=== PATIENT | male | born 1970 | race Caucasian/White ===

== ENCOUNTER 2017-10-26 14:00 | Inpatient (IN) | payer OTHER ==
[2017-10-26] MEDS ORDERED: DEXTROSE 5% IN WATER 100 ML with AMIODARONE 150 MG IV ONE (14:06)
--- NOTE | 2017-10-26 14:11 | ED ---
Chest Pain HPI - General Stated Complaint: seizures Time Seen by Provider: 10/26/17 14:06 - History of Present Illness Initial Comments: Patient presented with dizziness and weakness. According to EMS, he will has evidence of ST elevation on prehospital EKG. Also according to EMS, the patient had 3 episodes of syncope with shaking prior to arrival. Patient complains of nausea and vomiting. He complains of generalized weakness. He has tightness in the thorax. He denies any belly pain. He does feel lightheaded. He has no focal weakness. He has no neck pain. He denies injuries. He has no pain or swelling in the arms or legs. He was given aspirin by EMS just prior to arrival. - Related Data Allergies Allergy/AdvReac Type Severity Reaction Status Date / Time No Known Allergies Allergy Verified 10/26/17 14:10 Review of Systems ROS Statement: Those systems with pertinent positive or pertinent negative responses have been documented in the HPI. ROS Other: All systems not noted in ROS Statement are negative. EKG Findings - EKG Comments: EKG Findings:: Twelve-lead EKG shows ventricular rate 123 bpm, normal KS interval and Zane, axis, there is ST elevation in leads V2, V3, V4 with reciprocal changes. This is interpreted by me as acute ST elevation myocardial infarction. General Exam General appearance: alert, in no apparent distress Head exam: Present: atraumatic, normocephalic, normal inspection Eye exam: Present: normal appearance, PERRL, EOMI. Absent: scleral icterus, conjunctival injection, periorbital swelling ENT exam: Present: normal exam, mucous membranes moist Neck exam: Present: normal inspection. Absent: tenderness, meningismus, lymphadenopathy Respiratory exam: Present: normal lung sounds bilaterally. Absent: respiratory distress, wheezes, rales, rhonchi, stridor Cardiovascular Exam: Present: regular rate, normal rhythm, normal heart sounds. Absent: systolic murmur, diastolic murmur, rubs, gallop, clicks GI/Abdominal exam: Present: soft, normal bowel sounds. Absent: distended, tenderness, guarding, rebound, rigid Extremities exam: Present: normal inspection, full ROM, normal capillary refill. Absent: tenderness, pedal edema, joint swelling, calf tenderness Back exam: Present: normal inspection Neurological exam: Present: alert, oriented X3, CN II-XII intact Psychiatric exam: Present: normal affect, normal mood Skin exam: Present: warm, dry, intact, normal color. Absent: rash Chest Pain MDM - Core Measures AMI Core Measures Followed: Yes - MDM Patient presents with chest tightness, nausea and vomiting, twelve-lead EKG shows STEMI. I did consult cardiology. Patient went into V. tach, therefore I gave him 150 mg IV amiodarone, and started him on an amiodarone drip. Will be admitted directly to the cardiac catheterization lab. Disposition Clinical Impression: STEMI (ST elevation myocardial infarction) Disposition: ADMITTED IP TO THIS HOSP Condition: Serious Is patient prescribed a controlled substance at d/c from ED?: No Referrals: Cynthia Mauricio MD [Primary Care Provider] - 1-2 days
[2017-10-26] MEDS ORDERED: SODIUM CHLORIDE 0.9% 1,000 ML IV ONE (14:12)
[2017-10-26] MEDS ORDERED: MORPHINE SULFATE 4 MG/0.8 ML SYRINGE (INJ) IV PRN (14:14)
[2017-10-26] MEDS ORDERED: ONDANSETRON 4 MG/2 ML VIAL IVP PRN (14:14)
[2017-10-26] MEDS ORDERED: NALOXONE 0.4 MG/ML 1 ML VIAL IV PRN (14:14)
[2017-10-26] MEDS ORDERED: traMADol 50 MG TAB PO PRN (14:14)
[2017-10-26] MEDS ORDERED: AMIODARONE 450 MG in DEXTROSE 5% IN WATER 250 ML IV ONE ×6 (14:15→14:20)
[2017-10-26] MEDS ORDERED: AMIODARONE 450 MG in DEXTROSE 5% IN WATER 250 ML IV SCH ×4 (14:15→22:00)
--- NOTE | 2017-10-26 14:20 | XR ---
EXAMINATION TYPE: XR chest 1V portable DATE OF EXAM: 10/26/2017 COMPARISON: 07/27/2011 HISTORY: Chest pain TECHNIQUE: Single frontal view of the chest is obtained. FINDINGS: There is no focal air space opacity, pleural effusion, or pneumothorax seen. The cardiac silhouette size is within normal limits. The osseous structures are intact. Arthropathy of the shou lders. No overt failure. IMPRESSION: No acute process.
[2017-10-26] MEDS ORDERED: fentaNYL (PF) 50 MCG/ML 2 ML AMP ONE (14:23)
[2017-10-26] MEDS ORDERED: LIDOCAINE 2% INJ 20 MG/ML (20 ML MDV) ONE (14:23)
[2017-10-26] MEDS ORDERED: MIDAZOLAM 2 MG/2 ML VIAL ONE (14:28)
[2017-10-26] MEDS ORDERED: MIDAZOLAM 2 MG/2 ML VIAL IVP ONE (14:29)
[2017-10-26] MEDS ORDERED: BIVALIRUDIN BOLUS 250 MG/50 ML IV ONE (14:29)
[2017-10-26] MEDS ORDERED: LIDOCAINE 2% SYG (PF) 100 MG/5 ML IV ONE (14:30)
[2017-10-26] MEDS ORDERED: LIDOCAINE 2% SYG (PF) 100 MG/5 ML ONE (14:30)
[2017-10-26] MEDS ORDERED: BIVALIRUDIN 250 MG in SODIUM CHLORIDE 0.9% 50 ML IV ONE (14:30)
[2017-10-26] MEDS ORDERED: TICAGRELOR 90 MG TAB PO ONE (14:30)
[2017-10-26] MEDS ORDERED: TICAGRELOR 90 MG TAB ONE (14:30)
[2017-10-26] MEDS ORDERED: DEXTROSE 5% IN WATER 50 ML BAG ONE (14:30)
[2017-10-26] MEDS ORDERED: AMIODARONE 50 MG/ML 3 ML VIAL IV ONE (14:30)
[2017-10-26] MEDS ORDERED: fentaNYL (PF) 50 MCG/ML 2 ML AMP IVP ONE (14:30)
[2017-10-26] MEDS ORDERED: NITROGLYCERIN 1000MCG/10ML SYRINGE INTRACORON ONE (14:35)
[2017-10-26 14:37] LABS: Anisocytosis Slight; Basophils % (A) 0 %; Eosinophils % (A) 0 %; HCT 23.9 % (39.0-53.0); Hypochromasia Marked; Lymphocytes # (A) 1.1 k/uL (1.0-4.8); Lymphocytes % (A) 7 %; MCH 18.7 pg (25.0-35.0); MCHC 26.9 g/dL (31.0-37.0); MCV 69.4 fL (80.0-100.0); Mean Platelet Volume 6.3; Microcytosis Marked; Monocytes # (A) 0.4 k/uL (0-1.0); Monocytes % (A) 3 %; Neutrophils # (A) 14.4 k/uL (1.3-7.7); Neutrophils % (A) 89 %; Poikilocytosis Moderate; RBC 3.44 m/uL (4.30-5.90); WBC 16.1 k/uL (3.8-10.6)
[2017-10-26 14:40] LABS: ALT 39 U/L (21-72); AST 27 U/L (17-59); Albumin 3.2 g/dL (3.5-5.0); Alkaline Phosphatase 95 U/L (38-126); Anion Gap 14 mmol/L; Blood Urea Nitrogen 26 mg/dL (9-20); Calcium 8.6 mg/dL (8.4-10.2); Carbon Dioxide 21 mmol/L (22-30); Chloride 102 mmol/L (98-107); Glucose 192 mg/dL (74-99); HGB 6.4 gm/dL (13.0-17.5); Lipase 127 U/L (23-300); Magnesium 2.3 mg/dL (1.6-2.3); Potassium 4.4 mmol/L (3.5-5.1); Sodium 137 mmol/L (137-145); Total Bilirubin 0.2 mg/dL (0.2-1.3); Total Protein 5.8 g/dL (6.3-8.2)
[2017-10-26 14:41] LABS: Platelet Count 833 k/uL (150-450)
[2017-10-26 14:47] LABS: Partial Thromboplastin Time 21.1 sec (22.0-30.0); Prothrombin Time 9.7 sec (9.0-12.0)
[2017-10-26] MEDS ORDERED: METOPROLOL TARTRATE 5 MG/5 ML VIAL IVP ONE ×2 (14:47→14:48)
--- NOTE | 2017-10-26 14:47 | CONS ---
CONSULTATION Mr. Velazquez is 47-year-old male with history of smoking, history of inflammatory bowel disease on prednisone who presented with symptoms of dizziness going on for the last few days, but in the EMS, he had runs of VT with loss of consciousness and seizure in the emergency room. He was having episode of nonsustained VT. On the EKG, there was ST elevation anteriorly with right bundle branch block of unknown duration. Patient denies any symptoms of chest pain. He has dyspnea on exertion, peripheral edema according to him for the last week. He denies any prior cardiac history. He denies any knowledge of obstructive coronary artery disease or congestive heart failure. MEDICATION: At home include the prednisone. REVIEW OF SYSTEMS: RESPIRATORY SYSTEM. He has dyspnea on exertion. No recent wheezing. GI SYSTEM: He has her inflammatory bowel disease. No recent GI bleeding. SYSTEM: No dysuria or hematuria. NERVOUS SYSTEM: No stroke or seizure. PHYSICAL EXAMINATION: He is a 47-year-old male, moderately unstable. Blood pressure 100/70 with a heart rate in the 110's. HEAD: Normocephalic. EYES: Sclerae nonicteric. NECK: No bruit. LUNGS: Show decreased air exchange bilaterally. HEART: Regular rate and rhythm. Tachycardic, S1, S2. Unable to appreciate any gallop. ABDOMEN: Soft, nontender. Positive bowel sounds, no organomegaly. EXTREMITIES: +2 edema bilaterally. EKG reveals sinus mechanism, rate of 122 with right bundle branch block and history of elevation anteriorly of unknown duration. IMPRESSION: 1. Acute myocardial infarction. 2. Right bundle branch block of unknown duration. 3. Recurrent episode of ventricular tachycardia. 4. History of inflammatory bowel disease. RECOMMENDATION: I have recommended to proceed with emergent cardiac catheterization to assess the status and guide his treatment. The rationale behind the procedure as well as the risks and complications were discussed with the patient, who is in full understanding and agreement. Patient will receive IV lidocaine and he will be started on IV amiodarone. The prognosis is guarded. Thank you for this consult. Will follow with you. ZAID / ELZBIETA: [id number] /
[2017-10-26] MEDS ORDERED: IOPAMIDOL-370 125ML BTL INJ ONE (14:50)
[2017-10-26] MEDS ORDERED: IOPAMIDOL-370 100ML BTL INJ ONE (14:50)
[2017-10-26] MEDS ORDERED: MAG HYDROX/AL HYDROX/SIMETH 30 ML CUP PO PRN (15:04)
[2017-10-26] MEDS ORDERED: ATROPINE SULFATE 0.1 MG/ML 10ML SYRINGE IV PRN (15:04)
[2017-10-26] MEDS ORDERED: ZOLPIDEM 5 MG TAB PO PRN (15:04)
[2017-10-26] MEDS ORDERED: RX INFO: IV CONTRAST WAS GIVEN 1 EACH MISC MISCELLANE PRN (15:04)
[2017-10-26] MEDS ORDERED: NITROGLYCERIN SL TABS 0.4 MG TAB SUBLINGUAL PRN (15:04)
[2017-10-26 15:11] LABS: Creatine Kinase MB 3.7 ng/mL (0.0-2.4); Troponin I 0.611 ng/mL (0.000-0.034)
[2017-10-26] MEDS ORDERED: SODIUM CHLORIDE 0.9% 1,000 ML IV SCH (15:15)
[2017-10-26] MEDS ORDERED: HYDROCORTISONE SUCCINATE 100 MG/2 ML VIAL IV STA (15:24)
--- NOTE | 2017-10-26 15:44 | P.CNPUL ---
History of Present Illness Consult date: 10/26/17 Requesting physician: Margarita Wild Reason for consult: other (Acute ST elevation myocardial infarction, admitted to the ICU) Chief complaint: Seizures History of present illness: This is a 47-year-old white male with history of inflammatory bowel disease, follows normally with Dr. White. Patient was brought in with mostly symptoms of dizziness, for the last few days. But in EMS, the patient had apparently runs of ventricular tachycardia with intermittent loss of consciousness, and seizure-like activity. Patient apparently had nonsustained ventricular tachycardia, and upon arrival he was noted to have ST elevation anteriorly with right bundle branch block pattern. Patient had dyspnea on exertion profound peripheral edema, but no chest pain. And no documented cardiac history. Patient underwent straight to the cardiac catheterization lab, and he underwent stenting of a tight lesion of the LAD. According to EMS, patient had at least 3 episodes of syncope with shaking prior to arrival to the ER. He was complaining of generalized weakness, and some tightness in the chest. Aspirin was given by EMS prior to arrival to the ER. During the cardiac catheterization , the CBC report came back showing a hemoglobin of 6.4. With low indices, low MCV, and low MCH, consistent with chronic iron deficiency anemia and his platelets were noted to be quite high at [id number]. Troponin was noted to be elevated at 0.611 BNP level of 2700. Chest x-ray showed no evidence of acute process. I was notified about this patient by Dr. Wild shortly after he was done with a cardiac catheterization, and I evaluated the patient in the extended stay unit, awaiting a bed in the intensive care unit. After evaluating the patient, I recommended O2 at 3 L nasal cannula, his saturations were marginal in the low 90s, I also recommended a unit of packed RBCs and considering the patient is on a high-dose of prednisone for a long time, I recommended one dose of hydrocortisone 100 mg IV push until we have more information about his prednisone dosing by gastroenterology. Apparently the patient has history of colitis, and has been on prednisone for quite some time. During my evaluation, patient was sedated, however he was arousable, followed all simple instructions, but overall a bit drowsy. Review of Systems Could not obtain an adequate review of system, patient is drowsy, in no distress , apparently was given sedation earlier during the cardiac catheterization. ROS unobtainable: due to mental status Past Medical History Past Medical History: Asthma Additional Past Medical History / Comment(s): IBS History of Any Multi-Drug Resistant Organisms: None Reported Past Surgical History: No Surgical Hx Reported Past Psychological History: No Psychological Hx Reported Smoking Status: Never smoker Past Alcohol Use History: None Reported Past Drug Use History: None Reported Medications and Allergies Allergies Allergy/AdvReac Type Severity Reaction Status Date / Time No Known Allergies Allergy Verified 10/26/17 14:10 Physical Exam Vitals: Vital Signs Temp Pulse Resp BP Pulse Ox 10/26/17 14:10 112 H 20 117/78 97 10/26/17 14:03 97.4 F L 120 H 20 161/90 Intake and Output 10/26/17 10/26/17 10/26/17 06:59 14:59 22:59 Intake Total 319 Balance 319 Intake: IV 319 Other: Weight 65.771 kg General appearance: Pale looking 47-year-old in no distress, sleepy but arousable. Head exam: Atraumatic, normocephalic. Eye exam: Pale conjunctivae, PERRLA, EOMI, anicteric. ENT exam: Dry mucous membranes, throat is clear. Neck exam: Supple, no neck masses, no thyromegaly, no stridor. Respiratory exam: Diminished breath sounds at the bases, symmetrical expansion, no crackles, no rhonchi no wheezes. Cardiovascular Exam: Distant S1 and S2, no S3 gallop, no murmur. GI/Abdominal exam: Flat, soft, nontender, no megaly, no rebound, no guarding, positive bowel sounds. Extremities exam: No clubbing, 2+ bipedal edema, no cyanosis.n Neurological exam: Sleepy, however arousable, but tends to sleep easily, follows simple instructions, no gross focal neurologic deficit. Psychiatric exam: Blunted affect, cannot assess mental status examination fully because of sedation. Skin exam: Present: warm, dry, intact, normal color. Absent: rash Results - Laboratory Findings CBC and BMP: 10/26/17 14:05 10/26/17 14:05 PT/INR, D-dimer PT 9.7 sec (9.0-12.0) 10/26/17 14:05 INR 1.0 (<1.2) 10/26/17 14:05 Abnormal lab findings: Abnormal Labs 10/26/17 10/26/17 10/26/17 14:05 14:05 14:05 WBC 16.1 H RBC 3.44 L Hgb 6.4 L* Hct 23.9 L MCV 69.4 L MCH 18.7 L MCHC 26.9 L RDW 17.0 H Plt Count 833 H* Neutrophils # 14.4 H APTT Carbon Dioxide 21 L BUN 26 H Glucose 192 H Total Creatine Kinase 41 L CK-MB (CK-2) 3.7 H* Troponin I 0.611 H* Total Protein 5.8 L Albumin 3.2 L 10/26/17 14:05 WBC RBC Hgb Hct MCV MCH MCHC RDW Plt Count Neutrophils # APTT 21.1 L Carbon Dioxide BUN Glucose Total Creatine Kinase CK-MB (CK-2) Troponin I Total Protein Albumin - Diagnostic Findings Chest x-ray: image reviewed (No evidence of acute process on the chest x-ray noted.) Assessment and Plan Assessment: Impression: [address] elevation myocardial infarction 2 status post stenting of LAD lesion 3 recurrent ventricular tachycardia most likely secondary to acute ST elevation myocardial infarction 4 right bundle branch block pattern noted on EKG duration is unclear. Unknown. 5 severe iron deficiency anemia, most likely secondary to inflammatory bowel disease, patient will be given a unit of packed RBCs and will recommend GI evaluation. Considering the patient is chronically on prednisone, will recommend one dose of hydrocortisone 100 mg IV push, and will decide on that dosing in the next 12 hours after discussing the situation with gastroenterology staff. 6 history of inflammatory bowel disease, not clear whether the patient had Crohn 's disease or ulcerative colitis. Patient will be seen by gastroenterology on consultation. Recommendation: Admit to ICU, start patient on hydrocortisone, give 1 unit of packed RBCs, GI consultation, close monitoring, and will follow. Time with Patient: Greater than 30
[2017-10-26 18:42] LABS: Glucose,Whole Blood 139 mg/dL (75-99)
[2017-10-26 18:55] VITALS: BMI 22.1
[2017-10-26] MEDS: FUROSEMIDE 20 MG TAB PO SCH (19:06)
--- NOTE | 2017-10-26 19:51 | PTCA ---
PERCUTANEOUSTRANS CORORONARY ANGIOGRAPHY Mr. Velazquez is 47-year-old male who presented with recurrent ventricular tachycardia, had the right bundle branch block and ST elevation anteriorly. Underwent cardiac catheterization, was found to have critical stenosis involving the mid LAD. In view of that, recommendation was made regarding angioplasty and stenting. The procedures, risks and complications were discussed with the patient who is in full understanding and agreement. DESCRIPTION OF THE PROCEDURE: Using the 6-Senegalese FR4 guiding catheter and after cannulating the left main, a 0.014 advanced medium weight J-wire was advanced across the lesion and positioned distally. Then a 2.5 x 12 mm Trek balloon was advanced. One inflation at 8 atmospheres was done. Following that, the balloon was removed and a 3.0 x 28 mm Xience Alpine stent was deployed. It was dilated at 16 atmospheres. Following that, the balloon was removed and 3.25 x 12 mm NC Trek balloon was advanced and one inflation mid segment at 14 atmospheres was done. Following that, the balloon, and the guiding wire were withdrawn back in the guiding catheter. Images were obtained and repeated. Those images revealed stable successful stenting. At that point, images of the right coronary artery and left ventriculogram was performed. Following that, catheter and sheaths were removed. Hemostasis was obtained with deployment of an Angio-Seal. There was no immediate complication. Patient is returned to his room in stable condition. Of note, he received Angiomax per protocol as well as oral loading dose of Brilinta. During the procedure, his lab data came back with a hemoglobin of 6.4. RESULT: Successful stenting of the mid LAD with reduction in stenosis from 90% to 0%. RECOMMENDATION: Patient will be continued on aspirin, Brilinta, beta blockers and statin. The importance of dual antiplatelet treatment were discussed with the patient. His anemia will be further evaluated and we will obtain consultation from Dr. Blanco who has seen him in the past. Duration of procedure: 31 minutes. MMODL / IJN: [id number] /
--- NOTE | 2017-10-26 20:00 | CC ---
CARDIAC CATHETERIZATION REPORT Mr. Velazquez is 47-year-old male with no prior documented history of coronary artery disease. For the last week or so, according to him, he has been having progressive symptoms of dizziness. En route to the hospital with EMS, he had runs of ventricular tachycardia and syncopal episode with seizure in the emergency room. He was in and out of ventricular tachycardia with a sinus mechanism, right bundle branch block and ST elevation anteriorly. In view of that, recommendation made regarding cardiac catheterization. The procedure, risks, benefits and complication were discussed with the patient, who is in full understanding and agreement. 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 Using Xylocaine anesthesia and Seldinger technique, a 6-Venezuelan sheath was introduced in the right femoral artery. Selective right and left angiography performed using 6-Venezuelan FL4 guiding catheter and a 6-Venezuelan right Antwan catheter. After performing angioplasty and stenting of the left and descending artery, imaging of the right coronary was performed. Following that, a 6-Venezuelan tight pigtail catheter was used in the left ventricle and a 30-degree RAMIREZ view of the left ventricle was obtained. Following that, catheter and sheath were removed. Hemostasis was obtained with deployment of an Angio-Seal. There was no immediate complication. Patient was returned to his room in stable condition. FINDINGS: Left main: This is a large-sized vessel, bifurcating into left circumflex, left anterior descending artery, left main coronary artery. It is without any significant obstructive disease. Left anterior descending artery: This vessel is large proximally, at the takeoff of the first diagonal branch has a 90%-95% stenosis. Beyond that, there is slower flow into the distal vessel. Left circumflex: This is a nondominant vessel, large in caliber, giving rise to a large obtuse marginal branch. The left circumflex as well as its branches have no evidence of obstructive coronary disease. Right coronary artery: This is a large dominant vessel, bifurcating into PDA and posterolateral segment branches. The right PDA reaches toward the inferior apical wall, has no evidence of high-grade stenosis. There is a septal inside sales engineer toward the LAD territory. Left ventriculogram: Left ventriculogram is performed in 30-degree RAMIREZ view and revealed anterior apical hypokinesis and ejection fraction 35%-40%. HEMODYNAMICS: There was no gradient across aortic valve. The left ventricular end-diastolic pressure was 26-30 mmHg. CONCLUSION: 1. Critical stenosis involving the mid left anterior descending. 2. Moderately to severely impaired left ventricular systolic function. RECOMMENDATION: In view of finding anatomy, I have recommended proceeding with angioplasty and stenting. The procedure, risks, benefits and complication were discussed with the patient, who is in full understanding and agreement. MMSETH / ARAN: [id number] /
[2017-10-26] MEDS ORDERED: METOPROLOL TARTRATE 25 MG TAB PO SCH (21:00)
[2017-10-26] MEDS: FAMOTIDINE 20 MG TAB PO SCH (21:36)
[2017-10-26] MEDS: TICAGRELOR 90 MG TAB PO SCH (21:37)
[2017-10-26] MEDS: ATORVASTATIN 80 MG TAB PO SCH (21:37)
--- NOTE | 2017-10-26 22:51 | HP ---
HISTORY AND PHYSICAL DATE OF SERVICE: 10/26/2017 CHIEF COMPLAINT: Seizures. HISTORY OF PRESENT ILLNESS: This 47-year-old gentleman with a past medical history of multiple medical problems, including asthma and inflammatory bowel disease, being followed by Dr. Mauricio and Dr. Blanco in the outpatient setting, was found to have seizures at home. EMS found the patient in recurrent ventricular tachycardia with right bundle branch block and ST- elevation anteriorly. The patient also had episodes of syncope and the patient was admitted to ICU directly. The patient had critical stenosis of the mid LAD and the patient underwent successful stenting of the LAD with reduction in stenosis from 90% to 0% by Cardiology. The patient is being closely monitored. Of note, patient's hemoglobin was 6; exact etiology unknown at this time. Patient is being closely monitored in the ICU. There is no history of any fever, rigor or chills. No history of headache, loss of consciousness, seizures. PAST MEDICAL HISTORY: 1. History of asthma. 2. Irritable bowel syndrome. HOME MEDICATIONS: 1. Prednisone 10 mg daily. 2. Multivitamins 1 p.o. daily. ALLERGIES: NONE. FAMILY HISTORY: None per patient. SOCIAL HISTORY: No history of smoking. No history of alcohol intake. REVIEW OF SYSTEMS: ENT: No diminished hearing. No diminished vision. CARDIOVASCULAR SYSTEM: As mentioned earlier. RESPIRATORY SYSTEM: As mentioned earlier. GI: As mentioned earlier. : No dysuria or retention. NERVOUS SYSTEM: As mentioned earlier. ALLERGY/IMMUNOLOGY: No asthma, hayfever. MUSCULOSKELETAL: As mentioned earlier. HEMATOLOGY/ONCOLOGY: No history of anemia. ENDOCRINE: As mentioned earlier. CONSTITUTIONAL: As mentioned earlier. DERMATOLOGY: Negative. RHEUMATOLOGY: Negative. PSYCHIATRY: As mentioned earlier. PHYSICAL EXAMINATION: Patient alert and oriented x3. Pulse is 83, blood pressure 116/77, respiration 20, temperature 97.9, pulse ox 99% on room air. HEENT: Conjunctivae normal. Oral mucosa moist. NECK: No jugular venous distention. No carotid bruit. No lymph node enlargement. CARDIOVASCULAR SYSTEM: S1, S2 muffled. RESPIRATORY SYSTEM: Breath sounds diminished at the bases. No rhonchi. No crackles. ABDOMEN: Soft, nontender. No mass palpable. LEGS: No edema. No swelling. NERVOUS SYSTEM: Higher functions as mentioned earlier. Moves all 4 limbs. No focal motor or sensory deficit. LYMPHATICS: No lymph node palpable in neck, axillae or groin. SKIN: No ulcer, rash, bleeding. LABS: WBC 16.1, hemoglobin 6.4. Troponins noted. ASSESSMENT: 1. Recurrent ventricular tachycardia. 2. Acute dcu-LV-opbadnl-elevation myocardial infarction, status post cardiac catheterization and stenting of left anterior descending coronary artery. 3. Anemia, microcytic, possibly chronic gastrointestinal blood loss and blood-loss anemia, possibly secondary to inflammatory bowel disease. 4. History of inflammatory bowel disease. 5. History of asthma. 6. Increased creatine kinase. RECOMMENDATIONS AND DISCUSSION: In this 47-year-old gentleman who presented with multiple complex medical issues, we will monitor the patient closely, continue the current medications, continue with symptomatic treatment. Otherwise at this time I recommend continuing with the antiplatelet agents, beta blockers as well as monitoring hemoglobin closely. One unit transfusion has been given. Gastroenterology has been consulted. Repeat labs will be ordered. The patient also received a dose of steroids because of concern about long- term steroid and adrenal suppression also. Overall prognosis guarded. Will consult Dr. Thorpe for ICU evaluation and further recommendations to follow. A copy of this dictation is being forwarded to Dr. Mauricio, who is the primary physician. MMODL / IJN: [id number] /
[2017-10-26 23:58] LABS: Anisocytosis Slight; Basophils % (A) 0 %; Eosinophils % (A) 0 %; HCT 23.4 % (39.0-53.0); Hypochromasia Marked; Lymphocytes # (A) 1.2 k/uL (1.0-4.8); Lymphocytes % (A) 8 %; MCHC 27.7 g/dL (31.0-37.0); MCV 72.2 fL (80.0-100.0); Mean Platelet Volume 5.9; Microcytosis Marked; Monocytes # (A) 0.7 k/uL (0-1.0); Monocytes % (A) 5 %; Neutrophils % (A) 86 %; Platelet Count 576 k/uL (150-450); Poikilocytosis Marked; RBC 3.23 m/uL (4.30-5.90); RDW 18.7 % (11.5-15.5); WBC 15.1 k/uL (3.8-10.6)
[2017-10-27 00:12] LABS: HGB 6.5 gm/dL (13.0-17.5)
[2017-10-27 03:53] LABS: Amphetamine Screen,Urine Detected (NotDetected); Barbiturate Screen,Urine Not Detected (NotDetected); Benzodiazepines Screen,Urine Not Detected (NotDetected); Cocaine Screen,Urine Not Detected (NotDetected); Methadone Screen, Urine Not Detected (NotDetected); Opiate Screen,Urine Detected (NotDetected); Oxycodone Screen, Urine Not Detected (NotDetected); Phencyclidine Screen,Urine Not Detected (NotDetected); Tricyclic Antidepressant,Urine Not Detected (NotDetected); Urn Cannabinoid Scrn Not Detected (NotDetected)
[2017-10-27 04:00] LABS: Anisocytosis Slight; Basophils % (A) 0 %; Eosinophils % (A) 0 %; HCT 24.4 % (39.0-53.0); Hypochromasia Marked; Lymphocytes % (A) 11 %; MCH 20.4 pg (25.0-35.0); MCHC 27.8 g/dL (31.0-37.0); MCV 73.4 fL (80.0-100.0); Mean Platelet Volume 6.2; Microcytosis Moderate; Monocytes # (A) 0.9 k/uL (0-1.0); Monocytes % (A) 5 %; Neutrophils % (A) 83 %; Platelet Count 627 k/uL (150-450); Poikilocytosis Marked; RBC 3.33 m/uL (4.30-5.90); RDW 18.6 % (11.5-15.5); WBC 18.1 k/uL (3.8-10.6)
[2017-10-27 04:02] LABS: HGB 6.8 gm/dL (13.0-17.5)
[2017-10-27 04:13] LABS: Anion Gap 10 mmol/L; Blood Urea Nitrogen 23 mg/dL (9-20); Calcium 8.4 mg/dL (8.4-10.2); Carbon Dioxide 21 mmol/L (22-30); Chloride 105 mmol/L (98-107); Cholesterol 137 mg/dL (<200); Glucose 108 mg/dL (74-99); HDL Cholesterol 62 mg/dL (40-60); LDL Cholesterol,Calculated 41 mg/dL (0-99); Magnesium 2.2 mg/dL (1.6-2.3); Phosphorus 4.5 mg/dL (2.5-4.5); Potassium 4.2 mmol/L (3.5-5.1); Sodium 136 mmol/L (137-145); Triglycerides 169 mg/dL (<150)
--- NOTE | 2017-10-27 07:32 | XR ---
EXAMINATION TYPE: XR chest 1V portable DATE OF EXAM: 10/27/2017 COMPARISON: 10/26/2017 HISTORY: Chest pain TECHNIQUE: Single frontal view of the chest is obtained. FINDINGS: There is no focal air space opacity, pleural effusion, or pneumothorax seen. The cardiac silhouette size is within normal limits. The osseous structures are intact. There is moderate gleno humeral arthropathy bilaterally and mild acromioclavicular arthropathy. IMPRESSION: No acute cardiopulmonary process, unchanged from the prior.
--- NOTE | 2017-10-27 08:03 | PN ---
PROGRESS NOTE Mr. Velazquez is a 47-year-old male who presented with recurrent episode of ventricular tachycardia. He has underwent a cardiac catheterization and was found to have a critical stenosis in the mid LAD and underwent stenting of that vessel. He is doing well this morning. His breathing has been stable. He denies any dizziness or palpitation. He has no further arrhythmia. He continues to be on aspirin twice a day, amiodarone IV, Lipitor 80 mg daily, Lasix 20 mg twice a day, lisinopril 2.5 mg daily, and metoprolol tartrate 25 mg twice a day, spironolactone 25 mg daily and Brilinta 90 mg twice a day. PHYSICAL EXAMINATION: Blood pressure 126/80 with a heart rate in the 80s. LUNGS: Clear. Heart regular rate and rhythm S1, S2. No S3. No rub. ABDOMEN: Soft, nontender. Extremities +1 to 2 edema. Right groin hematoma. LAB DATA: Lab data revealed a hemoglobin of 6.8. Patient was transfused another unit after. He has had white blood cell of 18.1. BUN and creatinine 23 and 0.8. Troponin 0.541 and 0.708. Cholesterol 137, LDL of 41. IMPRESSION: 1. Status post recurrent ventricular tachycardia. 2. Status post stenting of the LAD with minimal troponin elevation. 3. Ischemic cardiomyopathy of unknown duration. 4. Severe anemia with prior history of colitis. 5. History of tobacco abuse. RECOMMENDATION: I will switch him to oral amiodarone. We will await the input of Dr. Blanco regarding his anemia. We will increase his level activity in the dose of his beta vannessa. The etiology of his arrhythmia is unclear to me at this time. Patient does not appear to have significant myocardial infarction, but it could be related to acute ischemia or a prior scar. We will review the results for echo and depending on his progress, further recommendations will be made. MMODL / IJN: [id number] /
[2017-10-27] MEDS: METOPROLOL TARTRATE 50 MG TAB PO SCH ×2 (09:20→22:37)
[2017-10-27] MEDS: AMIODARONE 200 MG TAB PO SCH ×2 (09:20→22:37)
[2017-10-27] MEDS: ASPIRIN 81 MG PO SCH (09:22)
[2017-10-27] MEDS: FUROSEMIDE 20 MG TAB PO SCH ×2 (09:23→15:49)
[2017-10-27] MEDS: FAMOTIDINE 20 MG TAB PO SCH ×2 (09:23→22:38)
[2017-10-27] MEDS: LISINOPRIL 2.5 MG TAB PO SCH (09:23)
[2017-10-27] MEDS: SPIRONOLACTONE 25 MG TAB PO SCH (09:23)
[2017-10-27] MEDS: TICAGRELOR 90 MG TAB PO SCH ×2 (09:23→22:38)
[2017-10-27 10:07] LABS: Anisocytosis Moderate; Basophils % (A) 0 %; Eosinophils % (A) 0 %; HGB 8.1 gm/dL (13.0-17.5); Hypochromasia Marked; Lymphocytes # (A) 1.8 k/uL (1.0-4.8); Lymphocytes % (A) 7 %; MCH 21.1 pg (25.0-35.0); MCHC 28.8 g/dL (31.0-37.0); MCV 73.3 fL (80.0-100.0); Microcytosis Marked; Monocytes # (A) 1.1 k/uL (0-1.0); Monocytes % (A) 5 %; Neutrophils # (A) 21.1 k/uL (1.3-7.7); Neutrophils % (A) 87 %; Platelet Count 601 k/uL (150-450); Poikilocytosis Marked; RBC 3.82 m/uL (4.30-5.90); RDW 20.1 % (11.5-15.5); WBC 24.3 k/uL (3.8-10.6)
[2017-10-27] MEDS: predniSONE 10 MG TAB PO SCH (10:32)
[2017-10-27] MEDS: FERROUS SULFATE 325 MG TAB PO SCH (10:33)
--- NOTE | 2017-10-27 10:34 | ECHOF ---
Referral Reason:mi MEASUREMENTS -------- HEIGHT: 182.9 cm WEIGHT: 69.9 kg BP: 121/79 RVIDd: 3.4 cm (< 3.3) IVSd: 0.9 cm (0.6 - 1.1) LVIDd: 4.2 cm (3.9 - 5.3) LVPWd: 1.0 cm (0.6 - 1.1) IVSs: 1.2 cm LVIDs: 3.5 cm LVPWs: 1.1 cm Ao Diam: 3.4 cm (2.0 - 3.7) AV Cusp: 2.3 cm (1.5 - 2.6) LA Diam: 2.7 cm (2.7 - 3.8) MV EXCURSION: 26.030 mm (> 18.000) MV EF SLOPE: 373 mm/s (70 - 150) EPSS: 0.5 cm MV E Arvind: 0.94 m/s MV DecT: 155 ms MV A Arvind: 0.72 m/s MV E/A Ratio: 1.31 RAP: 5.00 mmHg RVSP: 9.06 mmHg FINDINGS -------- Sinus rhythm. This was a technically difficult study with suboptimal views. The left ventricular size is normal. Left ventricular wall thickness is normal. Overall left vent ricular systolic function is severely impaired with, an EF between 25 - 30 %. Basal anterior LV wal l motion is hypokinetic. Basal inferoseptal LV wall motion is hypokinetic. Basal anteroseptal L V wall motion is hypokinetic. Mid anterior LV wall motion is hypokinetic. Mid inferoseptal LV w all motion is hypokinetic. Mid anteroseptal LV wall motion is hypokinetic. Apical anterior LV w all motion is hypokinetic. Apical lateral LV wall motion is hypokinetic. Apical inferior LV wal l motion is hypokinetic. Apical septum LV wall motion is hypokinetic. Septal Hypokinesis The right ventricle is mildly enlarged. The left atrium is normal in size. The right atrium is normal in size. Lumason used The aortic valve is trileaflet, and appears structurally normal. No aortic stenosis or regurgitation. The mitral valve leaflets are mildly thickened. There is trace mitral regurgitation. Trace tricuspid regurgitation present. The right ventricular systolic pressure, as measured by Dopp ler, is 9.06mmHg. Pulmonic valve appears structurally normal. The aortic root size is normal. Normal inferior vena cava with normal inspiratory collapse consistent with estimated right atrial pre ssure of 5 mmHg. The pericardium is normal. CONCLUSIONS -------- 1. Sinus rhythm. 2. This was a technically difficult study with suboptimal views. 3. The left ventricular size is normal. 4. Left ventricular wall thickness is normal. 5. Overall left ventricular systolic function is severely impaired with, an EF between 25 - 30 %. 6. Basal anterior LV wall motion is hypokinetic. 7. Basal inferoseptal LV wall motion is hypokinetic. 8. Basal anteroseptal LV wall motion is hypokinetic. 9. Mid anterior LV wall motion is hypokinetic. 10. Mid inferoseptal LV wall motion is hypokinetic. 11. Mid anteroseptal LV wall motion is hypokinetic. 12. Apical anterior LV wall motion is hypokinetic. 13. Apical lateral LV wall motion is hypokinetic. 14. Apical inferior LV wall motion is hypokinetic. 15. Apical septum LV wall motion is hypokinetic. 16. Septal Hypokinesis 17. The right ventricle is mildly enlarged. 18. The left atrium is normal in size. 19. The right atrium is normal in size. 20. Lumason used 21. The aortic valve is trileaflet, and appears structurally normal. No aortic stenosis or regurgitat ion. 22. The mitral valve leaflets are mildly thickened. 23. There is trace mitral regurgitation. 24. Trace tricuspid regurgitation present. 25. The right ventricular systolic pressure, as measured by Doppler, is 9.06mmHg. 26. Pulmonic valve appears structurally normal. 27. The aortic root size is normal. 28. Normal inferior vena cava with normal inspiratory collapse consistent with estimated right atrial pressure of 5 mmHg. 29. The pericardium is normal. MELLOWING MACHINE OPERATOR: Maris Andujar RDCS
--- NOTE | 2017-10-27 10:58 | P.PN ---
Subjective Progress Note Date: 10/27/17 Principal diagnosis: Acute ST elevation myocardial infarction This is a 47-year-old white male with history of inflammatory bowel disease, follows normally with Dr. White. Patient was brought in with mostly symptoms of dizziness, for the last few days. But in EMS, the patient had apparently runs of ventricular tachycardia with intermittent loss of consciousness, and seizure-like activity. Patient apparently had nonsustained ventricular tachycardia, and upon arrival he was noted to have ST elevation anteriorly with right bundle branch block pattern. Patient had dyspnea on exertion profound peripheral edema, but no chest pain. And no documented cardiac history. Patient underwent straight to the cardiac catheterization lab, and he underwent stenting of a tight lesion of the LAD. According to EMS, patient had at least 3 episodes of syncope with shaking prior to arrival to the ER. He was complaining of generalized weakness, and some tightness in the chest. Aspirin was given by EMS prior to arrival to the ER. During the cardiac catheterization , the CBC report came back showing a hemoglobin of 6.4. With low indices, low MCV, and low MCH, consistent with chronic iron deficiency anemia and his platelets were noted to be quite high at 422400. Troponin was noted to be elevated at 0.611 BNP level of 2700. Chest x-ray showed no evidence of acute process. I was notified about this patient by Dr. Wild shortly after he was done with a cardiac catheterization, and I evaluated the patient in the extended stay unit, awaiting a bed in the intensive care unit. After evaluating the patient, I recommended O2 at 3 L nasal cannula, his saturations were marginal in the low 90s, I also recommended a unit of packed RBCs and considering the patient is on a high-dose of prednisone for a long time, I recommended one dose of hydrocortisone 100 mg IV push until we have more information about his prednisone dosing by gastroenterology. Apparently the patient has history of colitis, and has been on prednisone for quite some time. During my evaluation, patient was sedated, however he was arousable, followed all simple instructions, but overall a bit drowsy. Patient was reevaluated today on 10/27/2017, remains in the ICU, hemodynamically stable, in no form of respiratory distress, relatively asymptomatic. Patient did receive 2 units of packed RBCs so far for low hemoglobin below 7, and his hemoglobin this morning is pending. Patient denies any symptoms to suggest active bleeding, but he is known to have history of inflammatory bowel disease, and he was seen by gastroenterology, placed back on his usual dose of prednisone. Patient is also on Pepcid. WBC count today is 24.3 hemoglobin is 8.1 after 2 units of packed RBCs his platelets are 601, and his basic metabolic profile is normal, renal profile is normal. Troponin is 0.708. Chest x-ray this morning showed no evidence of acute cardiopulmonary process. Objective - Vital Signs Vital signs: Vital Signs Temp 97.8 F 10/27/17 08:00 Pulse 75 10/27/17 10:00 Resp 20 10/27/17 10:00 BP 124/79 10/27/17 10:00 Pulse Ox 98 10/27/17 10:00 Intake & Output 10/26/17 10/27/17 10/27/17 18:59 06:59 18:59 Intake Total 394 1875.3 630.1 Output Total 1100 400 Balance 394 775.3 230.1 Weight 70 kg 70.2 kg 70.2 kg Intake: IV 394 1120.3 130.1 Amiodarone 450 mg In 150.3 50.1 Dextrose 5% in Water 250 ml @ 1 MG/MIN 34.53 mls/ hr IV [id number] ONE Rx#: [id number] PRBC 310 Sodium Chloride 0.9% 1, 75 660 80 000 ml @ 75 mls/hr IV . [id number] [facility] Rx#:[id number] Intake, IV Titration 75 Amount Sodium Chloride 0.9% 1, 75 000 ml @ 75 mls/hr IV . [id number] [facility] Rx#:[id number] Oral 60 500 Blood Product 0 620 Rc As-1 Unit 310 [id number] Rc As-1 Unit 0 310 [id number] Output: Urine 1100 400 Other: Voiding Method Urinal Urinal # Voids 0 # Bowel Movements 1 1 - Exam General appearance: 47-year-old in no distress, sleepy but arousable. Head exam: Atraumatic, normocephalic. Eye exam: Pale conjunctivae, PERRLA, EOMI, anicteric. ENT exam: Moist mucous membranes, throat is clear. Neck exam: Supple, no neck masses, no thyromegaly, no stridor. Respiratory exam: Diminished breath sounds at the bases, symmetrical expansion, no crackles, no rhonchi no wheezes. Cardiovascular Exam: Distant S1 and S2, no S3 gallop, no murmur. GI/Abdominal exam: Flat, soft, nontender, no megaly, no rebound, no guarding, positive bowel sounds. Extremities exam: No clubbing, 2+ bipedal edema, no cyanosis.n Neurological exam: , alert oriented 3, no gross focal neurologic deficit Psychiatric exam: Blunted affect, normal mood, normal mental status examination. Skin exam: No rashes, no erythema noted. - Labs CBC & Chem 7: 10/27/17 09:43 10/27/17 03:49 Labs: Abnormal Lab Results - Last 24 Hours (Table) 10/26/17 10/26/17 10/26/17 Range/Units 14:05 14:05 14:05 WBC 16.1 H (3.8-10.6) k/uL RBC 3.44 L (4.30-5.90) m/uL Hgb 6.4 L* (13.0-17.5) gm/dL Hct 23.9 L (39.0-53.0) % MCV 69.4 L (80.0-100.0) fL MCH 18.7 L (25.0-35.0) pg MCHC 26.9 L (31.0-37.0) g/dL RDW 17.0 H (11.5-15.5) % Plt Count 833 H* (150-450) k/uL Neutrophils # 14.4 H (1.3-7.7) k/uL Monocytes # (0-1.0) k/uL APTT (22.0-30.0) sec Sodium (137-145) mmol/L Carbon Dioxide 21 L (22-30) mmol/L BUN 26 H (9-20) mg/dL Glucose 192 H (74-99) mg/dL POC Glucose (mg/dL) (75-99) mg/dL Total Creatine Kinase 41 L (55-170) U/L CK-MB (CK-2) 3.7 H* (0.0-2.4) ng/mL Troponin I 0.611 H* (0.000-0.034) ng/mL Total Protein 5.8 L (6.3-8.2) g/dL Albumin 3.2 L (3.5-5.0) g/dL Triglycerides (<150) mg/dL HDL Cholesterol (40-60) mg/dL Urine Opiates Screen (NotDetected) Ur Amphetamines Screen (NotDetected) U Methamphetamines Scrn (NotDetected) Crossmatch 10/26/17 10/26/17 10/26/17 Range/Units 14:05 14:43 18:40 WBC (3.8-10.6) k/uL RBC (4.30-5.90) m/uL Hgb (13.0-17.5) gm/dL Hct (39.0-53.0) % MCV (80.0-100.0) fL MCH (25.0-35.0) pg MCHC (31.0-37.0) g/dL RDW (11.5-15.5) % Plt Count (150-450) k/uL Neutrophils # (1.3-7.7) k/uL Monocytes # (0-1.0) k/uL APTT 21.1 L (22.0-30.0) sec Sodium (137-145) mmol/L Carbon Dioxide (22-30) mmol/L BUN (9-20) mg/dL Glucose (74-99) mg/dL POC Glucose (mg/dL) 139 H (75-99) mg/dL Total Creatine Kinase (55-170) U/L CK-MB (CK-2) (0.0-2.4) ng/mL Troponin I (0.000-0.034) ng/mL Total Protein (6.3-8.2) g/dL Albumin (3.5-5.0) g/dL Triglycerides (<150) mg/dL HDL Cholesterol (40-60) mg/dL Urine Opiates Screen (NotDetected) Ur Amphetamines Screen (NotDetected) U Methamphetamines Scrn (NotDetected) Crossmatch See Detail 10/26/17 10/26/17 10/27/17 Range/Units 20:30 23:48 03:20 WBC 15.1 H (3.8-10.6) k/uL RBC 3.23 L (4.30-5.90) m/uL Hgb 6.5 L* (13.0-17.5) gm/dL Hct 23.4 L (39.0-53.0) % MCV 72.2 L (80.0-100.0) fL MCH 20.0 L (25.0-35.0) pg MCHC 27.7 L (31.0-37.0) g/dL RDW 18.7 H (11.5-15.5) % Plt Count 576 H (150-450) k/uL Neutrophils # 13.0 H (1.3-7.7) k/uL Monocytes # (0-1.0) k/uL APTT (22.0-30.0) sec Sodium (137-145) mmol/L Carbon Dioxide (22-30) mmol/L BUN (9-20) mg/dL Glucose (74-99) mg/dL POC Glucose (mg/dL) (75-99) mg/dL Total Creatine Kinase (55-170) U/L CK-MB (CK-2) (0.0-2.4) ng/mL Troponin I 0.541 H* (0.000-0.034) ng/mL Total Protein (6.3-8.2) g/dL Albumin (3.5-5.0) g/dL Triglycerides (<150) mg/dL HDL Cholesterol (40-60) mg/dL Urine Opiates Screen Detected H (NotDetected) Ur Amphetamines Screen Detected H (NotDetected) U Methamphetamines Scrn Detected H (NotDetected) Crossmatch 10/27/17 10/27/17 10/27/17 Range/Units 03:49 03:49 03:49 WBC 18.1 H (3.8-10.6) k/uL RBC 3.33 L (4.30-5.90) m/uL Hgb 6.8 L* (13.0-17.5) gm/dL Hct 24.4 L (39.0-53.0) % MCV 73.4 L (80.0-100.0) fL MCH 20.4 L (25.0-35.0) pg MCHC 27.8 L (31.0-37.0) g/dL RDW 18.6 H (11.5-15.5) % Plt Count 627 H (150-450) k/uL Neutrophils # 15.0 H (1.3-7.7) k/uL Monocytes # (0-1.0) k/uL APTT (22.0-30.0) sec Sodium 136 L (137-145) mmol/L Carbon Dioxide 21 L (22-30) mmol/L BUN 23 H (9-20) mg/dL Glucose 108 H (74-99) mg/dL POC Glucose (mg/dL) (75-99) mg/dL Total Creatine Kinase (55-170) U/L CK-MB (CK-2) (0.0-2.4) ng/mL Troponin I 0.708 H* (0.000-0.034) ng/mL Total Protein (6.3-8.2) g/dL Albumin (3.5-5.0) g/dL Triglycerides 169 H (<150) mg/dL HDL Cholesterol 62 H (40-60) mg/dL Urine Opiates Screen (NotDetected) Ur Amphetamines Screen (NotDetected) U Methamphetamines Scrn (NotDetected) Crossmatch 10/27/17 Range/Units 09:43 WBC 24.3 H (3.8-10.6) k/uL RBC 3.82 L (4.30-5.90) m/uL Hgb 8.1 L (13.0-17.5) gm/dL Hct 28.0 L (39.0-53.0) % MCV 73.3 L (80.0-100.0) fL MCH 21.1 L (25.0-35.0) pg MCHC 28.8 L (31.0-37.0) g/dL RDW 20.1 H (11.5-15.5) % Plt Count 601 H (150-450) k/uL Neutrophils # 21.1 H (1.3-7.7) k/uL Monocytes # 1.1 H (0-1.0) k/uL APTT (22.0-30.0) sec Sodium (137-145) mmol/L Carbon Dioxide (22-30) mmol/L BUN (9-20) mg/dL Glucose (74-99) mg/dL POC Glucose (mg/dL) (75-99) mg/dL Total Creatine Kinase (55-170) U/L CK-MB (CK-2) (0.0-2.4) ng/mL Troponin I (0.000-0.034) ng/mL Total Protein (6.3-8.2) g/dL Albumin (3.5-5.0) g/dL Triglycerides (<150) mg/dL HDL Cholesterol (40-60) mg/dL Urine Opiates Screen (NotDetected) Ur Amphetamines Screen (NotDetected) U Methamphetamines Scrn (NotDetected) Crossmatch Assessment and Plan Assessment: Impression: [address] elevation myocardial infarction 2 status post stenting of LAD lesion, postoperative day #1 3 recurrent ventricular tachycardia most likely secondary to acute ST elevation myocardial infarction 4 right bundle branch block pattern noted on EKG duration is unclear. Unknown. 5 severe iron deficiency anemia, most likely secondary to inflammatory bowel disease, patient received a total of 2 units of packed RBCs since admission. Seen by gastroenterology, recommended placing him back on prednisone, may start the patient on IV iron supplement. 6 history of inflammatory bowel disease, not clear whether the patient had Crohn 's disease or ulcerative colitis. Back on small dose of prednisone, and on Pepcid. Recommendation: Continue present supportive care measures, consider transferring the patient out of the ICU to a monitor bed on selective if cleared by cardiology. We'll continue to follow. Time with Patient: Less than 30
--- NOTE | 2017-10-27 11:39 | P.CONS ---
History of Present Illness - Reason for Consult Consult date: 10/27/17 Ulcerative colitis Requesting physician: Margarita Wild - History of Present Illness 47-year-old male patient of Dr. Blanco recently diagnosed with proctosigmoid ulcerative colitis, iron deficiency anemia July 2017 biopsy proven colonoscopy at [facility]. Patient has had a few hospitalizations last 2-4 months secondary to rectal bleeding exacerbation of ulcerative colitis. He has been on oral prednisone for a few weeks no other maintenance medications; dosing was down to 10 mg daily prior to admission. Patient was admitted with dizziness arrhythmia elevated troponin EKG changes consistent with acute ST elevated AK. Status post heart catheterization yesterday with successful stenting of the mid LAD. Patient has been experiencing intermittent rectal bleeding in the outpatient setting before admission. Last bloody bowel movement 1 few day prior to admission. Hemoglobin on admission 6.5. MCV 72. Platelet 576. White count 15.1. INR 1.0. BUN 26. Creatinine 0.8. Stool occult blood positive. He received 2 units of blood current hemoglobin 8.1. Presently patient denies abdominal pain. He had a bowel movement this morning that he describes yellow in color. Afebrile. Tolerating healthy heart diet. Review of Systems Constitutional: Denies fever, chills, sweats, weight gain, or loss. HEENT: Negative for migraines, blurred vision or loss, earaches, drainage, tinnitus, oral mucosal lesions, dysphagia, or odynophagia. Cardiac: See HPI. Respiratory: Negative for shortness of breath, hemoptysis, cough, or sputum production. Gastrointestinal: See HPI for pertinent findings. Genitourinary: Negative for hematuria, urgency, frequency, polyuria, dysuria, or penile discharge. Musculoskeletal: Negative for muscle aches, swelling, arthritis, and arthralgias. Neurologic: Negative for stroke or TIA. Endocrine: Negative for thyroid problems. Skin: Negative for rash or itching. Psychiatric: Negative history for depression and anxiety Past Medical History Past Medical History: Asthma Additional Past Medical History / Comment(s): IBS History of Any Multi-Drug Resistant Organisms: None Reported Past Surgical History: No Surgical Hx Reported Past Psychological History: No Psychological Hx Reported Smoking Status: Never smoker Past Alcohol Use History: None Reported Past Drug Use History: None Reported Medications and Allergies Home Medications Medication Instructions Recorded Confirmed Type Multivitamins, Thera [Multivitamin 1 tab PO DAILY 10/26/17 10/26/17 History (formulary)] predniSONE 10 mg PO DAILY 10/26/17 10/26/17 History Allergies Allergy/AdvReac Type Severity Reaction Status Date / Time No Known Allergies Allergy Verified 10/26/17 18:40 Physical Exam Vitals: Vital Signs Temp Pulse Pulse Resp BP BP Pulse Ox 10/27/17 11:10 18 10/27/17 11:00 66 18 113/82 99 10/27/17 10:00 75 20 124/79 98 10/27/17 09:00 95 23 123/85 98 10/27/17 08:00 97.8 F 82 20 144/92 99 10/27/17 07:00 85 20 126/89 96 10/27/17 06:40 98.0 F 60 20 126/89 100 10/27/17 06:00 71 21 122/85 100 10/27/17 05:23 97.9 F 87 20 122/86 99 10/27/17 05:00 88 25 H 116/80 100 10/27/17 04:53 97.9 F 62 22 119/81 98 10/27/17 04:43 98.0 F 60 20 116/80 99 10/27/17 04:00 98.0 F 66 24 123/78 99 10/27/17 03:00 78 24 126/87 99 10/27/17 02:00 75 18 120/86 98 10/27/17 01:00 79 15 116/75 98 10/27/17 00:00 97.6 F 67 24 115/82 99 10/26/17 23:00 72 20 122/84 99 10/26/17 22:30 74 24 122/84 98 10/26/17 22:00 73 23 119/82 100 10/26/17 21:30 77 22 119/82 100 10/26/17 21:00 97.9 F 83 20 116/77 99 10/26/17 20:30 81 18 125/81 97 10/26/17 20:00 87 20 112/83 98 10/26/17 19:30 83 20 105/74 98 10/26/17 19:00 97.7 F 75 113/81 96 10/26/17 18:56 80 10/26/17 18:50 80 105/71 97 04/25/18 18:40 84 105/71 99 04/25/18 18:30 88 105/71 99 10/26/17 18:27 88 10/26/17 18:19 98.0 F 81 18 115/76 97 10/26/17 17:49 98.2 F 79 18 113/77 98 10/26/17 17:39 98.1 F 80 18 107/67 99 10/26/17 17:30 74 18 107/69 99 10/26/17 16:33 79 20 105/69 98 10/26/17 16:10 78 20 103/71 98 10/26/17 15:55 81 20 107/67 98 10/26/17 15:40 82 20 104/67 98 10/26/17 15:25 86 20 101/69 97 10/26/17 15:10 97.6 F 90 20 98/64 93 L 10/26/17 14:26 97.7 F 80 16 105/71 97 10/26/17 14:10 112 H 20 117/78 97 10/26/17 14:03 97.4 F L 120 H 20 161/90 Intake and Output 10/26/17 10/27/17 10/27/17 22:59 06:59 14:59 Intake Total 761.7 1188.6 650.1 Output Total 1100 400 Balance 761.7 88.6 250.1 Intake: IV 316.7 878.6 150.1 Amiodarone 450 mg In 16.7 133.6 50.1 Dextrose 5% in Water 250 ml @ 1 MG/MIN 34.53 mls/ hr IV .Q7H31M ONE Rx#: [id number] PRBC 310 Sodium Chloride 0.9% 1, 300 435 100 000 ml @ 75 mls/hr IV . [id number] [facility] Rx#:[id number] Intake, IV Titration 75 Amount Sodium Chloride 0.9% 1, 75 000 ml @ 75 mls/hr IV . [id number] [facility] Rx#:[id number] Oral 60 500 Blood Product 310 310 Rc As-1 Unit 310 [id number] Rc As-1 Unit 310 [id number] Output: Urine 1100 400 Other: Voiding Method Urinal Urinal # Voids 0 # Bowel Movements 1 1 Weight 70.2 kg 70.2 kg General appearance: The patient is alert, oriented, in no acute distress. HET: Head is normocephalic and atraumatic. Pupils are equal and reactive. Oropharynx is clear without lesions. Neck: Supple without lymphadenopathy. Trachea midline. Heart: S1 S2. Regular rate and rhythm. Lungs: No crackles or wheezes are heard. Abdomen: Soft, nontender, nondistended with bowel sounds. No peritoneal signs. No palpable organomegaly or masses. Extremities: Normal skin color and turgor. No cyanosis, rash, ulceration, clubbing, or edema. Radial and pedal pulses are 2/4 bilaterally. Neurological: No focal deficits. Strength and sensation are grossly intact. Results CBC & Chem 7: 10/27/17 09:43 10/27/17 03:49 Labs: Abnormal Lab Results - Last 24 Hours (Table) 10/26/17 10/26/17 10/26/17 Range/Units 14:05 14:05 14:05 WBC 16.1 H (3.8-10.6) k/uL RBC 3.44 L (4.30-5.90) m/uL Hgb 6.4 L* (13.0-17.5) gm/dL Hct 23.9 L (39.0-53.0) % MCV 69.4 L (80.0-100.0) fL MCH 18.7 L (25.0-35.0) pg MCHC 26.9 L (31.0-37.0) g/dL RDW 17.0 H (11.5-15.5) % Plt Count 833 H* (150-450) k/uL Neutrophils # 14.4 H (1.3-7.7) k/uL Monocytes # (0-1.0) k/uL APTT (22.0-30.0) sec Sodium (137-145) mmol/L Carbon Dioxide 21 L (22-30) mmol/L BUN 26 H (9-20) mg/dL Glucose 192 H (74-99) mg/dL POC Glucose (mg/dL) (75-99) mg/dL Total Creatine Kinase 41 L (55-170) U/L CK-MB (CK-2) 3.7 H* (0.0-2.4) ng/mL Troponin I 0.611 H* (0.000-0.034) ng/mL Total Protein 5.8 L (6.3-8.2) g/dL Albumin 3.2 L (3.5-5.0) g/dL Triglycerides (<150) mg/dL HDL Cholesterol (40-60) mg/dL Urine Opiates Screen (NotDetected) Ur Amphetamines Screen (NotDetected) U Methamphetamines Scrn (NotDetected) Crossmatch 10/26/17 10/26/17 10/26/17 Range/Units 14:05 14:43 18:40 WBC (3.8-10.6) k/uL RBC (4.30-5.90) m/uL Hgb (13.0-17.5) gm/dL Hct (39.0-53.0) % MCV (80.0-100.0) fL MCH (25.0-35.0) pg MCHC (31.0-37.0) g/dL RDW (11.5-15.5) % Plt Count (150-450) k/uL Neutrophils # (1.3-7.7) k/uL Monocytes # (0-1.0) k/uL APTT 21.1 L (22.0-30.0) sec Sodium (137-145) mmol/L Carbon Dioxide (22-30) mmol/L BUN (9-20) mg/dL Glucose (74-99) mg/dL POC Glucose (mg/dL) 139 H (75-99) mg/dL Total Creatine Kinase (55-170) U/L CK-MB (CK-2) (0.0-2.4) ng/mL Troponin I (0.000-0.034) ng/mL Total Protein (6.3-8.2) g/dL Albumin (3.5-5.0) g/dL Triglycerides (<150) mg/dL HDL Cholesterol (40-60) mg/dL Urine Opiates Screen (NotDetected) Ur Amphetamines Screen (NotDetected) U Methamphetamines Scrn (NotDetected) Crossmatch See Detail 10/26/17 10/26/17 10/27/17 Range/Units 20:30 23:48 03:20 WBC 15.1 H (3.8-10.6) k/uL RBC 3.23 L (4.30-5.90) m/uL Hgb 6.5 L* (13.0-17.5) gm/dL Hct 23.4 L (39.0-53.0) % MCV 72.2 L (80.0-100.0) fL MCH 20.0 L (25.0-35.0) pg MCHC 27.7 L (31.0-37.0) g/dL RDW 18.7 H (11.5-15.5) % Plt Count 576 H (150-450) k/uL Neutrophils # 13.0 H (1.3-7.7) k/uL Monocytes # (0-1.0) k/uL APTT (22.0-30.0) sec Sodium (137-145) mmol/L Carbon Dioxide (22-30) mmol/L BUN (9-20) mg/dL Glucose (74-99) mg/dL POC Glucose (mg/dL) (75-99) mg/dL Total Creatine Kinase (55-170) U/L CK-MB (CK-2) (0.0-2.4) ng/mL Troponin I 0.541 H* (0.000-0.034) ng/mL Total Protein (6.3-8.2) g/dL Albumin (3.5-5.0) g/dL Triglycerides (<150) mg/dL HDL Cholesterol (40-60) mg/dL Urine Opiates Screen Detected H (NotDetected) Ur Amphetamines Screen Detected H (NotDetected) U Methamphetamines Scrn Detected H (NotDetected) Crossmatch 10/27/17 10/27/17 10/27/17 Range/Units 03:49 03:49 03:49 WBC 18.1 H (3.8-10.6) k/uL RBC 3.33 L (4.30-5.90) m/uL Hgb 6.8 L* (13.0-17.5) gm/dL Hct 24.4 L (39.0-53.0) % MCV 73.4 L (80.0-100.0) fL MCH 20.4 L (25.0-35.0) pg MCHC 27.8 L (31.0-37.0) g/dL RDW 18.6 H (11.5-15.5) % Plt Count 627 H (150-450) k/uL Neutrophils # 15.0 H (1.3-7.7) k/uL Monocytes # (0-1.0) k/uL APTT (22.0-30.0) sec Sodium 136 L (137-145) mmol/L Carbon Dioxide 21 L (22-30) mmol/L BUN 23 H (9-20) mg/dL Glucose 108 H (74-99) mg/dL POC Glucose (mg/dL) (75-99) mg/dL Total Creatine Kinase (55-170) U/L CK-MB (CK-2) (0.0-2.4) ng/mL Troponin I 0.708 H* (0.000-0.034) ng/mL Total Protein (6.3-8.2) g/dL Albumin (3.5-5.0) g/dL Triglycerides 169 H (<150) mg/dL HDL Cholesterol 62 H (40-60) mg/dL Urine Opiates Screen (NotDetected) Ur Amphetamines Screen (NotDetected) U Methamphetamines Scrn (NotDetected) Crossmatch 10/27/17 Range/Units 09:43 WBC 24.3 H (3.8-10.6) k/uL RBC 3.82 L (4.30-5.90) m/uL Hgb 8.1 L (13.0-17.5) gm/dL Hct 28.0 L (39.0-53.0) % MCV 73.3 L (80.0-100.0) fL MCH 21.1 L (25.0-35.0) pg MCHC 28.8 L (31.0-37.0) g/dL RDW 20.1 H (11.5-15.5) % Plt Count 601 H (150-450) k/uL Neutrophils # 21.1 H (1.3-7.7) k/uL Monocytes # 1.1 H (0-1.0) k/uL APTT (22.0-30.0) sec Sodium (137-145) mmol/L Carbon Dioxide (22-30) mmol/L BUN (9-20) mg/dL Glucose (74-99) mg/dL POC Glucose (mg/dL) (75-99) mg/dL Total Creatine Kinase (55-170) U/L CK-MB (CK-2) (0.0-2.4) ng/mL Troponin I (0.000-0.034) ng/mL Total Protein (6.3-8.2) g/dL Albumin (3.5-5.0) g/dL Triglycerides (<150) mg/dL HDL Cholesterol (40-60) mg/dL Urine Opiates Screen (NotDetected) Ur Amphetamines Screen (NotDetected) U Methamphetamines Scrn (NotDetected) Crossmatch Assessment and Plan (1) Ulcerative colitis Narrative/Plan: Exacerbation of suspected proctosigmoid ulcerative colitis status post colonoscopy July 2017 Current Visit: Yes Status: Acute Code(s): K51.90 - ULCERATIVE COLITIS, UNSPECIFIED, WITHOUT COMPLICATIONS SNOMED Code(s): 78109308 (2) Acute blood loss anemia Current Visit: Yes Status: Acute Code(s): D62 - ACUTE POSTHEMORRHAGIC ANEMIA SNOMED Code(s): 322108058 (3) Iron deficiency anemia Current Visit: Yes Status: Acute Code(s): D50.9 - IRON DEFICIENCY ANEMIA, UNSPECIFIED SNOMED Code(s): 59914695 (4) STEMI (ST elevation myocardial infarction) Narrative/Plan: Status post heart catheterization stent LAD Current Visit: Yes Status: Acute Code(s): I21.3 - ST ELEVATION (STEMI) MYOCARDIAL INFARCTION OF [facility] SITE SNOMED Code(s): 316958563 Plan: 1. Prednisone 30 mg daily with 5 mg weekly taper. Balsalazide 750 mg 3 tablets twice daily. 2. Agree with cardiac medications for treatment of acute AK accordingly presently patient is passing nonbloody bowel movements hemoglobin has improved with transfusion. 3. Cardiac diet. 4. GI prophylaxis. 5. Ferrous sulfate 325 mg daily. 6. Stool softeners as needed id oral iron constipates. Avoid constipation. 7. Will follow closely with you. Thank you for this kind referral and the opportunity to participate in the care of your patient. This consultation was discussed with Dr. Sorto. The impression and plan of care have been directed as dictated.
[2017-10-27] MEDS: IPRATROPIUM-ALBUTEROL 3 ML NEB INHALATION PRN (11:53)
--- NOTE | 2017-10-27 16:22 | PN ---
PROGRESS NOTE DATE OF SERVICE: 10/27/2017. This 47-year-old gentleman who was admitted with recurrent ventricular tachycardia, also had acute non ST elevation myocardial infarction. Patient had cardiac cath and stenting of the LAD. Patient also has severe anemia possibly secondary to acute on chronic gastrointestinal bleed. The patient being closely monitored. A 2D echo showed ejection fraction about 25-30% indicating cardiomyopathy. PAST MEDICAL HISTORY: Reviewed. REVIEW OF SYSTEMS: Cardiovascular System: As mentioned earlier. Respiratory: As mentioned earlier. GI: No nausea or vomiting. : As mentioned earlier. Central nervous system: No numbness or weakness. CURRENT MEDICATIONS ARE: Reviewed and include: 1. Maalox 30 mL q.4h p.r.n. 2. DuoNeb q.i.d. and p.r.n. 3. Cordarone 200 mg p.o. b.i.d. 4. Aspirin 81 mg p.o. daily. 5. Lipitor 80 mg q.h.s. 6. Atropine p.r.n. 7. Pepcid 20 mg b.i.d. 8. Iron sulfate 320 mg daily. 9. Lasix 20 mg b.i.d. 10.Zestril 2.5 mg daily. 11.Lopressor 50 mg p.o. b.i.d. 12.Narcan p.r.n. 13.Zofran. 14.Prednisone. 15.Aldactone. 16.Brilinta. 17.Ultram. 18.Ambien. PHYSICAL EXAM: Patient is alert, oriented x3. Pulse is 63, blood pressure 106/74, respiration 14, temperature normal, pulse ox 98% on room air. HEENT: Conjunctivae normal. Oral mucosa moist. Neck is no jugular venous distention. No lymph node enlargement. Cardiovascular S1, S2 muffled. Respirations: Breath sounds diminished in the bases. A few scattered rhonchi. No crackles. ABDOMEN: Soft, nontender. No mass palpable. Legs no edema. No swelling. NERVOUS SYSTEM: Higher functions as mentioned earlier, moves all 4 limbs, no focal deficits. Lymphatics: No lymph nodes palpable in the neck, axillae or groin. Skin no ulcer, rash or bleeding. LAB STUDIES: WBC 24.3, hemoglobin is 8.1. Troponin 0.078. Drug screen positive for amphetamines. ASSESSMENT: 1. Acute non ST-segment elevation myocardial infarction status post cardiac catheterization and stenting of the LAD. 2. Recurrent ventricular tachycardia. 3. Cardiomyopathy possibly ischemic, ejection fraction 25-30%. 4. Anemia, microcytic possibly acute on chronic gastrointestinal blood loss, possibly chronic blood-loss anemia with blood loss anemia secondary to inflammatory bowel disease. 5. History of inflammatory bowel disease. 6. History of asthma. 7. Increased creatine kinase. RECOMMENDATIONS AND DISCUSSION: Recommend to continue current medications, management and symptomatic treatment. Follow closely with cardiology and Gastroenterology. Hemoglobin is rather stable. 2D echo noted. Gastroenterology as recommended. We will also follow with intensive care. The gastroenterology has recommended steroids and taper and continue the cardiac medications. The prognosis guarded because of multiple complex medical issues. Further recommendations to follow. High WBC could be due to steroids. continue to monitor. Further recommendations to follow. ANTWONL / ARAN: [id number] / ALINA
[2017-10-27] MEDS: ATORVASTATIN 80 MG TAB PO SCH (22:37)
[2017-10-27] MEDS: BALSALAZIDE DISODIUM 750 MG CAPSULE PO SCH (22:37)
[2017-10-28 05:01] LABS: Anisocytosis Slight; Basophils # (A) 0.1 k/uL (0-0.2); Basophils % (A) 0 %; Eosinophils # (A) 0.1 k/uL (0-0.7); Eosinophils % (A) 0 %; HCT 33.5 % (39.0-53.0); Hypochromasia Marked; Lymphocytes # (A) 2.1 k/uL (1.0-4.8); Lymphocytes % (A) 11 %; MCH 22.3 pg (25.0-35.0); MCHC 29.8 g/dL (31.0-37.0); MCV 74.7 fL (80.0-100.0); Mean Platelet Volume 6.1; Microcytosis Moderate; Monocytes # (A) 0.8 k/uL (0-1.0); Monocytes % (A) 4 %; Neutrophils # (A) 15.2 k/uL (1.3-7.7); Neutrophils % (A) 82 %; Platelet Count 703 k/uL (150-450); Poikilocytosis Marked; RBC 4.48 m/uL (4.30-5.90); RDW 19.9 % (11.5-15.5); WBC 18.5 k/uL (3.8-10.6)
[2017-10-28 05:12] LABS: Anion Gap 10 mmol/L; Blood Urea Nitrogen 21 mg/dL (9-20); Calcium 8.7 mg/dL (8.4-10.2); Carbon Dioxide 23 mmol/L (22-30); Chloride 103 mmol/L (98-107); Glucose 89 mg/dL (74-99); Magnesium 2.2 mg/dL (1.6-2.3); Phosphorus 3.9 mg/dL (2.5-4.5); Potassium 4.4 mmol/L (3.5-5.1); Sodium 136 mmol/L (137-145)
[2017-10-28] MEDS: IPRATROPIUM-ALBUTEROL 3 ML NEB INHALATION PRN ×4 (08:19→19:48)
--- NOTE | 2017-10-28 09:01 | CDI ---
Last Revision, June 2017 Documentation Clarification Form Date: 10/28/2017 8:56:00 AM From: Michelle NixonMADELEINE, CCDS Admit Date: 10/26/2017 2:14:00 PM Patient Name: Manjeet Velazquez Visit Number: [id number] Discharge Date: ATTENTION: The Clinical Documentation Specialists (CDI) and [facility] Coding Staff appreciate your assistance in clarifying documentation. Please respond to the clarification below the line at the bottom and electronically sign. The CDI & [facility] Coding staff will review the response and follow-up if needed. Please note: Queries are made part of the Legal Health Record. If you have any questions, please contact the author of this message via ITS. Dr. Rancho Beatty: There is conflicting documentation in the record: Per the ED note, the Pulmonary Consult and the Gastrointestinal Consult, the patient is diagnosed with a STEMI. Per the Cardiology consult: there was ST elevation anteriorly with RBBB of unknown duration. Diagnosis: Acute myocardial infarction. Per your H/P & progress notes, the patient is diagnosed with an Acute Non-STEMI. Patient history/risk factors: Asthma, Inflammatory bowel disease (per GI: Ulcerative Colitis, proctosigmoid with frequent rectal bleeding). Clinical Indicators: Presented with seizures at home with syncope, found to be in V Tach. Lab findings: WBC 16.1, Hgb 6.4, Pl Ct 833^^, Gluc 192^, CKMB 3.7^^, Trop 0.611^^, 0.541^^, 0.708^^. Positive stool occult blood. EKG: R 123 Sinus tachycardia, Inc RBBB, Poss right ventricular hypertrophy, anterior infarct, possibly acute: Acute [place]/STEMI, abnormal. Treatment: To label remover for C w/successful stenting of the mid LAD. IV Amiodarone, IV Ms, IV Atropine, Nitro sl, Admit to ICU. Consults: Cardiology, Pulmonary/Critical Care, GI In your professional opinion, can you please clarify? Non - STEMI STEMI Other, please specify Unable to determine Please continue to document in your progress notes and discharge summary in order to capture severity of illness and risk of mortality. Include clinical findings that support your diagnosis. possible STEMI_ MTDD
--- NOTE | 2017-10-28 09:52 | P.PN ---
Subjective Progress Note Date: 10/28/17 Principal diagnosis: Acute [place] ulcerative colitis Feels well. No bleeding. Denies abdominal pain. Hemoglobin 10. Objective - Vital Signs Vital signs: Vital Signs Temp 97.5 F L 10/28/17 00:00 Pulse 69 10/28/17 08:30 Resp 24 10/28/17 07:00 BP 133/82 10/28/17 07:00 Pulse Ox 94 L 10/28/17 07:00 Intake & Output 10/27/17 10/28/17 10/28/17 18:59 06:59 18:59 Intake Total 790.1 480 Output Total 1300 1650 Balance -509.9 -1170 Weight 70.2 kg 63.6 kg Intake: IV 290.1 180 Amiodarone 450 mg In 50.1 Dextrose 5% in Water 250 ml @ 1 MG/MIN 34.53 mls/ hr IV .Q7H31M ONE Rx#: [id number] Sodium Chloride 0.9% 1, 240 180 000 ml @ 75 mls/hr IV . [id number] [facility] Rx#:[id number] Oral 500 300 Output: Urine 1300 1650 Other: Voiding Method Urinal Urinal # Voids 1 0 # Bowel Movements 1 1 - Exam General appearance: The patient is alert, oriented, in no acute distress. HET: Head is normocephalic and atraumatic. Pupils are equal and reactive. Oropharynx is clear without lesions. Neck: Supple without lymphadenopathy. Trachea midline. Heart: S1 S2. Regular rate and rhythm. Lungs: No crackles or wheezes are heard. Abdomen: Soft, nontender, nondistended with bowel sounds. No peritoneal signs. No palpable organomegaly or masses. Extremities: Normal skin color and turgor. No cyanosis, rash, ulceration, clubbing, or edema. Radial and pedal pulses are 2/4 bilaterally. Neurological: No focal deficits. Strength and sensation are grossly intact. - Labs CBC & Chem 7: 10/28/17 04:49 10/28/17 04:49 Labs: Abnormal Lab Results - Last 24 Hours (Table) 10/27/17 10/28/17 10/28/17 Range/Units 09:43 04:49 04:49 WBC 24.3 H 18.5 H (3.8-10.6) k/uL RBC 3.82 L (4.30-5.90) m/uL Hgb 8.1 L 10.0 L D (13.0-17.5) gm/dL Hct 28.0 L 33.5 L (39.0-53.0) % MCV 73.3 L 74.7 L (80.0-100.0) fL MCH 21.1 L 22.3 L (25.0-35.0) pg MCHC 28.8 L 29.8 L (31.0-37.0) g/dL RDW 20.1 H 19.9 H (11.5-15.5) % Plt Count 601 H 703 H (150-450) k/uL Neutrophils # 21.1 H 15.2 H (1.3-7.7) k/uL Monocytes # 1.1 H (0-1.0) k/uL Sodium 136 L (137-145) mmol/L BUN 21 H (9-20) mg/dL Troponin I (0.000-0.034) ng/mL 10/28/17 Range/Units 04:49 WBC (3.8-10.6) k/uL RBC (4.30-5.90) m/uL Hgb (13.0-17.5) gm/dL Hct (39.0-53.0) % MCV (80.0-100.0) fL MCH (25.0-35.0) pg MCHC (31.0-37.0) g/dL RDW (11.5-15.5) % Plt Count (150-450) k/uL Neutrophils # (1.3-7.7) k/uL Monocytes # (0-1.0) k/uL Sodium (137-145) mmol/L BUN (9-20) mg/dL Troponin I 0.612 H* (0.000-0.034) ng/mL Assessment and Plan (1) Ulcerative colitis Narrative/Plan: Exacerbation of suspected proctosigmoid ulcerative colitis status post colonoscopy July 2017 Current Visit: Yes Status: Acute Code(s): K51.90 - ULCERATIVE COLITIS, UNSPECIFIED, WITHOUT COMPLICATIONS SNOMED Code(s): 30013855 (2) Acute blood loss anemia Current Visit: Yes Status: Acute Code(s): D62 - ACUTE POSTHEMORRHAGIC ANEMIA SNOMED Code(s): 972699883 (3) Iron deficiency anemia Current Visit: Yes Status: Acute Code(s): D50.9 - IRON DEFICIENCY ANEMIA, UNSPECIFIED SNOMED Code(s): 53733944 (4) STEMI (ST elevation myocardial infarction) Narrative/Plan: Status post heart catheterization stent LAD Current Visit: Yes Status: Acute Code(s): I21.3 - ST ELEVATION (STEMI) MYOCARDIAL INFARCTION OF [facility] SITE SNOMED Code(s): 485027542 Plan: 1. Prednisone 30 mg daily with 5 mg weekly taper. Balsalazide 750 mg 3 tablets twice daily. 2. Agree with cardiac medications for treatment of acute [place] accordingly presently patient is passing nonbloody bowel movements hemoglobin has improved with transfusion. 3. Cardiac diet. 4. GI prophylaxis. 5. Ferrous sulfate 325 mg daily. 6. Stool softeners as needed if oral iron constipates. Avoid constipation. 7. Patient has an appointment November [address] Blanco for reevaluation. Assessment and plan a care discussed with Dr. Sorto
--- NOTE | 2017-10-28 10:01 | PN ---
PROGRESS NOTE Mr. Velazquez is a 47-year-old male who presented with recurrent ventricular tachycardia, that symptomatic. He has EKG changes consistent with anterior myocardial infarction, underwent cardiac catheterization, was found to have severe stenosis in the mid LAD, underwent stenting of that vessel. There was evidence of ischemic cardiomyopathy. He had severe anemia on presentation related to colitis and GI bleeding. He is doing well this morning. He is feeling much better. His breathing is stable. He denies any dizziness or palpitation. He denies any nausea. Hemodynamically stable. He had no further episodes of tachycardia. He continues to be on amiodarone 200 mg twice a day, aspirin once a day, Lipitor 80 mg daily, iron once a day, furosemide 20 mg twice a day, lisinopril 2.5 mg once a day, metoprolol tartrate 50 mg daily and Aldactone 25 mg daily. PHYSICAL EXAMINATION: Blood pressure is 133/80 with the heart rate in the 60s. LUNGS: No wheezes. HEART: Regular rate and rhythm. S1, S2. No S3. No rub. ABDOMEN: Soft, nontender. EXTREMITIES: No edema. LAB DATA: Lab data revealed BUN and creatinine of 21 and 0.9, potassium 4.4. His troponin peaked at 0.7. His hemoglobin is up to 10. His EKG revealed evidence of anterior wall myocardial infarction. His echocardiogram revealed severely impaired left ventricular systolic function. IMPRESSION: 1. Acute anterior myocardial infarction, status post stenting of the left anterior descending artery. 2. Severe ischemic cardiomyopathy. 3. Ventricular tachycardia. 4. Severe anemia related to colitis. RECOMMENDATION: From the cardiac standpoint, I will decrease the dose of his Lasix and increase the dose of his lisinopril. He will be transferred to telemetry floor and his activity will be increased. The patient may be a candidate for a LifeVest, but that will be further evaluated. He will be transferred to telemetry floor and depending on his progress, further recommendation will be made. MMODL / IJN: [id number] /
[2017-10-28] MEDS: ASPIRIN 81 MG PO SCH (10:02)
[2017-10-28] MEDS: AMIODARONE 200 MG TAB PO SCH ×2 (10:02→20:22)
[2017-10-28] MEDS: FAMOTIDINE 20 MG TAB PO SCH ×2 (10:03→20:21)
[2017-10-28] MEDS: BALSALAZIDE DISODIUM 750 MG CAPSULE PO SCH ×2 (10:03→20:21)
[2017-10-28] MEDS: predniSONE 10 MG TAB PO SCH (10:04)
[2017-10-28] MEDS: FERROUS SULFATE 325 MG TAB PO SCH (10:04)
[2017-10-28] MEDS: METOPROLOL TARTRATE 50 MG TAB PO SCH ×2 (10:05→20:21)
[2017-10-28] MEDS: TICAGRELOR 90 MG TAB PO SCH ×2 (10:05→20:21)
[2017-10-28] MEDS: SPIRONOLACTONE 25 MG TAB PO SCH (10:05)
[2017-10-28] MEDS ORDERED: MORPHINE ORAL SOLN 10 MG/5 ML CUP PO PRN (11:12)
--- NOTE | 2017-10-28 12:18 | P.PN ---
Subjective Progress Note Date: 10/28/17 Principal diagnosis: Acute ST elevation myocardial infarction This is a 47-year-old white male with history of inflammatory bowel disease, follows normally with Dr. White. Patient was brought in with mostly symptoms of dizziness, for the last few days. But in EMS, the patient had apparently runs of ventricular tachycardia with intermittent loss of consciousness, and seizure-like activity. Patient apparently had nonsustained ventricular tachycardia, and upon arrival he was noted to have ST elevation anteriorly with right bundle branch block pattern. Patient had dyspnea on exertion profound peripheral edema, but no chest pain. And no documented cardiac history. Patient underwent straight to the cardiac catheterization lab, and he underwent stenting of a tight lesion of the LAD. According to EMS, patient had at least 3 episodes of syncope with shaking prior to arrival to the ER. He was complaining of generalized weakness, and some tightness in the chest. Aspirin was given by EMS prior to arrival to the ER. During the cardiac catheterization , the CBC report came back showing a hemoglobin of 6.4. With low indices, low MCV, and low MCH, consistent with chronic iron deficiency anemia and his platelets were noted to be quite high at [id number]. Troponin was noted to be elevated at 0.611 BNP level of 2700. Chest x-ray showed no evidence of acute process. I was notified about this patient by Dr. Wild shortly after he was done with a cardiac catheterization, and I evaluated the patient in the extended stay unit, awaiting a bed in the intensive care unit. After evaluating the patient, I recommended O2 at 3 L nasal cannula, his saturations were marginal in the low 90s, I also recommended a unit of packed RBCs and considering the patient is on a high-dose of prednisone for a long time, I recommended one dose of hydrocortisone 100 mg IV push until we have more information about his prednisone dosing by gastroenterology. Apparently the patient has history of colitis, and has been on prednisone for quite some time. During my evaluation, patient was sedated, however he was arousable, followed all simple instructions, but overall a bit drowsy. Patient was reevaluated today on 10/27/2017, remains in the ICU, hemodynamically stable, in no form of respiratory distress, relatively asymptomatic. Patient did receive 2 units of packed RBCs so far for low hemoglobin below 7, and his hemoglobin this morning is pending. Patient denies any symptoms to suggest active bleeding, but he is known to have history of inflammatory bowel disease, and he was seen by gastroenterology, placed back on his usual dose of prednisone. Patient is also on Pepcid. WBC count today is 24.3 hemoglobin is 8.1 after 2 units of packed RBCs his platelets are 601, and his basic metabolic profile is normal, renal profile is normal. Troponin is 0.708. Chest x-ray this morning showed no evidence of acute cardiopulmonary process. Patient was reevaluated today on 10/28/2017, he is presently a selective overflow , doing well, asymptomatic, no shortness of breath, no chest pain, and no active GI bleeding. Patient received a total of 2 units of packed RBCs, and his hemoglobin at present is 10.0. Basic metabolic profile is normal renal profile is normal troponin is down to 0.612. Looking back at the bases drug screen from admission it was positive for opiates, amphetamines, and medical amphetamines. Objective - Vital Signs Vital signs: Vital Signs Temp 98.2 F 10/28/17 08:00 Pulse 68 10/28/17 12:07 Resp 20 10/28/17 11:45 BP 115/70 10/28/17 11:00 Pulse Ox 96 10/28/17 11:00 Intake & Output 10/27/17 10/28/17 10/28/17 18:59 06:59 18:59 Intake Total 790.1 480 Output Total 1300 1650 Balance -509.9 -1170 Weight 70.2 kg 63.6 kg Intake: IV 290.1 180 Amiodarone 450 mg In 50.1 Dextrose 5% in Water 250 ml @ 1 MG/MIN 34.53 mls/ hr IV .[id number] ONE Rx#: [id number] Sodium Chloride 0.9% 1, 240 180 000 ml @ 75 mls/hr IV . [id number] [facility] Rx#:[id number] Oral 500 300 Output: Urine 1300 1650 Other: Voiding Method Urinal Urinal Toilet Urinal # Voids 1 0 # Bowel Movements 1 1 - Exam General appearance: 47-year-old in no distress, awake and responsive Head exam: Atraumatic, normocephalic. Eye exam: Pale conjunctivae, PERRLA, EOMI, anicteric. ENT exam: Moist mucous membranes, throat is clear. Neck exam: Supple, no neck masses, no thyromegaly, no stridor. Respiratory exam: Clear throughout, no crackles or rhonchi or wheezes. Symmetrical chest expansion. No chest wall tenderness. Cardiovascular Exam: Distant S1 and S2, no S3 gallop, no murmur. GI/Abdominal exam: Flat, soft, nontender, no megaly, no rebound, no guarding, positive bowel sounds. Extremities exam: No clubbing, 2+ bipedal edema, no cyanosis.n Neurological exam: , alert oriented 3, no gross focal neurologic deficit Psychiatric exam: Blunted affect, normal mood, normal mental status examination. Skin exam: No rashes, no erythema noted. - Labs CBC & Chem 7: 10/28/17 04:49 10/28/17 04:49 Labs: Abnormal Lab Results - Last 24 Hours (Table) 10/28/17 10/28/17 10/28/17 Range/Units 04:49 04:49 04:49 WBC 18.5 H (3.8-10.6) k/uL Hgb 10.0 L D (13.0-17.5) gm/dL Hct 33.5 L (39.0-53.0) % MCV 74.7 L (80.0-100.0) fL MCH 22.3 L (25.0-35.0) pg MCHC 29.8 L (31.0-37.0) g/dL RDW 19.9 H (11.5-15.5) % Plt Count 703 H (150-450) k/uL Neutrophils # 15.2 H (1.3-7.7) k/uL Sodium 136 L (137-145) mmol/L BUN 21 H (9-20) mg/dL Troponin I 0.612 H* (0.000-0.034) ng/mL Assessment and Plan Assessment: Impression: [address] elevation myocardial infarction 2 status post stenting of LAD lesion, postoperative day #2 3 recurrent ventricular tachycardia most likely secondary to acute ST elevation myocardial infarction 4 right bundle branch block pattern noted on EKG duration is unclear. 5 severe iron deficiency anemia, most likely secondary to inflammatory bowel disease, patient received a total of 2 units of packed RBCs since admission. Seen by gastroenterology, recommended placing him back on prednisone, patient was started on oral iron 6 history of inflammatory bowel disease, not clear whether the patient had Crohn 's disease or ulcerative colitis. Back on small dose of prednisone, and on Pepcid. Recommendation: Continue present supportive care measures, discharge planning once cleared by cardiology and gastroenterology. Patient is presently a selective overflow Time with Patient: Less than 30
[2017-10-28] MEDS: LISINOPRIL 2.5 MG TAB PO SCH (20:21)
[2017-10-28] MEDS: ATORVASTATIN 80 MG TAB PO SCH (20:22)
--- NOTE | 2017-10-28 20:59 | PN ---
PROGRESS NOTE DATE OF SERVICE: 10/28/2017 This 47-year-old gentleman who was admitted with acute yrt-JZ-akxclqg-elevation myocardial infarction had cardiac catheterization. The patient also possibly had cardiomyopathy. Patient has anemia related to GI issues, including possibly ulcerative colitis also. No chest pain. No palpitations. No fever. On exam, alert and oriented x3. Pulse 78, blood pressure 160/69, respiration 22, temperature 98 degrees, pulse ox 97% on room air. HEENT: Conjunctivae normal. NECK: No jugular venous distention. CARDIOVASCULAR SYSTEM: S1, S2 muffled. RESPIRATORY SYSTEM: Breath sounds diminished at the bases. Scattered rhonchi. No crackles. ABDOMEN: Soft, nontender. LEGS: No edema. No swelling. NERVOUS SYSTEM: Diffusely weak. LABS: WBC 18.5, hemoglobin is 10. Otherwise, troponin 0.612. ASSESSMENT: 1. Acute bmm-QB-vtpvkjs-elevation myocardial infarction, status post cardiac catheterization and stenting of the left anterior descending coronary artery. 2. Recurrent ventricular tachycardia. 3. Cardiomyopathy, possibly ischemic, ejection fraction 25% to 30%. 4. Anemia, microcytic, possibly acute on chronic gastrointestinal blood loss, possibly from inflammatory bowel disease and ulcerative colitis exacerbation. 5. History of inflammatory bowel disease. 6. History of asthma. 7. Increased creatine kinase. RECOMMENDATIONS AND DISCUSSION: I recommend to continue current medication, continue symptomatic treatment, continue with antiplatelet agents. The patient is on p.o. steroids. Continue the rest of the medications. Monitor hemoglobin, which is rather stable at this time. Closely follow with Gastroenterology as well as Cardiology. Possible discharge in 24 to 48 hours after cardiology and gastroenterology clearance. MMODL / IJN: [id number] /
[2017-10-29 05:04] LABS: Anisocytosis Moderate; Basophils % (A) 0 %; Eosinophils # (A) 0.1 k/uL (0-0.7); Eosinophils % (A) 1 %; HCT 32.1 % (39.0-53.0); HGB 9.3 gm/dL (13.0-17.5); Hypochromasia Marked; Lymphocytes # (A) 2.1 k/uL (1.0-4.8); Lymphocytes % (A) 15 %; MCH 21.8 pg (25.0-35.0); MCHC 28.9 g/dL (31.0-37.0); MCV 75.3 fL (80.0-100.0); Mean Platelet Volume 6.2; Microcytosis Moderate; Monocytes # (A) 0.9 k/uL (0-1.0); Monocytes % (A) 6 %; Neutrophils # (A) 10.6 k/uL (1.3-7.7); Neutrophils % (A) 76 %; Platelet Count 658 k/uL (150-450); Poikilocytosis Marked; RBC 4.26 m/uL (4.30-5.90); RDW 20.2 % (11.5-15.5); WBC 14.1 k/uL (3.8-10.6)
[2017-10-29 05:19] LABS: Anion Gap 11 mmol/L; Blood Urea Nitrogen 15 mg/dL (9-20); Calcium 8.4 mg/dL (8.4-10.2); Carbon Dioxide 21 mmol/L (22-30); Chloride 105 mmol/L (98-107); Glucose 94 mg/dL (74-99); Sodium 137 mmol/L (137-145)
[2017-10-29] MEDS: BALSALAZIDE DISODIUM 750 MG CAPSULE PO SCH ×2 (08:17→21:12)
[2017-10-29] MEDS: FERROUS SULFATE 325 MG TAB PO SCH (08:17)
[2017-10-29] MEDS: AMIODARONE 200 MG TAB PO SCH ×2 (08:17→21:13)
[2017-10-29] MEDS: ASPIRIN 81 MG PO SCH (08:17)
[2017-10-29] MEDS: TICAGRELOR 90 MG TAB PO SCH ×2 (08:17→21:12)
[2017-10-29] MEDS: predniSONE 10 MG TAB PO SCH (08:18)
[2017-10-29] MEDS: METOPROLOL TARTRATE 50 MG TAB PO SCH ×2 (08:18→21:12)
[2017-10-29] MEDS: FUROSEMIDE 20 MG TAB PO SCH ×2 (08:18→12:54)
[2017-10-29] MEDS: FAMOTIDINE 20 MG TAB PO SCH ×2 (08:18→21:12)
[2017-10-29] MEDS: SPIRONOLACTONE 25 MG TAB PO SCH (09:59)
[2017-10-29] MEDS: LISINOPRIL 2.5 MG TAB PO SCH ×3 (09:59→21:12)
--- NOTE | 2017-10-29 11:19 | P.PN ---
Subjective Progress Note Date: 10/29/17 Principal diagnosis: ST segment elevation myocardial infarction with recurrent ventricular tachycardia This is a 47-year-old white male with history of inflammatory bowel disease, follows normally with Dr. White. Patient was brought in with mostly symptoms of dizziness, for the last few days. But in EMS, the patient had apparently runs of ventricular tachycardia with intermittent loss of consciousness, and seizure-like activity. Patient apparently had nonsustained ventricular tachycardia, and upon arrival he was noted to have ST elevation anteriorly with right bundle branch block pattern. Patient had dyspnea on exertion profound peripheral edema, but no chest pain. And no documented cardiac history. Patient underwent straight to the cardiac catheterization lab, and he underwent stenting of a tight lesion of the LAD. According to EMS, patient had at least 3 episodes of syncope with shaking prior to arrival to the ER. He was complaining of generalized weakness, and some tightness in the chest. Aspirin was given by EMS prior to arrival to the ER. During the cardiac catheterization , the CBC report came back showing a hemoglobin of 6.4. With low indices, low MCV, and low MCH, consistent with chronic iron deficiency anemia and his platelets were noted to be quite high at [id number]. Troponin was noted to be elevated at 0.611 BNP level of 2700. Chest x-ray showed no evidence of acute process. I was notified about this patient by Dr. Wild shortly after he was done with a cardiac catheterization, and I evaluated the patient in the extended stay unit, awaiting a bed in the intensive care unit. After evaluating the patient, I recommended O2 at 3 L nasal cannula, his saturations were marginal in the low 90s, I also recommended a unit of packed RBCs and considering the patient is on a high-dose of prednisone for a long time, I recommended one dose of hydrocortisone 100 mg IV push until we have more information about his prednisone dosing by gastroenterology. Apparently the patient has history of colitis, and has been on prednisone for quite some time. During my evaluation, patient was sedated, however he was arousable, followed all simple instructions, but overall a bit drowsy. Patient was reevaluated today on 10/27/2017, remains in the ICU, hemodynamically stable, in no form of respiratory distress, relatively asymptomatic. Patient did receive 2 units of packed RBCs so far for low hemoglobin below 7, and his hemoglobin this morning is pending. Patient denies any symptoms to suggest active bleeding, but he is known to have history of inflammatory bowel disease, and he was seen by gastroenterology, placed back on his usual dose of prednisone. Patient is also on Pepcid. WBC count today is 24.3 hemoglobin is 8.1 after 2 units of packed RBCs his platelets are 601, and his basic metabolic profile is normal, renal profile is normal. Troponin is 0.708. Chest x-ray this morning showed no evidence of acute cardiopulmonary process. Patient was reevaluated today on 10/28/2017, he is presently a selective overflow , doing well, asymptomatic, no shortness of breath, no chest pain, and no active GI bleeding. Patient received a total of 2 units of packed RBCs, and his hemoglobin at present is 10.0. Basic metabolic profile is normal renal profile is normal troponin is down to 0.612. Looking back at the bases drug screen from admission it was positive for opiates, amphetamines, and medical amphetamines. The patient was seen again today 10/29/2017 in follow-up as a selective care overflow in the intensive care unit. He is currently sitting up in bed. He is awake and alert in no acute distress. He denies any chest pain, palpitations, lightheadedness or dizziness. No shortness of breath, cough or congestion. He is maintaining good O2 saturations in the 90s on room air. He has been afebrile. Hemodynamically stable. White count 14.1. Hemoglobin 9.3. Platelet count 658,000. Creatinine 0.70. Objective - Vital Signs Vital signs: Vital Signs Temp 98.1 F 10/29/17 08:00 Pulse 66 10/29/17 10:00 Resp 20 10/29/17 10:00 BP 110/68 10/29/17 10:00 Pulse Ox 96 10/29/17 08:00 Intake & Output 10/28/17 10/29/17 10/29/17 18:59 06:59 18:59 Intake Total 880 250 Output Total 400 5 1 Balance -400 875 249 Weight 63.7 kg Intake: Oral 880 250 Output: Urine 400 5 0 Stool 1 Other: Voiding Method Toilet Toilet Toilet Urinal Urinal Urinal # Voids 0 1 # Bowel Movements 1 1 - Exam GENERAL EXAM: Alert, active, comfortable in no apparent distress. HEAD: Normocephalic. EYES: Normal reaction of pupils, equal size. NOSE: Clear with pink turbinates. THROAT: No erythema or exudates. NECK: No masses, no JVD. CHEST: No chest wall deformity. LUNGS: Equal air entry with no crackles, wheeze, rhonchi or dullness. CVS: S1 and S2 normal with an audible murmur, regular rhythm. ABDOMEN: No hepatosplenomegaly, normal bowel sounds, no guarding or rigidity. SPINE: No scoliosis or deformity SKIN: No rashes CENTRAL NERVOUS SYSTEM: No focal deficits, tone is normal in all 4 extremities. EXTREMITIES: There is no peripheral edema. No clubbing, no cyanosis. Peripheral pulses are intact. - Labs CBC & Chem 7: 10/29/17 04:48 10/29/17 04:48 Labs: Abnormal Lab Results - Last 24 Hours (Table) 10/29/17 10/29/17 Range/Units 04:48 04:48 WBC 14.1 H (3.8-10.6) k/uL RBC 4.26 L (4.30-5.90) m/uL Hgb 9.3 L (13.0-17.5) gm/dL Hct 32.1 L (39.0-53.0) % MCV 75.3 L (80.0-100.0) fL MCH 21.8 L (25.0-35.0) pg MCHC 28.9 L (31.0-37.0) g/dL RDW 20.2 H (11.5-15.5) % Plt Count 658 H (150-450) k/uL Neutrophils # 10.6 H (1.3-7.7) k/uL Carbon Dioxide 21 L (22-30) mmol/L Assessment and Plan Assessment: Impression: [address] elevation myocardial infarction with severe impaired left ventricular systolic function with estimated ejection fraction 25-30%. 2 status post stenting of LAD lesion, postoperative day #3 3 recurrent ventricular tachycardia most likely secondary to acute ST elevation myocardial infarction 4 right bundle branch block pattern noted on EKG duration is unclear. 5 severe iron deficiency anemia, most likely secondary to inflammatory bowel disease, patient received a total of 2 units of packed RBCs since admission. Seen by gastroenterology, recommended placing him back on prednisone, patient was started on oral iron 6 history of inflammatory bowel disease, not clear whether the patient had Crohn 's disease or ulcerative colitis. Back on small dose of prednisone, and on Pepcid. Recommendation: The patient was seen and evaluated by Dr. Mac. He remains stable from the pulmonary and critical care standpoint. Cardiology is on the case. LifeVest may be recommended. GI services on the case regarding the anemia secondary to inflammatory bowel disease. We will continue to follow make further recommendations based on his clinical status. I, the cosigning physician, performed a history & physical examination of the patient. Lungs sounds are clear. Maintaining good O2 saturations in the 90s on room air. I discussed the assessment and plan of care with my nurse practitioner, Margi Jo. I attest to the above note as dictated by her.
--- NOTE | 2017-10-29 12:27 | P.PN ---
Subjective Patient was admitted secondary to ST elevation microinfarction with acute systolic dysfunction ejection fraction of 25-30% patient will need LifeVest. Patient is otherwise clinically doing well without any symptoms today. Constitutional: Denied any fatigue denied any fever. Cardio vascular: denied any chest pain, palpitations Gastrointestinal denied any nausea vomiting Pulmonary: Denied any shortness of breath cough Neurologic denied any new focal deficits Objective - Vital Signs Vital signs: Vital Signs Temp 97.6 F 10/29/17 12:00 Pulse 58 L 10/29/17 12:00 Resp 20 10/29/17 12:00 BP 115/73 10/29/17 12:00 Pulse Ox 95 10/29/17 12:00 Intake & Output 10/28/17 10/29/17 10/29/17 18:59 06:59 18:59 Intake Total 880 500 Output Total 400 5 1 Balance -400 875 499 Weight 63.7 kg Intake: Oral 880 500 Output: Urine 400 5 0 Stool 1 Other: Voiding Method Toilet Toilet Toilet Urinal Urinal Urinal # Voids 0 1 # Bowel Movements 1 1 - Exam PHYSICAL EXAMINATION: GENERAL: The patient is alert and oriented x3, not in any acute distress. Well developed, well nourished. HEENT: Pupils are round and equally reacting to light. EOMI. No scleral icterus. No conjunctival pallor. Normocephalic, atraumatic. No pharyngeal erythema. No thyromegaly. CARDIOVASCULAR: S1 and S2 present. No murmurs, rubs, or gallops. PULMONARY: Chest is clear to auscultation, no wheezing or crackles. ABDOMEN: Soft, nontender, nondistended, normoactive bowel sounds. No palpable organomegaly. MUSCULOSKELETAL: No joint swelling or deformity. EXTREMITIES: No cyanosis, clubbing, or pedal edema. NEUROLOGICAL: Gross neurological examination did not reveal any focal deficits. SKIN: No rashes. - Labs CBC & Chem 7: 10/29/17 04:48 10/29/17 04:48 Labs: Abnormal Lab Results - Last 24 Hours (Table) 10/29/17 10/29/17 Range/Units 04:48 04:48 WBC 14.1 H (3.8-10.6) k/uL RBC 4.26 L (4.30-5.90) m/uL Hgb 9.3 L (13.0-17.5) gm/dL Hct 32.1 L (39.0-53.0) % MCV 75.3 L (80.0-100.0) fL MCH 21.8 L (25.0-35.0) pg MCHC 28.9 L (31.0-37.0) g/dL RDW 20.2 H (11.5-15.5) % Plt Count 658 H (150-450) k/uL Neutrophils # 10.6 H (1.3-7.7) k/uL Carbon Dioxide 21 L (22-30) mmol/L Assessment and Plan Plan: -Acute ST elevation microinfarction: Status post cardiac catheterization and stenting of LAD postoperative day 3. Continue with statins dual antiplatelet therapy and beta vannessa. -Acute systolic dysfunction ejection fraction of 25-30% not in acute exacerbation. -Recurrent ventricular tachycardia secondary to ST elevation microinfarction LAD with a low ejection fraction patient will need a LifeVest -Iron deficiency anemia secondary to inflammatory bowel disease received 2 units of packed red blood transfusion may need iron supplementation at home further workup for iron deficiency anemia -History of inflammatory bowel disease, unsure whether it's Crohn's or ulcerative colitis continue with maintaining dose of prednisone.
--- NOTE | 2017-10-29 20:27 | PN ---
PROGRESS NOTE This patient's medical chart was reviewed. The patient was admitted with a history suggestive for seizures which was probably cardiogenic syncope. The patient underwent stent to the LAD. Patient's EKG suggestive of anterior septal myocardial infarction. However serial EKGs does not show any changes of acute LA and whether this represents an old anterior wall LA with ventricular aneurysm is a possibility. The patient's serial troponins does not show any significant rise and fall to suggest acute myocardial infarction. Patient did undergo stent to the LAD. Clinically he is doing better. He is not having any more runs of ventricular tachycardia on the current medications. Initial strips reviewed and the patient had an episode like ventricular flutter on the initial rhythm strip. The patient's echocardiogram will be repeated on Tuesday to assess the left ventricular systolic function. We will also obtain a consultation with Dr. Craven regarding possible consideration for AICD. ZAID / ELZBIETA: [id number] /
[2017-10-29] MEDS: ATORVASTATIN 80 MG TAB PO SCH (21:13)
[2017-10-30 06:54] LABS: Anisocytosis Moderate; Basophils % (A) 0 %; Eosinophils # (A) 0.2 k/uL (0-0.7); Eosinophils % (A) 1 %; HCT 32.2 % (39.0-53.0); Hypochromasia Marked; Lymphocytes # (A) 2.4 k/uL (1.0-4.8); Lymphocytes % (A) 16 %; MCH 21.4 pg (25.0-35.0); MCHC 27.9 g/dL (31.0-37.0); MCV 76.8 fL (80.0-100.0); Mean Platelet Volume 6.3; Microcytosis Moderate; Monocytes # (A) 0.8 k/uL (0-1.0); Monocytes % (A) 5 %; Neutrophils # (A) 11.7 k/uL (1.3-7.7); Neutrophils % (A) 76 %; Platelet Count 663 k/uL (150-450); Poikilocytosis Marked; RBC 4.19 m/uL (4.30-5.90); RDW 20.8 % (11.5-15.5); WBC 15.4 k/uL (3.8-10.6)
[2017-10-30 07:09] LABS: Anion Gap 11 mmol/L; Blood Urea Nitrogen 17 mg/dL (9-20); Calcium 8.5 mg/dL (8.4-10.2); Carbon Dioxide 23 mmol/L (22-30); Chloride 104 mmol/L (98-107); Glucose 77 mg/dL (74-99); Potassium 4.3 mmol/L (3.5-5.1); Sodium 138 mmol/L (137-145)
[2017-10-30] MEDS: FERROUS SULFATE 325 MG TAB PO SCH (08:24)
[2017-10-30] MEDS: AMIODARONE 200 MG TAB PO SCH ×2 (08:24→20:54)
[2017-10-30] MEDS: FAMOTIDINE 20 MG TAB PO SCH ×2 (08:24→20:54)
[2017-10-30] MEDS: BALSALAZIDE DISODIUM 750 MG CAPSULE PO SCH ×2 (08:24→20:54)
[2017-10-30] MEDS: ASPIRIN 81 MG PO SCH (08:24)
[2017-10-30] MEDS: predniSONE 10 MG TAB PO SCH (08:25)
[2017-10-30] MEDS: LISINOPRIL 2.5 MG TAB PO SCH ×2 (08:25→20:54)
[2017-10-30] MEDS: TICAGRELOR 90 MG TAB PO SCH ×2 (08:25→20:54)
[2017-10-30] MEDS: METOPROLOL TARTRATE 50 MG TAB PO SCH ×2 (08:25→20:54)
[2017-10-30] MEDS: FUROSEMIDE 20 MG TAB PO SCH (08:25)
[2017-10-30] MEDS: SPIRONOLACTONE 25 MG TAB PO SCH (08:25)
--- NOTE | 2017-10-30 15:48 | P.PN ---
Subjective Patient was admitted secondary to ST elevation microinfarction with acute systolic dysfunction ejection fraction of 25-30% patient will need LifeVest. Patient is otherwise clinically doing well without any symptoms today. 10/30/2017 Discussed at length with the patient regarding his clinical condition overall, plan discussed with cardiology plan is to repeat echocardiogram tomorrow to reassess his ejection fraction. Patient may need a LifeVest Constitutional: Denied any fatigue denied any fever. Cardio vascular: denied any chest pain, palpitations Gastrointestinal denied any nausea vomiting Pulmonary: Denied any shortness of breath cough Neurologic denied any new focal deficits Objective - Vital Signs Vital signs: Vital Signs Temp 98.2 F 10/30/17 14:56 Pulse 75 10/30/17 14:56 Resp 18 10/30/17 14:56 BP 105/64 10/30/17 14:56 Pulse Ox 99 10/30/17 14:56 Intake & Output 10/29/17 10/30/17 10/30/17 18:59 06:59 18:59 Intake Total 500 702 Output Total 1 Balance 499 702 Weight 67.7 kg Intake: Oral 500 702 Output: Urine 0 Stool 1 Other: Voiding Method Toilet Toilet Urinal Urinal # Voids 1 0 2 # Bowel Movements 1 1 - Exam PHYSICAL EXAMINATION: GENERAL: The patient is alert and oriented x3, not in any acute distress. Well developed, well nourished. HEENT: Pupils are round and equally reacting to light. EOMI. No scleral icterus. No conjunctival pallor. Normocephalic, atraumatic. No pharyngeal erythema. No thyromegaly. CARDIOVASCULAR: S1 and S2 present. No murmurs, rubs, or gallops. PULMONARY: Chest is clear to auscultation, no wheezing or crackles. ABDOMEN: Soft, nontender, nondistended, normoactive bowel sounds. No palpable organomegaly. MUSCULOSKELETAL: No joint swelling or deformity. EXTREMITIES: No cyanosis, clubbing, or pedal edema. NEUROLOGICAL: Gross neurological examination did not reveal any focal deficits. SKIN: No rashes. - Labs CBC & Chem 7: 10/30/17 05:41 10/30/17 05:41 Labs: Abnormal Lab Results - Last 24 Hours (Table) 10/30/17 Range/Units 05:41 WBC 15.4 H (3.8-10.6) k/uL RBC 4.19 L (4.30-5.90) m/uL Hgb 9.0 L (13.0-17.5) gm/dL Hct 32.2 L (39.0-53.0) % MCV 76.8 L (80.0-100.0) fL MCH 21.4 L (25.0-35.0) pg MCHC 27.9 L (31.0-37.0) g/dL RDW 20.8 H (11.5-15.5) % Plt Count 663 H (150-450) k/uL Neutrophils # 11.7 H (1.3-7.7) k/uL Assessment and Plan Plan: -Acute ST elevation myocardial: Status post cardiac catheterization and stenting of LAD postoperative day 4. Continue with statins dual antiplatelet therapy and beta vannessa. -Acute systolic dysfunction ejection fraction of 25-30% not in acute exacerbation. -Recurrent ventricular tachycardia secondary to ST elevation microinfarction LAD with a low ejection fraction patient will need a LifeVest -Iron deficiency anemia secondary to inflammatory bowel disease received 2 units of packed red blood transfusion may need iron supplementation at home further workup for iron deficiency anemia -History of inflammatory bowel disease, unsure whether it's Crohn's or ulcerative colitis continue with maintaining dose of prednisone.
[2017-10-30] MEDS: ATORVASTATIN 80 MG TAB PO SCH (20:54)
--- NOTE | 2017-10-30 23:49 | PN ---
PROGRESS NOTE This patient was admitted with a history suggestive of seizures. The patient was found to have a recurrent episodes of supraventricular flutter and patient underwent a stent to the LAD. Reviewing the patient's tests it appears that the patient's EKG is suggestive of old anterior septal myocardial infarction with persistent ST-segment elevation and the patient may have ventricular aneurysm. The patient's troponins are not suggestive of acute myocardial infarction. Patient is doing fairly well. His hemoglobin remains am stable. We will repeat echocardiogram tomorrow. The patient's first echocardiogram shows outer anterior septal wall suggestive of myocardial infarction. The consultation is also obtained with Dr. Craven regarding possible AICD placement. The patient's vital signs were stable. The first and second heart sounds are normal. Lungs are clinically clear to auscultation and percussion. Plan to repeat echocardiogram tomorrow. ZAID / ELZBIETA: [id number] /
[2017-10-31 07:21] LABS: Anisocytosis Moderate; Basophils % (A) 0 %; Eosinophils # (A) 0.2 k/uL (0-0.7); Eosinophils % (A) 1 %; HCT 33.9 % (39.0-53.0); HGB 9.4 gm/dL (13.0-17.5); Hypochromasia Marked; Lymphocytes # (A) 2.2 k/uL (1.0-4.8); Lymphocytes % (A) 15 %; MCH 20.7 pg (25.0-35.0); MCHC 27.6 g/dL (31.0-37.0); MCV 75.1 fL (80.0-100.0); Mean Platelet Volume 6.4; Microcytosis Moderate; Monocytes % (A) 7 %; Neutrophils # (A) 11.3 k/uL (1.3-7.7); Neutrophils % (A) 76 %; Platelet Count 690 k/uL (150-450); Poikilocytosis Moderate; RBC 4.51 m/uL (4.30-5.90); RDW 21.5 % (11.5-15.5); WBC 14.9 k/uL (3.8-10.6)
[2017-10-31 07:35] LABS: Anion Gap 9 mmol/L; Blood Urea Nitrogen 16 mg/dL (9-20); Calcium 8.8 mg/dL (8.4-10.2); Carbon Dioxide 26 mmol/L (22-30); Chloride 105 mmol/L (98-107); Glucose 82 mg/dL (74-99); Potassium 4.4 mmol/L (3.5-5.1); Sodium 140 mmol/L (137-145)
[2017-10-31] MEDS: IPRATROPIUM-ALBUTEROL 3 ML NEB INHALATION PRN (07:38)
[2017-10-31] MEDS: FAMOTIDINE 20 MG TAB PO SCH ×2 (09:01→21:22)
[2017-10-31] MEDS: ASPIRIN 81 MG PO SCH (09:02)
[2017-10-31] MEDS: predniSONE 10 MG TAB PO SCH (09:02)
[2017-10-31] MEDS: AMIODARONE 200 MG TAB PO SCH ×2 (09:02→21:22)
[2017-10-31] MEDS: BALSALAZIDE DISODIUM 750 MG CAPSULE PO SCH ×2 (09:02→21:22)
[2017-10-31] MEDS: FERROUS SULFATE 325 MG TAB PO SCH (09:02)
[2017-10-31] MEDS: FUROSEMIDE 20 MG TAB PO SCH (09:02)
[2017-10-31] MEDS: SPIRONOLACTONE 25 MG TAB PO SCH (09:02)
[2017-10-31] MEDS: TICAGRELOR 90 MG TAB PO SCH ×2 (09:02→21:23)
[2017-10-31] MEDS: METOPROLOL TARTRATE 50 MG TAB PO SCH ×2 (09:03→21:22)
[2017-10-31] MEDS: LISINOPRIL 2.5 MG TAB PO SCH ×2 (09:03→23:10)
--- NOTE | 2017-10-31 11:38 | ECHOF ---
Referral Reason:cm MEASUREMENTS -------- HEIGHT: 152.4 cm WEIGHT: 67.6 kg BP: 121/68 FINDINGS -------- Sinus rhythm. Limited Echo: follow up From Echo Done 10.27.17. Overall left ventricular systolic function is moderate-severely impaired with, an EF between 30 - 35 %. Anterseptal Hypokinesis Lateral hypokinesis Septal Hypokinesis Posterior Hypokinesis. Ap ex Hypokinesis. 5.0mg OF Lumason UTLIZED: 2 OR MORE WALL SEGMENTS NOT VISUALIZED. CONCLUSIONS -------- 1. Limited Echo: follow up From Echo Done 10.27.17. 2. Overall left ventricular systolic function is moderate-severely impaired with, an EF between 30 - 35 %. 3. Anterseptal Hypokinesis 4. Lateral hypokinesis 5. Septal Hypokinesis 6. Posterior Hypokinesis. 7. Chappells Hypokinesis. 8. 5.0mg OF Lumason UTLIZED: 2 OR MORE WALL SEGMENTS NOT VISUALIZED. ERP BUSINESS ANALYST: Antonia Donaldson RDCS
--- NOTE | 2017-10-31 15:38 | PN ---
PROGRESS NOTE This patient was admitted with recurrent ventricular tachycardia. The patient's overall picture is suggestive of old anterior wall myocardial infarction and possible ventricular aneurysm. The patient is status post stent to the LAD. Echocardiogram was repeated which again shows severe degree of apical hypokinesia as well as the distal anterior septum is thinned out and akinetic suggestive of prior anterior wall myocardial infarction. The patient will be discharged home on Life Vest and if the elevated systolic dysfunction persists, patient will need AICD. ZAID / ELZBIETA: [id number] /
--- NOTE | 2017-10-31 16:30 | P.DS ---
Providers Date of admission: 10/26/17 14:14 Attending physician: Ranch[place] Beatty Consults: 10/26/17 14:16 Consult Physician Routine Consulting Provider: Margarita Wild Consult Reason/Comments: stemi Do you want consulting provider notified?: Yes 10/26/17 15:04 Consult Physician Routine Consulting Provider: [facility] Consult Reason/Comments: Post Interventional patient Do you want consulting provider notified?: Already Contacted 10/26/17 15:07 Consult Physician Routine Consulting Provider: Nathaniel Blanco Consult Reason/Comments: UC Do you want consulting provider notified?: Yes 10/26/17 23:32 Consult Physician Routine Consulting Provider: Haseeb Thorpe Consult Reason/Comments: icu managment Do you want consulting provider notified?: Yes, Notify in am 10/29/17 14:15 Consult Physician Routine Consulting Provider: Eyad Craven Consult Reason/Comments: Cardiac Arrest; ICD placement? Do you want consulting provider notified?: Yes Primary care physician: Luly Marie Hospital Course: Patient was admitted secondary to ST elevation microinfarction with acute systolic dysfunction ejection fraction of 25-30% patient will need LifeVest. Patient is otherwise clinically doing well without any symptoms today. 10/30/2017 Discussed at length with the patient regarding his clinical condition overall, plan discussed with cardiology plan is to repeat echocardiogram tomorrow to reassess his ejection fraction. Patient may need a LifeVest 10/31/2017 Patient is clinically doing well will be discharged today and after he receives a LifeVest. Patient is presently not in heart failure exacerbation PHYSICAL EXAMINATION: GENERAL: The patient is alert and oriented x3, not in any acute distress. Well developed, well nourished. HEENT: Pupils are round and equally reacting to light. EOMI. No scleral icterus. No conjunctival pallor. Normocephalic, atraumatic. No pharyngeal erythema. No thyromegaly. CARDIOVASCULAR: S1 and S2 present. No murmurs, rubs, or gallops. PULMONARY: Chest is clear to auscultation, no wheezing or crackles. ABDOMEN: Soft, nontender, nondistended, normoactive bowel sounds. No palpable organomegaly. MUSCULOSKELETAL: No joint swelling or deformity. EXTREMITIES: No cyanosis, clubbing, or pedal edema. NEUROLOGICAL: Gross neurological examination did not reveal any focal deficits. SKIN: No rashes. Assessment and Plan Plan: -Acute ST elevation myocardial: Status post cardiac catheterization and stenting of LAD postoperative day 4. Continue with statins dual antiplatelet therapy and beta vannessa. -Acute systolic dysfunction ejection fraction of 25-30% not in acute exacerbation. -Recurrent ventricular tachycardia secondary to ST elevation microinfarction LAD with a low ejection fraction patient will need a LifeVest -Iron deficiency anemia secondary to inflammatory bowel disease received 2 units of packed red blood transfusion may need iron supplementation at home further workup for iron deficiency anemia -History of inflammatory bowel disease, unsure whether it's Crohn's or ulcerative colitis continue with maintaining dose of prednisone. Patient Condition at Discharge: Serious Plan - Discharge Summary Discharge Rx Participant: Yes New Discharge Prescriptions: New predniSONE 10 mg PO DIRECTED #70 tab Amiodarone [Cordarone] 200 mg PO BID #30 tab Aspirin 81 mg PO DAILY #30 chew Atorvastatin [Lipitor] 80 mg PO HS #30 tab Famotidine [Pepcid] 20 mg PO BID #30 tab Ferrous Sulfate [Iron (65 MG Elemental)] 325 mg PO DAILY #30 tab Furosemide [Lasix] 20 mg PO DAILY #30 tab Lisinopril [Zestril] 2.5 mg PO BID #30 tab Metoprolol Tartrate [Lopressor] 50 mg PO BID #30 tab Nitroglycerin Sl Tabs [Nitrostat] 0.4 mg SUBLINGUAL Q5M PRN #30 tab PRN Reason: Chest Pain Spironolactone [Aldactone] 25 mg PO DAILY #30 tab Ticagrelor [Brilinta] 90 mg PO BID #60 tab Mesalamine [Lialda] 2.4 gm PO DAILY #60 tablet. Continue predniSONE 10 mg PO DAILY Multivitamins, Thera [Multivitamin (formulary)] 1 tab PO DAILY Discharge Medication List Multivitamins, Thera [Multivitamin (formulary)] 1 tab PO DAILY 10/26/17 [History ] predniSONE 10 mg PO DAILY 10/26/17 [History] predniSONE 10 mg PO DIRECTED #70 tab 10/28/17 [Rx] Amiodarone [Cordarone] 200 mg PO BID #30 tab 10/31/17 [Rx] Aspirin 81 mg PO DAILY #30 chew 10/31/17 [Rx] Atorvastatin [Lipitor] 80 mg PO HS #30 tab 10/31/17 [Rx] Famotidine [Pepcid] 20 mg PO BID #30 tab 10/31/17 [Rx] Ferrous Sulfate [Iron (65 MG Elemental)] 325 mg PO DAILY #30 tab 10/31/17 [Rx] Furosemide [Lasix] 20 mg PO DAILY #30 tab 10/31/17 [Rx] Lisinopril [Zestril] 2.5 mg PO BID #30 tab 10/31/17 [Rx] Mesalamine [Lialda] 2.4 gm PO DAILY #60 tablet. 10/31/17 [Rx] Metoprolol Tartrate [Lopressor] 50 mg PO BID #30 tab 10/31/17 [Rx] Nitroglycerin Sl Tabs [Nitrostat] 0.4 mg SUBLINGUAL Q5M PRN #30 tab 10/31/17 [Rx ] Spironolactone [Aldactone] 25 mg PO DAILY #30 tab 10/31/17 [Rx] Ticagrelor [Brilinta] 90 mg PO BID #60 tab 10/31/17 [Rx] Follow up Appointment(s)/Referral(s): Nathaniel Blanco MD [STAFF PHYSICIAN] - 11/03/17 3:00 pm () Margarita Wild MD [STAFF PHYSICIAN] - 11/08/17 1:15 pm (Tuesday) Cynthia Mauricio MD [Primary Care Provider] - 11/07/17 1:40 pm (Tuesday) Patient Instructions/Handouts: *Surgery [facility] - After Heart Catheterization - Carpet Installation Specialist Instructions, Heart Catheterization (DC), Wearable Cardioverter Defibrillator (DC) Activity/Diet/Wound Care/Special Instructions: [facility] needs to order Lialda - 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 LifeVest Discharge Disposition: HOME SELF-CARE
[2017-10-31] MEDS: ATORVASTATIN 80 MG TAB PO SCH (21:22)
[2017-10-31 22:46] VITALS: RESP 18
[2017-11-01 06:50] LABS: Anisocytosis Moderate; Basophils % (A) 0 %; Eosinophils # (A) 0.1 k/uL (0-0.7); Eosinophils % (A) 1 %; HCT 35.2 % (39.0-53.0); Hypochromasia Marked; Lymphocytes # (A) 2.2 k/uL (1.0-4.8); Lymphocytes % (A) 16 %; MCH 21.6 pg (25.0-35.0); MCHC 28.3 g/dL (31.0-37.0); MCV 76.2 fL (80.0-100.0); Mean Platelet Volume 6.2; Microcytosis Moderate; Monocytes # (A) 0.9 k/uL (0-1.0); Monocytes % (A) 6 %; Neutrophils # (A) 10.8 k/uL (1.3-7.7); Neutrophils % (A) 75 %; Platelet Count 760 k/uL (150-450); Poikilocytosis Moderate; RBC 4.62 m/uL (4.30-5.90); RDW 20.8 % (11.5-15.5); WBC 14.3 k/uL (3.8-10.6)
[2017-11-01 06:55] LABS: Anion Gap 9 mmol/L; Blood Urea Nitrogen 19 mg/dL (9-20); Calcium 8.8 mg/dL (8.4-10.2); Carbon Dioxide 25 mmol/L (22-30); Chloride 102 mmol/L (98-107); Glucose 94 mg/dL (74-99); Potassium 4.6 mmol/L (3.5-5.1); Sodium 136 mmol/L (137-145)
[2017-11-01] MEDS: BALSALAZIDE DISODIUM 750 MG CAPSULE PO SCH (09:11)
[2017-11-01] MEDS: predniSONE 10 MG TAB PO SCH (09:12)
[2017-11-01] MEDS: TICAGRELOR 90 MG TAB PO SCH (09:13)
[2017-11-01] MEDS: FAMOTIDINE 20 MG TAB PO SCH (09:13)
[2017-11-01] MEDS: FERROUS SULFATE 325 MG TAB PO SCH (09:13)
[2017-11-01] MEDS: ASPIRIN 81 MG PO SCH (09:13)
[2017-11-01] MEDS: AMIODARONE 200 MG TAB PO SCH (09:13)
[2017-11-01] MEDS: FUROSEMIDE 20 MG TAB PO SCH (09:14)
[2017-11-01] MEDS: METOPROLOL TARTRATE 50 MG TAB PO SCH (09:14)
[2017-11-01] MEDS: LISINOPRIL 2.5 MG TAB PO SCH (09:15)
[2017-11-01] MEDS: SPIRONOLACTONE 25 MG TAB PO SCH (09:16)
[2017-11-01 09:30] VITALS: BP 113/71; PULSE 89; TEMP 97.9
--- NOTE | 2017-11-01 12:31 | P.DS ---
Providers Date of admission: 10/26/17 14:14 Attending physician: Rancho Beatty Consults: 10/26/17 14:16 Consult Physician Routine Consulting Provider: Margarita Wild Consult Reason/Comments: stemi Do you want consulting provider notified?: Yes 10/26/17 15:04 Consult Physician Routine Consulting Provider: [facility] Consult Reason/Comments: Post Interventional patient Do you want consulting provider notified?: Already Contacted 10/26/17 23:32 Consult Physician Routine Consulting Provider: Haseeb Thorpe Consult Reason/Comments: icu managment Do you want consulting provider notified?: Yes, Notify in am 10/29/17 14:15 Consult Physician Routine Consulting Provider: Eyad Craven Consult Reason/Comments: Cardiac Arrest; ICD placement? Do you want consulting provider notified?: Yes Primary care physician: Luly Marie [place] [facility] Course: Please refer to my discharge summary from yesterday. Patient did not get his LifeVest yesterday because of which he had up staying in the hospital no significant changes in medications were made today. Patient was seen examined today. For rest of the other details please refer to the discharge summary from yesterday. PHYSICAL EXAMINATION: GENERAL: The patient is alert and oriented x3, not in any acute distress. Well developed, well nourished. HEENT: Pupils are round and equally reacting to light. EOMI. No scleral icterus. No conjunctival pallor. Normocephalic, atraumatic. No pharyngeal erythema. No thyromegaly. CARDIOVASCULAR: S1 and S2 present. No murmurs, rubs, or gallops. PULMONARY: Chest is clear to auscultation, no wheezing or crackles. ABDOMEN: Soft, nontender, nondistended, normoactive bowel sounds. No palpable organomegaly. MUSCULOSKELETAL: No joint swelling or deformity. EXTREMITIES: No cyanosis, clubbing, or pedal edema. NEUROLOGICAL: Gross neurological examination did not reveal any focal deficits. SKIN: No rashes. Patient Condition at Discharge: Stable Plan - Discharge Summary Discharge Rx Participant: Yes New Discharge Prescriptions: New predniSONE 10 mg PO DIRECTED #70 tab Amiodarone [Cordarone] 200 mg PO BID #30 tab Aspirin 81 mg PO DAILY #30 chew Atorvastatin [Lipitor] 80 mg PO HS #30 tab Famotidine [Pepcid] 20 mg PO BID #30 tab Ferrous Sulfate [Iron (65 MG Elemental)] 325 mg PO DAILY #30 tab Furosemide [Lasix] 20 mg PO DAILY #30 tab Lisinopril [Zestril] 2.5 mg PO BID #30 tab Metoprolol Tartrate [Lopressor] 50 mg PO BID #30 tab Nitroglycerin Sl Tabs [Nitrostat] 0.4 mg SUBLINGUAL Q5M PRN #30 tab PRN Reason: Chest Pain Spironolactone [Aldactone] 25 mg PO DAILY #30 tab Ticagrelor [Brilinta] 90 mg PO BID #60 tab Mesalamine [Lialda] 2.4 gm PO DAILY #60 tablet. Continue predniSONE 10 mg PO DAILY Multivitamins, Thera [Multivitamin (formulary)] 1 tab PO DAILY Discharge Medication List Multivitamins, Thera [Multivitamin (formulary)] 1 tab PO DAILY 10/26/17 [History ] predniSONE 10 mg PO DAILY 10/26/17 [History] predniSONE 10 mg PO DIRECTED #70 tab 10/28/17 [Rx] Amiodarone [Cordarone] 200 mg PO BID #30 tab 10/31/17 [Rx] Aspirin 81 mg PO DAILY #30 chew 10/31/17 [Rx] Atorvastatin [Lipitor] 80 mg PO HS #30 tab 10/31/17 [Rx] Famotidine [Pepcid] 20 mg PO BID #30 tab 10/31/17 [Rx] Ferrous Sulfate [Iron (65 MG Elemental)] 325 mg PO DAILY #30 tab 10/31/17 [Rx] Furosemide [Lasix] 20 mg PO DAILY #30 tab 10/31/17 [Rx] Lisinopril [Zestril] 2.5 mg PO BID #30 tab 10/31/17 [Rx] Mesalamine [Lialda] 2.4 gm PO DAILY #60 tablet. 10/31/17 [Rx] Metoprolol Tartrate [Lopressor] 50 mg PO BID #30 tab 10/31/17 [Rx] Nitroglycerin Sl Tabs [Nitrostat] 0.4 mg SUBLINGUAL Q5M PRN #30 tab 10/31/17 [Rx ] Spironolactone [Aldactone] 25 mg PO DAILY #30 tab 10/31/17 [Rx] Ticagrelor [Brilinta] 90 mg PO BID #60 tab 10/31/17 [Rx] Follow up Appointment(s)/Referral(s): Nathaniel Blanco MD [STAFF PHYSICIAN] - 11/03/17 3:00 pm () Margarita Wild MD [STAFF PHYSICIAN] - 11/08/17 1:15 pm (Tuesday) Cynthia Mauricio MD [Primary Care Provider] - 11/07/17 1:40 pm (Tuesday) Patient Instructions/Handouts: *[facility] - After Heart Catheterization - Tie Hacker Instructions, Heart Catheterization (DC), Wearable Cardioverter Defibrillator (DC) Activity/Diet/Wound Care/Special Instructions: [facility] needs to order Lialda - 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 LifeVest Prednisone instructions: 11/03/17 decrease to 25 mg daily. Every 7 days decrease by 5 mg daily until complete; prescription sent electronically. Discharge Disposition: HOME SELF-CARE
--- NOTE | 2017-11-01 16:48 | P.PN ---
Subjective Progress Note Date: 11/01/17 Is a 47-year-old gentleman admitted to the hospital with recurrent ventricular tachycardia. The overall picture is suggestive of old anterior wall myocardial infarction and possible ventricular aneurysm. Patient is status post stenting of the LAD. Echo was repeated which continues to show severe degree of apical hypokinesia as well as distal anterior septum which is thinned and akinetic suggestive of prior anterior wall [place]. Patient did receive his LifeVest today, he will be discharged home to follow-up in the office with Dr. Wild post discharge. Hemodynamically he is stable. Objective - Vital Signs Vital signs: Vital Signs Temp 97.9 F 11/01/17 08:30 Pulse 89 11/01/17 08:30 Resp 18 11/01/17 08:30 BP 113/71 11/01/17 08:30 Pulse Ox 98 11/01/17 08:44 Intake & Output 10/31/17 11/01/17 11/01/17 18:59 06:59 18:59 Intake Total 2039 240 Balance 2039 240 Weight 68.3 kg Intake: Oral 2039 240 Other: Voiding Method Toilet Urinal # Voids 2 0 # Bowel Movements 1 - Exam PHYSICAL EXAMINATION: HEENT: [Head is atraumatic, normocephalic. Pupils equal, round. Neck is supple. There is no elevated jugular venous pressure.] HEART EXAMINATION: [Heart S1, S2 normal. No murmur or gallop heard.] CHEST EXAMINATION:[ Lungs are clear to auscultation and precussion. No chest wall tenderness is noted on palpation or with deep breathing.] ABDOMEN: [ Soft, nontender. Bowel sounds are heard. No organomegaly noted]. EXTREMITIES:[ 2+ peripheral pulses with no evidence of peripheral edema and no calf tenderness noted]. NEUROLOGIC [patient is awake, alert and oriented -3.] . - Labs CBC & Chem 7: 11/01/17 06:05 11/01/17 06:05 Labs: Abnormal Lab Results - Last 24 Hours (Table) 11/01/17 11/01/17 Range/Units 06:05 06:05 WBC 14.3 H (3.8-10.6) k/uL Hgb 10.0 L (13.0-17.5) gm/dL Hct 35.2 L (39.0-53.0) % MCV 76.2 L (80.0-100.0) fL MCH 21.6 L (25.0-35.0) pg MCHC 28.3 L (31.0-37.0) g/dL RDW 20.8 H (11.5-15.5) % Plt Count 760 H (150-450) k/uL Neutrophils # 10.8 H (1.3-7.7) k/uL Sodium 136 L (137-145) mmol/L Assessment and Plan Plan: Assessment and plan #1 acute anterior wall myocardial infarction status post stenting of the LAD #2 severe ischemic cardiomyopathy Plan Patient will be discharged home today with a LifeVest in place, he will follow- up with Dr. Wild in the office post discharge. DNP note has been reviewed, I agree with a documented findings and plan of care. Patient was seen and examined.
== END 2017-11-01 11:59 | disposition home or self-care (01) | DRG 246 ==
LOC: SUPCPDRO 14:00 → EC 14:00 → 6ICU 14:14 → 6SEL 10-29 12:47
PROVIDERS: ADMIT Hospitalist; ATTEND Hospitalist
PROC: B211YZZ Fluoroscopy of Multiple Coronary Arteries using Other Contrast (ICD-10-PCS; 2017-10-26)
PROC: B215YZZ Fluoroscopy of Left Heart using Other Contrast (ICD-10-PCS; 2017-10-26)
PROC: 30233N1 Transfusion of Nonautologous Red Blood Cells into Peripheral Vein, Percutaneous Approach (ICD-10-PCS; 2017-10-26)
PROC: 027034Z Dilation of Coronary Artery, One Artery with Drug-eluting Intraluminal Device, Percutaneous Approach (ICD-10-PCS; principal; 2017-10-26 12:40)
PROC: 4A023N7 Measurement of Cardiac Sampling and Pressure, Left Heart, Percutaneous Approach (ICD-10-PCS; 2017-10-26 12:40)
DX: I21.09 ST elevation (STEMI) myocardial infarction involving other coronary artery of anterior wall (principal); I49.02 Ventricular flutter; R56.9 Unspecified convulsions; D62 Acute posthemorrhagic anemia; K51.911 Ulcerative colitis, unspecified with rectal bleeding; I47.2 Ventricular tachycardia; I25.5 Ischemic cardiomyopathy; I25.10 Atherosclerotic heart disease of native coronary artery without angina pectoris; I25.2 Old myocardial infarction; D50.0 Iron deficiency anemia secondary to blood loss (chronic); I45.10 Unspecified right bundle-branch block; J45.909 Unspecified asthma, uncomplicated; K58.9 Irritable bowel syndrome, unspecified; Z79.52 Long term (current) use of systemic steroids; Z79.899 Other long term (current) drug therapy; Z87.891 Personal history of nicotine dependence
CPT/HCPCS: 71045; 80048; 80053; 80061; 80306; 82272; 82550; 82553; 83690; 83735; 83880; 84100; 84484; 85025; 85610; 85730; 86850; 86900; 86901; 86920; 87324; 93306; 93308; 93458; 94640; 94760

== ENCOUNTER 2019-05-27 12:47 | Emergency (ER) | payer OTHER ==
[2019-05-27 13:03] VITALS: TEMP 98.1
[2019-05-27] MEDS ORDERED: methylPREDNISolone SOD SUCCI 125 MG/2 ML VIAL IV STA (13:27)
[2019-05-27] MEDS ORDERED: IPRATROPIUM-ALBUTEROL 3 ML NEB INHALATION STA (13:27)
--- NOTE | 2019-05-27 13:29 | ED ---
General Adult HPI - General Chief complaint: Shortness of Breath Stated complaint: SOB Time Seen by Provider: 05/27/19 12:59 Source: patient, police, RN notes reviewed Mode of arrival: ambulatory Limitations: no limitations - History of Present Illness Initial comments: Patient is a 48-year-old male presenting to the emergency Department with please officer escort. Patient is complaining of shortness of breath. Patient does have cough and shortness of breath over the past week that has progressed. Patient is only able to walk 4-10 feet before becoming short of breath. Patient does have history of asthma with similar symptoms previously. Patient is coughing yellow sputum. Patient has subjective chills and questionable fever. No leg pain or leg swelling. No chest pain. - Related Data Home Medications Medication Instructions Recorded Confirmed Multivitamins, Thera [Multivitamin 1 tab PO DAILY 10/26/17 10/26/17 (formulary)] predniSONE 10 mg PO DAILY 10/26/17 10/26/17 Previous Rx's Medication Instructions Recorded predniSONE 10 mg PO DIRECTED #70 tab 10/28/17 Amiodarone [Cordarone] 200 mg PO BID #30 tab 10/31/17 Aspirin 81 mg PO DAILY #30 chew 10/31/17 Atorvastatin [Lipitor] 80 mg PO HS #30 tab 10/31/17 Famotidine [Pepcid] 20 mg PO BID #30 tab 10/31/17 Ferrous Sulfate [Iron (65 MG 325 mg PO DAILY #30 tab 10/31/17 Elemental)] Furosemide [Lasix] 20 mg PO DAILY #30 tab 10/31/17 Lisinopril [Zestril] 2.5 mg PO BID #30 tab 10/31/17 Mesalamine [Lialda] 2.4 gm PO DAILY #60 tablet. 10/31/17 Metoprolol Tartrate [Lopressor] 50 mg PO BID #30 tab 10/31/17 Nitroglycerin Sl Tabs [Nitrostat] 0.4 mg SUBLINGUAL Q5M PRN #30 tab 10/31/17 Spironolactone [Aldactone] 25 mg PO DAILY #30 tab 10/31/17 Ticagrelor [Brilinta] 90 mg PO BID #60 tab 10/31/17 Albuterol Inhaler [Ventolin Hfa 2 puff INHALATION Q4HR PRN #1 05/27/19 Inhaler] inhaler Azithromycin [Zithromax Z-pack] 250 mg PO DIRECTED #6 tab 05/27/19 predniSONE 20 mg PO BID #10 tab 05/27/19 Allergies Allergy/AdvReac Type Severity Reaction Status Date / Time No Known Allergies Allergy Verified 10/26/17 18:40 Review of Systems ROS Statement: Those systems with pertinent positive or pertinent negative responses have been documented in the HPI. ROS Other: All systems not noted in ROS Statement are negative. Constitutional: Reports: as per HPI, fever, chills Eyes: Denies: eye pain ENT: Denies: ear pain Respiratory: Reports: as per HPI, cough, dyspnea Cardiovascular: Denies: chest pain Endocrine: Reports: fatigue Gastrointestinal: Denies: abdominal pain Genitourinary: Denies: urgency Musculoskeletal: Denies: back pain Skin: Denies: rash Neurological: Denies: weakness Past Medical History Past Medical History: Asthma, Myocardial Infarction ([place]) Additional Past Medical History / Comment(s): IBS History of Any Multi-Drug Resistant Organisms: None Reported Past Surgical History: Heart Catheterization, Heart Catheterization With Stent Past Psychological History: No Psychological Hx Reported Smoking Status: Current every day smoker Past Alcohol Use History: None Reported Past Drug Use History: None Reported General Exam Limitations: no limitations General appearance: alert, in no apparent distress Head exam: Present: normocephalic Eye exam: Present: normal appearance, PERRL ENT exam: Present: normal oropharynx Neck exam: Present: normal inspection Respiratory exam: Present: wheezes Cardiovascular Exam: Present: regular rate, normal rhythm GI/Abdominal exam: Present: soft. Absent: tenderness Extremities exam: Present: normal inspection. Absent: pedal edema, calf tenderness Neurological exam: Present: alert Psychiatric exam: Present: normal affect, normal mood Skin exam: Present: normal color Course Vital Signs 05/27/19 05/27/19 05/27/19 12:58 13:42 13:53 Temperature 98.1 F Pulse Rate 94 86 87 Respiratory 24 Rate Blood Pressure 140/79 O2 Sat by Pulse 99 Oximetry Medical Decision Making - Medical Decision Making Patient reevaluated and significantly improved. Lungs with good air exchange and minimal wheeze. Patient able to walk to and from the restroom without any difficulty. Patient is comfortable with discharge back to [facility]. Case was also reviewed with Dr. Nerusu was also comfortable with this. Patient updated on results and need for follow-up. Leukocytosis and anemia are both chronic problems. Patient will need repeat labs within the next few days. Officer present states the [facility] is able to do this. - Lab Data Result diagrams: 05/27/19 13:34 05/27/19 13:34 Lab Results 05/27/19 05/27/19 Range/Units 13:34 13:34 WBC 16.0 H (3.8-10.6) k/uL RBC 4.20 L (4.30-5.90) m/uL Hgb 7.1 L (13.0-17.5) gm/dL Hct 26.5 L (39.0-53.0) % MCV 63.1 L (80.0-100.0) fL MCH 16.8 L (25.0-35.0) pg MCHC 26.6 L (31.0-37.0) g/dL RDW 17.7 H (11.5-15.5) % Plt Count 382 (150-450) k/uL Neutrophils % 72 % Lymphocytes % 8 % Monocytes % 6 % Eosinophils % 12 % Basophils % 1 % Neutrophils # 11.5 H (1.3-7.7) k/uL Lymphocytes # 1.3 (1.0-4.8) k/uL Monocytes # 0.9 (0-1.0) k/uL Eosinophils # 1.8 H (0-0.7) k/uL Basophils # 0.1 (0-0.2) k/uL Hypochromasia Marked Anisocytosis Slight Microcytosis Marked Sodium 140 (137-145) mmol/L Potassium 4.7 (3.5-5.1) mmol/L Chloride 105 (98-107) mmol/L Carbon Dioxide 23 (22-30) mmol/L Anion Gap 12 mmol/L BUN 20 (9-20) mg/dL Creatinine 0.95 (0.66-1.25) mg/dL Est GFR (CKD-EPI)AfAm >90 (>60 ml/min/1.73 sqM) Est GFR (CKD-EPI)NonAf >90 (>60 ml/min/1.73 sqM) Glucose 94 (74-99) mg/dL Calcium 9.5 (8.4-10.2) mg/dL Total Bilirubin 0.3 (0.2-1.3) mg/dL AST 22 (17-59) U/L ALT 17 L (21-72) U/L Alkaline Phosphatase 68 (38-126) U/L Total Protein 7.0 (6.3-8.2) g/dL Albumin 3.9 (3.5-5.0) g/dL - Radiology Data Radiology results: image reviewed (Chest x-ray shows some findings consistent with bronchitis or asthma.) Disposition Clinical Impression: Asthmatic bronchitis Disposition: HOME SELF-CARE Condition: Stable Instructions (If sedation given, give patient instructions): Acute Bronchitis ( ED), Asthma (ED) Additional Instructions: Patient will need to have blood levels rechecked in the next few days including white blood cell count and hemoglobin level. Please return to emergency department for fevers, worsening difficulty in breathing, chest pain or leg swe lling, worsening symptoms or any other concerns. Prescriptions: predniSONE 20 mg PO BID #10 tab Albuterol Inhaler [Ventolin Hfa Inhaler] 2 puff INHALATION Q4HR PRN #1 inhaler PRN Reason: Dyspnea Azithromycin [Zithromax Z-pack] 250 mg PO DIRECTED #6 tab Is patient prescribed a controlled substance at d/c from ED?: No Referrals: Cynthai Mauricio MD [Primary Care Provider] - 1-2 days Dianne Sorto MD [STAFF PHYSICIAN] - 1-2 days Time of Disposition: 14:56
[2019-05-27 13:45] LABS: Anisocytosis Slight; Basophils # (A) 0.1 k/uL (0-0.2); Basophils % (A) 1 %; Eosinophils # (A) 1.8 k/uL (0-0.7); Eosinophils % (A) 12 %; HCT 26.5 % (39.0-53.0); HGB 7.1 gm/dL (13.0-17.5); Hypochromasia Marked; Lymphocytes # (A) 1.3 k/uL (1.0-4.8); Lymphocytes % (A) 8 %; MCH 16.8 pg (25.0-35.0); MCHC 26.6 g/dL (31.0-37.0); MCV 63.1 fL (80.0-100.0); Mean Platelet Volume 6.7; Microcytosis Marked; Monocytes # (A) 0.9 k/uL (0-1.0); Monocytes % (A) 6 %; Neutrophils # (A) 11.5 k/uL (1.3-7.7); Neutrophils % (A) 72 %; Platelet Count 382 k/uL (150-450); RDW 17.7 % (11.5-15.5)
[2019-05-27 13:53] LABS: ALT 17 U/L (21-72); AST 22 U/L (17-59); African American GFR (CKD) >90 (>60 ml/min/1.73 sqM); Albumin 3.9 g/dL (3.5-5.0); Alkaline Phosphatase 68 U/L (38-126); Anion Gap 12 mmol/L; Blood Urea Nitrogen 20 mg/dL (9-20); Calcium 9.5 mg/dL (8.4-10.2); Carbon Dioxide 23 mmol/L (22-30); Chloride 105 mmol/L (98-107); Glucose 94 mg/dL (74-99); Non-African American GFR(CKD) >90 (>60 ml/min/1.73 sqM); Potassium 4.7 mmol/L (3.5-5.1); Sodium 140 mmol/L (137-145); Total Bilirubin 0.3 mg/dL (0.2-1.3)
--- NOTE | 2019-05-27 14:13 | XR ---
EXAMINATION TYPE: XR chest 2V DATE OF EXAM: 05/27/2019 COMPARISON: 10/27/2017 HISTORY: 48-year-old male with short of breath, difficulty breathing TECHNIQUE: AP and lateral views FINDINGS: Heart normal size. Aorta and pulmonary vasculature within normal limits. Central peribronchial cuffin g is noted. No consolidation or pleural effusion. IMPRESSION: Central peribronchial cuffing compatible with bronchitis or asthma. No focal infiltrate.
[2019-05-27 14:55] VITALS: BP 138/83; PULSE 90; RESP 19
== END 2019-05-27 15:18 | disposition home or self-care (01) ==
LOC: EC 12:47
DX: J45.909 Unspecified asthma, uncomplicated (principal); D72.829 Elevated white blood cell count, unspecified; D64.9 Anemia, unspecified; I25.2 Old myocardial infarction; F17.200 Nicotine dependence, unspecified, uncomplicated; Z79.52 Long term (current) use of systemic steroids; Z95.5 Presence of coronary angioplasty implant and graft
CPT/HCPCS: 36415; 94640; 80053; 85025; 87040; 71046; 96374; 99285; J2930

== ENCOUNTER 2019-06-11 12:36 | Inpatient (IN) | payer OTHER ==
[2019-06-11] MEDS ORDERED: IPRATROPIUM-ALBUTEROL 3 ML NEB INHALATION STA (13:24)
--- NOTE | 2019-06-11 13:27 | ED ---
General Adult HPI - General Chief complaint: Recheck/Abnormal Lab/Rx Stated complaint: lab/recheck Time Seen by Provider: 06/11/19 13:12 Source: patient, police, RN notes reviewed Mode of arrival: ambulatory Limitations: no limitations - History of Present Illness Initial comments: Patient is a pleasant 48-year-old male presenting to the emergency Department with low hemoglobin. Patient has chronic anemia that he attributes to ulcerative colitis. Patient denies any recent black stools or bleeding. Patient does have some associated dyspnea however states this is from his bronchitis. Patient states his dyspnea is improved from his previous ER visit however still bothersome some. Patient does have occasional nonproductive cough. No fevers. - Related Data Home Medications Medication Instructions Recorded Confirmed Multivitamins, Thera [Multivitamin 1 tab PO DAILY 10/26/17 10/26/17 (formulary)] predniSONE 10 mg PO DAILY 10/26/17 10/26/17 Previous Rx's Medication Instructions Recorded predniSONE 10 mg PO DIRECTED #70 tab 10/28/17 Amiodarone [Cordarone] 200 mg PO BID #30 tab 10/31/17 Aspirin 81 mg PO DAILY #30 chew 10/31/17 Atorvastatin [Lipitor] 80 mg PO HS #30 tab 10/31/17 Famotidine [Pepcid] 20 mg PO BID #30 tab 10/31/17 Ferrous Sulfate [Iron (65 MG 325 mg PO DAILY #30 tab 10/31/17 Elemental)] Furosemide [Lasix] 20 mg PO DAILY #30 tab 10/31/17 Lisinopril [Zestril] 2.5 mg PO BID #30 tab 10/31/17 Mesalamine [Lialda] 2.4 gm PO DAILY #60 tablet. 10/31/17 Metoprolol Tartrate [Lopressor] 50 mg PO BID #30 tab 10/31/17 Nitroglycerin Sl Tabs [Nitrostat] 0.4 mg SUBLINGUAL Q5M PRN #30 tab 10/31/17 Spironolactone [Aldactone] 25 mg PO DAILY #30 tab 10/31/17 Ticagrelor [Brilinta] 90 mg PO BID #60 tab 10/31/17 Albuterol Inhaler [Ventolin Hfa 2 puff INHALATION Q4HR PRN #1 05/27/19 Inhaler] inhaler Azithromycin [Zithromax Z-pack] 250 mg PO DIRECTED #6 tab 05/27/19 predniSONE 20 mg PO BID #10 tab 05/27/19 Allergies Allergy/AdvReac Type Severity Reaction Status Date / Time No Known Allergies Allergy Verified 10/26/17 18:40 Review of Systems ROS Statement: Those systems with pertinent positive or pertinent negative responses have been documented in the HPI. ROS Other: All systems not noted in ROS Statement are negative. Constitutional: Denies: fever Eyes: Denies: eye pain ENT: Denies: ear pain Respiratory: Reports: cough, dyspnea Cardiovascular: Denies: chest pain Endocrine: Reports: fatigue Gastrointestinal: Denies: abdominal pain, melena, hematochezia Genitourinary: Denies: dysuria Musculoskeletal: Denies: back pain Skin: Denies: rash Neurological: Denies: weakness Past Medical History Past Medical History: Asthma, Myocardial Infarction ([place]) Additional Past Medical History / Comment(s): IBS History of Any Multi-Drug Resistant Organisms: None Reported Past Surgical History: Heart Catheterization, Heart Catheterization With Stent Past Psychological History: No Psychological Hx Reported Smoking Status: Current every day smoker Past Alcohol Use History: None Reported Past Drug Use History: None Reported General Exam Limitations: no limitations General appearance: alert, in no apparent distress Head exam: Present: normocephalic Eye exam: Present: normal appearance Neck exam: Present: normal inspection Respiratory exam: Present: wheezes Cardiovascular Exam: Present: regular rate, normal rhythm GI/Abdominal exam: Present: soft. Absent: distended, tenderness, guarding, rebound, rigid Extremities exam: Present: normal inspection Neurological exam: Present: alert Psychiatric exam: Present: normal affect, normal mood Skin exam: Present: normal color Course Vital Signs 06/11/19 06/11/19 06/11/19 12:47 13:52 14:01 Temperature 97.9 F Pulse Rate 77 80 80 Respiratory 19 Rate Blood Pressure 121/51 O2 Sat by Pulse 100 Oximetry Medical Decision Making - Medical Decision Making Patient reevaluated and resting comfortably in bed. Patient and officers are updated on results and plan. Case was discussed in detail with Dr. grace, who will admit covering for Dr. rivero. - Lab Data Result diagrams: 06/11/19 13:10 06/11/19 13:10 Lab Results 06/11/19 06/11/19 06/11/19 Range/Units 13:10 13:10 13:10 WBC 10.9 H (3.8-10.6) k/uL RBC 3.96 L (4.30-5.90) m/uL Hgb 6.8 L* (13.0-17.5) gm/dL Hct 26.1 L (39.0-53.0) % MCV 65.8 L (80.0-100.0) fL MCH 17.2 L (25.0-35.0) pg MCHC 26.1 L (31.0-37.0) g/dL RDW 20.8 H (11.5-15.5) % Plt Count 684 H (150-450) k/uL Neutrophils % 63 % Lymphocytes % 12 % Monocytes % 8 % Eosinophils % 15 % Basophils % 0 % Neutrophils # 6.9 (1.3-7.7) k/uL Lymphocytes # 1.3 (1.0-4.8) k/uL Monocytes # 0.8 (0-1.0) k/uL Eosinophils # 1.6 H (0-0.7) k/uL Basophils # 0.0 (0-0.2) k/uL Hypochromasia Marked Anisocytosis Moderate Microcytosis Marked PT 9.9 (9.0-12.0) sec INR 0.9 (<1.2) APTT 25.0 (22.0-30.0) sec Sodium 138 (137-145) mmol/L Potassium 4.4 (3.5-5.1) mmol/L Chloride 107 (98-107) mmol/L Carbon Dioxide 22 (22-30) mmol/L Anion Gap 9 mmol/L BUN 18 (9-20) mg/dL Creatinine 0.88 (0.66-1.25) mg/dL Est GFR (CKD-EPI)AfAm >90 (>60 ml/min/1.73 sqM) Est GFR (CKD-EPI)NonAf >90 (>60 ml/min/1.73 sqM) Glucose 87 (74-99) mg/dL Calcium 9.0 (8.4-10.2) mg/dL Total Bilirubin 0.6 (0.2-1.3) mg/dL AST 71 H (17-59) U/L ALT 76 H (21-72) U/L Alkaline Phosphatase 260 H (38-126) U/L Total Protein 6.4 (6.3-8.2) g/dL Albumin 3.6 (3.5-5.0) g/dL Stool Occult Blood (Negative) 06/11/19 Range/Units 13:30 WBC (3.8-10.6) k/uL RBC (4.30-5.90) m/uL Hgb (13.0-17.5) gm/dL Hct (39.0-53.0) % MCV (80.0-100.0) fL MCH (25.0-35.0) pg MCHC (31.0-37.0) g/dL RDW (11.5-15.5) % Plt Count (150-450) k/uL Neutrophils % % Lymphocytes % % Monocytes % % Eosinophils % % Basophils % % Neutrophils # (1.3-7.7) k/uL Lymphocytes # (1.0-4.8) k/uL Monocytes # (0-1.0) k/uL Eosinophils # (0-0.7) k/uL Basophils # (0-0.2) k/uL Hypochromasia Anisocytosis Microcytosis PT (9.0-12.0) sec INR (<1.2) APTT (22.0-30.0) sec Sodium (137-145) mmol/L Potassium (3.5-5.1) mmol/L Chloride (98-107) mmol/L Carbon Dioxide (22-30) mmol/L Anion Gap mmol/L BUN (9-20) mg/dL Creatinine (0.66-1.25) mg/dL Est GFR (CKD-EPI)AfAm (>60 ml/min/1.73 sqM) Est GFR (CKD-EPI)NonAf (>60 ml/min/1.73 sqM) Glucose (74-99) mg/dL Calcium (8.4-10.2) mg/dL Total Bilirubin (0.2-1.3) mg/dL AST (17-59) U/L ALT (21-72) U/L Alkaline Phosphatase (38-126) U/L Total Protein (6.3-8.2) g/dL Albumin (3.5-5.0) g/dL Stool Occult Blood Negative (Negative) - Radiology Data Radiology results: image reviewed (Chest x-ray shows no acute process) Critical Care Time Critical Care Time: Yes Total Critical Care Time: 32 Disposition Clinical Impression: Symptomatic anemia, Bronchitis Disposition: ADMITTED IP TO THIS HOSP Is patient prescribed a controlled substance at d/c from ED?: No Referrals: Cynthia Mauricio MD [Primary Care Provider] - 1-2 days Decision Time: 14:37
[2019-06-11] MEDS ORDERED: PANTOPRAZOLE 40 MG/10 ML VIAL IVP STA (13:35)
[2019-06-11 13:37] LABS: ALT 76 U/L (21-72); AST 71 U/L (17-59); African American GFR (CKD) >90 (>60 ml/min/1.73 sqM); Albumin 3.6 g/dL (3.5-5.0); Alkaline Phosphatase 260 U/L (38-126); Anion Gap 9 mmol/L; Blood Urea Nitrogen 18 mg/dL (9-20); Carbon Dioxide 22 mmol/L (22-30); Chloride 107 mmol/L (98-107); Glucose 87 mg/dL (74-99); Non-African American GFR(CKD) >90 (>60 ml/min/1.73 sqM); Potassium 4.4 mmol/L (3.5-5.1); Sodium 138 mmol/L (137-145); Total Bilirubin 0.6 mg/dL (0.2-1.3); Total Protein 6.4 g/dL (6.3-8.2)
[2019-06-11 13:38] LABS: Anisocytosis Moderate; Basophils % (A) 0 %; Eosinophils # (A) 1.6 k/uL (0-0.7); Eosinophils % (A) 15 %; HCT 26.1 % (39.0-53.0); Hypochromasia Marked; Lymphocytes # (A) 1.3 k/uL (1.0-4.8); Lymphocytes % (A) 12 %; MCH 17.2 pg (25.0-35.0); MCHC 26.1 g/dL (31.0-37.0); MCV 65.8 fL (80.0-100.0); Mean Platelet Volume 6.8; Microcytosis Marked; Monocytes # (A) 0.8 k/uL (0-1.0); Monocytes % (A) 8 %; Neutrophils # (A) 6.9 k/uL (1.3-7.7); Neutrophils % (A) 63 %; Platelet Count 684 k/uL (150-450); RBC 3.96 m/uL (4.30-5.90); RDW 20.8 % (11.5-15.5); WBC 10.9 k/uL (3.8-10.6)
--- NOTE | 2019-06-11 13:42 | XR ---
EXAMINATION TYPE: XR chest 2V DATE OF EXAM: 06/11/2019 COMPARISON: 05/27/2019 HISTORY: Dyspnea and low hemoglobin TECHNIQUE: Frontal and lateral views of the chest are obtained. FINDINGS: There is no focal air space opacity, pleural effusion, or pneumothorax seen. Skinfold over lies the left hemithorax. This was seen on the prior of 05/27/2019. The cardiac silhouette size is w ithin normal limits. The osseous structures are intact. IMPRESSION: No acute cardiopulmonary process.
[2019-06-11 13:47] LABS: INR 0.9 (<1.2); Prothrombin Time 9.9 sec (9.0-12.0)
[2019-06-11 14:03] LABS: HGB 6.8 gm/dL (13.0-17.5)
[2019-06-11] MEDS ORDERED: NALOXONE 0.4 MG/ML 1 ML VIAL IV PRN (14:37)
[2019-06-11] MEDS ORDERED: guaiFENesin-DM 100-10MG/5ML 10 ML CUP PO PRN (18:04)
--- NOTE | 2019-06-11 18:06 | P.HPIM ---
History of Present Illness This is a pleasant 48 years old male from long-term with past medical history of coronary artery disease and chronic anemia, asthma, is status post cardiac cath and stent placement, history of chronic systolic heart failure with ejection fraction 25-30% in/2017, history of ulcerative colitis, status post colonoscopy in July 2017. He was sent because of his hemoglobin at 6.4 , with recent history of bronchitis about 2 weeks ago when he presented to ED and treated and discharged right away. his repeat Hb is at 6.8 in the emergency room. On 05/27/2019 his hemoglobin was 7.1, previously on 11/2017 was 10.0, however on 10/2017 it was 6.4-6.8 , at that time he has been evaluated by GI team and found to have Ulcerative colitis where he has loose bowel movements , compared to this time his bowel movements are regular and formed and yellow brown in color with no abd pain or tenderness, no nausea or vomiting pt is complaining from coughing with clear-yellow phlegm, some exertional dyspnea but no chest pain .. he has history of smoking just before he got into long-term about 1-2 months ago. he used to smoke less than 1/2 PPD, no alcohol or illicit drug on admission Vitas looks stable. BMP is all unremarkable, liver enzymes slig htly elevated at 71 and 76. Heme occult blood in stool is negative. cxr: no acute cardiopulmonary process. in ED he was started on bronchodilator and protonix iv Review of Systems CONSTITUTIONAL: No fever, no malaise, no fatigue. HEENT: No recent visual problems or hearing problems. Denied any sore throat. CARDIOVASCULAR: No orthopnea, PND, no palpitations, no syncope. PULMONARY: No shortness of breath, no cough, no hemoptysis. GASTROINTESTINAL: No diarrhea, no nausea, no vomiting, no abdominal pain. Normoactive bowel sounds. NEUROLOGICAL: No headaches, no weakness, no numbness. HEMATOLOGICAL: Denies any bleeding or petechiae. GENITOURINARY: Denies any burning micturition, frequency, or urgency. MUSCULOSKELETAL/RHEUMATOLOGICAL: Denies any joint pain, swelling, or any muscle pain. ENDOCRINE: Denies any polyuria or polydipsia. Past Medical History Past Medical History: Asthma, Myocardial Infarction ([place]) Additional Past Medical History / Comment(s): IBS History of Any Multi-Drug Resistant Organisms: None Reported Past Surgical History: Heart Catheterization, Heart Catheterization With Stent Past Psychological History: No Psychological Hx Reported Smoking Status: Current every day smoker Past Alcohol Use History: None Reported Past Drug Use History: None Reported Medications and Allergies Home Medications Medication Instructions Recorded Confirmed Type Atorvastatin [Lipitor] 80 mg PO HS #30 tab 10/31/17 06/11/19 Rx Ferrous Sulfate [Iron (65 MG 325 mg PO DAILY #30 tab 10/31/17 06/11/19 Rx Elemental)] Albuterol Inhaler [Ventolin Hfa 1 puff INHALATION RT-Q4H 06/11/19 06/11/19 History Inhaler] Albuterol Nebulized [Ventolin 2.5 mg INHALATION RT-Q4H PRN 06/11/19 06/11/19 History Nebulized] Lisinopril [Zestril] 2.5 mg PO DAILY 06/11/19 06/11/19 History Loratadine [Claritin] 10 mg PO DAILY 06/11/19 06/11/19 History Metoprolol Tartrate [Lopressor] 12.5 mg PO DAILY 06/11/19 06/11/19 History Pantoprazole Sodium [Protonix] 40 mg PO DAILY 06/11/19 06/11/19 History Allergies Allergy/AdvReac Type Severity Reaction Status Date / Time No Known Allergies Allergy Verified 06/11/19 15:00 Physical Exam Vitals: Vital Signs Temp Pulse Resp BP Pulse Ox 06/11/19 14:01 80 06/11/19 13:52 80 06/11/19 12:47 97.9 F 77 19 121/51 100 Intake and Output 06/10/19 06/11/19 06/11/19 22:59 06:59 14:59 Other: Weight 82.1 kg GENERAL: The patient is alert and oriented x3, not in any acute distress. Well developed, well nourished. HEENT: Pupils are round and equally reacting to light. EOMI. No scleral icterus. No conjunctival pallor. Normocephalic, atraumatic. No pharyngeal erythema. No thyromegaly. CARDIOVASCULAR: S1 and S2 present. No murmurs, rubs, or gallops. -PULMONARY: Chest is clear to auscultation,b/l exp wheezing ABDOMEN: Soft, nontender, nondistended, normoactive bowel sounds. No palpable organomegaly. MUSCULOSKELETAL: No joint swelling or deformity. EXTREMITIES: No cyanosis, clubbing, or pedal edema. NEUROLOGICAL: Gross neurological examination did not reveal any focal deficits. SKIN: No rashes. No petechiae Results CBC & Chem 7: 06/11/19 13:10 06/11/19 13:10 Labs: Abnormal Lab Results - Last 24 Hours (Table) 06/11/19 06/11/19 Range/Units 13:10 13:10 WBC 10.9 H (3.8-10.6) k/uL RBC 3.96 L (4.30-5.90) m/uL Hgb 6.8 L* (13.0-17.5) gm/dL Hct 26.1 L (39.0-53.0) % MCV 65.8 L (80.0-100.0) fL MCH 17.2 L (25.0-35.0) pg MCHC 26.1 L (31.0-37.0) g/dL RDW 20.8 H (11.5-15.5) % Plt Count 684 H (150-450) k/uL Eosinophils # 1.6 H (0-0.7) k/uL AST 71 H (17-59) U/L ALT 76 H (21-72) U/L Alkaline Phosphatase 260 H (38-126) U/L Assessment and Plan Assessment: Severe anemia, rule out GI bleed acute COPD Exacerbation History of ulcerative colitis History of STEMI,: Coronary artery disease, status post cardiac cath and stent placement Chronic systolic congestive heart failure with ejection fraction 25-30% History of asthma, not in acute exacerbation Plan: This is a pleasant 48 years old male who presents from long-term for severe anemia. Patient is content 1 units of blood transfusion per ED team, we'll do anemia workup. We'll ask for GI evaluation. Continue with PPI. start steroid and c/w bronchodilatore . Labs and medication were reviewed.. Continue same treatment. Continue with symptomatic treatment. Resume home medication. Monitor lytes and vitals. DVT and GI prophylaxis. Further recommendations of the clinical course of the patient DVT prophylaxis: No heparin a few SEVERE anemia GI Prophylaxis: Protonix Prognosis is guarded
[2019-06-11 18:55] LABS: % Iron Saturation 24.45 (15.00-50.00)
[2019-06-11 19:10] LABS: Ferritin 4.9 ng/mL (22.0-322.0); Folate, Serum 20.2 ng/mL
[2019-06-11] MEDS: methylPREDNISolone SOD SUCCI 40 MG/ML 1 ML VIAL IV SCH (19:39)
[2019-06-11] MEDS: ATORVASTATIN 80 MG TAB PO SCH (19:39)
[2019-06-11] MEDS: ALBUTEROL NEBULIZED 2.5 MG/3 ML INHALATION PRN (19:48)
[2019-06-12] MEDS: ALBUTEROL NEBULIZED 2.5 MG/3 ML INHALATION PRN ×5 (00:45→16:02)
[2019-06-12] MEDS: methylPREDNISolone SOD SUCCI 40 MG/ML 1 ML VIAL IV SCH ×2 (05:38→17:42)
[2019-06-12] MEDS: METOPROLOL TARTRATE 12.5 MG TAB PO SCH (06:51)
[2019-06-12] MEDS: PANTOPRAZOLE 40 MG/10 ML VIAL IV SCH (06:52)
[2019-06-12] MEDS: FERROUS SULFATE 325 MG TAB PO SCH (06:52)
[2019-06-12] MEDS: LISINOPRIL 2.5 MG TAB PO SCH (06:52)
[2019-06-12 09:36] LABS: ALT 72 U/L (21-72); AST 61 U/L (17-59); African American GFR (CKD) >90 (>60 ml/min/1.73 sqM); Albumin 3.7 g/dL (3.5-5.0); Alkaline Phosphatase 246 U/L (38-126); Anion Gap 12 mmol/L; Blood Urea Nitrogen 15 mg/dL (9-20); Calcium 9.3 mg/dL (8.4-10.2); Carbon Dioxide 21 mmol/L (22-30); Chloride 105 mmol/L (98-107); Glucose 192 mg/dL (74-99); Non-African American GFR(CKD) >90 (>60 ml/min/1.73 sqM); Potassium 4.4 mmol/L (3.5-5.1); Sodium 138 mmol/L (137-145); Total Bilirubin 0.7 mg/dL (0.2-1.3); Total Protein 6.7 g/dL (6.3-8.2)
[2019-06-12 09:51] LABS: Anisocytosis Moderate; Basophils % (A) 0 %; Eosinophils % (A) 0 %; HCT 30.2 % (39.0-53.0); HGB 8.1 gm/dL (13.0-17.5); Hypochromasia Marked; Lymphocytes # (A) 0.3 k/uL (1.0-4.8); Lymphocytes % (A) 5 %; MCH 18.6 pg (25.0-35.0); MCHC 26.9 g/dL (31.0-37.0); MCV 68.9 fL (80.0-100.0); Mean Platelet Volume 7.1; Microcytosis Marked; Monocytes # (A) 0.1 k/uL (0-1.0); Monocytes % (A) 1 %; Neutrophils # (A) 5.9 k/uL (1.3-7.7); Neutrophils % (A) 93 %; Platelet Count 674 k/uL (150-450); Poikilocytosis Slight; RBC 4.38 m/uL (4.30-5.90); RDW 21.3 % (11.5-15.5); WBC 6.4 k/uL (3.8-10.6)
--- NOTE | 2019-06-12 11:42 | P.PN ---
Subjective This is a pleasant 48 years old male from shelter with past medical history of coronary artery disease and chronic anemia, asthma, is status post cardiac cath and stent placement, history of chronic systolic heart failure with ejection fraction 25-30% in, history of ulcerative colitis, status post colonoscopy in July 2017. He was sent because of his hemoglobin at 6.4 , with recent history of bronchitis about 2 weeks ago when he presented to ED and treated and discharged right away. his repeat Hb is at 6.8 in the emergency room. On 05/27/2019 his hemoglobin was 7.1, previously on 11/2017 was 10.0, however on 10/2017 it was 6.4-6.8 , at that time he has been evaluated by GI team and found to have Ulcerative colitis where he has loose bowel movements , compared to this time his bowel movements are regular and formed and yellow brown in color with no abd pain or tenderness, no nausea or vomiting pt is complaining from coughing with clear-yellow phlegm, some exertional dyspnea but no chest pain .. he has history of smoking just before he got into shelter about 1-2 months ago. he used to smoke less than 1/2 PPD, no alcohol or illicit drug on admission Vitas looks stable. BMP is all unremarkable, liver enzymes slightly elevated at 71 and 76. Heme occult blood in stool is negative. cxr: no acute cardiopulmonary process. in ED he was started on bronchodilator and protonix iv 06/12/2019 Patient feels better with no new symptoms. Vitas looks stable. 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 Review of systems CONSTITUTIONAL: No fever, no malaise, no fatigue. HEENT: No recent visual problems or hearing problems. Denied any sore throat. CARDIOVASCULAR: No orthopnea, PND, no palpitations, no syncope. PULMONARY: No shortness of breath, no cough, no hemoptysis. GASTROINTESTINAL: No diarrhea, no nausea, no vomiting, no abdominal pain. Normoactive bowel sounds. NEUROLOGICAL: No headaches, no weakness, no numbness. HEMATOLOGICAL: Denies any bleeding or petechiae. GENITOURINARY: Denies any burning micturition, frequency, or urgency. MUSCULOSKELETAL/RHEUMATOLOGICAL: Denies any joint pain, swelling, or any muscle pain. ENDOCRINE: Denies any polyuria or polydipsia. Active Medications Generic Name Dose Route Start Last Admin Trade Name Freq PRN Reason Stop Dose Admin Albuterol Sulfate 2.5 mg 06/11/19 17:59 06/12/19 11:36 Ventolin Nebulized INHALATION 2.5 mg RT-Q4H PRN Administration Shortness Of Breath Atorvastatin Calcium 80 mg 06/11/19 21:00 06/11/19 19:39 Lipitor PO 80 mg HS JENNIFER Administration Ferrous Sulfate 325 mg 06/12/19 09:00 06/12/19 06:52 Feosol PO 325 mg DAILY JENNIFER Administration Guaifenesin/Dextromethorphan 10 ml 06/11/19 18:04 Robitussin Dm PO Q8H PRN Cough Lisinopril 2.5 mg 06/12/19 09:00 06/12/19 06:52 Zestril PO 2.5 mg DAILY JENNIFER Administration Methylprednisolone Sodium Succinate 40 mg 06/11/19 18:15 06/12/19 05:38 Solu-Medrol IV 40 mg Q12HR@0600,1800 JENNIFER Administration Metoprolol Tartrate 12.5 mg 06/12/19 09:00 06/12/19 06:51 Lopressor PO 12.5 mg DAILY JENNIFER Administration Naloxone HCl 0.2 mg 06/11/19 14:37 Narcan IV Q2M PRN Opioid Reversal Pantoprazole Sodium 40 mg 06/12/19 09:00 06/12/19 06:52 Protonix IV 40 mg DAILY JENNIFER Administration Objective - Vital Signs Vital signs: Vital Signs Temp 98.9 F 06/12/19 04:50 Pulse 84 06/12/19 07:56 Resp 20 06/12/19 04:50 BP 132/62 06/12/19 04:50 Pulse Ox 92 L 06/12/19 04:50 Intake & Output 06/11/19 06/12/19 06/12/19 18:59 06:59 18:59 Intake Total 0 610 Balance 0 610 Weight 82.1 kg 82.1 kg Intake: Oral 300 Blood Product 0 310 Rc As-1 Unit 0 310 [id number] Other: # Voids 1 1 - Exam GENERAL: The patient is alert and oriented x3, not in any acute distress. Well developed, well nourished. HEENT: Pupils are round and equally reacting to light. EOMI. No scleral icterus. No conjunctival pallor. Normocephalic, atraumatic. No pharyngeal erythema. No thyromegaly. CARDIOVASCULAR: S1 and S2 present. No murmurs, rubs, or gallops. PULMONARY: Chest is clear to auscultation, no wheezing or crackles. ABDOMEN: Soft, nontender, nondistended, normoactive bowel sounds. No palpable organomegaly. MUSCULOSKELETAL: No joint swelling or deformity. EXTREMITIES: No cyanosis, clubbing, or pedal edema. NEUROLOGICAL: Gross neurological examination did not reveal any focal deficits. SKIN: No rashes. no petechiae. - Labs CBC & Chem 7: 06/12/19 08:43 06/12/19 08:43 Labs: Abnormal Lab Results - Last 24 Hours (Table) 06/11/19 06/11/19 06/11/19 Range/Units 13:10 13:10 13:10 WBC 10.9 H (3.8-10.6) k/uL RBC 3.96 L (4.30-5.90) m/uL Hgb 6.8 L* (13.0-17.5) gm/dL Hct 26.1 L (39.0-53.0) % MCV 65.8 L (80.0-100.0) fL MCH 17.2 L (25.0-35.0) pg MCHC 26.1 L (31.0-37.0) g/dL RDW 20.8 H (11.5-15.5) % Plt Count 684 H (150-450) k/uL Lymphocytes # (1.0-4.8) k/uL Eosinophils # 1.6 H (0-0.7) k/uL Carbon Dioxide (22-30) mmol/L Glucose (74-99) mg/dL Ferritin 4.9 L (22.0-322.0) ng/mL AST 71 H (17-59) U/L ALT 76 H (21-72) U/L Alkaline Phosphatase 260 H (38-126) U/L Crossmatch 06/11/19 06/12/19 06/12/19 Range/Units 14:43 08:43 08:43 WBC (3.8-10.6) k/uL RBC (4.30-5.90) m/uL Hgb 8.1 L (13.0-17.5) gm/dL Hct 30.2 L (39.0-53.0) % MCV 68.9 L (80.0-100.0) fL MCH 18.6 L (25.0-35.0) pg MCHC 26.9 L (31.0-37.0) g/dL RDW 21.3 H (11.5-15.5) % Plt Count 674 H (150-450) k/uL Lymphocytes # 0.3 L (1.0-4.8) k/uL Eosinophils # (0-0.7) k/uL Carbon Dioxide 21 L (22-30) mmol/L Glucose 192 H (74-99) mg/dL Ferritin (22.0-322.0) ng/mL AST 61 H (17-59) U/L ALT (21-72) U/L Alkaline Phosphatase 246 H (38-126) U/L Crossmatch See Detail Assessment and Plan Assessment: Severe anemia, rule out GI bleed acute COPD Exacerbation History of ulcerative colitis History of STEMI,: Coronary artery disease, status post cardiac cath and stent placement Chronic systolic congestive heart failure with ejection fraction 25-30% History of asthma, not in acute exacerbation Plan: This is a pleasant 48 years old male who presents from shelter for severe anemia. Continue with PPI. Follow-up hematology and GI recommendation. Continue with steroids and tomorrow can be switched to oral prednisone . c/w bronchodilatore . Labs and medication were reviewed.. Continue same treatment. Continue with symptomatic treatment. Resume home medication. Monitor lytes and vitals. DVT and GI prophylaxis. Further recommendations of the clinical course of the patient DVT prophylaxis: No heparin a few SEVERE anemia GI Prophylaxis: Protonix Prognosis is guarded
--- NOTE | 2019-06-12 18:40 | P.CONS ---
History of Present Illness - Reason for Consult Consult date: 06/12/19 anemia Requesting physician: Louie E Sheet - Chief Complaint symptomatic anemia - History of Present Illness Mr. Velazquez is a very pleasant man who we have been asked to see re: microcytic hypochromic anemia with significantly low ferritin. He required transfusion on admit for Hgb 6.8, this medical records shows pt anemic since 2018. He denies any visible blood, unusual colored stool, he is on treatment for colitis, he has a daily,soft BM, no abd pain, he thinks his diet is adequate. Review of Systems 14 point ROS is negative except as stated in HPI Past Medical History Past Medical History: Asthma, Myocardial Infarction ([place]) Additional Past Medical History / Comment(s): IBS Last Myocardial Infarction Date:: october 2016 History of Any Multi-Drug Resistant Organisms: None Reported Past Surgical History: Heart Catheterization, Heart Catheterization With Stent Date of Last Stent Placement:: October 2016 Past Psychological History: No Psychological Hx Reported Smoking Status: Former smoker Past Alcohol Use History: None Reported Past Drug Use History: None Reported Medications and Allergies Home Medications Medication Instructions Recorded Confirmed Type Atorvastatin [Lipitor] 80 mg PO HS #30 tab 10/31/17 06/11/19 Rx Ferrous Sulfate [Iron (65 MG 325 mg PO DAILY #30 tab 10/31/17 06/11/19 Rx Elemental)] Albuterol Inhaler [Ventolin Hfa 1 puff INHALATION RT-Q4H 06/11/19 06/11/19 History Inhaler] Albuterol Nebulized [Ventolin 2.5 mg INHALATION RT-Q4H PRN 06/11/19 06/11/19 History Nebulized] Lisinopril [Zestril] 2.5 mg PO DAILY 06/11/19 06/11/19 History Loratadine [Claritin] 10 mg PO DAILY 06/11/19 06/11/19 History Metoprolol Tartrate [Lopressor] 12.5 mg PO DAILY 06/11/19 06/11/19 History Pantoprazole Sodium [Protonix] 40 mg PO DAILY 06/11/19 06/11/19 History Allergies Allergy/AdvReac Type Severity Reaction Status Date / Time No Known Allergies Allergy Verified 06/11/19 15:00 Physical Exam Vitals: Vital Signs Temp Pulse Pulse Resp BP BP Pulse Ox 06/12/19 16:12 84 06/12/19 16:02 80 06/12/19 13:28 98.6 F 99 16 106/64 99 06/12/19 11:47 80 06/12/19 11:39 80 06/12/19 07:56 84 06/12/19 07:45 84 06/12/19 04:50 98.9 F 92 20 132/62 92 L 06/12/19 04:01 88 06/12/19 03:51 88 06/12/19 00:55 87 06/12/19 00:45 87 06/11/19 22:00 98 F 87 20 134/68 98 06/11/19 19:56 88 06/11/19 19:50 88 06/11/19 19:31 97.9 F 84 18 145/69 06/11/19 19:30 97.9 F 84 18 145/69 97 06/11/19 19:00 97.9 F 97 18 145/69 97 Intake and Output 06/12/19 06/12/19 06/12/19 06:59 14:59 22:59 Intake Total 100 540 Balance 100 540 Intake: Oral 100 540 Other: Voiding Method Toilet # Voids 1 2 3 - Constitutional General appearance: average body habitus, cooperative, no acute distress - EENT Eyes: anicteric sclerae, EOMI ENT: hearing grossly normal, normal oropharynx - Neck Neck: no lymphadenopathy - Respiratory Respiratory: bilateral: CTA - Cardiovascular Rhythm: regular Heart sounds: normal: S1, S2 Abnormal Heart Sounds: no systolic murmur, no diastolic murmur, no rub, no S3 Gallop, no S4 Gallop, no click, no other leg Peripheral Edema: bilateral: None - Gastrointestinal General gastrointestinal: no absent bowel sounds, no decreased bowel sounds, no distended, no hepatomegaly, no hyperactive bowel sounds, normal bowel sounds, no organomegaly, no rigid, no scaphoid, soft, no splenomegaly, no tenderness, no umbilical hernia, no ventral hernia - Integumentary Integumentary: normal turgor, pale - Neurologic Neurologic: CNII-XII intact - Musculoskeletal Musculoskeletal: strength equal bilaterally - Psychiatric Psychiatric: A&O x's 3, appropriate affect, intact judgment & insight Results CBC & Chem 7: 06/12/19 08:43 06/12/19 08:43 Labs: Abnormal Lab Results - Last 24 Hours (Table) 06/11/19 06/11/19 06/12/19 Range/Units 13:10 14:43 08:43 Hgb 8.1 L (13.0-17.5) gm/dL Hct 30.2 L (39.0-53.0) % MCV 68.9 L (80.0-100.0) fL MCH 18.6 L (25.0-35.0) pg MCHC 26.9 L (31.0-37.0) g/dL RDW 21.3 H (11.5-15.5) % Plt Count 674 H (150-450) k/uL Lymphocytes # 0.3 L (1.0-4.8) k/uL ESR (0-15) mm/hr Carbon Dioxide (22-30) mmol/L Glucose (74-99) mg/dL Ferritin 4.9 L (22.0-322.0) ng/mL AST (17-59) U/L Alkaline Phosphatase (38-126) U/L Crossmatch See Detail 06/12/19 06/12/19 Range/Units 08:43 08:43 Hgb (13.0-17.5) gm/dL Hct (39.0-53.0) % MCV (80.0-100.0) fL MCH (25.0-35.0) pg MCHC (31.0-37.0) g/dL RDW (11.5-15.5) % Plt Count (150-450) k/uL Lymphocytes # (1.0-4.8) k/uL ESR 24 H (0-15) mm/hr Carbon Dioxide 21 L (22-30) mmol/L Glucose 192 H (74-99) mg/dL Ferritin (22.0-322.0) ng/mL AST 61 H (17-59) U/L Alkaline Phosphatase 246 H (38-126) U/L Crossmatch Chest x-ray: report reviewed Assessment and Plan (1) Microcytic hypochromic anemia Current Visit: Yes Status: Acute Priority: High Code(s): D50.9 - IRON DEFICIENCY ANEMIA, UNSPECIFIED SNOMED Code(s): 48296617 (2) Symptomatic anemia Current Visit: Yes Status: Acute Priority: High Code(s): D64.9 - ANEMIA, UNSPECIFIED SNOMED Code(s): 477597066 Plan: Pt has history of anemia. He has been on oral iron, though not consistently, for over a year. He also has a history of colitis. Possible that he has some degree of occult blood loss when disease is flared. GI consulted. Parenteral iron ordered. PRBCs for Hgb<7 Attests: I have performed H&P and developed impression and plan of care of patient, discussed with dictator. I agree with dictated note, documented as a scribe.
[2019-06-12] MEDS: ATORVASTATIN 80 MG TAB PO SCH (19:23)
[2019-06-12] MEDS: SODIUM FERRIC GLUCONAT-SUCROSE 125 MG in SODIUM CHLORIDE 0.9% 100 ML IVPB SCH (19:23)
[2019-06-13] MEDS: methylPREDNISolone SOD SUCCI 40 MG/ML 1 ML VIAL IV SCH (05:36)
[2019-06-13] MEDS: ALBUTEROL NEBULIZED 2.5 MG/3 ML INHALATION PRN ×4 (07:36→20:08)
--- NOTE | 2019-06-13 08:31 | P.CONS ---
History of Present Illness - Reason for Consult Consult date: 06/12/19 Ulcerative colitis Requesting physician: Louie E Sheet - Chief Complaint Anemia - History of Present Illness 48-year-old male presenting from shelter with a past medical history significant for coronary artery disease and chronic anemia as well as asthma, prior cardiac stent placement, chronic systolic heart failure and ulcerative colitis diagnosed on colonoscopy in 07/2017 who presented for evaluation of anemia. Patient was found to have a hemoglobin of 6.4 and was sent for evaluation where his hemoglobin was found to be 6.8 in the emergency department. The patient denies any signs or symptoms of GI bleeding reporting that at baseline he has approximately 3 nonbloody bowel movements daily. He did have stool testing which was negative for occult blood. He has been told he was anemic in the past and has been on iron therapy intermittently. He denies any abdominal pain. 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 He denies any nausea, vomiting or hematemesis. Review of Systems REVIEW OF SYSTEMS: CONSTITUTIONAL: Denies any fevers, chills, weight change or fatigue. CARDIOVASCULAR: Denies any chest pain, palpitations high or low blood pressures RESPIRATORY: Denies any shortness of breath, hemoptysis or cough. GENITOURINARY: No dysuria or hematuria. MUSCULOSKELETAL: No weakness reported. SKIN: Denies any new rashes or lesions, jaundice or pallor. PSYCHIATRIC: Denies any depression or anxiety. NEUROLOGY: Denies headache, denies any new focal deficits. EARS/NOSE/THROAT: No recent hearing change, congestion, nasal discharge or sore throat. EYES: No pain in eyes, discharge or change in vision. GASTROINTESTINAL: As per HPI. Past Medical History Past Medical History: Asthma, Myocardial Infarction ([place]) Additional Past Medical History / Comment(s): IBS Last Myocardial Infarction Date:: october 2016 History of Any Multi-Drug Resistant Organisms: None Reported Past Surgical History: Heart Catheterization, Heart Catheterization With Stent Date of Last Stent Placement:: October 2016 Past Psychological History: No Psychological Hx Reported Smoking Status: Former smoker Past Alcohol Use History: None Reported Past Drug Use History: None Reported Additional History: Family History: Reviewed and non contributory to medical presentation. Medications and Allergies Home Medications Medication Instructions Recorded Confirmed Type Atorvastatin [Lipitor] 80 mg PO HS #30 tab 10/31/17 06/11/19 Rx Ferrous Sulfate [Iron (65 MG 325 mg PO DAILY #30 tab 10/31/17 06/11/19 Rx Elemental)] Albuterol Inhaler [Ventolin Hfa 1 puff INHALATION RT-Q4H 06/11/19 06/11/19 History Inhaler] Albuterol Nebulized [Ventolin 2.5 mg INHALATION RT-Q4H PRN 06/11/19 06/11/19 History Nebulized] Lisinopril [Zestril] 2.5 mg PO DAILY 06/11/19 06/11/19 History Loratadine [Claritin] 10 mg PO DAILY 06/11/19 06/11/19 History Metoprolol Tartrate [Lopressor] 12.5 mg PO DAILY 06/11/19 06/11/19 History Pantoprazole Sodium [Protonix] 40 mg PO DAILY 06/11/19 06/11/19 History Allergies Allergy/AdvReac Type Severity Reaction Status Date / Time No Known Allergies Allergy Verified 06/11/19 15:00 Physical Exam Vitals: Vital Signs Temp Pulse Pulse Resp BP BP Pulse Ox 06/12/19 11:47 80 06/12/19 11:39 80 06/12/19 07:56 84 06/12/19 07:45 84 06/12/19 04:50 98.9 F 92 20 132/62 92 L 06/12/19 04:01 88 06/12/19 03:51 88 06/12/19 00:55 87 06/12/19 00:45 87 06/11/19 22:00 98 F 87 20 134/68 98 06/11/19 19:56 88 06/11/19 19:50 88 06/11/19 19:31 97.9 F 84 18 145/69 06/11/19 19:30 97.9 F 84 18 145/69 97 06/11/19 19:00 97.9 F 97 18 145/69 97 06/11/19 18:30 98.6 F 88 16 131/77 97 06/11/19 18:20 98.6 F 76 16 108/66 97 06/11/19 17:46 97.4 F L 76 18 108/66 97 06/11/19 17:45 97.4 F L 76 18 108/66 97 06/11/19 17:05 97.8 F 76 18 123/66 97 06/11/19 16:35 97.4 F L 95 18 127/72 95 06/11/19 16:25 98.0 F 84 18 124/71 97 06/11/19 14:46 89 18 108/68 96 06/11/19 14:01 80 06/11/19 13:52 80 Intake and Output 06/11/19 06/12/19 06/12/19 22:59 06:59 14:59 Intake Total 510 100 Balance 510 100 Intake: Oral 200 100 Blood Product 310 Rc As-1 Unit 310 [id number] Other: # Voids 1 1 1 Weight 82.1 kg On physical examination, patient appears comfortable in no apparent distress. HEAD: Normocephalic, atraumatic. EYES: No scleral icterus. No conjunctival injection. MOUTH: No lesions, tongue midline. NECK: Trachea midline, no gross abnormalities. CHEST: Clear to auscultation with no wheezing or rhonchi appreciated. HEART: S1-S2 appreciated. ABDOMEN: Soft, non tender to palpation. Bowel sounds are positive. No organomegaly. No guarding or rigidity. EXTREMITIES: No pedal edema. SKIN: No rashes, no jaundice. NEUROLOGIC: Alert and oriented x3. No focal deficits. Results CBC & Chem 7: 06/12/19 08:43 06/12/19 08:43 Labs: Abnormal Lab Results - Last 24 Hours (Table) 06/11/19 06/11/19 06/11/19 Range/Units 13:10 13:10 14:43 WBC 10.9 H (3.8-10.6) k/uL RBC 3.96 L (4.30-5.90) m/uL Hgb 6.8 L* (13.0-17.5) gm/dL Hct 26.1 L (39.0-53.0) % MCV 65.8 L (80.0-100.0) fL MCH 17.2 L (25.0-35.0) pg MCHC 26.1 L (31.0-37.0) g/dL RDW 20.8 H (11.5-15.5) % Plt Count 684 H (150-450) k/uL Lymphocytes # (1.0-4.8) k/uL Eosinophils # 1.6 H (0-0.7) k/uL Carbon Dioxide (22-30) mmol/L Glucose (74-99) mg/dL Ferritin 4.9 L (22.0-322.0) ng/mL AST (17-59) U/L Alkaline Phosphatase (38-126) U/L Crossmatch See Detail 06/12/19 06/12/19 Range/Units 08:43 08:43 WBC (3.8-10.6) k/uL RBC (4.30-5.90) m/uL Hgb 8.1 L (13.0-17.5) gm/dL Hct 30.2 L (39.0-53.0) % MCV 68.9 L (80.0-100.0) fL MCH 18.6 L (25.0-35.0) pg MCHC 26.9 L (31.0-37.0) g/dL RDW 21.3 H (11.5-15.5) % Plt Count 674 H (150-450) k/uL Lymphocytes # 0.3 L (1.0-4.8) k/uL Eosinophils # (0-0.7) k/uL Carbon Dioxide 21 L (22-30) mmol/L Glucose 192 H (74-99) mg/dL Ferritin (22.0-322.0) ng/mL AST 61 H (17-59) U/L Alkaline Phosphatase 246 H (38-126) U/L Crossmatch Chest x-ray: report reviewed (No acute cardiopulmonary process on XR) Assessment and Plan (1) Microcytic hypochromic anemia Narrative/Plan: 48-year-old male with multiple medical comorbidities including ulcerative colitis who presented to the hospital due to findings of anemia. Hemoglobin on presentation was 6.8 and currently 8.1 status post transfusion. He denies any signs or symptoms of GI bleeding and had negative stool testing for occult blood. He has been intermittently on iron therapy in the past for anemia. Iron studies not consistent with iron deficiency anemia. Vitamin B12 and folate normal. Unclear etiology with the patient denying any signs or symptoms of GI bleeding, currently being evaluated by the hematology department as his stool testing was negative for blood. Current Visit: Yes Status: Acute Priority: High Code(s): D50.9 - IRON DEFICIENCY ANEMIA, UNSPECIFIED SNOMED Code(s): 17012477 (2) Ulcerative colitis Current Visit: No Status: Acute Code(s): K51.90 - ULCERATIVE COLITIS, UNSPECIFIED, WITHOUT COMPLICATIONS SNOMED Code(s): 29500615 Plan: Supportive care Okay to advance diet Stool testing performed and negative for blood Continue iron supplementation per hematology Await further evaluation by the hematology department No plan for endoscopies at this time Follow-up with gastroenterology after discharge for continued management of ulcerative colitis Okay for discharge from gastroenterology when otherwise stable Thank you for allowing us to participate in the care of the patient
[2019-06-13] MEDS: SODIUM FERRIC GLUCONAT-SUCROSE 125 MG in SODIUM CHLORIDE 0.9% 100 ML IVPB SCH (08:34)
[2019-06-13] MEDS: PANTOPRAZOLE 40 MG/10 ML VIAL IV SCH (08:35)
[2019-06-13] MEDS: FERROUS SULFATE 325 MG TAB PO SCH (08:35)
[2019-06-13] MEDS: METOPROLOL TARTRATE 12.5 MG TAB PO SCH (08:35)
[2019-06-13] MEDS: LISINOPRIL 2.5 MG TAB PO SCH (08:35)
[2019-06-13 08:40] LABS: Anisocytosis Moderate; Basophils % (A) 0 %; Eosinophils % (A) 0 %; HCT 31.7 % (39.0-53.0); HGB 8.3 gm/dL (13.0-17.5); Hypochromasia Marked; Lymphocytes # (A) 0.6 k/uL (1.0-4.8); Lymphocytes % (A) 5 %; MCH 18.4 pg (25.0-35.0); MCHC 26.3 g/dL (31.0-37.0); MCV 69.8 fL (80.0-100.0); Mean Platelet Volume 7.6; Microcytosis Marked; Monocytes # (A) 0.2 k/uL (0-1.0); Monocytes % (A) 2 %; Neutrophils % (A) 93 %; Platelet Count 738 k/uL (150-450); Poikilocytosis Slight; RBC 4.54 m/uL (4.30-5.90); RDW 22.3 % (11.5-15.5); WBC 11.9 k/uL (3.8-10.6)
[2019-06-13 08:56] LABS: Albumin 3.8 g/dL (3.5-5.0); Bilirubin, Delta 0.2 mg/dL (0.0-0.2); Bilirubin,Unconjugated 0.3 mg/dL (0.0-1.1); Total Bilirubin 0.5 mg/dL (0.2-1.3); Total Protein 6.7 g/dL (6.3-8.2)
--- NOTE | 2019-06-13 11:23 | P.PN ---
Subjective This is a pleasant 48 years old male from [facility] with past medical history of coronary artery disease and chronic anemia, asthma, is status post cardiac cath and stent placement, history of chronic systolic heart failure with ejection fraction 25-30% in, history of ulcerative colitis, status post colonoscopy in July 2017. He was sent because of his hemoglobin at 6.4 , with recent history of bronchitis about 2 weeks ago when he presented to ED and treated and discharged right away. his repeat Hb is at 6.8 in the emergency room. On 05/27/2019 his hemoglobin was 7.1, previously on 11/2017 was 10.0, however on 10/2017 it was 6.4-6.8 , at that time he has been evaluated by GI team and found to have Ulcerative colitis where he has loose bowel movements , compared to this time his bowel movements are regular and formed and yellow brown in color with no abd pain or tenderness, no nausea or vomiting pt is complaining from coughing with clear-yellow phlegm, some exertional dyspnea but no chest pain .. he has history of smoking just before he got into [facility] about 1-2 months ago. he used to smoke less than 1/2 PPD, no alcohol or illicit drug on admission Vitas looks stable. BMP is all unremarkable, liver enzymes slightly elevated at 71 and 76. Heme occult blood in stool is negative. cxr: no acute cardiopulmonary process. in ED he was started on bronchodilator and protonix iv 06/12/2019 Patient feels better with no new symptoms. Vitas looks stable. Labs showed improved hemoglobin up to 8.1, iron study is not suspicious for iron deficiency anemia, liver enzymes slightly trending down, Patient remains on clear diet pending GI evaluation.Also financial sales assistant team were consulted and in view of his abnormal hemoglobin. 06/13/2019 Patient today feels better, his dyspnea significantly improved as well as cough. He denies pain anywhere, no chest pain or abdominal pain. GI team evaluated the patient and they recommended follow-up as an outpatient as there is no need for any intervention.however patient breathing is also significantly improved, vital signs stable.labs showing mild leukocytosis of 11.9 K, patient is on steroids.BMP is within normal limits. liver enzymes back to normal level. hematology follow-up is pending. Objective - Vital Signs Vital signs: Vital Signs Temp 97.7 F 06/13/19 05:57 Pulse 75 06/13/19 08:00 Resp 18 06/13/19 08:00 BP 119/55 06/13/19 05:57 Pulse Ox 95 06/13/19 05:57 Intake & Output 06/12/19 06/13/19 06/13/19 18:59 06:59 18:59 Intake Total 540 Balance 540 Intake: Oral 540 Other: Voiding Method Toilet Toilet Toilet # Voids 3 1 - Exam GENERAL: The patient is alert and oriented x3, not in any acute distress. Well developed, well nourished. HEENT: Pupils are round and equally reacting to light. EOMI. No scleral icterus. No conjunctival pallor. Normocephalic, atraumatic. No pharyngeal erythema. No thyromegaly. CARDIOVASCULAR: S1 and S2 present. No murmurs, rubs, or gallops. PULMONARY: Chest is clear to auscultation, no wheezing or crackles. ABDOMEN: Soft, nontender, nondistended, normoactive bowel sounds. No palpable organomegaly. MUSCULOSKELETAL: No joint swelling or deformity. EXTREMITIES: No cyanosis, clubbing, or pedal edema. NEUROLOGICAL: Gross neurological examination did not reveal any focal deficits. SKIN: No rashes. no petechiae. - Labs CBC & Chem 7: 06/13/19 08:20 06/12/19 08:43 Labs: Abnormal Lab Results - Last 24 Hours (Table) 06/12/19 06/13/19 06/13/19 Range/Units 08:43 08:20 08:20 WBC 11.9 H (3.8-10.6) k/uL Hgb 8.3 L (13.0-17.5) gm/dL Hct 31.7 L (39.0-53.0) % MCV 69.8 L (80.0-100.0) fL MCH 18.4 L (25.0-35.0) pg MCHC 26.3 L (31.0-37.0) g/dL RDW 22.3 H (11.5-15.5) % Plt Count 738 H (150-450) k/uL Neutrophils # 11.0 H (1.3-7.7) k/uL Lymphocytes # 0.6 L (1.0-4.8) k/uL ESR 24 H (0-15) mm/hr Alkaline Phosphatase 238 H (38-126) U/L Assessment and Plan Assessment: Severe anemia, acute COPD Exacerbation, improved History of ulcerative colitis History of STEMI,: Coronary artery disease, status post cardiac cath and stent placement Chronic systolic congestive heart failure with ejection fraction 25-30% History of asthma, not in acute exacerbation Plan: This is a pleasant 48 years old male who presents from [facility] for severe anemia. Continue with PPI. Follow-up hematology and GI recommendation. church supervisor recommended no intervention and follow-up as an outpatient which patient agrees. Patient states that he was sitting change for 1-2 months and then will be released he is intended to follow-up with GI service. Continue with steroids and tomorrow can be switched to oral prednisone . c/w bronchodilatore . Labs and medication were reviewed.. Continue same treatment. Continue with symptomatic treatment. Resume home medication. Monitor lytes and vitals. DVT and GI prophylaxis. Further recommendations of the clinical course of the patient DVT prophylaxis: No heparin a view of SEVERE anemia GI Prophylaxis: Protonix Prognosis is guarded
[2019-06-13 20:09] LABS: Hepatitis A Antibody IgM Non-Reactive (Non-Reactive); Hepatitis B Core IgM Non-Reactive (Non-Reactive); Hepatitis B Surface Antigen Non-Reactive (Non-Reactive); Hepatitis C IgG Antibody Non-Reactive (Non-Reactive)
--- NOTE | 2019-06-13 21:28 | P.PN ---
Subjective Progress Note Date: 06/13/19 Principal diagnosis: Ulcerative colitis, anemia Patient seen lying in bed denying any abdominal pain. No signs or symptoms of GI bleeding. Has tolerated advancement in his diet. Objective - Vital Signs Vital signs: Vital Signs Temp 97.7 F 06/13/19 05:57 Pulse 75 06/13/19 08:00 Resp 18 06/13/19 08:00 BP 119/55 06/13/19 05:57 Pulse Ox 95 06/13/19 05:57 Intake & Output 06/12/19 06/13/19 06/13/19 18:59 06:59 18:59 Intake Total 540 Balance 540 Intake: Oral 540 Other: Voiding Method Toilet Toilet Toilet # Voids 3 1 - Exam On physical examination, patient appears comfortable in no apparent distress. HEAD: Normocephalic, atraumatic. EYES: No scleral icterus. No conjunctival injection. MOUTH: No lesions, tongue midline. NECK: Trachea midline, no gross abnormalities. ABDOMEN: Soft, nontender to palpation. Bowel sounds are positive. No organomegaly. No guarding or rigidity. EXTREMITIES: No pedal edema. SKIN: No rashes, no jaundice. NEUROLOGIC: Alert and oriented x3. No focal deficits. - Labs CBC & Chem 7: 06/13/19 08:20 06/12/19 08:43 Labs: Abnormal Lab Results - Last 24 Hours (Table) 06/12/19 06/13/19 06/13/19 Range/Units 08:43 08:20 08:20 WBC 11.9 H (3.8-10.6) k/uL Hgb 8.3 L (13.0-17.5) gm/dL Hct 31.7 L (39.0-53.0) % MCV 69.8 L (80.0-100.0) fL MCH 18.4 L (25.0-35.0) pg MCHC 26.3 L (31.0-37.0) g/dL RDW 22.3 H (11.5-15.5) % Plt Count 738 H (150-450) k/uL Neutrophils # 11.0 H (1.3-7.7) k/uL Lymphocytes # 0.6 L (1.0-4.8) k/uL ESR 24 H (0-15) mm/hr Alkaline Phosphatase 238 H (38-126) U/L Assessment and Plan (1) Microcytic hypochromic anemia Narrative/Plan: 48-year-old male with multiple medical comorbidities including ulcerative colitis who presented to the hospital due to findings of anemia. Hemoglobin on presentation was 6.8 and currently 8.1 status post transfusion. He denies any signs or symptoms of GI bleeding and had negative stool testing for occult blood. He has been intermittently on iron therapy in the past for anemia. Iron studies not consistent with iron deficiency anemia. Vitamin B12 and folate normal. Unclear etiology with the patient denying any signs or symptoms of GI bleeding, currently being evaluated by the hematology department as his stool testing was negative for blood. Current Visit: Yes Status: Acute Priority: High Code(s): D50.9 - IRON DEFICIENCY ANEMIA, UNSPECIFIED SNOMED Code(s): 12020015 (2) Ulcerative colitis Current Visit: No Status: Acute Code(s): K51.90 - ULCERATIVE COLITIS, UNSPECIFIED, WITHOUT COMPLICATIONS SNOMED Code(s): 37432601 (3) Elevated liver enzymes Narrative/Plan: Improved, with negative viral hepatitis testing. Current Visit: Yes Status: Acute Code(s): R74.8 - ABNORMAL LEVELS OF OTHER SERUM ENZYMES SNOMED Code(s): 364293138 Plan: Supportive care Heart healthy diet Stool testing performed and negative for blood Continue iron supplementation per hematology Viral hepatitis panel testing No plan for endoscopies at this time Follow-up with gastroenterology after discharge for continued management of ulcerative colitis Okay for discharge from gastroenterology when otherwise stable with steroid taper (40 mg prednisone for 5 days, then 30 mg for 5 days, then 20 mg for 5 days, then decrease by 5 mg every 5 days until complete) Thank you for allowing us to participate in the care of the patient, the GI service will stand by
[2019-06-13] MEDS: ATORVASTATIN 80 MG TAB PO SCH (21:44)
[2019-06-14 05:50] VITALS: BP 120/74; PULSE 80; RESP 16; TEMP 98.2
[2019-06-14] MEDS: METOPROLOL TARTRATE 12.5 MG TAB PO SCH (06:56)
[2019-06-14] MEDS: FERROUS SULFATE 325 MG TAB PO SCH (06:56)
[2019-06-14] MEDS: LISINOPRIL 2.5 MG TAB PO SCH (06:56)
[2019-06-14] MEDS ORDERED: PANTOPRAZOLE 40 MG TABLET PO SCH ×2 (07:30)
[2019-06-14] MEDS ORDERED: predniSONE 20 MG TAB PO SCH (09:00)
[2019-06-14] MEDS: SODIUM FERRIC GLUCONAT-SUCROSE 125 MG in SODIUM CHLORIDE 0.9% 100 ML IVPB SCH (09:02)
--- NOTE | 2019-06-14 11:00 | P.DS ---
Providers Date of admission: 06/11/19 14:39 Attending physician: Louie Herrmann MD Consults: 06/12/19 00:53 Consult Physician Routine Consulting Provider: Mart Hansen Consult Reason/Comments: severe anemia Do you want consulting provider notified?: Yes Primary care physician: Luly Marie [facility] Hospital Course: Diagnoses: Severe acute on chronic microcytic hypochromic anemia acute asthma/COPD Exacerbation, improved Mildly elevated liver enzymes, negative hepatitis panel. AST and ALT back to normal upon discharge Mild leukocytosis, secondary to steroid effect. History of ulcerative colitis History of STEMI,: Coronary artery disease, status post cardiac cath and stent placement Chronic systolic congestive heart failure with ejection fraction 25-30% Hospital course: This is a pleasant 48 years old male from custodial with past medical history of coronary artery disease and chronic anemia, asthma, is status post cardiac cath and stent placement, history of chronic systolic heart failure with ejection fraction 25-30% in/2017, history of ulcerative colitis, status post colonoscopy in July 2017. He was sent from custodial because of his hemoglobin at 6.4 , with recent history of bronchitis about 2 weeks ago when he presented to ED and treated and discharged right away. his repeat Hb is at 6.8 in the emergency room. On 05/27/2019 his hemoglobin was 7.1, previously on 11/2017 was 10.0, however on 10/2017 it was 6.4-6.8 , at that time he has been evaluated by GI team and found to have Ulcerative colitis where he has loose bowel movements , compared to this time his bowel movements are regular and formed and yellow brown in color with no abd pain or tenderness, no nausea or vomiting. FOBT is negative . Patient received an internal blood transfusion and his hemoglobin improved to 8.3. Hemoglobin remained stable. No signs of bleeding.GI team evaluated the patient and they recommended follow-up as an outpatient as there is no need for any intervention or endoscopy. Echocardiographer evaluated the patient and they think it's iron deficiency anemia . 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 However patient will need follow-up as an outpatient. Patient agrees with the appointment on 08/01/19. 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 he has history of smoking just before he got into custodial about 1-2 months ago. he used to smoke less than 1/2 PPD, no alcohol or illicit drug. Patient has been treated with steroids and bronchodilators and patient showed interval improvement. Patient will be discharged on tapering dose of steroids and albuterol inhaler Patient was cleared for discharge by GI and hematology team's Problems and management plan were discussed with the patient and he verbalized understanding and acceptance Patient was found stable and can be discharged home however he needs follow-up as an outpatient. Patient was instructed to follow up with PCP within one week and patient agrees. Patient states that he'll stay in custodial for 1-2 months and then he will be back to the community, patient was instructed to follow up with gastroenterology and hematology services in 1-2 months and to call and make appointments and he agrees Gen: patient is a AAOx3, no distress CVS: S1-S2, RRR, no murmur Lungs: B/L CTA, no wheezing Abdomen: soft, no distention, no tenderness, positive bowel sounds Extremity: no leg edema or induration Time spent more than 35 minutes Plan - Discharge Summary New Discharge Prescriptions: New Ferrous Sulfate [Iron (65 MG Elemental)] 325 mg PO BID #60 tab predniSONE 0 mg PO DIRECTED #15 tab guaiFENesin-DM 100-10MG/5ML [Robitussin DM] 10 ml PO Q8H PRN cup PRN Reason: Cough Continue Atorvastatin [Lipitor] 80 mg PO HS #30 tab Albuterol Nebulized [Ventolin Nebulized] 2.5 mg INHALATION RT-Q4H PRN PRN Reason: Shortness Of Breath Loratadine [Claritin] 10 mg PO DAILY Metoprolol Tartrate [Lopressor] 12.5 mg PO DAILY Lisinopril [Zestril] 2.5 mg PO DAILY Pantoprazole Sodium [Protonix] 40 mg PO DAILY #30 tab Changed Albuterol Inhaler [Ventolin Hfa Inhaler] 1 puff INHALATION RT-Q4H PRN #1 inh PRN Reason: Shortness Of Breath Or Wheezing Discharge Medication List Atorvastatin [Lipitor] 80 mg PO HS #30 tab 10/31/17 [Rx] Albuterol Nebulized [Ventolin Nebulized] 2.5 mg INHALATION RT-Q4H PRN 06/11/19 [History] Lisinopril [Zestril] 2.5 mg PO DAILY 06/11/19 [History] Loratadine [Claritin] 10 mg PO DAILY 06/11/19 [History] Metoprolol Tartrate [Lopressor] 12.5 mg PO DAILY 06/11/19 [History] Ferrous Sulfate [Iron (65 MG Elemental)] 325 mg PO BID #60 tab 06/13/19 [Rx] Albuterol Inhaler [Ventolin Hfa Inhaler] 1 puff INHALATION RT-Q4H PRN #1 inh 06/14/19 [Rx] Pantoprazole Sodium [Protonix] 40 mg PO DAILY #30 tab 06/14/19 [Rx] guaiFENesin-DM 100-10MG/5ML [Robitussin DM] 10 ml PO Q8H PRN cup 06/14/19 [Rx] predniSONE 0 mg PO DIRECTED #15 tab 06/14/19 [Rx] Follow up Appointment(s)/Referral(s): Mart Hansen MD [STAFF PHYSICIAN] - 08/01/19 2:00 pm () Cynthia Mauricio MD [Primary Care Provider] - 6 Weeks Dianne Sorto MD [STAFF PHYSICIAN] - 6 Weeks (gastro-enterologist, please call and make appointment in 1-2 months, please call to make appointment)
== END 2019-06-14 11:33 | DRG 812 ==
LOC: EC 12:36 → 4MS4W 14:39
PROVIDERS: ADMIT Internal Medicine; ATTEND Internal Medicine
PROC: 30233N1 Transfusion of Nonautologous Red Blood Cells into Peripheral Vein, Percutaneous Approach (ICD-10-PCS; principal; 2019-06-11)
DX: D50.9 Iron deficiency anemia, unspecified (principal); I50.22 Chronic systolic (congestive) heart failure; J44.1 Chronic obstructive pulmonary disease with (acute) exacerbation; K51.90 Ulcerative colitis, unspecified, without complications; D72.829 Elevated white blood cell count, unspecified; I25.10 Atherosclerotic heart disease of native coronary artery without angina pectoris; I25.2 Old myocardial infarction; T38.0X5A Adverse effect of glucocorticoids and synthetic analogues, initial encounter; R74.8 Abnormal levels of other serum enzymes; Z79.02 Long term (current) use of antithrombotics/antiplatelets; Z79.82 Long term (current) use of aspirin; Z79.899 Other long term (current) drug therapy; Z79.52 Long term (current) use of systemic steroids; Z95.5 Presence of coronary angioplasty implant and graft
CPT/HCPCS: 36415; 36430; 71046; 80053; 80074; 80076; 82272; 82607; 82728; 82746; 83540; 83550; 85025; 85610; 85652; 85730; 86140; 86850; 86900; 86901; 86920; 94640; 96374; 99285

== ENCOUNTER 2020-04-23 16:08 | Emergency (ER) | payer BC, OTHER ==
[2020-04-23] MEDS ORDERED: LORazepam 2 MG/ML INJ IV STA ×2 (16:15→16:41)
[2020-04-23 16:31] LABS: Glucose,Whole Blood 138 mg/dL (75-99)
[2020-04-23] MEDS ORDERED: SODIUM CHLORIDE 0.9% 1,000 ML IV STA (16:41)
[2020-04-23 16:59] LABS: Basophils # (A) 0.2 k/uL (0-0.2); Basophils % (A) 1 %; Eosinophils # (A) 1.4 k/uL (0-0.7); Eosinophils % (A) 6 %; HCT 48.7 % (39.0-53.0); HGB 14.8 gm/dL (13.0-17.5); Hypochromasia Marked; Lymphocytes # (A) 4.9 k/uL (1.0-4.8); Lymphocytes % (A) 22 %; MCH 26.7 pg (25.0-35.0); MCHC 30.3 g/dL (31.0-37.0); Mean Platelet Volume 7.4; Monocytes # (A) 1.7 k/uL (0-1.0); Monocytes % (A) 8 %; Neutrophils % (A) 59 %; Platelet Count 545 k/uL (150-450); RBC 5.53 m/uL (4.30-5.90); RDW 15.7 % (11.5-15.5); WBC 21.8 k/uL (3.8-10.6)
[2020-04-23 17:07] LABS: ALT 20 U/L (4-49); AST 29 U/L (17-59); Acetaminophen <10.0 ug/mL; African American GFR (CKD) >90 (>60 ml/min/1.73 sqM); Albumin 5.1 g/dL (3.5-5.0); Alcohol <10 mg/dL; Alkaline Phosphatase 86 U/L (38-126); Anion Gap 28 mmol/L; Blood Urea Nitrogen 20 mg/dL (9-20); Calcium 10.4 mg/dL (8.4-10.2); Chloride 109 mmol/L (98-107); Creatine Kinase 159 U/L (55-170); Glucose 147 mg/dL (74-99); Non-African American GFR(CKD) 79 (>60 ml/min/1.73 sqM); Potassium 4.2 mmol/L (3.5-5.1); Salicylate <1.0 mg/dL; Sodium 144 mmol/L (137-145); Total Bilirubin 0.3 mg/dL (0.2-1.3); Total Protein 8.5 g/dL (6.3-8.2)
[2020-04-23 17:11] LABS: Carbon Dioxide 7 mmol/L (22-30)
[2020-04-23 17:17] LABS: INR 0.9 (<1.2); Partial Thromboplastin Time 22.8 sec (22.0-30.0); Prothrombin Time 9.5 sec (9.0-12.0)
[2020-04-23] MEDS ORDERED: MIDAZOLAM 1 MG/ML 5 ML VIAL IV STA (17:19)
[2020-04-23 17:20] LABS: Appearance,Urine Cloudy (Clear); Bacteria,Urine Few /hpf; Bilirubin,Urine Negative (Negative); Blood,Urine Moderate (Negative); Color,Urine Light Yellow; Glucose,Urine (UA) Negative (Negative); Hyaline Casts,Urine 21 /lpf (0-2); Ketones,Urine Trace (Negative); Leukocyte Esterase,Urine Negative (Negative); Mucus,Urine Rare /hpf; Nitrite,Urine Negative (Negative); Protein,Urine 1+ (Negative); RBC,Urine <1 /hpf (0-5); Specific Gravity,Urine 1.017 (1.001-1.035); Urobilinogen,Urine <2.0 mg/dL (<2.0); WBC,Urine 1 /hpf (0-5)
[2020-04-23 17:27] LABS: Amphetamine Screen,Urine Not Detected (NotDetected); Barbiturate Screen,Urine Not Detected (NotDetected); Benzodiazepines Screen,Urine Not Detected (NotDetected); Cocaine Screen,Urine Not Detected (NotDetected); Methadone Screen, Urine Not Detected (NotDetected); Opiate Screen,Urine Not Detected (NotDetected); Oxycodone Screen, Urine Not Detected (NotDetected); Phencyclidine Screen,Urine Not Detected (NotDetected); Tricyclic Antidepressant,Urine Not Detected (NotDetected); Urn Cannabinoid Scrn Not Detected (NotDetected)
[2020-04-23] MEDS ORDERED: LACTULOSE 20 GM/30 ML CUP PO ONE (17:30)
[2020-04-23 18:21] LABS: Lactic Acid, Venous 3.8 mmol/L (0.7-2.0)
[2020-04-23 18:22] LABS: ABG HCO3 23 mmol/L (21-25); ABG Oxygen Saturation 95.7 % (94-97); ABG PCO2 36 mmHg (35-45); ABG PH 7.41 (7.35-7.45); ABG PO2 90 mmHg (83-108); ABG TCO2 24 mmol/L (19-24); Allen Test Performed? Yes
[2020-04-23] MEDS ORDERED: SODIUM BICARB 8.4% 50 ML SYR (1 MEQ/ML) IV STA (18:43)
--- NOTE | 2020-04-23 18:44 | ED ---
Seizure HPI - General Chief Complaint: Seizure Stated Complaint: Possible Seizure Time Seen by Provider: 04/23/20 16:24 Source: EMS Mode of arrival: EMS - History of Present Illness Initial Comments: Patient is a 49-year-old male with past mental history of GI bleed, coronary art liliya disease, asthma who presents to the emergency department with new onset seizure-like activity. His sister at bedside provides the history. States the patient is homeless however is currently living with his brother. She was spending time with the patient today when he was complaining of flashes of light to his vision. He seemed out of it and therefore she was attempting to put him into her vehicle to drive him to the hospital. The front seat the patient ended up having a tonic-clonic seizure that lasted approximately 2 minutes. She called EMS and upon their arrival the patient was post ictal and combative. Upon arrival to our facility he was placed into exam room 18. He does have a second seizure which lasted approximately 2 minutes. He was given 2 mg of Ativan. Patient sister denies that he has a seizure history. Reports that he does have a history of drug use and most recently has been using methamphetamines. She denies alcohol abuse. The patient was normal earlier t his morning. Denies any recent illnesses. No fevers or chills. No recent blunt head trauma. The remainder of the HPI is limited because of patient's current state - Related Data Home Medications Medication Instructions Recorded Confirmed Unable To Assess [Unable to Assess] 04/23/20 04/23/20 Allergies Allergy/AdvReac Type Severity Reaction Status Date / Time No Known Allergies Allergy Verified 06/11/19 15:00 Review of Systems ROS Statement: Those systems with pertinent positive or pertinent negative responses have been documented in the HPI. ROS Other: All systems not noted in ROS Statement are negative. Past Medical History Past Medical History: Asthma, Myocardial Infarction ([place]) Additional Past Medical History / Comment(s): IBS Last Myocardial Infarction Date:: october 2016 History of Any Multi-Drug Resistant Organisms: None Reported Past Surgical History: Heart Catheterization, Heart Catheterization With Stent Date of Last Stent Placement:: October 2016 Past Psychological History: No Psychological Hx Reported Smoking Status: Current every day smoker, Unknown if ever smoked Past Alcohol Use History: None Reported Past Drug Use History: Methamphetamine General Exam Limitations: altered mental status General appearance: obtunded Head exam: Present: atraumatic, normocephalic, normal inspection Eye exam: Present: normal appearance, PERRL, EOMI. Absent: scleral icterus, conjunctival injection, periorbital swelling ENT exam: Present: mucous membranes moist, other (bleeding from tongue bite) Neck exam: Present: normal inspection. Absent: tenderness, meningismus, lymphadenopathy Respiratory exam: Present: normal lung sounds bilaterally. Absent: respiratory distress, wheezes, rales, rhonchi, stridor Cardiovascular Exam: Present: regular rate, normal rhythm, normal heart sounds. Absent: systolic murmur, diastolic murmur, rubs, gallop, clicks GI/Abdominal exam: Present: soft, normal bowel sounds. Absent: distended, tenderness, guarding, rebound, rigid Extremities exam: Present: normal inspection, full ROM, normal capillary refill. Absent: tenderness, pedal edema, joint swelling, calf tenderness Back exam: Present: normal inspection Neurological exam: Present: altered, CN II-XII intact Psychiatric exam: Present: normal affect, normal mood Skin exam: Present: warm, dry, intact, normal color. Absent: rash Course Vital Signs 04/23/20 04/23/20 04/23/20 16:20 16:35 16:57 Temperature 98.3 F Pulse Rate 108 H 128 H 135 H Respiratory 20 22 24 Rate Blood Pressure 179/95 179/85 166/86 O2 Sat by Pulse 98 100 98 Oximetry 04/23/20 04/23/20 18:32 20:41 Temperature Pulse Rate 118 H 102 H Respiratory 18 20 Rate Blood Pressure 139/86 146/109 O2 Sat by Pulse 99 100 Oximetry - Reevaluation(s) Reevaluation #1: ABG results are reviewed and are normal 04/23/20 18:45 Procedures - [place] Protocol (Time Out) Nurse: Jennifer Garcia Medical Decision Making - Medical Decision Making Upon arrival the patient is placed into room 18. He does sees promptly upon arrival. He was given 2 mg of Ativan. Laboratory studies were conducted. The patient does become more arousable however is combative. Because of this the patient was given 4 mg of Versed in order to have his CT performed. Laboratory studies were remarkable for white count 21.8. CO2 was 7. Lactic acid 3.8. Ammonia originally measured at 251. UDS, acetaminophen and alcohol are all negative. Because of elevated ammonia I did repeat this level and repeat level was 29. Valproic acid level was also ordered which is undetected. The patient does become arousable. He is able to answer questions. States that he does not abuse any drugs. Denies seizure history. Patient does go over for a CT of his brain which demonstrates bandlike hypoattenuation/cough-like defect in the right parietal lobe that appears to communicate with the lateral ventricle digestive of closed lip schizencephaly. Results are discussed with the patient and his sister. Did recommend transfer to [facility] where there is the availability of continuous EEG, neurosurgery and neuro evaluation. Patient does agree to this. I discussed the case with Dr. Garber who agreed to transfer of the patient. Patient remained in stable condition awaiting transfer - Lab Data Result diagrams: 04/23/20 16:46 04/23/20 16:54 Lab Results 04/23/20 04/23/20 04/23/20 Range/Units 16:30 16:46 16:46 WBC 21.8 H (3.8-10.6) k/uL RBC 5.53 (4.30-5.90) m/uL Hgb 14.8 (13.0-17.5) gm/dL Hct 48.7 (39.0-53.0) % MCV 88.0 (80.0-100.0) fL MCH 26.7 (25.0-35.0) pg MCHC 30.3 L (31.0-37.0) g/dL RDW 15.7 H (11.5-15.5) % Plt Count 545 H (150-450) k/uL Neutrophils % 59 % Lymphocytes % 22 % Monocytes % 8 % Eosinophils % 6 % Basophils % 1 % Neutrophils # 13.0 H (1.3-7.7) k/uL Lymphocytes # 4.9 H (1.0-4.8) k/uL Monocytes # 1.7 H (0-1.0) k/uL Eosinophils # 1.4 H (0-0.7) k/uL Basophils # 0.2 (0-0.2) k/uL Hypochromasia Marked PT 9.5 (9.0-12.0) sec INR 0.9 (<1.2) APTT 22.8 (22.0-30.0) sec Sample Site ABG pH (7.35-7.45) ABG pCO2 (35-45) mmHg ABG pO2 (83-108) mmHg ABG HCO3 (21-25) mmol/L ABG Total CO2 (19-24) mmol/L ABG O2 Saturation (94-97) % ABG Base Excess mmol/L Maari Test FiO2 % Sodium (137-145) mmol/L Potassium (3.5-5.1) mmol/L Chloride (98-107) mmol/L Carbon Dioxide (22-30) mmol/L Anion Gap mmol/L BUN (9-20) mg/dL Creatinine (0.66-1.25) mg/dL Est GFR (CKD-EPI)AfAm (>60 ml/min/1.73 sqM) Est GFR (CKD-EPI)NonAf (>60 ml/min/1.73 sqM) Glucose (74-99) mg/dL POC Glucose (mg/dL) 138 H (75-99) mg/dL POC Glu Graphic Design Professor ID Tal Blake Lactic Ac Sepsis Rflx Plasma Lactic Acid Ronnell (0.7-2.0) mmol/L Calcium (8.4-10.2) mg/dL Total Bilirubin (0.2-1.3) mg/dL AST (17-59) U/L ALT (4-49) U/L Alkaline Phosphatase (38-126) U/L Ammonia (<30) umol/L Creatine Kinase (55-170) U/L Troponin I (0.000-0.034) ng/mL Total Protein (6.3-8.2) g/dL Albumin (3.5-5.0) g/dL Urine Color Urine Appearance (Clear) Urine pH (5.0-8.0) Ur Specific Bostic (1.001-1.035) Urine Protein (Negative) Urine Glucose (UA) (Negative) Urine Ketones (Negative) Urine Blood (Negative) Urine Nitrite (Negative) Urine Bilirubin (Negative) Urine Urobilinogen (<2.0) mg/dL Ur Leukocyte Esterase (Negative) Urine RBC (0-5) /hpf Urine WBC (0-5) /hpf Urine Bacteria (None) /hpf Hyaline Casts (0-2) /lpf Urine Mucus (None) /hpf Salicylates mg/dL Urine Opiates Screen (NotDetected) Ur Oxycodone Screen (NotDetected) Urine Methadone Screen (NotDetected) Ur Propoxyphene Screen (NotDetected) Acetaminophen ug/mL Ur Barbiturates Screen (NotDetected) Valproic Acid ug/mL U Tricyclic Antidepress (NotDetected) Ur Phencyclidine Scrn (NotDetected) Ur Amphetamines Screen (NotDetected) U Methamphetamines Scrn (NotDetected) U Benzodiazepines Scrn (NotDetected) Urine Cocaine Screen (NotDetected) U Marijuana (THC) Screen (NotDetected) Serum Alcohol mg/dL 04/23/20 04/23/20 04/23/20 Range/Units 16:46 16:46 16:46 WBC (3.8-10.6) k/uL RBC (4.30-5.90) m/uL Hgb (13.0-17.5) gm/dL Hct (39.0-53.0) % MCV (80.0-100.0) fL MCH (25.0-35.0) pg MCHC (31.0-37.0) g/dL RDW (11.5-15.5) % Plt Count (150-450) k/uL Neutrophils % % Lymphocytes % % Monocytes % % Eosinophils % % Basophils % % Neutrophils # (1.3-7.7) k/uL Lymphocytes # (1.0-4.8) k/uL Monocytes # (0-1.0) k/uL Eosinophils # (0-0.7) k/uL Basophils # (0-0.2) k/uL Hypochromasia PT (9.0-12.0) sec INR (<1.2) APTT (22.0-30.0) sec Sample Site ABG pH (7.35-7.45) ABG pCO2 (35-45) mmHg ABG pO2 (83-108) mmHg ABG HCO3 (21-25) mmol/L ABG Total CO2 (19-24) mmol/L ABG O2 Saturation (94-97) % ABG Base Excess mmol/L Amari Test FiO2 % Sodium (137-145) mmol/L Potassium (3.5-5.1) mmol/L Chloride (98-107) mmol/L Carbon Dioxide (22-30) mmol/L Anion Gap mmol/L BUN (9-20) mg/dL Creatinine (0.66-1.25) mg/dL Est GFR (CKD-EPI)AfAm (>60 ml/min/1.73 sqM) Est GFR (CKD-EPI)NonAf (>60 ml/min/1.73 sqM) Glucose (74-99) mg/dL POC Glucose (mg/dL) (75-99) mg/dL POC Glu Graphic Design Professor ID Lactic Ac Sepsis Rflx Plasma Lactic Acid Ronnell (0.7-2.0) mmol/L Calcium (8.4-10.2) mg/dL Total Bilirubin (0.2-1.3) mg/dL AST (17-59) U/L ALT (4-49) U/L Alkaline Phosphatase (38-126) U/L Ammonia 251 H (<30) umol/L Creatine Kinase (55-170) U/L Troponin I <0.012 (0.000-0.034) ng/mL Total Protein (6.3-8.2) g/dL Albumin (3.5-5.0) g/dL Urine Color Light Yellow Urine Appearance Cloudy (Clear) Urine pH 5.0 (5.0-8.0) Ur Specific Bostic 1.017 (1.001-1.035) Urine Protein 1+ H (Negative) Urine Glucose (UA) Negative (Negative) Urine Ketones Trace H (Negative) Urine Blood Moderate H (Negative) Urine Nitrite Negative (Negative) Urine Bilirubin Negative (Negative) Urine Urobilinogen <2.0 (<2.0) mg/dL Ur Leukocyte Esterase Negative (Negative) Urine RBC <1 (0-5) /hpf Urine WBC 1 (0-5) /hpf Urine Bacteria Few H (None) /hpf Hyaline Casts 21 H (0-2) /lpf Urine Mucus Rare H (None) /hpf Salicylates mg/dL Urine Opiates Screen Not Detected (NotDetected) Ur Oxycodone Screen Not Detected (NotDetected) Urine Methadone Screen Not Detected (NotDetected) Ur Propoxyphene Screen Not Detected (NotDetected) Acetaminophen ug/mL Ur Barbiturates Screen Not Detected (NotDetected) Valproic Acid ug/mL U Tricyclic Antidepress Not Detected (NotDetected) Ur Phencyclidine Scrn Not Detected (NotDetected) Ur Amphetamines Screen Not Detected (NotDetected) U Methamphetamines Scrn Not Detected (NotDetected) U Benzodiazepines Scrn Not Detected (NotDetected) Urine Cocaine Screen Not Detected (NotDetected) U Marijuana (THC) Screen Not Detected (NotDetected) Serum Alcohol mg/dL 04/23/20 04/23/20 04/23/20 Range/Units 16:54 17:54 17:54 WBC (3.8-10.6) k/uL RBC (4.30-5.90) m/uL Hgb (13.0-17.5) gm/dL Hct (39.0-53.0) % MCV (80.0-100.0) fL MCH (25.0-35.0) pg MCHC (31.0-37.0) g/dL RDW (11.5-15.5) % Plt Count (150-450) k/uL Neutrophils % % Lymphocytes % % Monocytes % % Eosinophils % % Basophils % % Neutrophils # (1.3-7.7) k/uL Lymphocytes # (1.0-4.8) k/uL Monocytes # (0-1.0) k/uL Eosinophils # (0-0.7) k/uL Basophils # (0-0.2) k/uL Hypochromasia PT (9.0-12.0) sec INR (<1.2) APTT (22.0-30.0) sec Sample Site ABG pH (7.35-7.45) ABG pCO2 (35-45) mmHg ABG pO2 (83-108) mmHg ABG HCO3 (21-25) mmol/L ABG Total CO2 (19-24) mmol/L ABG O2 Saturation (94-97) % ABG Base Excess mmol/L Amari Test FiO2 % Sodium 144 (137-145) mmol/L Potassium 4.2 (3.5-5.1) mmol/L Chloride 109 H (98-107) mmol/L Carbon Dioxide 7 L* (22-30) mmol/L Anion Gap 28 mmol/L BUN 20 (9-20) mg/dL Creatinine 1.10 (0.66-1.25) mg/dL Est GFR (CKD-EPI)AfAm >90 (>60 ml/min/1.73 sqM) Est GFR (CKD-EPI)NonAf 79 (>60 ml/min/1.73 sqM) Glucose 147 H (74-99) mg/dL POC Glucose (mg/dL) (75-99) mg/dL POC Glu Graphic Design Professor ID Lactic Ac Sepsis Rflx Plasma Lactic Acid Ronnell 3.8 H* (0.7-2.0) mmol/L Calcium 10.4 H (8.4-10.2) mg/dL Total Bilirubin 0.3 (0.2-1.3) mg/dL AST 29 (17-59) U/L ALT 20 (4-49) U/L Alkaline Phosphatase 86 (38-126) U/L Ammonia 29 (<30) umol/L Creatine Kinase 159 (55-170) U/L Troponin I (0.000-0.034) ng/mL Total Protein 8.5 H (6.3-8.2) g/dL Albumin 5.1 H (3.5-5.0) g/dL Urine Color Urine Appearance (Clear) Urine pH (5.0-8.0) Ur Specific Bostic (1.001-1.035) Urine Protein (Negative) Urine Glucose (UA) (Negative) Urine Ketones (Negative) Urine Blood (Negative) Urine Nitrite (Negative) Urine Bilirubin (Negative) Urine Urobilinogen (<2.0) mg/dL Ur Leukocyte Esterase (Negative) Urine RBC (0-5) /hpf Urine WBC (0-5) /hpf Urine Bacteria (None) /hpf Hyaline Casts (0-2) /lpf Urine Mucus (None) /hpf Salicylates <1.0 mg/dL Urine Opiates Screen (NotDetected) Ur Oxycodone Screen (NotDetected) Urine Methadone Screen (NotDetected) Ur Propoxyphene Screen (NotDetected) Acetaminophen <10.0 ug/mL Ur Barbiturates Screen (NotDetected) Valproic Acid <10.0 ug/mL U Tricyclic Antidepress (NotDetected) Ur Phencyclidine Scrn (NotDetected) Ur Amphetamines Screen (NotDetected) U Methamphetamines Scrn (NotDetected) U Benzodiazepines Scrn (NotDetected) Urine Cocaine Screen (NotDetected) U Marijuana (THC) Screen (NotDetected) Serum Alcohol <10 mg/dL 04/23/20 04/23/20 Range/Units 18:10 18:21 WBC (3.8-10.6) k/uL RBC (4.30-5.90) m/uL Hgb (13.0-17.5) gm/dL Hct (39.0-53.0) % MCV (80.0-100.0) fL MCH (25.0-35.0) pg MCHC (31.0-37.0) g/dL RDW (11.5-15.5) % Plt Count (150-450) k/uL Neutrophils % % Lymphocytes % % Monocytes % % Eosinophils % % Basophils % % Neutrophils # (1.3-7.7) k/uL Lymphocytes # (1.0-4.8) k/uL Monocytes # (0-1.0) k/uL Eosinophils # (0-0.7) k/uL Basophils # (0-0.2) k/uL Hypochromasia PT (9.0-12.0) sec INR (<1.2) APTT (22.0-30.0) sec Sample Site right radial ABG pH 7.41 (7.35-7.45) ABG pCO2 36 (35-45) mmHg ABG pO2 90 (83-108) mmHg ABG HCO3 23 (21-25) mmol/L ABG Total CO2 24 (19-24) mmol/L ABG O2 Saturation 95.7 (94-97) % ABG Base Excess -2.0 mmol/L Amari Test Yes FiO2 21 % Sodium (137-145) mmol/L Potassium (3.5-5.1) mmol/L Chloride (98-107) mmol/L Carbon Dioxide (22-30) mmol/L Anion Gap mmol/L BUN (9-20) mg/dL Creatinine (0.66-1.25) mg/dL Est GFR (CKD-EPI)AfAm (>60 ml/min/1.73 sqM) Est GFR (CKD-EPI)NonAf (>60 ml/min/1.73 sqM) Glucose (74-99) mg/dL POC Glucose (mg/dL) (75-99) mg/dL POC Glu Graphic Design Professor ID Lactic Ac Sepsis Rflx Y Plasma Lactic Acid Ronnell (0.7-2.0) mmol/L Calcium (8.4-10.2) mg/dL Total Bilirubin (0.2-1.3) mg/dL AST (17-59) U/L ALT (4-49) U/L Alkaline Phosphatase (38-126) U/L Ammonia (<30) umol/L Creatine Kinase (55-170) U/L Troponin I (0.000-0.034) ng/mL Total Protein (6.3-8.2) g/dL Albumin (3.5-5.0) g/dL Urine Color Urine Appearance (Clear) Urine pH (5.0-8.0) Ur Specific Bostic (1.001-1.035) Urine Protein (Negative) Urine Glucose (UA) (Negative) Urine Ketones (Negative) Urine Blood (Negative) Urine Nitrite (Negative) Urine Bilirubin (Negative) Urine Urobilinogen (<2.0) mg/dL Ur Leukocyte Esterase (Negative) Urine RBC (0-5) /hpf Urine WBC (0-5) /hpf Urine Bacteria (None) /hpf Hyaline Casts (0-2) /lpf Urine Mucus (None) /hpf Salicylates mg/dL Urine Opiates Screen (NotDetected) Ur Oxycodone Screen (NotDetected) Urine Methadone Screen (NotDetected) Ur Propoxyphene Screen (NotDetected) Acetaminophen ug/mL Ur Barbiturates Screen (NotDetected) Valproic Acid ug/mL U Tricyclic Antidepress (NotDetected) Ur Phencyclidine Scrn (NotDetected) Ur Amphetamines Screen (NotDetected) U Methamphetamines Scrn (NotDetected) U Benzodiazepines Scrn (NotDetected) Urine Cocaine Screen (NotDetected) U Marijuana (THC) Screen (NotDetected) Serum Alcohol mg/dL - EKG Data EKG Comments: EKG demonstrates a sinus tachycardia with a ventricular rate of 108. TX interval 152. QRS 154. QTC of 506. Right bundle branch block present Disposition Clinical Impression: New onset seizure Disposition: OTHER INSTITUTION NOT DEFINED Condition: Serious Is patient prescribed a controlled substance at d/c from ED?: No Referrals: Cynthia Mauricio MD [Primary Care Provider] - 1-2 days - Out of Hospital Transfer - Req. Specs Out of Hospital Transfer - Requested Specifics: Other Emergency Center ([facility])
[2020-04-23 19:21] VITALS: TEMP 98.3
--- NOTE | 2020-04-23 19:44 | CT ---
EXAMINATION TYPE: CT brain wo con DATE OF EXAM: 04/23/2020 COMPARISON: None available. HISTORY: Seizure CT DLP: 1158 mGycm. Automated Exposure Control for Dose Reduction was Utilized. TECHNIQUE: CT scan of the head is performed without contrast. FINDINGS: There is a bandlike hypoattenuation/cleft-like defect in the right parietal lobe that kelly ears to communicate with the lateral ventricle. No acute intracranial hemorrhage, mass effect, or mid line shift identified. The ventricles and sulci are within normal limits in size. The globes are in tact and the visualized sinuses are clear. IMPRESSION: Bandlike hypoattenuation/cleft-like defect in the right parietal lobe that appears to communicate wit h the lateral ventricle, suggestive of closed lip schizencephaly. Otherwise no acute intracranial abnormality.
--- NOTE | 2020-04-23 20:05 | XR ---
EXAMINATION TYPE: XR chest 2V DATE OF EXAM: 04/23/2020 COMPARISON: Prior chest x-ray 06/11/2019 HISTORY: Altered mental status TECHNIQUE: Frontal and lateral views of the chest are obtained. FINDINGS: There is no focal air space opacity, pleural effusion, or pneumothorax seen. The cardiac silhouette size is within normal limits. The osseous structures are intact. IMPRESSION: No acute cardiopulmonary process.
[2020-04-23 20:44] VITALS: BP 146/109; PULSE 102; RESP 20
[2020-04-23] MEDS ORDERED: cefTRIAXone IN SWFI 1,000 MG/10 ML SYRINGE IVP STA (20:56)
== END 2020-04-23 21:22 | disposition other institution (70) ==
LOC: EC 16:08
DX: R56.9 Unspecified convulsions (principal); I25.2 Old myocardial infarction; Z59.0 Homelessness
CPT/HCPCS: 99285; 96374; 96375 ×2; 96361; 36415; 36600; 93005; 80164; 80053; 82140; 82550; 82805; 83605; 84484; 85025; 85610; 85730; 81001; 80306; 83520; 71046; 70450; G0480 ×2; J2060; J2250; 80320; 80329

== ENCOUNTER 2023-07-04 19:22 | Inpatient (IN) | payer OTHER ==
[2023-07-04] MEDS ORDERED: SODIUM CHLORIDE 0.9% 1,000 ML IV STA ×3 (19:44→21:59)
[2023-07-04 20:18] LABS: Basophils # (A) 0.1 k/uL (0-0.2); Basophils % (A) 0 %; Eosinophils # (A) 0.7 k/uL (0-0.7); Eosinophils % (A) 5 %; HGB 8.8 gm/dL (13.0-17.5); Hypochromasia Marked; Lymphocytes # (A) 1.7 k/uL (1.0-4.8); Lymphocytes % (A) 12 %; MCH 22.9 pg (25.0-35.0); MCHC 30.4 g/dL (31.0-37.0); MCV 75.2 fL (80.0-100.0); Mean Platelet Volume 6.8; Microcytosis Slight; Monocytes # (A) 0.6 k/uL (0-1.0); Monocytes % (A) 4 %; Neutrophils # (A) 11.3 k/uL (1.3-7.7); Neutrophils % (A) 78 %; Platelet Count 733 k/uL (150-450); Poikilocytosis Slight; RBC 3.85 m/uL (4.30-5.90); RDW 15.9 % (11.5-15.5); WBC 14.6 k/uL (3.8-10.6)
[2023-07-04 20:33] LABS: ALT 34 U/L (4-49); AST 40 U/L (17-59); African American GFR (CKD) >90 (>60 ml/min/1.73 sqM); Alcohol <10 mg/dL; Alkaline Phosphatase 92 U/L (38-126); Anion Gap 10 mmol/L; Blood Urea Nitrogen 15 mg/dL (9-20); Calcium 8.5 mg/dL (8.4-10.2); Carbon Dioxide 23 mmol/L (22-30); Chloride 102 mmol/L (98-107); Glucose 173 mg/dL (74-99); Magnesium 1.9 mg/dL (1.6-2.3); Non-African American GFR(CKD) >90 (>60 ml/min/1.73 sqM); Potassium 4.2 mmol/L (3.5-5.1); Sodium 135 mmol/L (137-145); Total Bilirubin 0.3 mg/dL (0.2-1.3); Total Protein 6.1 g/dL (6.3-8.2)
[2023-07-04 20:36] LABS: INR 0.9 (<1.2); Prothrombin Time 10.1 sec (10.0-12.5)
[2023-07-04 20:43] LABS: Partial Thromboplastin Time 19.9 sec (22.0-30.0)
--- NOTE | 2023-07-04 20:50 | XR ---
EXAMINATION TYPE: XR chest 2V DATE OF EXAM: 07/04/2023 8:34 PM CLINICAL INDICATION:Male, 52 years old with history of Weakness; COMPARISON: Chest radiographs from 04/23/2020 TECHNIQUE: XR chest 2V Frontal and lateral views of the chest. FINDINGS: Lungs/Pleura: There is no evidence of pleural effusion, focal consolidation, or pneumothorax. Pulmonary vascularity: Unremarkable. Heart/mediastinum: Cardiomediastinal silhouette is unremarkable. Musculoskeletal: No acute osseous pathology. IMPRESSION: No acute cardiopulmonary disease/process.
--- NOTE | 2023-07-04 21:37 | CT ---
EXAMINATION TYPE: CT brain wo con CT DLP: 1157.4 mGycm, Automated exposure control for dose reduction was used. DATE OF EXAM: 07/04/2023 8:56 PM COMPARISON: 04/23/2020. CLINICAL INDICATION:Male, 52 years old with history of weakness, weakness TECHNIQUE: Brain: Axial CT images of the brain were obtained with coronal and sagittal reformats created and rev iewed. Contrast used: None. Oral contrast used: None. FINDINGS: Brain: Extra-axial spaces: No abnormal extra-axial fluid collections. Ventricular system: Dilatation in proportion to cerebral atrophy. Cerebral parenchyma: Bilateral parietal lobe encephalomalacia from prior injuries. Cerebral atrophy. No acute intraparenchymal hemorrhage or mass effect. The sanchze-white junction is well differentiated. Cerebellum: Unremarkable. Mass effect: No evidence of midline shift. Intracranial vasculature: unremarkable Soft tissues: Normal. Calvarium/osseous structures: No depressed skull fracture. Paranasal sinuses and mastoid air cells: Mild scattered paranasal sinus disease. Visualized orbits: Orbital contents are intact. IMPRESSION: 1. No acute intracranial process. 2. Chronic right parietal lobe injury and new from 2019 left parietal lobe injury which also appears chronic.
--- NOTE | 2023-07-04 21:56 | CT ---
EXAMINATION TYPE: CT angio abdomen pelvis CT DLP: 2010.9 mGycm, Automated exposure control for dose reduction was used. DATE OF EXAM: 07/04/2023 8:59 PM COMPARISON: None CLINICAL INDICATION:Male, 52 years old with history of gi bleed protocol; TECHNIQUE: Multiple thin slice sub-millimeter images were obtained after administration of contrast. 3-D reconstructed images and maximum intensity projection images were obtained. CT angio abdomen pel vis CT Contrast: Contrast used:100 cc mL of Isovue 300 without and with IV Contrast, Oral contrast used: without Oral Contrast None FINDINGS: CTA Abdomen and pelvis: The abdominal aorta does not demonstrate aneurysmal dilatation. Atherosclero tic plaquing is identified within the abdominal aorta. The origins of the superior mesenteric artery , renal arteries, inferior mesenteric artery, and celiac axis are patent. The iliac vessels are norm al in morphology LOWER CHEST: No evidence of focal consolidation, pneumothorax or pleural effusion. LIVER: Unremarkable GALLBLADDER AND BILE DUCTS: Unremarkable. PANCREAS: Unremarkable. SPLEEN: Unremarkable. ADRENAL GLANDS: Unremarkable. KIDNEYS AND URETERS: No evidence of hydronephrosis or renal calculus. The ureters are unremarkable. PELVIS BLADDER: Unremarkable REPRODUCTIVE: Coarse calcifications of the prostate gland are identified. ABDOMEN & PELVIS STOMACH AND BOWEL: Appendix is normal. There is circumferential wall thickening of the rectum measuri ng up to 9 mm in thickness. Wall thickening which is less severe extends to the sigmoid colon and rick cending colon. This is nondistended bowel however. Sigmoid flexure nondistended bowel with some wall thickening suggested. Evaluation of the gastrointestinal tract demonstrates no evidence of high densi ty hemorrhage arterial phase or pooling of blood on delayed phases. No evidence of bowel obstruction. PERITONEUM: No evidence of pneumoperitoneum or free fluid. VASCULATURE: Mild atherosclerotic calcifications are present throughout the abdominal aorta and its b ranches. MUSCULOSKELETAL: Mild disc degeneration changes are present throughout the thoracolumbar spine. LYMPH NODES: No gross evidence for lymphadenopathy. SOFT TISSUE/ABDOMINAL WALL: Fat-containing right inguinal hernia. IMPRESSION No evidence for gastrointestinal hemorrhage. There is evidence of colitis/proctitis involving the rec shital and to lesser extent the sigmoid colon and splenic flexure. No additional acute abdominal process visualized.
[2023-07-04] MEDS ORDERED: ASPIRIN 81 MG PO STA (22:03)
[2023-07-04 22:22] LABS: Appearance,Urine Clear (Clear); Bilirubin,Urine Negative (Negative); Blood,Urine Negative (Negative); Color,Urine Colorless; Glucose,Urine (UA) Negative (Negative); Ketones,Urine Negative (Negative); Leukocyte Esterase,Urine Negative (Negative); Nitrite,Urine Negative (Negative); PH, Urine 6.5 (5.0-8.0); Protein,Urine Negative (Negative); Urobilinogen,Urine <2.0 mg/dL (<2.0)
[2023-07-04 22:23] LABS: Specific Gravity,Urine >1.050 (1.001-1.035)
[2023-07-04 22:24] LABS: Amphetamine Screen,Urine Detected (NotDetected); Barbiturate Screen,Urine Not Detected (NotDetected); Benzodiazepines Screen,Urine Not Detected (NotDetected); Cocaine Screen,Urine Not Detected (NotDetected); Methadone Screen, Urine Not Detected (NotDetected); Opiate Screen,Urine Not Detected (NotDetected); Oxycodone Screen, Urine Not Detected (NotDetected); Phencyclidine Screen,Urine Not Detected (NotDetected); Tricyclic Antidepressant,Urine Not Detected (NotDetected); Urn Cannabinoid Scrn Not Detected (NotDetected)
[2023-07-04] MEDS ORDERED: NALOXONE 0.4 MG/ML 1 ML VIAL IV PRN (22:26)
--- NOTE | 2023-07-04 22:30 | ED ---
General Adult HPI - General Chief complaint: Weakness Stated complaint: Right side numbness Time Seen by Provider: 07/04/23 19:34 Source: patient, RN notes reviewed, old records reviewed Mode of arrival: wheelchair Limitations: no limitations - History of Present Illness Initial comments: Patient is a 52-year-old male who recently was released from long term who presents to the emergency department with complaints of 7 days of diarrhea with blood in stool. Has a history of polysubstance abuse. Currently is any weakness, right arm paresthesias, fatigue. No other complaints at this time. Denies any recent drug use. Does have a history of anemia and states this has happened previously. Is not on blood thinners. Denies any nausea or vomiting. Denies any abdominal pain. Denies any chest pain or shortness of breath. No other acute complaints. States he is supposed to take medications but is unknown to him which ones they are. - Related Data Home Medications Medication Instructions Recorded Confirmed Unable To Assess [Unable to Assess] 04/23/20 04/23/20 Allergies Allergy/AdvReac Type Severity Reaction Status Date / Time No Known Allergies Allergy Verified 07/04/23 19:26 Review of Systems ROS Statement: Those systems with pertinent positive or pertinent negative responses have been documented in the HPI. Review of Systems: CONST: Denies fever EYES: Denies blurry vision ENT: Denies nasal congestion C/V: Denies Chest pain RESP: Denies shortness of breath GI: Denies abdominal pain : Denies dysuria SKIN: Denies rash. MSK: Denies joint pain. NEURO: Endorses weakness ROS Other: All systems not noted in ROS Statement are negative. Past Medical History Past Medical History: Asthma, Myocardial Infarction (CT) Additional Past Medical History / Comment(s): IBS Last Myocardial Infarction Date:: october 2016 History of Any Multi-Drug Resistant Organisms: None Reported Past Surgical History: Heart Catheterization, Heart Catheterization With Stent Date of Last Stent Placement:: October 2016 Past Psychological History: No Psychological Hx Reported Smoking Status: Current every day smoker, Unknown if ever smoked Past Alcohol Use History: None Reported Past Drug Use History: Methamphetamine General Exam - General Exam Comments Initial Comments: General: Appears in no acute distress. HEAD: Normal with no signs of head trauma. EYES: PERRLA, EOMI, conjunctiva normal, no discharge. Pupils are 3 mm and equal bilaterally. ENT: Hearing grossly intact, normal oropharynx. Dry mucous membranes. RESPIRATORY: Clear breath sounds bilaterally. No wheezes, rales, or rhonchi. C/V: Tachycardic with regular rhythm. S1 and S2 auscultated, peripheral pulses 2+ and intact throughout ABD: Abd is soft, nontender, nondistended EXT: Normal range of motion, no obvious deformity SKIN: No rashes or lesions observed on exposed skin. NEURO: Alert and oriented 4. NIH technically one is he states he is having some decreased sensation of the right upper extremity only. Last known well was multiple days ago. Symptoms onset for multiple days. No other focal deficits. Limitations: no limitations Course Vital Signs 07/04/23 07/04/23 07/04/23 19:23 19:44 21:30 Temperature 97.5 F L Pulse Rate 127 H 114 H Respiratory 16 20 Rate Blood Pressure 128/88 130/87 135/84 O2 Sat by Pulse 100 100 Oximetry Medical Decision Making - Medical Decision Making Was pt. sent in by a medical professional or institution (, PA, [employer], urgent care, hospital, or fdc...) When possible be specific @ -No Did you speak to anyone other than the patient for history (EMS, parent, family, police, friend...)? What history was obtained from this source @ -No Did you review nursing and triage notes (agree or disagree)? Why? @ -I reviewed and agree with nursing and triage notes Were old charts reviewed (outside hosp., previous admission, EMS record, old EKG, old radiological studies, urgent care reports/EKG's, fdc records)? Report findings @ -Old charts reviewed Differential Diagnosis (chest pain, altered mental status, abdominal pain women, abdominal pain men, vaginal bleeding, weakness, fever, dyspnea, syncope, headache, dizziness, GI bleed, back pain, seizure, CVA, palpatations, mental health, musculoskeletal)? @ -Differential Weakness: Hypoglycemia, shock, sepsis, hyponatremia, anemia, infection, CT, ETOH, adverse medicine reaction, overdose, stroke, this is not meant to be an all-inclusive list. EKG interpreted by me (3pts min.). @ -As above X-rays interpreted by me (1pt min.). @ -Chest x-ray reveals no obvious acute cardiopulmonary process. CT interpreted by me (1pt min.). @ -CT brain reveals chronic changes with no obvious acute intracranial process. CT abdomen and pelvis GI bleed protocol reveals no obvious GI bleeding. Does reveal proctitis as well as colitis of the distal colon. U/S interpreted by me (1pt. min.). @ -None done What testing was considered but not performed or refused? (CT, X-rays, U/S, labs)? Why? @ -None What meds were considered but not given or refused? Why? @ -None Did you discuss the management of the patient with other professionals (professionals i.e. , PA, [employer], lab, RT, psych nurse, manager social media, military lawyer, teacher, court registry officer, medical case manager)? Give summary @ -No Was smoking cessation discussed for >3mins.? @ -No Was critical care preformed (if so, how long)? @ -No Were there social determinants of health that impacted care today? How? (Homelessness, low income, unemployed, alcoholism, drug addiction, transportation, low edu. Level, literacy, decrease access to med. care, [facility], rehab)? @ -No Was there de-escalation of care discussed even if they declined (Discuss DNR or withdrawal of care, Hospice)? DNR status @ -No What co-morbidities impacted this encounter? (DM, HTN, Smoking, COPD, CAD, Cancer, CVA, ARF, Chemo, Hep., AIDS, mental health diagnosis, sleep apnea, morbid obesity)? @ -None Was patient admitted / discharged? Hospital course, mention meds given and route, prescriptions, significant lab abnormalities, going to OR and other pertinent info. @ -Based on patient's presentation and physical exam, primary complaint is weakness but is also having numerous other complaints including paresthesias the right upper extremity, rectal bleeding which is somewhat chronic for the patient as well as diarrhea. He is tachycardic. He appears dehydrated. We will administer IV fluids, maintain broad workup. He was in agreement this plan. Vital signs other than tachycardia within acceptable limits. Patient's isolated right upper extremity paresthesia technically makes his NIH is 1 last known well was multiple days ago. Does not meet stroke activation criteria. We will obtain his CT brain screening for this. EKG shows right bundle-branch with no obvious acute ischemic process. Imaging remarkable for proctitis and distal colitis. Remainder the imaging unremarkable. Laboratory studies are remarkable for chronic anemia with a hemoglobin of 8.8. On previous visits over the last multiple years he tends to always be between 8 and 10 for his hemoglobin. He is within this range. Patient also has a leukocytosis of 14.6, an elevated troponin which is likely reactive at 0.478. Positive occult blood on stool that we sent. Remainder the labs unremarkable other than positive for amphetamines and methamphetamine. On reevaluation, patient is feeling improved. Vital signs are improved. I discussed results with him. Remains hemodynamically stable. We will admit the patient for treatment of the troponin which is likely secondary to his dehydration and tachycardia. We'll continue with IV fluid hydration. Patient be started on Protonix. He is given an aspirin. Remains having no chest pain. We will hold heparin at this time as he is having some GI bleeding. Remainder of labs unremarkable. We will place the patient on Zosyn for the proctitis and consult surgery in addition to cardiology. Patient agreement with this plan. I spoke with the admitting team, KENNY Davenport who accepted the admission. She was in agreement this plan. Undiagnosed new problem with uncertain prognosis? @ -No Drug Therapy requiring intensive monitoring for toxicity (Heparin, Nitro, Insulin, Cardizem)? @ -No Were any procedures done? @ -No Diagnosis/symptom? @ -Proctitis, right upper extremity paresthesia, elevated troponin, dehydration, history of polysubstance abuse, rectal bleeding Acute, or Chronic, or Acute on Chronic? @ -Acute Uncomplicated (without systemic symptoms) or Complicated (systemic symptoms)? @ -Complicated Side effects of treatment? @ -No Exacerbation, Progression, or Severe Exacerbation? @ -No Poses a threat to life or bodily function? How? (Chest pain, USA, CT, pneumonia, PE, COPD, DKA, ARF, appy, cholecystitis, CVA, Diverticulitis, Homicidal, Suicida l, threat to staff... and all critical care pts) @ -Yes Diagnosis/symptom? @ -Chronic anemia Acute, or Chronic, or Acute on Chronic? @ -Acute Uncomplicated (without systemic symptoms) or Complicated (systemic symptoms)? @ -uncomplicated Side effects of treatment? @ -none Exacerbation, Progression, or Severe Exacerbation] @ -no Poses a threat to life or bodily function? @ -no - Lab Data Result diagrams: 07/04/23 19:49 07/04/23 19:49 Lab Results 07/04/23 07/04/23 07/04/23 Range/Units 19:49 19:49 19:49 WBC 14.6 H (3.8-10.6) k/uL RBC 3.85 L (4.30-5.90) m/uL Hgb 8.8 L (13.0-17.5) gm/dL Hct 29.0 L (39.0-53.0) % MCV 75.2 L (80.0-100.0) fL MCH 22.9 L (25.0-35.0) pg MCHC 30.4 L (31.0-37.0) g/dL RDW 15.9 H (11.5-15.5) % Plt Count 733 H (150-450) k/uL MPV 6.8 Neutrophils % 78 % Lymphocytes % 12 % Monocytes % 4 % Eosinophils % 5 % Basophils % 0 % Neutrophils # 11.3 H (1.3-7.7) k/uL Lymphocytes # 1.7 (1.0-4.8) k/uL Monocytes # 0.6 (0-1.0) k/uL Eosinophils # 0.7 (0-0.7) k/uL Basophils # 0.1 (0-0.2) k/uL Hypochromasia Marked Poikilocytosis Slight Microcytosis Slight PT 10.1 (10.0-12.5) sec INR 0.9 (<1.2) APTT 19.9 L (22.0-30.0) sec Sodium (137-145) mmol/L Potassium (3.5-5.1) mmol/L Chloride (98-107) mmol/L Carbon Dioxide (22-30) mmol/L Anion Gap mmol/L BUN (9-20) mg/dL Creatinine (0.66-1.25) mg/dL Est GFR (CKD-EPI)AfAm (>60 ml/min/1.73 sqM) Est GFR (CKD-EPI)NonAf (>60 ml/min/1.73 sqM) Glucose (74-99) mg/dL Plasma Lactic Acid Ronnell (0.7-2.0) mmol/L Calcium (8.4-10.2) mg/dL Magnesium (1.6-2.3) mg/dL Total Bilirubin (0.2-1.3) mg/dL AST (17-59) U/L ALT (4-49) U/L Alkaline Phosphatase (38-126) U/L Troponin I (0.000-0.034) ng/mL Total Protein (6.3-8.2) g/dL Albumin (3.5-5.0) g/dL Urine Color Urine Appearance (Clear) Urine pH (5.0-8.0) Ur Specific [place] (1.001-1.035) Urine Protein (Negative) Urine Glucose (UA) (Negative) Urine Ketones (Negative) Urine Blood (Negative) Urine Nitrite (Negative) Urine Bilirubin (Negative) Urine Urobilinogen (<2.0) mg/dL Ur Leukocyte Esterase (Negative) Stool Occult Blood Positive (Negative) Urine Opiates Screen (NotDetected) Ur Oxycodone Screen (NotDetected) Urine Methadone Screen (NotDetected) Ur Barbiturates Screen (NotDetected) U Tricyclic Antidepress (NotDetected) Ur Phencyclidine Scrn (NotDetected) Ur Amphetamines Screen (NotDetected) U Methamphetamines Scrn (NotDetected) U Benzodiazepines Scrn (NotDetected) Urine Cocaine Screen (NotDetected) U Marijuana (THC) Screen (NotDetected) Serum Alcohol mg/dL Influenza Type A (PCR) (Not Detectd) Influenza Type B (PCR) (Not Detectd) RSV (PCR) (Not Detectd) SARS-CoV-2 (PCR) (Not Detectd) 07/04/23 07/04/23 07/04/23 Range/Units 19:49 19:49 19:49 WBC (3.8-10.6) k/uL RBC (4.30-5.90) m/uL Hgb (13.0-17.5) gm/dL Hct (39.0-53.0) % MCV (80.0-100.0) fL MCH (25.0-35.0) pg MCHC (31.0-37.0) g/dL RDW (11.5-15.5) % Plt Count (150-450) k/uL MPV Neutrophils % % Lymphocytes % % Monocytes % % Eosinophils % % Basophils % % Neutrophils # (1.3-7.7) k/uL Lymphocytes # (1.0-4.8) k/uL Monocytes # (0-1.0) k/uL Eosinophils # (0-0.7) k/uL Basophils # (0-0.2) k/uL Hypochromasia Poikilocytosis Microcytosis PT (10.0-12.5) sec INR (<1.2) APTT (22.0-30.0) sec Sodium 135 L (137-145) mmol/L Potassium 4.2 (3.5-5.1) mmol/L Chloride 102 (98-107) mmol/L Carbon Dioxide 23 (22-30) mmol/L Anion Gap 10 mmol/L BUN 15 (9-20) mg/dL Creatinine 0.68 (0.66-1.25) mg/dL Est GFR (CKD-EPI)AfAm >90 (>60 ml/min/1.73 sqM) Est GFR (CKD-EPI)NonAf >90 (>60 ml/min/1.73 sqM) Glucose 173 H (74-99) mg/dL Plasma Lactic Acid Ronnell 1.6 (0.7-2.0) mmol/L Calcium 8.5 (8.4-10.2) mg/dL Magnesium 1.9 (1.6-2.3) mg/dL Total Bilirubin 0.3 (0.2-1.3) mg/dL AST 40 (17-59) U/L ALT 34 (4-49) U/L Alkaline Phosphatase 92 (38-126) U/L Troponin I (0.000-0.034) ng/mL Total Protein 6.1 L (6.3-8.2) g/dL Albumin 3.0 L (3.5-5.0) g/dL Urine Color Colorless Urine Appearance Clear (Clear) Urine pH 6.5 (5.0-8.0) Ur Specific [place] >1.050 H (1.001-1.035) Urine Protein Negative (Negative) Urine Glucose (UA) Negative (Negative) Urine Ketones Negative (Negative) Urine Blood Negative (Negative) Urine Nitrite Negative (Negative) Urine Bilirubin Negative (Negative) Urine Urobilinogen <2.0 (<2.0) mg/dL Ur Leukocyte Esterase Negative (Negative) Stool Occult Blood (Negative) Urine Opiates Screen (NotDetected) Ur Oxycodone Screen (NotDetected) Urine Methadone Screen (NotDetected) Ur Barbiturates Screen (NotDetected) U Tricyclic Antidepress (NotDetected) Ur Phencyclidine Scrn (NotDetected) Ur Amphetamines Screen (NotDetected) U Methamphetamines Scrn (NotDetected) U Benzodiazepines Scrn (NotDetected) Urine Cocaine Screen (NotDetected) U Marijuana (THC) Screen (NotDetected) Serum Alcohol <10 mg/dL Influenza Type A (PCR) (Not Detectd) Influenza Type B (PCR) (Not Detectd) RSV (PCR) (Not Detectd) SARS-CoV-2 (PCR) (Not Detectd) 07/04/23 07/04/23 07/04/23 Range/Units 19:49 19:49 19:49 WBC (3.8-10.6) k/uL RBC (4.30-5.90) m/uL Hgb (13.0-17.5) gm/dL Hct (39.0-53.0) % MCV (80.0-100.0) fL MCH (25.0-35.0) pg MCHC (31.0-37.0) g/dL RDW (11.5-15.5) % Plt Count (150-450) k/uL MPV Neutrophils % % Lymphocytes % % Monocytes % % Eosinophils % % Basophils % % Neutrophils # (1.3-7.7) k/uL Lymphocytes # (1.0-4.8) k/uL Monocytes # (0-1.0) k/uL Eosinophils # (0-0.7) k/uL Basophils # (0-0.2) k/uL Hypochromasia Poikilocytosis Microcytosis PT (10.0-12.5) sec INR (<1.2) APTT (22.0-30.0) sec Sodium (137-145) mmol/L Potassium (3.5-5.1) mmol/L Chloride (98-107) mmol/L Carbon Dioxide (22-30) mmol/L Anion Gap mmol/L BUN (9-20) mg/dL Creatinine (0.66-1.25) mg/dL Est GFR (CKD-EPI)AfAm (>60 ml/min/1.73 sqM) Est GFR (CKD-EPI)NonAf (>60 ml/min/1.73 sqM) Glucose (74-99) mg/dL Plasma Lactic Acid [place] (0.7-2.0) mmol/L Calcium (8.4-10.2) mg/dL Magnesium (1.6-2.3) mg/dL Total Bilirubin (0.2-1.3) mg/dL AST (17-59) U/L ALT (4-49) U/L Alkaline Phosphatase (38-126) U/L Troponin I 0.478 H* (0.000-0.034) ng/mL Total Protein (6.3-8.2) g/dL Albumin (3.5-5.0) g/dL Urine Color Urine Appearance (Clear) Urine pH (5.0-8.0) Ur Specific [place] (1.001-1.035) Urine Protein (Negative) Urine Glucose (UA) (Negative) Urine Ketones (Negative) Urine Blood (Negative) Urine Nitrite (Negative) Urine Bilirubin (Negative) Urine Urobilinogen (<2.0) mg/dL Ur Leukocyte Esterase (Negative) Stool Occult Blood (Negative) Urine Opiates Screen Not Detected (NotDetected) Ur Oxycodone Screen Not Detected (NotDetected) Urine Methadone Screen Not Detected (NotDetected) Ur Barbiturates Screen Not Detected (NotDetected) U Tricyclic Antidepress Not Detected (NotDetected) Ur Phencyclidine Scrn Not Detected (NotDetected) Ur Amphetamines Screen Detected H (NotDetected) U Methamphetamines Scrn Detected H (NotDetected) U Benzodiazepines Scrn Not Detected (NotDetected) Urine Cocaine Screen Not Detected (NotDetected) U Marijuana (THC) Screen Not Detected (NotDetected) Serum Alcohol mg/dL Influenza Type A (PCR) Not Detected (Not Detectd) Influenza Type B (PCR) Not Detected (Not Detectd) RSV (PCR) Not Detected (Not Detectd) SARS-CoV-2 (PCR) Not Detected (Not Detectd) - EKG Data -: EKG Interpreted by Me EKG Comments: 12-lead Electrocardiogram Interpretation Note EKG was reviewed and interpreted by myself. 12-lead ECG performed at 1937 is interpreted by me as revealing sinus tachycardia at a rate of 111 beats per minute. Indeterminate axis. Patient has a right bundle branch block. DE interval is 132 ms, QRS durations 138 milliseconds, QTc is 410 ms.. There were no ST or T wave abnormalities to suggest myocardial ischemia or injury. R wave progression across the precordium was delayed. By my interpretation this EKG is non-diagnostic for acute ischemia. Disposition Clinical Impression: Proctitis, Arm paresthesia, right, Elevated troponin, Rectal bleeding, Dehydrat ion Disposition: ADMITTED IP TO THIS HOSP Condition: Stable Time of Disposition: 22:15
[2023-07-05] MEDS: PIPERACILLIN-TAZOBACTAM 3.375 GM in SODIUM CHLORIDE 0.9% 100 ML IVPB SCH ×4 (00:13→23:49)
[2023-07-05 03:52] LABS: Basophils % (A) 0 %; Eosinophils # (A) 0.8 k/uL (0-0.7); Eosinophils % (A) 6 %; HCT 24.6 % (39.0-53.0); HGB 7.4 gm/dL (13.0-17.5); Hypochromasia Marked; Lymphocytes # (A) 1.8 k/uL (1.0-4.8); Lymphocytes % (A) 13 %; MCH 22.7 pg (25.0-35.0); MCHC 30.2 g/dL (31.0-37.0); Mean Platelet Volume 7.3; Microcytosis Slight; Monocytes # (A) 0.7 k/uL (0-1.0); Monocytes % (A) 5 %; Neutrophils # (A) 10.3 k/uL (1.3-7.7); Neutrophils % (A) 75 %; Platelet Count 590 k/uL (150-450); Poikilocytosis Slight; RBC 3.28 m/uL (4.30-5.90); RDW 15.9 % (11.5-15.5); WBC 13.8 k/uL (3.8-10.6)
[2023-07-05 04:08] LABS: African American GFR (CKD) >90 (>60 ml/min/1.73 sqM); Anion Gap 8 mmol/L; Blood Urea Nitrogen 12 mg/dL (9-20); Calcium 7.7 mg/dL (8.4-10.2); Carbon Dioxide 20 mmol/L (22-30); Chloride 109 mmol/L (98-107); Glucose 93 mg/dL (74-99); Non-African American GFR(CKD) >90 (>60 ml/min/1.73 sqM); Sodium 137 mmol/L (137-145)
--- NOTE | 2023-07-05 07:46 | P.HPIM ---
History of Present Illness this is a pleasant 52 yo male with past medical history coronary artery disease status post stent, asthma, chronic anemia, chronic systolic heart failure with ejection fraction 25-70% 2018, history of ulcerative colitis. Previous history of incarceration. Which might contributing to his noncompliance with treatment. Patient says that his PCP is Dr. Mg but he hasn't seen a doctor in several years. He says he came to the hospital mainly because of 2 problems. The main one he thought he had a stroke because of numbness in his left upper extremity. However he declines weakness on either side, no blurred vision or slurred speech. No headache or dizziness. Patient does not take aspirin or blood thinner at home. Patient looks mildly lethargic and confused, he knew since in the hospital and placed but he could not tell the date or the name of the president correctly, patient looks indifferent Valvular problem is that he is having blood in his stool several bowel movement about 10 times yesterday although he doesn't describe it as diarrhea. Also he denies any abdominal pain or tenderness, no vomiting. He denies chest pain or dyspnea or coughing. He smokes about 1 pack per day and he was counseled to quit but he does not want to quit and he does not want nicotine patch, he denies alcohol or illicit drugs. Also noted urinary complaints. He said he had colonoscopy about 2 years ago but he doesn't know the results. Patient denies depression or suicidal ideation. Patient was counseled against leaving AMA extensively and he agrees to stay for now, given his history of noncompliance. Alcohol level is less than 10, Influenza A and type B, RSV, SARS (coronavirus) are and detected EKG shows sinus tachycardia 111 with right bundle branch block and fascicular block CTA of the abdomen and pelvis showing no aneurysm but there is circumferential wall thickening of the rectum until less extent the sigmoid and descending colon with no evidence of bowel obstruction. CT of the brain is negative for acute process but shown chronic right parietal lobe lesion also has another lesion in the left parietal lobe injury which is new compared to 2020, Chest x-rays negative for acute process Patient on admission was tachycardic with heart rate 114-104, blood pressure 118/76, afebrile, Labs showed leukocytosis 14 and 13,000, hemoglobin 8.8 down to 7.4, platelet count 590. BMP and liver enzymes were unremarkable Troponin 2 are elevated at 0.4 and 0.37. Occult blood in the stool is positive Urine drug screen is positive for amphetamine and methamphetamine. Review of Systems Review of systems CONSTITUTIONAL: No fever, no malaise, no fatigue. HEENT: No recent visual problems or hearing problems. Denied any sore throat. CARDIOVASCULAR: No orthopnea, PND, no palpitations, no syncope. PULMONARY: No shortness of breath, no cough, no hemoptysis. GASTROINTESTINAL: no nausea, no vomiting, no abdominal pain. Normoactive bowel sounds. NEUROLOGICAL: No headaches, no weakness, HEMATOLOGICAL: Denies any bleeding or petechiae. GENITOURINARY: Denies any burning micturition, frequency, or urgency. MUSCULOSKELETAL/RHEUMATOLOGICAL: Denies any joint pain, swelling, or any muscle pain. ENDOCRINE: Denies any polyuria or polydipsia. Past Medical History Past Medical History: Asthma, Myocardial Infarction ([place]) Additional Past Medical History / Comment(s): IBS Last Myocardial Infarction Date:: october 2016 History of Any Multi-Drug Resistant Organisms: None Reported Past Surgical History: Heart Catheterization, Heart Catheterization With Stent Date of Last Stent Placement:: October 2016 Past Psychological History: No Psychological Hx Reported Smoking Status: Current every day smoker, Unknown if ever smoked Past Alcohol Use History: None Reported Past Drug Use History: Methamphetamine Medications and Allergies Home Medications Medication Instructions Recorded Confirmed Type No Known Home Medications 07/05/23 07/05/23 History Allergies Allergy/AdvReac Type Severity Reaction Status Date / Time No Known Allergies Allergy Verified 07/05/23 07:37 Physical Exam Vitals: Vital Signs Temp Pulse Resp BP Pulse Ox 07/05/23 05:49 97.9 F 104 H 16 118/76 99 07/05/23 01:39 98.1 F 89 16 116/74 98 07/04/23 21:30 135/84 07/04/23 19:44 114 H 20 130/87 100 07/04/23 19:23 97.5 F L 127 H 16 128/88 100 Intake and Output 07/04/23 07/04/23 07/05/23 14:59 22:59 06:59 Other: Weight 77.111 kg -GENERAL: The patient is alert and oriented x1-2, moderately lethargic, not in any acute distress. Well developed, well nourished. HEENT: Pupils are round and equally reacting to light. EOMI. No scleral icterus. No conjunctival pallor. Normocephalic, atraumatic. No pharyngeal erythema. No thyromegaly. CARDIOVASCULAR: S1 and S2 present. No murmurs, rubs, or gallops. PULMONARY: Chest is clear to auscultation, no wheezing , no crackles. ABDOMEN: Soft, nontender, nondistended, normoactive bowel sounds. No palpable organomegaly. MUSCULOSKELETAL: No joint swelling or deformity. EXTREMITIES: No cyanosis, clubbing, or pedal edema. NEUROLOGICAL: Gross neurological examination did not reveal any focal deficits. SKIN: No rashes. no petechiae. Results CBC & Chem 7: 07/05/23 03:42 07/05/23 03:42 Labs: Abnormal Lab Results - Last 24 Hours (Table) 07/04/23 07/04/23 07/04/23 Range/Units 19:49 19:49 19:49 WBC 14.6 H (3.8-10.6) k/uL RBC 3.85 L (4.30-5.90) m/uL Hgb 8.8 L (13.0-17.5) gm/dL Hct 29.0 L (39.0-53.0) % MCV 75.2 L (80.0-100.0) fL MCH 22.9 L (25.0-35.0) pg MCHC 30.4 L (31.0-37.0) g/dL RDW 15.9 H (11.5-15.5) % Plt Count 733 H (150-450) k/uL Neutrophils # 11.3 H (1.3-7.7) k/uL Eosinophils # (0-0.7) k/uL APTT 19.9 L (22.0-30.0) sec Sodium (137-145) mmol/L Chloride (98-107) mmol/L Carbon Dioxide (22-30) mmol/L Creatinine (0.66-1.25) mg/dL Glucose (74-99) mg/dL Calcium (8.4-10.2) mg/dL Troponin I (0.000-0.034) ng/mL Total Protein (6.3-8.2) g/dL Albumin (3.5-5.0) g/dL Ur Specific [place] >1.050 H (1.001-1.035) Ur Amphetamines Screen (NotDetected) U Methamphetamines Scrn (NotDetected) 07/04/23 07/04/23 07/04/23 Range/Units 19:49 19:49 19:49 WBC (3.8-10.6) k/uL RBC (4.30-5.90) m/uL Hgb (13.0-17.5) gm/dL Hct (39.0-53.0) % MCV (80.0-100.0) fL MCH (25.0-35.0) pg MCHC (31.0-37.0) g/dL RDW (11.5-15.5) % Plt Count (150-450) k/uL Neutrophils # (1.3-7.7) k/uL Eosinophils # (0-0.7) k/uL APTT (22.0-30.0) sec Sodium 135 L (137-145) mmol/L Chloride (98-107) mmol/L Carbon Dioxide (22-30) mmol/L Creatinine (0.66-1.25) mg/dL Glucose 173 H (74-99) mg/dL Calcium (8.4-10.2) mg/dL Troponin I 0.478 H* (0.000-0.034) ng/mL Total Protein 6.1 L (6.3-8.2) g/dL Albumin 3.0 L (3.5-5.0) g/dL Ur Specific [place] (1.001-1.035) Ur Amphetamines Screen Detected H (NotDetected) U Methamphetamines Scrn Detected H (NotDetected) 07/05/23 07/05/23 07/05/23 Range/Units 00:01 03:42 03:42 WBC 13.8 H (3.8-10.6) k/uL RBC 3.28 L (4.30-5.90) m/uL Hgb 7.4 L (13.0-17.5) gm/dL Hct 24.6 L (39.0-53.0) % MCV 75.0 L (80.0-100.0) fL MCH 22.7 L (25.0-35.0) pg MCHC 30.2 L (31.0-37.0) g/dL RDW 15.9 H (11.5-15.5) % Plt Count 590 H (150-450) k/uL Neutrophils # 10.3 H (1.3-7.7) k/uL Eosinophils # 0.8 H (0-0.7) k/uL APTT (22.0-30.0) sec Sodium (137-145) mmol/L Chloride (98-107) mmol/L Carbon Dioxide (22-30) mmol/L Creatinine (0.66-1.25) mg/dL Glucose (74-99) mg/dL Calcium (8.4-10.2) mg/dL Troponin I 0.452 H* 0.379 H* (0.000-0.034) ng/mL Total Protein (6.3-8.2) g/dL Albumin (3.5-5.0) g/dL Ur Specific [place] (1.001-1.035) Ur Amphetamines Screen (NotDetected) U Methamphetamines Scrn (NotDetected) 07/05/23 Range/Units 03:42 WBC (3.8-10.6) k/uL RBC (4.30-5.90) m/uL Hgb (13.0-17.5) gm/dL Hct (39.0-53.0) % MCV (80.0-100.0) fL MCH (25.0-35.0) pg MCHC (31.0-37.0) g/dL RDW (11.5-15.5) % Plt Count (150-450) k/uL Neutrophils # (1.3-7.7) k/uL Eosinophils # (0-0.7) k/uL APTT (22.0-30.0) sec Sodium (137-145) mmol/L Chloride 109 H (98-107) mmol/L Carbon Dioxide 20 L (22-30) mmol/L Creatinine 0.62 L (0.66-1.25) mg/dL Glucose (74-99) mg/dL Calcium 7.7 L (8.4-10.2) mg/dL Troponin I (0.000-0.034) ng/mL Total Protein (6.3-8.2) g/dL Albumin (3.5-5.0) g/dL Ur Specific [place] (1.001-1.035) Ur Amphetamines Screen (NotDetected) U Methamphetamines Scrn (NotDetected) Assessment and Plan Assessment: Acute proctocolitis with blood stool. Given his history of ulcerative colitis we'll order a ESR and C-reactive protein Left side numbness, rule out stroke. She developed brain showing BILATERAL parietal lesions. Elevated troponin with history of coronary artery disease and stent Noncompliance Acute on chronic anemia, possible blood loss anemia Metabolic/toxic encephalopathy Substance abuse with amphetamine/methamphetamine Nicotine dependence Chronic systolic congestive heart failure with ejection fraction 25-30% Chronic bilateral parietal lesions History of ulcerative colitis Plan: Monitor hemoglobin Protonix Continue with IV fluids Continue with Zosyn Check for C. diff and stool studies Surgery team consult Check echocardiogram Check carotid duplex Neurology consult Telemetry monitoring Continue Lipitor Cardiology consult Check TSH and hemoglobin A1c Labs and medication were reviewed.. Continue same treatment. Continue with symptomatic treatment. Resume home medication. Monitor labs and vitals. DVT and GI prophylaxis. Further recommendations as per clinical course of the patient DVT prophylaxis: SCD GI Prophylaxis: Ppi PT/OT: Pending Prognosis is guarded
[2023-07-05 08:39] LABS: C Reactive Protein 3.2 mg/dL (<1.0)
[2023-07-05] MEDS ORDERED: PANTOPRAZOLE 40 MG/10 ML VIAL IV SCH (09:00)
[2023-07-05 09:29] LABS: Glucose,Whole Blood 137 mg/dL (70-110)
[2023-07-05] MEDS: PANTOPRAZOLE 40 MG/10 ML VIAL IV SCH ×2 (10:12→20:26)
[2023-07-05] MEDS: DEXTROSE 5%-0.9% NACL 1,000 ML IV SCH ×2 (10:12→17:18)
--- NOTE | 2023-07-05 11:44 | CA ---
Transthoracic Echo Report Name: Manjeet Velazquez Age: 52 Gender: M : 1970 Exam Date: 07/05/2023 11:04 Exam Location: [facility] Ht (in): 71 Wt (lb): 170 Ordering Physician: Louie Herrmann MD Attending/Referring Phys: [id number], Alize Supervisor Dials Jeanette Augustine, WENDY Procedure CPT: Indications: Rule out heart disease Cardiac Hx: Technical Quality: Good Contrast 1: Total Dose (mL): Contrast 2: Total Dose (mL): MEASUREMENTS (Male / Female) Normal Values 2D ECHO LV Diastolic Diameter PLAX 4.8 cm 4.2 - 5.9 / 3.9 - 5.3 cm LV Systolic Diameter PLAX 3.5 cm IVS Diastolic Thickness 1.1 cm 0.6 - 1.0 / 0.6 - 0.9 cm LVPW Diastolic Thickness 1.1 cm 0.6 - 1.0 / 0.6 - 0.9 cm LV Relative Wall Thickness 0.5 RV Internal Dim ED PLAX 3.3 cm LA Systolic Diameter LX 3.5 cm 3.0 - 4.0 / 2.7 - 3.8 cm LV Diastolic Volume MOD 4C 150.3 cm??? LV Systolic Volume MOD 4C 89.1 cm??? LV Ejection Fraction MOD 4C 40.7 % LV Cardiac Index MOD 4C 2642.9 cm???/min???m??? LV Diastolic Length 4C 9.0 cm LV Systolic Length 4C 8.4 cm LV Diastolic Volume MOD 2C 92.1 cm??? LV Systolic Volume MOD 2C 47.6 cm??? LV Ejection Fraction MOD 2C 48.3 % LV Cardiac Index MOD 2C 1919.0 cm???/min???m??? LV Diastolic Length 2C 9.5 cm LV Systolic Length 2C 8.5 cm LA Volume 67.2 cm??? 18 - 58 / 22 - 52 cm??? LA Volume Index 34.1 cm???/m??? 16 - 28 cm???/m??? M-MODE Aortic Root Diameter MM 3.4 cm MV E Point Septal Separation 1.3 cm AV Cusp Separation MM 2.3 cm DOPPLER AV Peak Velocity 152.0 cm/s AV Peak Gradient 9.2 mmHg MV Area PHT 2.4 cm??? Mitral E Point Velocity 89.3 cm/s Mitral A Point Velocity 75.5 cm/s Mitral E to A Ratio 1.2 MV Deceleration Time 321.5 ms MV E' Velocity 8.0 cm/s Mitral E to MV E' Ratio 11.1 FINDINGS Left Ventricle Left ventricular ejection fraction is estimated at 45-50 %. Left ventricular cavity size normal. Mildly increased septal wall thickness. Apicl septum hupokinesis, apical anterior hypokinesis. Right Ventricle Mild right ventricular dilatation. Unable to estimate the right ventricular systolic pressure. Right Atrium Normal right atrial size. Left Atrium Mildly increased left atrial volume. Mitral Valve Structurally normal mitral valve. No mitral stenosis, regurgitation or prolapse. Aortic Valve Trileaflet aortic valve. No aortic stenosis. Tricuspid Valve Structurally normal tricuspid valve. No tricuspid regurgitation. Pulmonic Valve Structurally normal pulmonic valve. No pulmonic regurgitation. Pericardium No pericardial effusion. Aorta Normal size aortic root and proximal ascending aorta. CONCLUSIONS LV size is normal. There is hypokinesia of the apical septum and adjoining anteroapical wall. Mild mitral and tricuspid regurgitation no pericardial effusion Previewed by: Dr. Erika Jackson MD (Electronically Signed) Final Date: 05 July 2023 11:43
--- NOTE | 2023-07-05 14:31 | P.GSCN ---
History of Present Illness Consult date: 07/05/23 History of present illness: CHIEF COMPLAINT: diarrhea HISTORY OF PRESENT ILLNESS: This is a 52-year-old male who presented to the hospital with complaints of multiple episodes of diarrhea with blood in his stools 1 month. Patient recently released from custodial. He denies any abdominal pain. He is a poor historian. Per patient's chart he has a history of ulcerative colitis. Patient denies any abdominal pain. He denies any nausea vomiting. He reports his last colonoscopy was about a year ago with unremarkable findings. Patient has history of meth abuse. Computed tomography scan abdomen and pelvis showed no evidence of gastrointestinal hemorrhage. There is evidence of colitis/proctitis involving the rectum and to lesser extent the sigmoid colon and splenic flexure. Patient also being followed by neurology to rule out stroke and being evaluated by cardiology regarding elevated troponins. Patient denies being on any blood thinners. Patient has been mildly tachycardic. PAST MEDICAL HISTORY: Asthma, myocardial infarction,, coronary artery disease IBS PAST SURGICAL HISTORY: Heart catheterization stent placement MEDICATIONS: See below ALLERGIES: See below SOCIAL HISTORY: No illicit drug use. REVIEW OF SYSTEMS: CONSTITUTIONAL: Denies fever or chills. HEENT: Denies blurred vision, vision changes, or eye pain. Denies hemoptysis CARDIOVASCULAR: Denies chest pain or pressure. RESPIRATORY: No shortness of breath. GASTROINTESTINAL: See HPI for pertinent findings HEMATOLOGIC: Denies bleeding disorders. GENITOURINARY: Denies any blood in urine or increased urinary frequency. SKIN: Denies pruitis. Denies rash. PHYSICAL EXAM: VITAL SIGNS: Reviewed GENERAL: Well-developed in no acute distress. ABDOMEN: Soft. Obese. Nondistended. nontender NEUROLOGIC: Alert and oriented. Cranial nerves II through XII grossly intact. LABORATORY DATA: WBC 14.6 down to 13.8 Hgb 8.8 down to 7.4 platelets 590 sodium is 137 potassium 4.0 creatinine 0.62 Hemoglobin A1c 6.1 Troponins elevated CRP 3.2 sed rate 65 IMAGING: computed tomography scan findings as stated above Computed tomography scan brain no acute intracranial process. Chronic right parietal lobe injury and new from 2020 left parietal lobe. Which also appears chronic Echo EF of 45-50%. ASSESSMENT: 1. Bloody diarrhea with history of ulcerative colitis 2. Colitis/proctitis involving the rectum and to lesser extent the sigmoid colon and and splenic flexure PLAN: -Plan for colonoscopy on with Dr. kelly -Start GoLYTELY bowel prep and clear liquid diet tomorrow -Continue antibiotics -Continue IV fluids -Downgrade diet to full liquids for today -Continue monitoring hemoglobin -Continue monitoring for any signs or symptoms of bleeding Physician Mate First note has been reviewed by physician. Signing provider agrees with the documented findings, assessment, and plan of care. Past Medical History Past Medical History: Asthma, Myocardial Infarction ([place]) Additional Past Medical History / Comment(s): IBS Last Myocardial Infarction Date:: october 2016 History of Any Multi-Drug Resistant Organisms: None Reported Past Surgical History: Heart Catheterization, Heart Catheterization With Stent Date of Last Stent Placement:: October 2016 Past Psychological History: No Psychological Hx Reported Smoking Status: Current every day smoker, Unknown if ever smoked Past Alcohol Use History: None Reported Past Drug Use History: Methamphetamine Medications and Allergies Home Medications Medication Instructions Recorded Confirmed Type No Known Home Medications 07/05/23 07/05/23 History Allergies Allergy/AdvReac Type Severity Reaction Status Date / Time No Known Allergies Allergy Verified 07/05/23 07:37 Surgical - Exam Vital Signs Temp Pulse Resp BP Pulse Ox 97.5 F L 127 H 16 128/88 100 07/04/23 19:23 07/04/23 19:23 07/04/23 19:23 07/04/23 19:23 07/04/23 19:23 Results - Labs 07/05/23 03:42 07/05/23 03:42 Abnormal Lab Results - Last 24 Hours (Table) 07/04/23 07/04/23 07/04/23 Range/Units 19:49 19:49 19:49 WBC 14.6 H (3.8-10.6) k/uL RBC 3.85 L (4.30-5.90) m/uL Hgb 8.8 L (13.0-17.5) gm/dL Hct 29.0 L (39.0-53.0) % MCV 75.2 L (80.0-100.0) fL MCH 22.9 L (25.0-35.0) pg MCHC 30.4 L (31.0-37.0) g/dL RDW 15.9 H (11.5-15.5) % Plt Count 733 H (150-450) k/uL Neutrophils # 11.3 H (1.3-7.7) k/uL Eosinophils # (0-0.7) k/uL ESR (0-20) mm/Hr APTT 19.9 L (22.0-30.0) sec Sodium (137-145) mmol/L Chloride (98-107) mmol/L Carbon Dioxide (22-30) mmol/L Creatinine (0.66-1.25) mg/dL Glucose (74-99) mg/dL POC Glucose (mg/dL) (70-110) mg/dL Hemoglobin A1c (<=6.0) % Calcium (8.4-10.2) mg/dL Troponin I (0.000-0.034) ng/mL C-Reactive Protein (<1.0) mg/dL Total Protein (6.3-8.2) g/dL Albumin (3.5-5.0) g/dL TSH (0.465-4.680) mIU/L Ur Specific [place] >1.050 H (1.001-1.035) Ur Amphetamines Screen (NotDetected) U Methamphetamines Scrn (NotDetected) 07/04/23 07/04/23 07/04/23 Range/Units 19:49 19:49 19:49 WBC (3.8-10.6) k/uL RBC (4.30-5.90) m/uL Hgb (13.0-17.5) gm/dL Hct (39.0-53.0) % MCV (80.0-100.0) fL MCH (25.0-35.0) pg MCHC (31.0-37.0) g/dL RDW (11.5-15.5) % Plt Count (150-450) k/uL Neutrophils # (1.3-7.7) k/uL Eosinophils # (0-0.7) k/uL ESR (0-20) mm/Hr APTT (22.0-30.0) sec Sodium 135 L (137-145) mmol/L Chloride (98-107) mmol/L Carbon Dioxide (22-30) mmol/L Creatinine (0.66-1.25) mg/dL Glucose 173 H (74-99) mg/dL POC Glucose (mg/dL) (70-110) mg/dL Hemoglobin A1c (<=6.0) % Calcium (8.4-10.2) mg/dL Troponin I 0.478 H* (0.000-0.034) ng/mL C-Reactive Protein (<1.0) mg/dL Total Protein 6.1 L (6.3-8.2) g/dL Albumin 3.0 L (3.5-5.0) g/dL TSH (0.465-4.680) mIU/L Ur Specific [place] (1.001-1.035) Ur Amphetamines Screen Detected H (NotDetected) U Methamphetamines Scrn Detected H (NotDetected) 07/05/23 07/05/23 07/05/23 Range/Units 00:01 03:42 03:42 WBC 13.8 H (3.8-10.6) k/uL RBC 3.28 L (4.30-5.90) m/uL Hgb 7.4 L (13.0-17.5) gm/dL Hct 24.6 L (39.0-53.0) % MCV 75.0 L (80.0-100.0) fL MCH 22.7 L (25.0-35.0) pg MCHC 30.2 L (31.0-37.0) g/dL RDW 15.9 H (11.5-15.5) % Plt Count 590 H (150-450) k/uL Neutrophils # 10.3 H (1.3-7.7) k/uL Eosinophils # 0.8 H (0-0.7) k/uL ESR (0-20) mm/Hr APTT (22.0-30.0) sec Sodium (137-145) mmol/L Chloride (98-107) mmol/L Carbon Dioxide (22-30) mmol/L Creatinine (0.66-1.25) mg/dL Glucose (74-99) mg/dL POC Glucose (mg/dL) (70-110) mg/dL Hemoglobin A1c (<=6.0) % Calcium (8.4-10.2) mg/dL Troponin I 0.452 H* 0.379 H* (0.000-0.034) ng/mL C-Reactive Protein (<1.0) mg/dL Total Protein (6.3-8.2) g/dL Albumin (3.5-5.0) g/dL TSH (0.465-4.680) mIU/L Ur Specific [place] (1.001-1.035) Ur Amphetamines Screen (NotDetected) U Methamphetamines Scrn (NotDetected) 07/05/23 07/05/23 07/05/23 Range/Units 03:42 07:53 07:53 WBC (3.8-10.6) k/uL RBC (4.30-5.90) m/uL Hgb (13.0-17.5) gm/dL Hct (39.0-53.0) % MCV (80.0-100.0) fL MCH (25.0-35.0) pg MCHC (31.0-37.0) g/dL RDW (11.5-15.5) % Plt Count (150-450) k/uL Neutrophils # (1.3-7.7) k/uL Eosinophils # (0-0.7) k/uL ESR (0-20) mm/Hr APTT (22.0-30.0) sec Sodium (137-145) mmol/L Chloride 109 H (98-107) mmol/L Carbon Dioxide 20 L (22-30) mmol/L Creatinine 0.62 L (0.66-1.25) mg/dL Glucose (74-99) mg/dL POC Glucose (mg/dL) (70-110) mg/dL Hemoglobin A1c (<=6.0) % Calcium 7.7 L (8.4-10.2) mg/dL Troponin I (0.000-0.034) ng/mL C-Reactive Protein 3.2 H (<1.0) mg/dL Total Protein (6.3-8.2) g/dL Albumin (3.5-5.0) g/dL TSH <0.015 L (0.465-4.680) mIU/L Ur Specific [place] (1.001-1.035) Ur Amphetamines Screen (NotDetected) U Methamphetamines Scrn (NotDetected) 07/05/23 07/05/23 07/05/23 Range/Units 07:54 07:54 09:27 WBC (3.8-10.6) k/uL RBC (4.30-5.90) m/uL Hgb (13.0-17.5) gm/dL Hct (39.0-53.0) % MCV (80.0-100.0) fL MCH (25.0-35.0) pg MCHC (31.0-37.0) g/dL RDW (11.5-15.5) % Plt Count (150-450) k/uL Neutrophils # (1.3-7.7) k/uL Eosinophils # (0-0.7) k/uL ESR 65 H (0-20) mm/Hr APTT (22.0-30.0) sec Sodium (137-145) mmol/L Chloride (98-107) mmol/L Carbon Dioxide (22-30) mmol/L Creatinine (0.66-1.25) mg/dL Glucose (74-99) mg/dL POC Glucose (mg/dL) 137 H (70-110) mg/dL Hemoglobin A1c 6.1 H (<=6.0) % Calcium (8.4-10.2) mg/dL Troponin I (0.000-0.034) ng/mL C-Reactive Protein (<1.0) mg/dL Total Protein (6.3-8.2) g/dL Albumin (3.5-5.0) g/dL TSH (0.465-4.680) mIU/L Ur Specific [place] (1.001-1.035) Ur Amphetamines Screen (NotDetected) U Methamphetamines Scrn (NotDetected) Diabetes panel 07/04/23 07/05/23 07/05/23 Range/Units 19:49 03:42 07:54 Sodium 135 L 137 (137-145) mmol/L Potassium 4.2 4.0 (3.5-5.1) mmol/L Chloride 102 109 H (98-107) mmol/L Carbon Dioxide 23 20 L (22-30) mmol/L BUN 15 12 (9-20) mg/dL Creatinine 0.68 0.62 L (0.66-1.25) mg/dL Glucose 173 H 93 (74-99) mg/dL Hemoglobin A1c 6.1 H (<=6.0) % Calcium 8.5 7.7 L (8.4-10.2) mg/dL AST 40 (17-59) U/L ALT 34 (4-49) U/L Alkaline Phosphatase 92 (38-126) U/L Total Protein 6.1 L (6.3-8.2) g/dL Albumin 3.0 L (3.5-5.0) g/dL Thyroid panel 07/05/23 Range/Units 07:53 TSH <0.015 L (0.465-4.680) mIU/L Calcium panel 07/04/23 07/05/23 Range/Units 19:49 03:42 Calcium 8.5 7.7 L (8.4-10.2) mg/dL Albumin 3.0 L (3.5-5.0) g/dL Pituitary panel 07/04/23 07/05/23 07/05/23 Range/Units 19:49 03:42 07:53 Sodium 135 L 137 (137-145) mmol/L Potassium 4.2 4.0 (3.5-5.1) mmol/L Chloride 102 109 H (98-107) mmol/L Carbon Dioxide 23 20 L (22-30) mmol/L BUN 15 12 (9-20) mg/dL Creatinine 0.68 0.62 L (0.66-1.25) mg/dL Glucose 173 H 93 (74-99) mg/dL Calcium 8.5 7.7 L (8.4-10.2) mg/dL TSH <0.015 L (0.465-4.680) mIU/L Adrenal panel 07/04/23 07/05/23 Range/Units 19:49 03:42 Sodium 135 L 137 (137-145) mmol/L Potassium 4.2 4.0 (3.5-5.1) mmol/L Chloride 102 109 H (98-107) mmol/L Carbon Dioxide 23 20 L (22-30) mmol/L BUN 15 12 (9-20) mg/dL Creatinine 0.68 0.62 L (0.66-1.25) mg/dL Glucose 173 H 93 (74-99) mg/dL Calcium 8.5 7.7 L (8.4-10.2) mg/dL Total Bilirubin 0.3 (0.2-1.3) mg/dL AST 40 (17-59) U/L ALT 34 (4-49) U/L Alkaline Phosphatase 92 (38-126) U/L Total Protein 6.1 L (6.3-8.2) g/dL Albumin 3.0 L (3.5-5.0) g/dL
--- NOTE | 2023-07-05 14:51 | P.CRDCN ---
History of Present Illness Consult date: 07/05/23 History of present illness: History of present illness: This is a 52-year-old male previously seen in the office by Dr. Wild in 2018 with past medical history of anterior ST elevated OR in 2018 status post stent of the mid LAD, right bundle branch block, ventricular tachycardia in the setting of OR. We have been asked to evaluate the patient for elevated troponins. Patient states he presented to the hospital because of feeling very ill with bloody stools. He denies having any chest pain. No lightheadedness or dizziness. No palpitations. Patient has had diarrhea for the past 7 days with blood. Patient was recently released from [facility] living. Patient is seen today in the emergency center waiting for a bed on the cardiac stepdown unit. EKG sinus tachycardia at 111 bpm, right bundle branch block Chest x-ray: No acute process CAT scan angiogram of the abdomen and pelvis revealed no GI hemorrhage. Evidence of colitis/proctitis involving the rectum and to a lesser degree the sigmoid colon and splenic flexure. Echocardiogram reveals LV size normal. EF 45-50%. Hypokinesia of the apical septum and adjoining anterior apical wall. Mild mitral and tricuspid regurgitation. No pericardial effusion. WBC 13.8, hemoglobin 7.4, platelet count 590. Sed rate 65. INR 0.9. Sodium 137, potassium 4.0, CO2 20, BUN 12 and creatinine 0.62. Troponin 0.478, 0.452, 0.379. TSH less than 0.015 with free T4 of 1. ProBNP 650. C-reactive protein 3.2. Urine drug screen positive for amphetamines and methamphetamines. Influenza A, influenza B, RSV, Covid 19 not detected. Home cardiac medications: None Cardiac catheterization 10/2017 status post stent of the mid LAD Echocardiogram 10/2017 revealed EF of 30%. Review Of Systems: At the time of my exam: CONSTITUTIONAL: Denies fever or chills. CARDIOVASCULAR: Denies chest pain, Denies shortness of breath, no orthopnea, PND or palpitations. RESPIRATORY: Denies cough. GASTROINTESTINAL: Denies abdominal pain, diarrhea, constipation, nausea or vomiting. MUSCULOSKELETAL: Denies myalgias. NEUROLOGIC: Denies numbness, tingling or weakness. ENDOCRINE: Denies fatigue, weight change, polydipsia or polyurina. GENITOURINARY: Denies burning, hematuria or urgency with micturation. HEMATOLOGIC: Denies history of anemia or bleeding. Physical examination: Gen: This is a 52-year-old male resting on the ER stretcher and appears to be comfortable and in no acute distress. VS: reviewed HEENT: Head is atraumatic, normocephalic. Pupils equal, round. Sclerae is anicteric. NECK: Supple. No JVD. LUNGS: Clear to auscultation. No wheezes or rhonchi. No intercostal retractions. HEART: Regular rate and rhythm. No murmur. ABDOMEN: Soft No tenderness. EXTREMITIES: No pedal edema. No calf tenderness. NEUROLOGICAL: Patient is awake, alert and oriented x3. Assessment: Bloody diarrhea Elevated troponins of unclear etiology, acute coronary syndrome ruled out History of coronary artery disease with previous stenting of the mid LAD Right bundle branch block History of nonsustained ventricular tachycardia Plan: Continue workup for GI bleed Cardiology will sign off this case and follow on an as-needed basis. Please reconsult for any new concerns. Patient may follow-up in the office in one to 2 weeks. Thank you kindly for this consultation. Nurse practitioner note has been reviewed, I agree with documented findings and plan of care. Patient was seen and examined. Past Medical History Past Medical History: Asthma, Myocardial Infarction ([place]) Additional Past Medical History / Comment(s): IBS Last Myocardial Infarction Date:: october 2016 History of Any Multi-Drug Resistant Organisms: None Reported Past Surgical History: Heart Catheterization, Heart Catheterization With Stent Date of Last Stent Placement:: October 2016 Past Psychological History: No Psychological Hx Reported Smoking Status: Current every day smoker, Unknown if ever smoked Past Alcohol Use History: None Reported Past Drug Use History: Methamphetamine Medications and Allergies Home Medications Medication Instructions Recorded Confirmed Type No Known Home Medications 07/05/23 07/05/23 History Allergies Allergy/AdvReac Type Severity Reaction Status Date / Time No Known Allergies Allergy Verified 07/05/23 07:37 Physical Exam Vitals: Vital Signs Temp Pulse Resp BP Pulse Ox 07/05/23 10:08 115 H 18 134/76 99 07/05/23 09:00 97 18 97 07/05/23 07:20 97.3 F L 106 H 16 115/76 99 07/05/23 06:57 83 16 07/05/23 05:49 97.9 F 104 H 16 118/76 99 07/05/23 01:39 98.1 F 89 16 116/74 98 07/04/23 21:30 135/84 07/04/23 19:44 114 H 20 130/87 100 07/04/23 19:23 97.5 F L 127 H 16 128/88 100 Intake and Output 07/04/23 07/05/23 07/05/23 22:59 06:59 14:59 Other: Weight 77.111 kg Results 07/05/23 03:42 07/05/23 03:42 Cardiac Enzymes 07/04/23 07/04/23 07/05/23 Range/Units 19:49 19:49 00:01 AST 40 (17-59) U/L Troponin I 0.478 H* 0.452 H* (0.000-0.034) ng/mL 07/05/23 Range/Units 03:42 AST (17-59) U/L Troponin I 0.379 H* (0.000-0.034) ng/mL Coagulation 07/04/23 Range/Units 19:49 PT 10.1 (10.0-12.5) sec APTT 19.9 L (22.0-30.0) sec CBC 07/04/23 07/05/23 Range/Units 19:49 03:42 WBC 14.6 H 13.8 H (3.8-10.6) k/uL RBC 3.85 L 3.28 L (4.30-5.90) m/uL Hgb 8.8 L 7.4 L (13.0-17.5) gm/dL Hct 29.0 L 24.6 L (39.0-53.0) % Plt Count 733 H 590 H (150-450) k/uL Comprehensive Metabolic Panel 07/04/23 07/05/23 Range/Units 19:49 03:42 Sodium 135 L 137 (137-145) mmol/L Potassium 4.2 4.0 (3.5-5.1) mmol/L Chloride 102 109 H (98-107) mmol/L Carbon Dioxide 23 20 L (22-30) mmol/L BUN 15 12 (9-20) mg/dL Creatinine 0.68 0.62 L (0.66-1.25) mg/dL Glucose 173 H 93 (74-99) mg/dL Calcium 8.5 7.7 L (8.4-10.2) mg/dL AST 40 (17-59) U/L ALT 34 (4-49) U/L Alkaline Phosphatase 92 (38-126) U/L Total Protein 6.1 L (6.3-8.2) g/dL Albumin 3.0 L (3.5-5.0) g/dL Current Medications Generic Name Dose Route Start Last Admin Trade Name Freq PRN Reason Stop Dose Admin Sodium Chloride 1,000 mls @ 75 mls/hr 07/04/23 21:59 07/04/23 22:12 Saline 0.9% IV 07/05/23 11:18 75 mls/hr .[id number] STA Administration Piperacillin Sod/Tazobactam 100 mls @ 25 mls/hr 07/05/23 00:00 07/05/23 10:16 Sod 3.375 gm/ Sodium Chloride IVPB 25 mls/hr Q8HR JENNIFER Administration Protocol Dextrose/Sodium Chloride 1,000 mls @ 100 mls/hr 07/05/23 07:45 07/05/23 10:12 Dextrose 5%-Ns Iv Soln IV 100 mls/hr .Q10H JENNIFER Administration Naloxone HCl 0.2 mg 07/04/23 22:26 Naloxone 0.4 Mg/Ml 1 Ml Vial IV Q2M PRN Opioid Reversal Pantoprazole Sodium 40 mg 07/05/23 09:00 07/05/23 10:12 Pantoprazole 40 Mg/10 Ml Vial IV 40 mg BID JENNIFER Administration Intake and Output 07/04/23 07/05/23 07/05/23 22:59 06:59 14:59 Other: Weight 77.111 kg 07/05/23 03:42 07/05/23 03:42
--- NOTE | 2023-07-05 15:36 | P.CNNES ---
History of Present Illness Consult date: 07/05/23 Requesting physician: Louie Herrmann Reason for Consult: r/o stroke History of Present Illness: This is a 52-year-old gentleman who presents in the department because of a bleeding the stool for 1 month. Upon seeing the patient he denies off any numbness, focal weakness, slurring the speech, visual disturbance. He denies any history of stroke or TIAs in the past. He denies being on any antiplatelets or anticoagulation. Primary team notified me that the patient's is a having numbness that he he notify the primary team that upon notifying the patient he stated that I forgot but I do have numbness in the right hand and having difficulty extending the fingers. He denies of leaning on his all forearm or arm or any trauma. He did not seem like a great historian. He denies of any alcohol use or any illicit drug use. Some of the workup during his hospital visit consisted of: Recent hemoglobin is 7.4 and hematocrit is 24.6 which is trending down the compared to yesterday. ESR 65. Hemoglobin A1c is 6.19. TSH is less than 0.015 3 T4 is 1.0 Sodium, glucose around within normal limits Calcium 7.7, magnesium is 1.9 Occult blood was positive Reduction is positive for amphetamine and methamphetamine. Serum alcohol was less than 10. CT of the head is reported as no acute intracranial processes. Chronic right parietal lobe injury and new from 2019 left parietal lobe injury which appears chronic. Personally reviewed the CT and I agree the patient has encephalomalacia right more than left left parietal. On the left is seems left parietal frontal but mostly parietal. No acute subacute ischemia. EKG is reported as sinus tachycardia. Possible left atrial enlargement. Right bundle branch block. Left anterior fascicular block. Possible inferior myocardial infarction. Review of Systems The positive and negative as per HPI. Past Medical History Past Medical History: Asthma, Myocardial Infarction ([place]) Additional Past Medical History / Comment(s): IBS Last Myocardial Infarction Date:: october 2016 History of Any Multi-Drug Resistant Organisms: None Reported Past Surgical History: Heart Catheterization, Heart Catheterization With Stent Date of Last Stent Placement:: October 2016 Past Psychological History: No Psychological Hx Reported Smoking Status: Current every day smoker, Unknown if ever smoked Past Alcohol Use History: None Reported Past Drug Use History: Methamphetamine Medications and Allergies Home Medications Medication Instructions Recorded Confirmed Type No Known Home Medications 07/05/23 07/05/23 History Allergies Allergy/AdvReac Type Severity Reaction Status Date / Time No Known Allergies Allergy Verified 07/05/23 07:37 Physical Examination - Vital Signs Vital Signs: Vital Signs Temp Pulse Resp BP Pulse Ox 07/05/23 13:04 97 18 99 07/05/23 12:00 97.5 F L 94 18 123/73 99 07/05/23 10:08 115 H 18 134/76 99 07/05/23 09:00 97 18 97 07/05/23 07:20 97.3 F L 106 H 16 115/76 99 07/05/23 06:57 83 16 07/05/23 05:49 97.9 F 104 H 16 118/76 99 07/05/23 01:39 98.1 F 89 16 116/74 98 07/04/23 21:30 135/84 07/04/23 19:44 114 H 20 130/87 100 07/04/23 19:23 97.5 F L 127 H 16 128/88 100 General: Lying in bed and is not in acute distress. Neuro: Limited because of his cooperation. Patient is oriented to self place and time. He is following few simple commands but wants to be left alone so he can go back to sleep. No aphasia from limited examination. No neglect. Pupils are round equal and reactive to light. Pupils are round and 3 mm b ilaterally. Visual castaneda are full to confrontation. No facial weakness. No dysarthria. Motor: Limited because of cooperation but had left hand finger extension is 4+. Otherwise lifting all extremities above gravity. Sensation: Normal to touch. Reflexes: 2+ throughout. Plantars: Mute bilaterally. Results - Laboratory Findings CBC and BMP: 07/05/23 03:42 07/05/23 03:42 Abnormal Lab Findings: Abnormal Labs 07/04/23 07/04/23 07/04/23 19:49 19:49 19:49 WBC 14.6 H RBC 3.85 L Hgb 8.8 L Hct 29.0 L MCV 75.2 L MCH 22.9 L MCHC 30.4 L RDW 15.9 H Plt Count 733 H Neutrophils # 11.3 H Eosinophils # ESR APTT 19.9 L Sodium Chloride Carbon Dioxide Creatinine Glucose POC Glucose (mg/dL) Hemoglobin A1c Calcium Troponin I C-Reactive Protein Total Protein Albumin TSH Ur Specific Mccloud >1.050 H Ur Amphetamines Screen U Methamphetamines Scrn 07/04/23 07/04/23 07/04/23 19:49 19:49 19:49 WBC RBC Hgb Hct MCV MCH MCHC RDW Plt Count Neutrophils # Eosinophils # ESR APTT Sodium 135 L Chloride Carbon Dioxide Creatinine Glucose 173 H POC Glucose (mg/dL) Hemoglobin A1c Calcium Troponin I 0.478 H* C-Reactive Protein Total Protein 6.1 L Albumin 3.0 L TSH Ur Specific Mccloud Ur Amphetamines Screen Detected H U Methamphetamines Scrn Detected H 07/05/23 07/05/23 07/05/23 00:01 03:42 03:42 WBC 13.8 H RBC 3.28 L Hgb 7.4 L Hct 24.6 L MCV 75.0 L MCH 22.7 L MCHC 30.2 L RDW 15.9 H Plt Count 590 H Neutrophils # 10.3 H Eosinophils # 0.8 H ESR APTT Sodium Chloride Carbon Dioxide Creatinine Glucose POC Glucose (mg/dL) Hemoglobin A1c Calcium Troponin I 0.452 H* 0.379 H* C-Reactive Protein Total Protein Albumin TSH Ur Specific Mccloud Ur Amphetamines Screen U Methamphetamines Scrn 07/05/23 07/05/23 07/05/23 03:42 07:53 07:53 WBC RBC Hgb Hct MCV MCH MCHC RDW Plt Count Neutrophils # Eosinophils # ESR APTT Sodium Chloride 109 H Carbon Dioxide 20 L Creatinine 0.62 L Glucose POC Glucose (mg/dL) Hemoglobin A1c Calcium 7.7 L Troponin I C-Reactive Protein 3.2 H Total Protein Albumin TSH <0.015 L Ur Specific Mccloud Ur Amphetamines Screen U Methamphetamines Scrn 07/05/23 07/05/23 07/05/23 07:54 07:54 09:27 WBC RBC Hgb Hct MCV MCH MCHC RDW Plt Count Neutrophils # Eosinophils # ESR 65 H APTT Sodium Chloride Carbon Dioxide Creatinine Glucose POC Glucose (mg/dL) 137 H Hemoglobin A1c 6.1 H Calcium Troponin I C-Reactive Protein Total Protein Albumin TSH Ur Specific Mccloud Ur Amphetamines Screen U Methamphetamines Scrn Assessment and Plan Assessment: This is a 52-year-old gentleman who presents to the emergency department because of the lower GI bleed for the last 1 month that he notified me. He notified primary team that he has numbness in the right hand and when I asked the patient if he has any numbness or weakness E denies any denies any history of stroke. Upon notifying him that the the primary team notified about his complained that he stated yes she has numbness and difficulty extending his and fingers for last 1-2 days. He denies any history of stroke or TIA. 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 Recommend aspirin 325mg daily and Lipitor 40 mg daily for secondary stroke prophylaxis once the bleeding is controlled and it cleared by primary and the surgery team. Every 4 hours neuro checks Cardiac monitoring Consulted PT OT Cardiology is consulted for elevated troponin We'll defer the rest of the medical measure the primary team and other specia lists General surgery team is consulted for the GI bleed For DVT prophylaxis recommend subcu heparin or Lovenox once cleared especially with acute GI bleed. The meantime use SCDs Thank you consultation Time with Patient: Greater than 30
[2023-07-05 15:39] LABS: Glucose,Whole Blood 181 mg/dL (70-110)
[2023-07-05 15:55] LABS: % Iron Saturation 3.17 (15.00-50.00); Ferritin 6.6 ng/mL (22.0-322.0)
--- NOTE | 2023-07-05 20:13 | US ---
EXAMINATION TYPE: US carotid duplex BILAT DATE OF EXAM: 07/05/2023 COMPARISON: NONE CLINICAL INDICATION: Male, 52 years old with history of stroke; stroke TECHNIQUE: Carotid duplex ultrasound examination. Indirect Doppler criteria was utilized. FINDINGS: EXAM MEASUREMENTS: RIGHT: Peak Systolic Velocity (PSV) cm/sec ----- Right CCA: 131.8 ----- Right ICA: 184.9 ----- Right ECA: 154.9 ICA/CCA ratio: 1.4 RIGHT: End Diastole cm/sec ----- Right CCA: 31.7 ----- Right ICA: 66.4 ----- Right ECA: 22.9 LEFT: Peak Systolic Velocity (PSV) cm/sec ----- Left CCA: 94.0 ----- Left ICA: 544.8 ----- Left ECA: 203.2 ICA/CCA ratio: 5.8 LEFT: End Diastole cm/sec ----- Left CCA: 28.0 ----- Left ICA: 275.6 ----- Left ECA: 30.4 VERTEBRALS (direction of flow): Right Vertebral: Antegrade Left Vertebral: Antegrade Rhythm: Normal CLINICAL PROJECT MANAGER NOTES: Plaque seen in bilateral bulbs. Plaque seen in bilateral prox ICA's with more on l eft side. Significantly elevated velocities seen in the left prox ICA IMPRESSION: 1. Significant stenosis within the left internal carotid artery with marked elevated velocity and r atio. Narrowing well greater than 70% present. 2. Stenosis of the right internal carotid artery with elevated velocity placing the stenosis between 50 and 69%. Criteria for Assigning % of Stenosis / Diameter reduction (Estimation based on the indirect measurements of the internal carotid artery velocities (ICA PSV). 1. Normal (no stenosis)=ICA PSV < 125 cm/s: ratio < 2.0: ICA EDV<40 cm/s. 2. Less than 50% stenosis=ICA PSV < 125 cm/s: ratio < 2.0: ICA EDV<40 cm/s. 3. 50 to 69% stenosis=ICA PSV of 125 to 230 cm/s: ration 2.0 ? 4.0: ICA EDV 40-100 cm/s. 4. Greater than 70% stenosis to near occlusion= ICA PSV > 230 cm/s: ratio > 4.0: ICA EDV > 100 cm/s. 5. Near occlusion= ICA PSV velocities may be low or undetectable: variable ratio and ICA EDV. 6. Total occlusion=unable to detect flow.
[2023-07-05] MEDS: methylPREDNISolone SOD SUCCI 40 MG/ML 1 ML VIAL IV SCH ×2 (20:29→23:42)
[2023-07-06 07:44] LABS: Basophils % (A) 0 %; Eosinophils % (A) 0 %; HGB 7.4 gm/dL (13.0-17.5); Hypochromasia Marked; Lymphocytes # (A) 0.8 k/uL (1.0-4.8); Lymphocytes % (A) 8 %; MCHC 29.5 g/dL (31.0-37.0); MCV 77.8 fL (80.0-100.0); Mean Platelet Volume 7.4; Microcytosis Slight; Monocytes # (A) 0.5 k/uL (0-1.0); Monocytes % (A) 4 %; Neutrophils # (A) 9.3 k/uL (1.3-7.7); Neutrophils % (A) 86 %; Platelet Count 595 k/uL (150-450); Poikilocytosis Slight; RBC 3.21 m/uL (4.30-5.90); RDW 15.6 % (11.5-15.5); WBC 10.9 k/uL (3.8-10.6)
[2023-07-06 08:16] LABS: ALT 25 U/L (4-49); AST 22 U/L (17-59); African American GFR (CKD) >90 (>60 ml/min/1.73 sqM); Albumin 2.5 g/dL (3.5-5.0); Alkaline Phosphatase 76 U/L (38-126); Anion Gap 6 mmol/L; Bilirubin, Delta 0.2 mg/dL (0.0-0.2); Bilirubin,Unconjugated 0.1 mg/dL (0.0-1.1); Blood Urea Nitrogen 9 mg/dL (9-20); Calcium 8.3 mg/dL (8.4-10.2); Carbon Dioxide 22 mmol/L (22-30); Chloride 108 mmol/L (98-107); Glucose 125 mg/dL (74-99); Non-African American GFR(CKD) >90 (>60 ml/min/1.73 sqM); Potassium 4.7 mmol/L (3.5-5.1); Sodium 136 mmol/L (137-145); Total Bilirubin 0.3 mg/dL (0.2-1.3); Total Protein 5.4 g/dL (6.3-8.2)
[2023-07-06] MEDS: PIPERACILLIN-TAZOBACTAM 3.375 GM in SODIUM CHLORIDE 0.9% 100 ML IVPB SCH ×3 (08:52→23:17)
[2023-07-06] MEDS: PANTOPRAZOLE 40 MG/10 ML VIAL IV SCH ×2 (08:52→20:09)
[2023-07-06] MEDS: methylPREDNISolone SOD SUCCI 40 MG/ML 1 ML VIAL IV SCH ×3 (08:52→23:17)
[2023-07-06] MEDS ORDERED: PEG 3350 (236 GM/BTL) + LYTES 4,000 ML BOTTLE PO ONE (09:00)
[2023-07-06] MEDS: DEXTROSE 5%-0.9% NACL 1,000 ML IV SCH ×2 (09:54)
[2023-07-06] MEDS: METOPROLOL SUCCINATE (ER) 50 MG TAB.ER.24H PO SCH (09:58)
--- NOTE | 2023-07-06 14:24 | P.PN ---
Subjective Progress Note Date: 07/06/23 History of present illness: This is a 52-year-old male previously seen in the office by Dr. Wild in 2018 with past medical history of anterior ST elevated MS in 2018 status post stent of the mid LAD, right bundle branch block, ventricular tachycardia in the setting of [place]. We have been asked to evaluate the patient for elevated troponins. Patient states he presented to the hospital because of feeling very ill with bloody stools. He denies having any chest pain. No lightheadedness or dizziness. No palpitations. Patient has had diarrhea for the past 7 days with blood. Patient was recently released from intermediate. Patient is seen today in the emergency center waiting for a bed on the cardiac stepdown unit. EKG sinus tachycardia at 111 bpm, right bundle branch block Chest x-ray: No acute process CAT scan angiogram of the abdomen and pelvis revealed no GI hemorrhage. Evidence of colitis/proctitis involving the rectum and to a lesser degree the sigmoid colon and splenic flexure. Echocardiogram reveals LV size normal. EF 45-50%. Hypokinesia of the apical septum and adjoining anterior apical wall. Mild mitral and tricuspid regurgitation. No pericardial effusion. WBC 13.8, hemoglobin 7.4, platelet count 590. Sed rate 65. INR 0.9. Sodium 137, potassium 4.0, CO2 20, BUN 12 and creatinine 0.62. Troponin 0.478, 0.452, 0.379. TSH less than 0.015 with free T4 of 1. ProBNP 650. C-reactive protein 3.2. Urine drug screen positive for amphetamines and methamphetamines. Influenza A, influenza B, RSV, Covid 19 not detected. Home cardiac medications: None Cardiac catheterization 10/2017 status post stent of the mid LAD Echocardiogram 10/2017 revealed EF of 30%. 07/06 Patient is seen today on the cardiac step down unit. He has been seen by general surgery with plan for colonoscopy on . Patient also seen by neurology for numbness in the hand. Echocardiogram reveals EF of 45-50%. Mild mitral and tricuspid regurgitation. Results reviewed with the patient and encouraged patient to take medications as directed and follow-up in the office. Physical examination: Gen: This is a 52-year-old male resting in bed and appears to be comfortable and in no acute distress. VS: reviewed HEENT: Head is atraumatic, normocephalic. Pupils equal, round. Sclerae is anicteric. NECK: Supple. No JVD. LUNGS: Clear to auscultation. No wheezes or rhonchi. No intercostal retraction s. HEART: Regular rate and rhythm. No murmur. ABDOMEN: Soft No tenderness. EXTREMITIES: No pedal edema. No calf tenderness. NEUROLOGICAL: Patient is awake, alert and oriented x3. Assessment: Bloody diarrhea Elevated troponins of unclear etiology, acute coronary syndrome ruled out History of coronary artery disease with previous stenting of the mid LAD Right bundle branch block History of nonsustained ventricular tachycardia Plan: Continue workup for GI bleed At time of discharge, if okay with general surgery, start patient on Plavix 75 mg daily due to underlying coronary artery disease with previous stenting. Cardiology will sign off this case and follow on an as-needed basis. Please reconsult for any new concerns. Patient may follow-up in the office in one to 2 weeks. Thank you kindly for this consultation. Nurse practitioner note has been reviewed, I agree with documented findings and plan of care. Patient was seen and examined. Objective - Vital Signs Vital signs: Vital Signs Temp 98.1 F 07/06/23 04:00 Pulse 90 07/06/23 04:00 Resp 18 07/06/23 04:00 BP 134/77 07/06/23 04:00 Pulse Ox 98 07/06/23 04:00 FiO2 Intake & Output 07/05/23 07/06/23 07/06/23 18:59 06:59 18:59 Intake Total 360 240 Balance 360 240 Weight 77.111 kg Intake: Oral 360 240 Other: Voiding Method Urinal # Voids 2 - Labs CBC & Chem 7: 07/06/23 06:30 07/06/23 06:30 Labs: Abnormal Lab Results - Last 24 Hours (Table) 07/05/23 07/05/23 07/05/23 Range/Units 07:53 07:54 07:54 WBC (3.8-10.6) k/uL RBC (4.30-5.90) m/uL Hgb (13.0-17.5) gm/dL Hct (39.0-53.0) % MCV (80.0-100.0) fL MCH (25.0-35.0) pg MCHC (31.0-37.0) g/dL RDW (11.5-15.5) % Plt Count (150-450) k/uL Neutrophils # (1.3-7.7) k/uL Lymphocytes # (1.0-4.8) k/uL ESR 65 H (0-20) mm/Hr Sodium (137-145) mmol/L Chloride (98-107) mmol/L Creatinine (0.66-1.25) mg/dL Glucose (74-99) mg/dL POC Glucose (mg/dL) (70-110) mg/dL Hemoglobin A1c (<=6.0) % Calcium (8.4-10.2) mg/dL Iron 9 L (65-175) UG/DL % Saturation 3.17 L (15.00-50.00) Transferrin 203.0 L (204.0-354.0) mg/dL Ferritin 6.6 L (22.0-322.0) ng/mL Total Protein (6.3-8.2) g/dL Albumin (3.5-5.0) g/dL Procalcitonin 0.11 H (0.02-0.09) ng/mL 07/05/23 07/05/23 07/06/23 Range/Units 07:54 15:38 06:30 WBC (3.8-10.6) k/uL RBC (4.30-5.90) m/uL Hgb (13.0-17.5) gm/dL Hct (39.0-53.0) % MCV (80.0-100.0) fL MCH (25.0-35.0) pg MCHC (31.0-37.0) g/dL RDW (11.5-15.5) % Plt Count (150-450) k/uL Neutrophils # (1.3-7.7) k/uL Lymphocytes # (1.0-4.8) k/uL ESR (0-20) mm/Hr Sodium 136 L (137-145) mmol/L Chloride 108 H (98-107) mmol/L Creatinine 0.63 L (0.66-1.25) mg/dL Glucose 125 H (74-99) mg/dL POC Glucose (mg/dL) 181 H (70-110) mg/dL Hemoglobin A1c 6.1 H (<=6.0) % Calcium 8.3 L (8.4-10.2) mg/dL Iron (65-175) UG/DL % Saturation (15.00-50.00) Transferrin (204.0-354.0) mg/dL Ferritin (22.0-322.0) ng/mL Total Protein 5.4 L (6.3-8.2) g/dL Albumin 2.5 L (3.5-5.0) g/dL Procalcitonin (0.02-0.09) ng/mL 07/06/23 Range/Units 06:30 WBC 10.9 H (3.8-10.6) k/uL RBC 3.21 L (4.30-5.90) m/uL Hgb 7.4 L (13.0-17.5) gm/dL Hct 25.0 L (39.0-53.0) % MCV 77.8 L (80.0-100.0) fL MCH 23.0 L (25.0-35.0) pg MCHC 29.5 L (31.0-37.0) g/dL RDW 15.6 H (11.5-15.5) % Plt Count 595 H (150-450) k/uL Neutrophils # 9.3 H (1.3-7.7) k/uL Lymphocytes # 0.8 L (1.0-4.8) k/uL ESR (0-20) mm/Hr Sodium (137-145) mmol/L Chloride (98-107) mmol/L Creatinine (0.66-1.25) mg/dL Glucose (74-99) mg/dL POC Glucose (mg/dL) (70-110) mg/dL Hemoglobin A1c (<=6.0) % Calcium (8.4-10.2) mg/dL Iron (65-175) UG/DL % Saturation (15.00-50.00) Transferrin (204.0-354.0) mg/dL Ferritin (22.0-322.0) ng/mL Total Protein (6.3-8.2) g/dL Albumin (3.5-5.0) g/dL Procalcitonin (0.02-0.09) ng/mL
--- NOTE | 2023-07-06 14:54 | P.PN ---
Subjective Progress Note Date: 07/06/23 CHIEF COMPLAINT: Bloody diarrhea HISTORY OF PRESENT ILLNESS: Patient reports that he continues to have bloody diarrhea. He denies any abdominal pain. Hemoglobin remains the same at 7.4. Patient cleared to proceed with GI workup by cardiology service. Acute coronary syndrome was ruled out. PHYSICAL EXAM: VITAL SIGNS: Reviewed. GENERAL: Well-developed in no acute distress. ABDOMEN: Soft. Nondistended. Nontender. NEUROLOGIC: Alert and oriented. Cranial nerves II through XII grossly intact. ASSESSMENT: 1. Bloody diarrhea 2. Colitis/proctitis involving the rectum and to lesser extent the sigmoid colon and and splenic flexure noted on computed tomography scan PLAN: -Patient scheduled for colonoscopy tomorrow with Dr. leticia Patrick bowel prep today -Nothing by mouth after midnight -Continue antibiotics -Continue monitor hemoglobin and monitoring for any signs or symptoms of ble magdaleneg Physician [employer] Letter Paster note has been reviewed by physician. Signing provider agrees with the documented findings, assessment, and plan of care. Objective - Vital Signs Vital signs: Vital Signs Temp 97.3 F L 07/06/23 12:00 Pulse 100 07/06/23 12:00 Resp 18 07/06/23 12:00 BP 142/77 07/06/23 12:00 Pulse Ox 100 07/06/23 12:00 FiO2 Intake & Output 07/05/23 07/06/23 07/06/23 18:59 06:59 18:59 Intake Total 360 240 360 Balance 360 240 360 Weight 77.111 kg Intake: Oral 360 240 360 Other: Voiding Method Urinal Urinal # Voids 2 - Labs CBC & Chem 7: 07/06/23 06:30 07/06/23 06:30 Labs: Abnormal Lab Results - Last 24 Hours (Table) 07/05/23 07/05/23 07/05/23 Range/Units 07:53 07:54 15:38 WBC (3.8-10.6) k/uL RBC (4.30-5.90) m/uL Hgb (13.0-17.5) gm/dL Hct (39.0-53.0) % MCV (80.0-100.0) fL MCH (25.0-35.0) pg MCHC (31.0-37.0) g/dL RDW (11.5-15.5) % Plt Count (150-450) k/uL Neutrophils # (1.3-7.7) k/uL Lymphocytes # (1.0-4.8) k/uL Sodium (137-145) mmol/L Chloride (98-107) mmol/L Creatinine (0.66-1.25) mg/dL Glucose (74-99) mg/dL POC Glucose (mg/dL) 181 H (70-110) mg/dL Calcium (8.4-10.2) mg/dL Iron 9 L (65-175) UG/DL % Saturation 3.17 L (15.00-50.00) Transferrin 203.0 L (204.0-354.0) mg/dL Ferritin 6.6 L (22.0-322.0) ng/mL Total Protein (6.3-8.2) g/dL Albumin (3.5-5.0) g/dL Procalcitonin 0.11 H (0.02-0.09) ng/mL 07/06/23 07/06/23 Range/Units 06:30 06:30 WBC 10.9 H (3.8-10.6) k/uL RBC 3.21 L (4.30-5.90) m/uL Hgb 7.4 L (13.0-17.5) gm/dL Hct 25.0 L (39.0-53.0) % MCV 77.8 L (80.0-100.0) fL MCH 23.0 L (25.0-35.0) pg MCHC 29.5 L (31.0-37.0) g/dL RDW 15.6 H (11.5-15.5) % Plt Count 595 H (150-450) k/uL Neutrophils # 9.3 H (1.3-7.7) k/uL Lymphocytes # 0.8 L (1.0-4.8) k/uL Sodium 136 L (137-145) mmol/L Chloride 108 H (98-107) mmol/L Creatinine 0.63 L (0.66-1.25) mg/dL Glucose 125 H (74-99) mg/dL POC Glucose (mg/dL) (70-110) mg/dL Calcium 8.3 L (8.4-10.2) mg/dL Iron (65-175) UG/DL % Saturation (15.00-50.00) Transferrin (204.0-354.0) mg/dL Ferritin (22.0-322.0) ng/mL Total Protein 5.4 L (6.3-8.2) g/dL Albumin 2.5 L (3.5-5.0) g/dL Procalcitonin (0.02-0.09) ng/mL
--- NOTE | 2023-07-06 16:06 | P.PN ---
Subjective Progress Note Date: 07/06/23 I am following-up with patient and he is going for colonscopy tomorrow per nurse. No new neurological issues. Objective - Vital Signs Vital signs: Vital Signs Temp 97.3 F L 07/06/23 12:00 Pulse 100 07/06/23 14:00 Resp 18 07/06/23 14:00 BP 142/77 07/06/23 12:00 Pulse Ox 100 07/06/23 12:00 FiO2 Intake & Output 07/05/23 07/06/23 07/06/23 18:59 06:59 18:59 Intake Total 360 240 840 Balance 360 240 840 Weight 77.111 kg Intake: Oral 360 240 840 Other: Voiding Method Urinal Urinal # Voids 2 6 # Bowel Movements 8 - Exam General: Lying in bed and is not in acute distress. Neuro: Limited because of his cooperation. Patient is oriented to self place and time. He is following few simple commands but wants to be left alone so he can go back to sleep. No aphasia from limited examination. No neglect. Pupils are round equal and reactive to light. Pupils are round and 3 mm bilaterally. Visual castaneda are full to confrontation. No facial weakness. No dysarthria. Motor: Limited because of cooperation but had left hand finger extension is 4+. Otherwise lifting all extremities above gravity. Sensation: Normal to touch. Reflexes: 2+ throughout. Plantars: Mute bilaterally. Some of the workup during his hospital visit consisted of: Recent hemoglobin is 7.4 and hematocrit is 24.6 which is trending down the compared to yesterday. ESR 65. Hemoglobin A1c is 6.1. TSH is less than 0.015 3 T4 is 1.0 Calcium 8.3, magnesium is 1.9 Vitamin B12 is 818. Serum Folate is 15 Occult blood was positive Reduction is positive for amphetamine and methamphetamine. Serum alcohol was less than 10. CT of the head is reported as no acute intracranial processes. Chronic right parietal lobe injury and new from 2020 left parietal lobe injury which appears chronic. Personally reviewed the CT and I agree the patient has encephalomalacia right more than left left parietal. On the left is seems left parietal frontal but mostly parietal. No acute subacute ischemia. EKG is reported as sinus tachycardia. Possible left atrial enlargement. Right bundle branch block. Left anterior fascicular block. Possible inferior myocardial infarction. Carotid duplex: Significant stenosis within the left internal carotid artery with marked elevated velocity and ratio. Narrowing while a greater than 70% present. Stenosis of the right internal carotid artery with elevated velocity placing stenosis between 50-69 percent. 2-D echo was reported as left ventricle size is normal. There is hypokinesis of the apical septum and adjoining the anteroapical wall. Mild mitral and tricuspid regurgitation no pericardial effusion. - Labs CBC & Chem 7: 07/06/23 06:30 07/06/23 06:30 Labs: Abnormal Lab Results - Last 24 Hours (Table) 07/06/23 07/06/23 Range/Units 06:30 06:30 WBC 10.9 H (3.8-10.6) k/uL RBC 3.21 L (4.30-5.90) m/uL Hgb 7.4 L (13.0-17.5) gm/dL Hct 25.0 L (39.0-53.0) % MCV 77.8 L (80.0-100.0) fL MCH 23.0 L (25.0-35.0) pg MCHC 29.5 L (31.0-37.0) g/dL RDW 15.6 H (11.5-15.5) % Plt Count 595 H (150-450) k/uL Neutrophils # 9.3 H (1.3-7.7) k/uL Lymphocytes # 0.8 L (1.0-4.8) k/uL Sodium 136 L (137-145) mmol/L Chloride 108 H (98-107) mmol/L Creatinine 0.63 L (0.66-1.25) mg/dL Glucose 125 H (74-99) mg/dL Calcium 8.3 L (8.4-10.2) mg/dL Total Protein 5.4 L (6.3-8.2) g/dL Albumin 2.5 L (3.5-5.0) g/dL Microbiology - Last 24 Hours (Table) 07/05/23 00:11 Blood Culture - Preliminary Blood 07/05/23 00:01 Blood Culture - Preliminary Blood Assessment and Plan Assessment: This is a 52-year-old gentleman who presents to the emergency department because of the lower GI bleed for the last 1 month that he notified me. He notified primary team that he has numbness in the right hand and when I asked the patient if he has any numbness or weakness E denies any denies any history of stroke. Upon notifying him that the the primary team notified about his complained that he stated yes she has numbness and difficulty extending his and fingers for last 1-2 days. He denies any history of stroke or TIA. Cesilia the CT of the head shows encephalomalacia over the bilateral parietal region Acute to subacute right hand numbness with weakness predominantly in the extension of the hands: Rule out acute to subacute stroke Significant left ICA stenosis and on carotid duplex >70%. This appears symptomatic. Right ICA stenosis of 50-69% stenosis on carotid duplex. Lower GI bleed with history of ulcerative colitis History of encephalomalacia over bilateral parotid her right more than left teams due to his old strokes Positive amphetamine and methamphetamine use Prediabetic Plan: I ordered MRI of the brain Pending Lipid panel Was given aspirin 324mg mg once in the ED. Recommend aspirin 325mg daily for secondary stroke prophylaxis once the bleeding is controlled and it cleared by primary and the surgery team. He was started on Lipitor 40 mg qhs by cardiology team. Every 4 hours neuro checks Cardiac monitoring Consulted PT OT I consulted vascular surgery team for carotid stenosis. Cardiology is consulted for elevated troponin We'll defer the rest of the medical measure the primary team and other specialists General surgery team is consulted for the GI bleed. He is scheduled for colonoscopy tomorrow. For DVT prophylaxis recommend subcu heparin or Lovenox once cleared especially with acute GI bleed. In the meantime use SCDs The plan is discussed with his nurse. Time with Patient: Less than 30
[2023-07-06] MEDS: ATORVASTATIN 40 MG TAB PO SCH (20:08)
[2023-07-07 00:14] LABS: Chol/HDL Ratio 3.49 Ratio; LDL Cholesterol,Calculated 82.3 mg/dL (0.0-131.0)
--- NOTE | 2023-07-07 00:42 | P.PN ---
Subjective this is a pleasant 52 yo male with past medical history coronary artery disease status post stent, asthma, chronic anemia, chronic systolic heart failure with ejection fraction 25-70% 2018, history of ulcerative colitis. Previous history of incarceration. Which might contributing to his noncompliance with treatment. Patient says that his PCP is Dr. Mg but he hasn't seen a doctor in several years. He says he came to the hospital mainly because of 2 problems. The main one he thought he had a stroke because of numbness in his left upper extremity. However he declines weakness on either side, no blurred vision or slurred speech. No headache or dizziness. Patient does not take aspirin or blood thinner at home. Patient looks mildly lethargic and confused, he knew since in the hospital and placed but he could not tell the date or the name of the president correctly, patient looks indifferent Valvular problem is that he is having blood in his stool several bowel movement about 10 times yesterday although he doesn't describe it as diarrhea. Also he denies any abdominal pain or tenderness, no vomiting. He denies chest pain or dyspnea or coughing. He smokes about 1 pack per day and he was counseled to quit but he does not want to quit and he does not want nicotine patch, he denies alcohol or illicit drugs. Also noted urinary complaints. He said he had colonoscopy about 2 years ago but he doesn't know the results. Patient denies depression or suicidal ideation. Patient was counseled against leaving AMA extensively and he agrees to stay for now, given his history of noncompliance. Alcohol level is less than 10, Influenza A and type B, RSV, SARS (coronavirus) are and detected EKG shows sinus tachycardia 111 with right bundle branch block and fascicular block CTA of the abdomen and pelvis showing no aneurysm but there is circumferential wall thickening of the rectum until less extent the sigmoid and descending colon with no evidence of bowel obstruction. CT of the brain is negative for acute process but shown chronic right parietal lobe lesion also has another lesion in the left parietal lobe injury which is new compared to 2020, Chest x-rays negative for acute process Patient on admission was tachycardic with heart rate 114-104, blood pressure 118/76, afebrile, Labs showed leukocytosis 14 and 13,000, hemoglobin 8.8 down to 7.4, platelet count 590. BMP and liver enzymes were unremarkable Troponin 2 are elevated at 0.4 and 0.37. Occult blood in the stool is positive Urine drug screen is positive for amphetamine and methamphetamine. 07/06/2023 Patient awake alert, looks relaxed in bed but he is also withdrawn. Patient presents with multiple medical problems including numbness in his right hand. Patient today told me he still complains from right ankle numbness. Also patient has abnormal CAT scan showing bilateral parietal lesions but old versus chronic , and. neurologist has been notified with these findings. Input is appreciated. MRI of the brain is ordered. This was documented Also by emergency room staff, as per Dr. Kim patient has " right arm paresthesias" Patient also reports ongoing blood per rectum and diarrhea but no abdominal pain or vomiting. Surgery team For colonoscopy. Patient hemoglobin 7.4, WBC 10.9. Patient is on Zosyn normal saline after Protonix. Currently not on subcutaneous heparin or aspirin because of his ongoing GI bleed ESR is elevated suspicious for exacerbation of ulcerative colitis. Therefore patient was started on IV solu Medrol 20 mg 5 days and then can be reassessed C. diff is negative. Procalcitoni is only 0.11. Folate is 15. B12 is 818. TSH less than 0.015 but free T4 is normal at 1.0. ProBNP 605. C-Reactive protein elevated 3.2 ESR is significantly elevated more than 30 at 65. No GI coverage in this facility. Iron studies showing anemia of chronic disease. Ferrous sulfate will be added. Stool studies were ordered including stool culture and WBC Patient also denies depression suicidal ideation, homicidal ideation or hallucinations, delusions. Review of systems CONSTITUTIONAL: No fever, no malaise, no fatigue. HEENT: No recent visual problems or hearing problems. Denied any sore throat. CARDIOVASCULAR: No orthopnea, PND, no palpitations, no syncope. PULMONARY: No shortness of breath, no cough, no hemoptysis. NEUROLOGICAL: No headaches, no weakness, HEMATOLOGICAL: Denies any bleeding or petechiae. Active Medications Generic Name Dose Route Start Last Admin Trade Name Freq PRN Reason Stop Dose Admin Atorvastatin Calcium 40 mg 07/06/23 21:00 07/06/23 20:08 Atorvastatin 40 Mg Tab PO 40 mg HS JENNIFER Administration Piperacillin Sod/Tazobactam 100 mls @ 25 mls/hr 07/05/23 00:00 07/06/23 23:17 Sod 3.375 gm/ Sodium Chloride IVPB 25 mls/hr Q8HR JENNIFER Administration Protocol Dextrose/Sodium Chloride 1,000 mls @ 100 mls/hr 07/05/23 07:45 07/06/23 09:54 Dextrose 5%-Ns Iv Soln IV 100 mls/hr .Q10H JENNIFER Administration Methylprednisolone Sodium Succinate 20 mg 07/05/23 18:45 07/06/23 23:17 Methylprednisolone Sod Succi 40 Mg/Ml 1 Ml Vial IV 07/10/23 18:46 20 mg Q8HR JENNIFER Administration Metoprolol Succinate 50 mg 07/06/23 09:45 07/06/23 09:58 Metoprolol Succinate (Er) 50 Mg Tab.Er.24h PO 50 mg DAILY JENNIFER Administration Naloxone HCl 0.2 mg 07/04/23 22:26 Naloxone 0.4 Mg/Ml 1 Ml Vial IV Q2M PRN Opioid Reversal Pantoprazole Sodium 40 mg 07/05/23 09:00 07/06/23 20:09 Pantoprazole 40 Mg/10 Ml Vial IV 40 mg BID JENNIFER Administration Objective - Vital Signs Vital signs: Vital Signs Temp 97.3 F L 07/06/23 12:00 Pulse 100 07/06/23 14:00 Resp 18 07/06/23 14:00 BP 142/77 07/06/23 12:00 Pulse Ox 98 07/06/23 16:01 FiO2 Intake & Output 07/05/23 07/06/23 07/06/23 18:59 06:59 18:59 Intake Total 360 240 840 Balance 360 240 840 Weight 77.111 kg Intake: Oral 360 240 840 Other: Voiding Method Urinal Urinal # Voids 2 6 # Bowel Movements 8 - Exam GENERAL: The patient is alert and oriented x3, not in any acute distress. Well developed, well nourished. HEENT: Pupils are round and equally reacting to light. EOMI. No scleral icterus. No conjunctival pallor. Normocephalic, atraumatic. No pharyngeal erythema. No thyromegaly. CARDIOVASCULAR: S1 and S2 present. No murmurs, rubs, or gallops. PULMONARY: Chest is clear to auscultation, no wheezing , no crackles. ABDOMEN: Soft, nontender, nondistended, normoactive bowel sounds. No palpable organomegaly. MUSCULOSKELETAL: No joint swelling or deformity. EXTREMITIES: No cyanosis, clubbing, or pedal edema. NEUROLOGICAL: Gross neurological examination did not reveal any focal deficits. SKIN: No rashes. no petechiae. - Labs CBC & Chem 7: 07/06/23 06:30 07/06/23 06:30 Labs: Abnormal Lab Results - Last 24 Hours (Table) 07/06/23 07/06/23 Range/Units 06:30 06:30 WBC 10.9 H (3.8-10.6) k/uL RBC 3.21 L (4.30-5.90) m/uL Hgb 7.4 L (13.0-17.5) gm/dL Hct 25.0 L (39.0-53.0) % MCV 77.8 L (80.0-100.0) fL MCH 23.0 L (25.0-35.0) pg MCHC 29.5 L (31.0-37.0) g/dL RDW 15.6 H (11.5-15.5) % Plt Count 595 H (150-450) k/uL Neutrophils # 9.3 H (1.3-7.7) k/uL Lymphocytes # 0.8 L (1.0-4.8) k/uL Sodium 136 L (137-145) mmol/L Chloride 108 H (98-107) mmol/L Creatinine 0.63 L (0.66-1.25) mg/dL Glucose 125 H (74-99) mg/dL Calcium 8.3 L (8.4-10.2) mg/dL Total Protein 5.4 L (6.3-8.2) g/dL Albumin 2.5 L (3.5-5.0) g/dL Microbiology - Last 24 Hours (Table) 07/05/23 00:11 Blood Culture - Preliminary Blood 07/05/23 00:01 Blood Culture - Preliminary Blood Assessment and Plan Assessment: Acute proctocolitis with blood stool. With possible secondary to ulcerative colitis flareup with elevated a ESR and C-reactive protein. Biopsy during colonoscopy will help to confirm diagnosis right side numbness, rule out stroke. he has ct brain showing chronic BILATERAL parietal lesions. Elevated troponin with history of coronary artery disease and stent mild cardiomyopathy with ejection fraction 45-50%, ischemic type Noncompliance Acute on chronic anemia, possible blood loss anemia Metabolic/toxic encephalopathy Substance abuse with amphetamine/methamphetamine Nicotine dependence Chronic systolic congestive heart failure with ejection fraction 25-30% Chronic bilateral parietal lesions History of ulcerative colitis Plan: Continue with Zosyn Continue with IV Solu-Medrol Bun for colonoscopy with surgery team recommend checking biopsy sample to rule out ulcerative colitis flareup versus others Monitor hemoglobin Protonix Continue with IV fluids Continue with Zosyn Check stool studies Surgery team consult Cardiology consult on the case Neurology consult Telemetry monitoring Continue Lipitor hemoglobin A1c6.1% Labs and medication were reviewed.. Continue same treatment. Continue with symptomatic treatment. Resume home medication. Monitor labs and vitals. DVT and GI prophylaxis. Further recommendations as per clinical course of the patient DVT prophylaxis: SCD GI Prophylaxis: Ppi PT/OT: Pending Prognosis is guarded
[2023-07-07] MEDS: DEXTROSE 5%-0.9% NACL 1,000 ML IV SCH ×3 (01:13→17:22)
[2023-07-07] MEDS: methylPREDNISolone SOD SUCCI 40 MG/ML 1 ML VIAL IV SCH ×2 (08:30→20:41)
[2023-07-07] MEDS: PANTOPRAZOLE 40 MG/10 ML VIAL IV SCH ×2 (08:30→20:42)
[2023-07-07] MEDS: PIPERACILLIN-TAZOBACTAM 3.375 GM in SODIUM CHLORIDE 0.9% 100 ML IVPB SCH ×3 (08:31→23:11)
[2023-07-07] MEDS: METOPROLOL SUCCINATE (ER) 50 MG TAB.ER.24H PO SCH (08:31)
[2023-07-07 08:55] LABS: Basophils % (A) 0 %; Eosinophils # (A) 0.1 k/uL (0-0.7); Eosinophils % (A) 1 %; HCT 23.1 % (39.0-53.0); Hypochromasia Marked; Lymphocytes # (A) 1.7 k/uL (1.0-4.8); Lymphocytes % (A) 16 %; MCH 22.8 pg (25.0-35.0); MCHC 29.9 g/dL (31.0-37.0); MCV 76.2 fL (80.0-100.0); Mean Platelet Volume 8.1; Microcytosis Slight; Monocytes # (A) 0.8 k/uL (0-1.0); Monocytes % (A) 7 %; Neutrophils # (A) 8.2 k/uL (1.3-7.7); Neutrophils % (A) 74 %; Platelet Count 593 k/uL (150-450); Poikilocytosis Slight; RBC 3.03 m/uL (4.30-5.90); RDW 15.7 % (11.5-15.5); WBC 11.2 k/uL (3.8-10.6)
[2023-07-07 09:04] LABS: HGB 6.9 gm/dL (13.0-17.5)
[2023-07-07 09:17] LABS: ALT 28 U/L (4-49); AST 22 U/L (17-59); African American GFR (CKD) >90 (>60 ml/min/1.73 sqM); Albumin 2.3 g/dL (3.5-5.0); Alkaline Phosphatase 66 U/L (38-126); Anion Gap 9 mmol/L; Bilirubin, Delta 0.1 mg/dL (0.0-0.2); Bilirubin,Unconjugated 0.1 mg/dL (0.0-1.1); Blood Urea Nitrogen 6 mg/dL (9-20); Calcium 8.3 mg/dL (8.4-10.2); Carbon Dioxide 24 mmol/L (22-30); Chloride 107 mmol/L (98-107); Glucose 96 mg/dL (74-99); Magnesium 1.9 mg/dL (1.6-2.3); Non-African American GFR(CKD) >90 (>60 ml/min/1.73 sqM); Potassium 4.4 mmol/L (3.5-5.1); Sodium 140 mmol/L (137-145); Total Bilirubin 0.2 mg/dL (0.2-1.3)
--- NOTE | 2023-07-07 10:29 | P.PN ---
Subjective Progress Note Date: 07/07/23 CHIEF COMPLAINT: Bloody diarrhea HISTORY OF PRESENT ILLNESS: Patient completed bowel prep. He reports that his stools are clear. Vital stable. Hemoglobin down from 7.4 to 6.9 PHYSICAL EXAM: VITAL SIGNS: Reviewed. GENERAL: Well-developed in no acute distress. ABDOMEN: Soft. Nondistended. Nontender. NEUROLOGIC: Alert and oriented. Cranial nerves II through XII grossly intact. ASSESSMENT: 1. Bloody diarrhea 2. Colitis/proctitis involving the rectum and to lesser extent the sigmoid colon and and splenic flexure noted on computed tomography scan PLAN: -Patient scheduled for colonoscopy today -Agree with transfusing 1 unit of blood for hemoglobin of 6.9 Physician Copier Field Service Technician note has been reviewed by physician. Signing provider agrees with the documented findings, assessment, and plan of care. Objective - Vital Signs Vital signs: Vital Signs Temp 97.7 F 07/07/23 04:00 Pulse 81 07/07/23 04:00 Resp 16 07/07/23 04:00 BP 119/73 07/07/23 04:00 Pulse Ox 99 07/07/23 04:00 FiO2 Intake & Output 07/06/23 07/07/23 07/07/23 18:59 06:59 18:59 Intake Total 1320 0 Balance 1320 0 Intake: Oral 1320 0 Other: Voiding Method Urinal Urinal # Voids 6 # Bowel Movements 8 2 - Labs CBC & Chem 7: 07/07/23 07:41 07/07/23 07:41 Labs: Abnormal Lab Results - Last 24 Hours (Table) 07/07/23 07/07/23 Range/Units 07:41 07:41 WBC 11.2 H (3.8-10.6) k/uL RBC 3.03 L (4.30-5.90) m/uL Hgb 6.9 L* (13.0-17.5) gm/dL Hct 23.1 L (39.0-53.0) % MCV 76.2 L (80.0-100.0) fL MCH 22.8 L (25.0-35.0) pg MCHC 29.9 L (31.0-37.0) g/dL RDW 15.7 H (11.5-15.5) % Plt Count 593 H (150-450) k/uL Neutrophils # 8.2 H (1.3-7.7) k/uL BUN 6 L (9-20) mg/dL Calcium 8.3 L (8.4-10.2) mg/dL Total Protein 5.0 L (6.3-8.2) g/dL Albumin 2.3 L (3.5-5.0) g/dL Microbiology - Last 24 Hours (Table) 07/05/23 00:11 Blood Culture - Preliminary Blood 07/05/23 00:01 Blood Culture - Preliminary Blood
--- NOTE | 2023-07-07 11:14 | P.GSCN ---
History of Present Illness Consult date: 07/07/23 Reason for Consult: Carotid Stenosis Requesting physician: Kunal Mac History of present illness: This is a 52-year-old male who presented to the emergency department 124 with complaints of rectal bleeding, abdominal cramping and diarrhea. The patient had complaints of 7 days of diarrhea with blood in his stool. He has a history of polysubstance abuse, recently released from [facility] and was positive for methamphetamine and amphetamines on admission. Still has a past medical history of coronary artery disease status post renal infarction and cardiac stenting, yes, chronic anemia, and current every day smoker. Apparently patient also has some complaints of right hand numbness and tingling which states he has had for some time. Denies any other deficits. Denies any previous history of strokes. No previous knowledge of carotid stenosis. During this admission he did have a CT of the brain Reported no acute intracranial process, chronic right parietal lobe injury and new from 2019 left parietal lobe injury which also appears chronic. He underwent echocardiogram with an EF of 45-50%. Due to the comp laints of numbness and tingling in the right hand neurology was consulted for rule out stroke and they ordered a carotid duplex which reported hemodynamically significant left internal carotid artery stenosis. Vascular surgery was consulted for left ICA stenosis. The patient currently denies any shortness of breath, chest pain, states abdominal pain and diarrhea improving. She'll prepped for colonoscopy that is scheduled for today. States bowels are clear. He was noted to have a drop in his hemoglobin today to 6.9, asthma and is scheduled to receive 1 unit of blood. He denies any focal deficits. States he has not smoke Wounds, however would not give length of time. States that he has smoked off-and-on and quit several times. Review of Systems A 14 point review systems was completed all pertinent positives and negatives as stated in the HPI. Past Medical History Past Medical History: Asthma, Myocardial Infarction ([place]) Additional Past Medical History / Comment(s): IBS Last Myocardial Infarction Date:: october 2016 History of Any Multi-Drug Resistant Organisms: None Reported Past Surgical History: Heart Catheterization, Heart Catheterization With Stent Past Anesthesia/Blood Transfusion Reactions: No Reported Reaction Date of Last Stent Placement:: October 2016 Past Psychological History: No Psychological Hx Reported Smoking Status: Current every day smoker, Unknown if ever smoked Past Alcohol Use History: None Reported Past Drug Use History: Methamphetamine - Past Family History Father History Unknown: Yes Mother History Unknown: Yes Medications and Allergies Allergies Allergy/AdvReac Type Severity Reaction Status Date / Time No Known Allergies Allergy Verified 07/05/23 07:37 Surgical - Exam Vital Signs Temp Pulse Resp BP Pulse Ox 97.5 F L 127 H 16 128/88 100 07/04/23 19:23 07/04/23 19:23 07/04/23 19:23 07/04/23 19:23 07/04/23 19:23 General appearance: The patient is alert, oriented, appears in no acute distress. HET: Head is normocephalic and atraumatic. Pupils are equal and reactive. Neck: Supple. Carotid bruit. Heart: Regular. Lungs: Equal expansion, normal respiratory effort. Abdomen: Soft, nontender, nondistended. Extremities: Normal skin color and turgor. Palpable femoral, PT pulses, and DP pulses. Neurological: No focal deficits. Strength and sensation are grossly intact. Results - Labs 07/07/23 07:41 07/07/23 07:41 Abnormal Lab Results - Last 24 Hours (Table) 07/06/23 Range/Units 06:30 Sodium 136 L (137-145) mmol/L Chloride 108 H (98-107) mmol/L Creatinine 0.63 L (0.66-1.25) mg/dL Glucose 125 H (74-99) mg/dL Calcium 8.3 L (8.4-10.2) mg/dL Total Protein 5.4 L (6.3-8.2) g/dL Albumin 2.5 L (3.5-5.0) g/dL Microbiology - Last 24 Hours (Table) 07/05/23 00:11 Blood Culture - Preliminary Blood 07/05/23 00:01 Blood Culture - Preliminary Blood Diabetes panel 07/06/23 Range/Units 06:30 Sodium 136 L (137-145) mmol/L Potassium 4.7 (3.5-5.1) mmol/L Chloride 108 H (98-107) mmol/L Carbon Dioxide 22 (22-30) mmol/L BUN 9 (9-20) mg/dL Creatinine 0.63 L (0.66-1.25) mg/dL Glucose 125 H (74-99) mg/dL Calcium 8.3 L (8.4-10.2) mg/dL AST 22 (17-59) U/L ALT 25 (4-49) U/L Alkaline Phosphatase 76 (38-126) U/L Total Protein 5.4 L (6.3-8.2) g/dL Albumin 2.5 L (3.5-5.0) g/dL Triglycerides 102.00 (0.00-149.00) mg/dL HDL Cholesterol 41.30 (40.00-60.00) mg/dL Calcium panel 07/06/23 Range/Units 06:30 Calcium 8.3 L (8.4-10.2) mg/dL Albumin 2.5 L (3.5-5.0) g/dL Pituitary panel 07/06/23 Range/Units 06:30 Sodium 136 L (137-145) mmol/L Potassium 4.7 (3.5-5.1) mmol/L Chloride 108 H (98-107) mmol/L Carbon Dioxide 22 (22-30) mmol/L BUN 9 (9-20) mg/dL Creatinine 0.63 L (0.66-1.25) mg/dL Glucose 125 H (74-99) mg/dL Calcium 8.3 L (8.4-10.2) mg/dL Adrenal panel 07/06/23 Range/Units 06:30 Sodium 136 L (137-145) mmol/L Potassium 4.7 (3.5-5.1) mmol/L Chloride 108 H (98-107) mmol/L Carbon Dioxide 22 (22-30) mmol/L BUN 9 (9-20) mg/dL Creatinine 0.63 L (0.66-1.25) mg/dL Glucose 125 H (74-99) mg/dL Calcium 8.3 L (8.4-10.2) mg/dL Total Bilirubin 0.3 (0.2-1.3) mg/dL AST 22 (17-59) U/L ALT 25 (4-49) U/L Alkaline Phosphatase 76 (38-126) U/L Total Protein 5.4 L (6.3-8.2) g/dL Albumin 2.5 L (3.5-5.0) g/dL - Imaging Comments: See HPI CT scan - abdomen: report reviewed (No evidence of gastrointestinal hemorrhage. There is evidence of colitis/proctitis involving the rectum and to lesser extent the sigmoid colon and splenic flexure. No additional acute abdominal process visualized.) Assessment and Plan Assessment: 1. Hemodynamically significant left internal carotid artery stenosis 2. Right internal carotid artery stenosis 50-69% 3. Proctitis with rectal bleeding 4. Anemia 5. History of coronary artery disease 6. Daily smoker Plan: 1. CT angiogram head and neck ordered 2. Agree with blood transfusion 3. Daily CBC 4. Discussed with patient importance of smoking cessation 5. MRI pending 6. Further recommendations forthcoming based on CT angiogram head and neck. Patient likely will need surgical intervention for hemodynamically significant left ICA stenosis Thank you for this consultation, we will continue to follow. The impression and plan of care has been dictated as directed. I performed a history and examination of this patient, discussed the same with the dictator. I agree with the dictator's note ,documented as a scribe. Any additional findings or plans will be noted.
--- NOTE | 2023-07-07 12:26 | CT ---
EXAMINATION TYPE: CT angio head neck DATE OF EXAM: 07/07/2023 HISTORY: carotid stenosis, no feeling in right arm COMPARISON: Ultrasound carotid [address] DLP: 433.5 mGycm. Automated Exposure Control for Dose Reduction was Utilized. TECHNIQUE: CTA scan of the head and neck is performed with IV Contrast, patient injected with 75 mL of Isovue 300, axial images are obtained, coronal and sagittal reformatted images are reviewed. 3D re constructed images are created on an independent workstation and reviewed. FINDINGS: Carotid/Vascular Structures: Mild/moderate peripheral plaque at origin of the left subclavian artery with short segment linear hypodensity just distal to this suggesting possible tiny focal dissection a ge-indeterminate but presumed chronic. No significant plaque or stenosis in the common carotid arteri es bilaterally. Patent external carotid arteries bilaterally. No significant plaque or stenosis at th e right carotid bulb. There is focal moderate peripheral mixed plaque at the left carotid bulb with m ore dense noncalcified plaque extending into the left internal carotid artery. Significant stenosis i s confirmed. Suboptimal in evaluation in the right data 1 mm images are not sent to PACS and [employer] does further reconstruction images on the left carotid bulb and external carotid artery not incl uding the area of most significant stenosis. Luminal diameter is narrowed to roughly 1.6 mm on axial image 93 and approximately 1.4 mm coronal image 41 with even more prominent narrowing on the sagittal images. Difficult to accurately evaluate degree of stenosis on 2 mm cuts and reconstruction images. Lumen diameter distal to this measures 5.3 mm axial image 98. Remainder of the internal carotid arter y shows overall slightly smaller caliber versus right internal carotid artery. Codominant vertebral arteries are patent to the basilar junction. There are patent bilateral posterio r communicating arteries. There is no large vessel occlusion or aneurysm in the posterior circulation . Poorly visualized but likely patent tiny anterior communicating artery. No large vessel occlusion o r aneurysm in the anterior circulation. Other: Old infarct in the right posterior watershed right parietal lobe axial image 48 series 406 is redemonstrated. Similar infarct on the left chest superior to this axial image 59 is redemonstrated. Loss of normal cervical curvature with moderate spurring and disc space narrowing C5-C6 and C6-C7 lev els is noted. IMPRESSION: 1. Suboptimal study however significant stenosis in the proximal left internal carotid artery is conf irmed. Degree of stenosis or diameter narrowing is roughly at least 70%. No complete occlusion defini tively seen. 2. No large vessel occlusion or aneurysm at the level of the [place]. NASCET criteria was used in interpretation of this exam?
[2023-07-07] MEDS ORDERED: PROPOFOL 10 MG/ML 20 ML VIAL IV ONE (13:11)
[2023-07-07] MEDS ORDERED: IV FLUID CONTINUATION 1,000 ML IV ONE (13:21)
--- NOTE | 2023-07-07 13:31 | P.OP ---
Date of Procedure: 07/07/23 Preoperative Diagnosis: Colitis Postoperative Diagnosis: Severe colitis of distal colon extending from rectum to proximal transverse colon. Procedure(s) Performed: Colonoscopy Anesthesia: MAC Surgeon: Kirill Kumar Pathology: other (Multiple colonic biopsies) Condition: stable Disposition: PACU Description of Procedure: Patient's placed on the endoscopy table in the lateral position. He received IV sedation. Digital rectal exam was performed. This revealed no abnormalities. Possible colonoscope was then placed patient anus and passed with colon. Rectum was visualized. There was cobblestoning and plantar changes of the rectum. This extended all the way to the level of the proximal transverse colon. The right colon was entered. And there mucosa appeared to be normal. The scope could not be advanced to the level of the cecum due to tortuosity valve. This point scope withdrawn. A biopsy of the proximal transverse colon was performed. There was extensive cobblestoning inflamed or changes of the transverse colon. This extended towards the descending and sigmoid colon and rectum. Biopsies of the left colon and rectum were also performed with the cold forcep. Scope withdrawn for patient. Colitis was suspicious for ulcerative colitis.
--- NOTE | 2023-07-07 14:21 | P.PN ---
Subjective Progress Note Date: 07/07/23 I am following-up with patient and he continues to have weakness and numbness over the right hand. Otherwise no new neurological issues. Objective - Vital Signs Vital signs: Vital Signs Temp 98.8 F 07/07/23 12:00 Pulse 90 07/07/23 14:00 Resp 16 07/07/23 14:00 BP 123/67 07/07/23 12:00 Pulse Ox 98 07/07/23 12:00 FiO2 Intake & Output 07/06/23 07/07/23 07/07/23 18:59 06:59 18:59 Intake Total 1320 0 100 Balance 1320 0 100 Intake: IV 100 Oral 1320 0 Other: Voiding Method Urinal Urinal Urinal # Voids 6 # Bowel Movements 8 2 - Exam General: Lying in bed and is not in acute distress. Neuro: Limited because of his cooperation. Patient is oriented to self place and time. He is following few simple commands but wants to be left alone so he can go back to sleep. No aphasia from limited examination. No neglect. Pupils are round equal and reactive to light. Pupils are round and 3 mm bilaterally. Visual castaneda are full to confrontation. No facial weakness. No dysarthria. Motor: Limited because of cooperation but had left hand finger extension is 4+. Otherwise lifting all extremities above gravity. Sensation: Normal to touch. Reflexes: 2+ throughout. Plantars: Mute bilaterally. Some of the workup during his hospital visit consisted of: Recent hemoglobin is 7.4 and hematocrit is 24.6 which is trending down the c ompared to yesterday. ESR 65. Hemoglobin A1c is 6.1. TSH is less than 0.015 3 T4 is 1.0 Calcium 8.3, magnesium is 1.9 Vitamin B12 is 818. Serum Folate is 15 Lipid panel is triglyceride 102, cholesterol is 104, LDLs 82 and HDL is 41. Occult blood was positive Reduction is positive for amphetamine and methamphetamine. Serum alcohol was less than 10. CT of the head is reported as no acute intracranial processes. Chronic right parietal lobe injury and new from 2020 left parietal lobe injury which appears chronic. Personally reviewed the CT and I agree the patient has encephalomalacia right more than left left parietal. On the left is seems left parietal frontal but mostly parietal. No acute subacute ischemia. EKG is reported as sinus tachycardia. Possible left atrial enlargement. Right bundle branch block. Left anterior fascicular block. Possible inferior myocardial infarction. Carotid duplex: Significant stenosis within the left internal carotid artery with marked elevated velocity and ratio. Narrowing while a greater than 70% present. Stenosis of the right internal carotid artery with elevated velocity placing stenosis between 50-69 percent. 2-D echo was reported as left ventricle size is normal. There is hypokinesis of the apical septum and adjoining the anteroapical wall. Mild mitral and tricuspid regurgitation no pericardial effusion. CT angiography of the head and neck was reported as suboptimal study however significant stenosis proximal left ICA and discomfort. Degree of stenosis or diameter narrowing is roughly at least 70%. No complete occlusion definitely seen. No large vessel occlusion or [place] the level [place]. - Labs CBC & Chem 7: 07/07/23 07:41 07/07/23 07:41 Labs: Abnormal Lab Results - Last 24 Hours (Table) 07/07/23 07/07/23 07/07/23 Range/Units 07:41 07:41 09:22 WBC 11.2 H (3.8-10.6) k/uL RBC 3.03 L (4.30-5.90) m/uL Hgb 6.9 L* (13.0-17.5) gm/dL Hct 23.1 L (39.0-53.0) % MCV 76.2 L (80.0-100.0) fL MCH 22.8 L (25.0-35.0) pg MCHC 29.9 L (31.0-37.0) g/dL RDW 15.7 H (11.5-15.5) % Plt Count 593 H (150-450) k/uL Neutrophils # 8.2 H (1.3-7.7) k/uL BUN 6 L (9-20) mg/dL Calcium 8.3 L (8.4-10.2) mg/dL Total Protein 5.0 L (6.3-8.2) g/dL Albumin 2.3 L (3.5-5.0) g/dL Crossmatch See Detail Microbiology - Last 24 Hours (Table) 07/05/23 00:11 Blood Culture - Preliminary Blood 07/05/23 00:01 Blood Culture - Preliminary Blood Assessment and Plan Assessment: This is a 52-year-old gentleman who presents to the emergency department because of the lower GI bleed for the last 1 month that he notified me. He notified primary team that he has numbness in the right hand and when I asked the patient if he has any numbness or weakness E denies any denies any history of stroke. Upon notifying him that the the primary team notified about his complained that he stated yes she has numbness and difficulty extending his and fingers for last 1-2 days. He denies any history of stroke or TIA. Cesilia the CT of the head shows encephalomalacia over the bilateral parietal region Acute to subacute right hand numbness with weakness predominantly in the extension of the hands: Rule out acute to subacute stroke Significant left ICA stenosis on carotid duplex >70%. This appears symptomatic. On CT angiography is also reported as at least 70% stenosis Right ICA stenosis of 50-69% stenosis on carotid duplex. No mention of any stenosis over the right ICA. I feel this is asymptomatic Lower GI bleed with history of ulcerative colitis History of encephalomalacia over bilateral parotid her right more than left teams due to his old strokes Positive amphetamine and methamphetamine use Prediabetic Plan: Pending MRI of the brain Recommend aspirin 325mg daily for secondary stroke prophylaxis once the bleeding is controlled and it cleared by primary and the surgery team. He was started on Lipitor 40 mg qhs by cardiology team. Every 4 hours neuro checks Cardiac monitoring Consulted PT OT Vascular surgery team consulted for carotid stenosis. They stated that that he'll need surgical intervention for the significant left ICA. Cardiology is consulted for elevated troponin We'll defer the rest of the medical measure the primary team and other specialists General surgery team is consulted for the GI bleed. He is scheduled for colonoscopy today. For DVT prophylaxis recommend subcu heparin or Lovenox once cleared especially with acute GI bleed. In the meantime use SCDs The plan is discussed with his nurse. Time with Patient: Less than 30
--- NOTE | 2023-07-07 16:57 | MR ---
EXAMINATION TYPE: MR brain wo con DATE OF EXAM: 07/07/2023 COMPARISON: CT brain 3 days earlier HISTORY: Right hand weakness, evaluate for stroke. TECHNIQUE: Multiplanar, multisequence imaging of the brain and brainstem is performed without IV cont rast. FINDINGS: Diffusion weighted images demonstrate multifocal areas of increased signal on diffusion-weighted imag ing and diminished signal on ADC mapping in the left brain parenchyma . Largest area is in the left p arietal lobe anteriorly just anterior to the level of old infarct measuring approximately 1.6 x 1.3 c m image 200 series 303. Mild ventricular and sulcal prominence redemonstrated. Few tiny scattered foci of T2 hyperintensity a re seen bilaterally. Old posterior watershed hemorrhagic infarcts redemonstrated bilaterally. Midline structures demonstrate normal morphology. The craniocervical junction appears within normal limits. Normal vascular flow voids are present. The visualized sinuses are clear and the globes are i ntact. IMPRESSION: 1. Multifocal acute left-sided parenchymal infarcts with multifocal areas of involvement in the left parietal and frontal lobes and punctate areas in the superior posterior left temporal lobe noted. 2. Background mild diffuse cerebral atrophy and mild to minimal chronic small vessel ischemic change with old bilateral posterior watershed infarcts is noted. A [place] critical message alert has been initiated for Rancho Beatty MD via the [facility] System on 07/07/2023 4:54 PM. This message alert has been sent to Rancho Beatty MD v ia the preferences provided by the clinician for the receipt of Radiology Critical Findings. Message ID [id number].
[2023-07-07] MEDS: FERROUS SULFATE 325 MG TAB PO SCH (17:23)
[2023-07-07] MEDS: ATORVASTATIN 40 MG TAB PO SCH (20:42)
--- NOTE | 2023-07-07 21:43 | P.PN ---
Subjective Progress Note Date: 07/07/23 Patient evaluated today resting in bed. He is pending colonoscopy, reports 2 episodes of bloody diarrhea today. Hemoglobin 6.9. He will be transfused. He does continue with right sided numbness and parasthesia and neurology is following for complete stroke work up. Patient to undergo MRI today. Vascular zavala rgery also following with findings of carotid stenosis. Patient had CT angio head and neck done today revealing significant stenosis in the proximal left ICA. Degree of stenosis or diameter narrowing is roughly at least 70%. No complete occlusion seen definitively. No large vessel occlusion or aneurysm seen at the [place]. There is old infarct in the right posterior watershed right parietal lobe. Review of Systems Constitutional: Denied any fatigue denied any fever. Cardio vascular: denied any chest pain, palpitations Gastrointestinal: denied any nausea, vomiting, diarrhea Pulmonary: Denied any shortness of breath cough Neurologic: Continues to report right sided numbness. All inpatient medications were reviewed and appropriate changes in these medications as dictated in the interval history and assessment and plan PHYSICAL EXAMINATION: GENERAL: The patient is alert and oriented x3, not in any acute distress. Well developed, well nourished. HEENT: Pupils are round and equally reacting to light. EOMI. No scleral icterus. No conjunctival pallor. Normocephalic, atraumatic. No pharyngeal erythema. No thyromegaly. CARDIOVASCULAR: S1 and S2 present. No murmurs, rubs, or gallops. PULMONARY: Chest is clear to auscultation, no wheezing or crackles. ABDOMEN: Soft, nontender, nondistended, normoactive bowel sounds. No palpable organomegaly. MUSCULOSKELETAL: No joint swelling or deformity. EXTREMITIES: No cyanosis, clubbing, or pedal edema. NEUROLOGICAL: Gross neurological examination did not reveal any focal deficits. SKIN: No rashes. Assessment Acute proctocolitis with bloody stool. With possible secondary to ulcerative colitis flareup with elevated a ESR and C-reactive protein. Biopsy during colonoscopy will help to confirm diagnosis Right side numbness, rule out stroke. he has ct brain showing chronic BILATERAL parietal lesions. Elevated troponin with history of coronary artery disease and stent mild cardiomyopathy with ejection fraction 45-50%, ischemic type Noncompliance Acute on chronic anemia, possible blood loss anemia Metabolic/toxic encephalopathy Substance abuse with amphetamine/methamphetamine Nicotine dependence Chronic systolic congestive heart failure with ejection fraction 25-30%, EF improved on echocardiogram this admission Chronic bilateral parietal lesions History of ulcerative colitis GI prophylaxis protonix DVT prophylaxis deferred due to the work up for GI bleed and continued bloody diarrhea with hemoglobin <7 Full Code Plan Recommend to continue on IV zosyn, Continue on IV solumedrol 40 mg Q12h for the suspected ulcerative colitis flare up Patient to undergo colonoscopy with biopsies today Monitor hemoglobin and transfuse for hgb less than 7 patient to receive 1 unit of PRBC today. Continue on protonix BID Patient being evaluated by neurology for stroke work up is scheduled to undergo brain MRI today. Vascular surgery following and patient to undergo left carotid endartectomy on 07/[address] Mercedes Repeat labs in the AM The impression and plan of care has been dictated by Catalina Medeiros, Nurse Practitioner as directed. Dr. Cheryle MD I have performed a history and physical examination and medical decision making of this patient, discussed the same with the dictator, and agree with the dictators assessment and plan as written, documented as a scribe. Based on total visit time, I have performed more than 50% of this visit. Objective - Vital Signs Vital signs: Vital Signs Temp 97.7 F 07/07/23 04:00 Pulse 81 07/07/23 04:00 Resp 16 07/07/23 04:00 BP 119/73 07/07/23 04:00 Pulse Ox 99 07/07/23 04:00 FiO2 Intake & Output 07/06/23 07/07/23 07/07/23 18:59 06:59 18:59 Intake Total 1320 0 Balance 1320 0 Intake: Oral 1320 0 Other: Voiding Method Urinal Urinal # Voids 6 # Bowel Movements 8 2 - Labs CBC & Chem 7: 07/07/23 07:41 07/07/23 07:41 Labs: Abnormal Lab Results - Last 24 Hours (Table) 07/07/23 07/07/23 Range/Units 07:41 07:41 WBC 11.2 H (3.8-10.6) k/uL RBC 3.03 L (4.30-5.90) m/uL Hgb 6.9 L* (13.0-17.5) gm/dL Hct 23.1 L (39.0-53.0) % MCV 76.2 L (80.0-100.0) fL MCH 22.8 L (25.0-35.0) pg MCHC 29.9 L (31.0-37.0) g/dL RDW 15.7 H (11.5-15.5) % Plt Count 593 H (150-450) k/uL Neutrophils # 8.2 H (1.3-7.7) k/uL BUN 6 L (9-20) mg/dL Calcium 8.3 L (8.4-10.2) mg/dL Total Protein 5.0 L (6.3-8.2) g/dL Albumin 2.3 L (3.5-5.0) g/dL Microbiology - Last 24 Hours (Table) 07/05/23 00:11 Blood Culture - Preliminary Blood 07/05/23 00:01 Blood Culture - Preliminary Blood Assessment and Plan Time with Patient: Less than 30
[2023-07-08] MEDS: DEXTROSE 5%-0.9% NACL 1,000 ML IV SCH ×2 (04:02→07:54)
[2023-07-08] MEDS: FERROUS SULFATE 325 MG TAB PO SCH ×2 (06:17→15:21)
[2023-07-08 07:42] LABS: Anisocytosis Slight; Basophils % (A) 0 %; Eosinophils # (A) 0.5 k/uL (0-0.7); Eosinophils % (A) 5 %; HCT 25.7 % (39.0-53.0); HGB 7.4 gm/dL (13.0-17.5); Hypochromasia Marked; Lymphocytes # (A) 1.4 k/uL (1.0-4.8); Lymphocytes % (A) 15 %; MCHC 28.9 g/dL (31.0-37.0); MCV 76.2 fL (80.0-100.0); Mean Platelet Volume 7.1; Microcytosis Slight; Monocytes # (A) 0.7 k/uL (0-1.0); Monocytes % (A) 7 %; Neutrophils # (A) 6.5 k/uL (1.3-7.7); Neutrophils % (A) 70 %; Platelet Count 620 k/uL (150-450); Poikilocytosis Moderate; RBC 3.37 m/uL (4.30-5.90); RDW 16.2 % (11.5-15.5); WBC 9.4 k/uL (3.8-10.6)
[2023-07-08] MEDS: PANTOPRAZOLE 40 MG/10 ML VIAL IV SCH ×2 (07:53→20:02)
[2023-07-08] MEDS: methylPREDNISolone SOD SUCCI 40 MG/ML 1 ML VIAL IV SCH ×2 (07:53→20:02)
[2023-07-08] MEDS: METOPROLOL SUCCINATE (ER) 50 MG TAB.ER.24H PO SCH (07:54)
[2023-07-08] MEDS: PIPERACILLIN-TAZOBACTAM 3.375 GM in SODIUM CHLORIDE 0.9% 100 ML IVPB SCH ×3 (07:54→23:36)
[2023-07-08 07:57] LABS: African American GFR (CKD) >90 (>60 ml/min/1.73 sqM); Anion Gap 8 mmol/L; Blood Urea Nitrogen 14 mg/dL (9-20); Calcium 7.8 mg/dL (8.4-10.2); Carbon Dioxide 21 mmol/L (22-30); Chloride 108 mmol/L (98-107); Glucose 111 mg/dL (74-99); Non-African American GFR(CKD) >90 (>60 ml/min/1.73 sqM); Potassium 4.1 mmol/L (3.5-5.1); Sodium 137 mmol/L (137-145)
--- NOTE | 2023-07-08 10:57 | P.PN ---
Subjective Progress Note Date: 07/08/23 CHIEF COMPLAINT: Bloody diarrhea HISTORY OF PRESENT ILLNESS: Patient status post colonoscopy with results showing severe colitis of the distal colon extending from rectum to proximal transverse colon. Biopsies were taken. There is suspicion for ulcerative colitis. Patient denies any abdominal pain. He reports decrease in his bloody stools. Denies any nausea or vomiting. Afebrile. Hemoglobin 6.9 yesterday up to 7.4 after 1 unit of blood. Patient started on IV steroids yesterday for possible ul cerative colitis. Patient is followed by neurology in regards to stroke and does have evidence of a left internal carotid artery stenosis and scheduled for a possible endarterectomy with vascular surgery service PHYSICAL EXAM: VITAL SIGNS: Reviewed. GENERAL: Well-developed in no acute distress. ABDOMEN: Soft. Nondistended. Nontender. NEUROLOGIC: Alert and oriented. Cranial nerves II through XII grossly intact. ASSESSMENT: 1. Severe colitis of the distal colon extending from rectum to proximal transverse colon noted on colonoscopy. Suspicion for ulcerative colitis. PLAN: -Continue IV steroids -Recommend follow up with GI service outpatient -Continue regular diet -Continue to monitor for any signs or symptoms of bleeding -Continue to monitor hemoglobin -Follow up on pathology results [facility] Director note has been reviewed by physician. Signing provider agrees with the documented findings, assessment, and plan of care. Objective - Vital Signs Vital signs: Vital Signs Temp 98.4 F 07/08/23 08:00 Pulse 90 07/08/23 08:00 Resp 18 07/08/23 08:00 BP 162/80 07/08/23 08:00 Pulse Ox 98 07/08/23 08:00 FiO2 Intake & Output 07/07/23 07/08/23 07/08/23 18:59 06:59 18:59 Intake Total 280 287 180 Balance 280 287 180 Intake: IV 100 Oral 180 180 Blood Product 0 287 Rc Pheresis As-3 Unit 0 287 [id number] Other: Voiding Method Urinal Urinal Toilet Urinal # Voids 1 - Labs CBC & Chem 7: 07/08/23 07:17 07/08/23 07:17 Labs: Abnormal Lab Results - Last 24 Hours (Table) 07/05/23 07/07/23 07/08/23 Range/Units 13:19 09:22 07:17 RBC 3.37 L (4.30-5.90) m/uL Hgb 7.4 L (13.0-17.5) gm/dL Hct 25.7 L (39.0-53.0) % MCV 76.2 L (80.0-100.0) fL MCH 22.0 L (25.0-35.0) pg MCHC 28.9 L (31.0-37.0) g/dL RDW 16.2 H (11.5-15.5) % Plt Count 620 H (150-450) k/uL Chloride (98-107) mmol/L Carbon Dioxide (22-30) mmol/L Glucose (74-99) mg/dL Calcium (8.4-10.2) mg/dL Stool Calprotectin 1,883.4 H (<50) mcg/g Crossmatch See Detail 07/08/23 Range/Units 07:17 RBC (4.30-5.90) m/uL Hgb (13.0-17.5) gm/dL Hct (39.0-53.0) % MCV (80.0-100.0) fL MCH (25.0-35.0) pg MCHC (31.0-37.0) g/dL RDW (11.5-15.5) % Plt Count (150-450) k/uL Chloride 108 H (98-107) mmol/L Carbon Dioxide 21 L (22-30) mmol/L Glucose 111 H (74-99) mg/dL Calcium 7.8 L (8.4-10.2) mg/dL Stool Calprotectin (<50) mcg/g Crossmatch Microbiology - Last 24 Hours (Table) 07/05/23 13:19 Stool Culture - Preliminary Stool Ngozi albicans 07/05/23 00:11 Blood Culture - Preliminary Blood 07/05/23 00:01 Blood Culture - Preliminary Blood
--- NOTE | 2023-07-08 11:23 | P.PN ---
Subjective Progress Note Date: 07/08/23 Principal diagnosis: Carotid stenosis Patient was seen and examined today as a follow-up for carotid stenosis. Yesterday he underwent CT angiogram head and neck reported as suboptimal study however significant stenosis in the proximal left internal carotid artery is confirmed. Degree of stenosis or diameter narrowing is roughly at least 70% with no complete occlusion is definitively seen. No large vessel occlusion or aneurysm at the level [place] of [place]. He also had his MRI of the brain that showed multifocal acute left-sided parenchymal infarcts with multiple focal areas of involvement the left parietal and frontal lobes as well as left temporal lobe. He also underwent colonoscopy yesterday with reported mild cobblestone appearance of transverse colon severe colitis of distal colon from rectum to proximal transverse colon. Patient was started on IV steroids. He denies any new focal deficits. States he just has that numbness in his right hand and a little numbness on his right lower extremity however no weakness. Objective - Vital Signs Vital signs: Vital Signs Temp 98.4 F 07/08/23 08:00 Pulse 90 07/08/23 08:00 Resp 18 07/08/23 08:00 BP 162/80 07/08/23 08:00 Pulse Ox 98 07/08/23 08:00 FiO2 Intake & Output 07/07/23 07/08/23 07/08/23 18:59 06:59 18:59 Intake Total 280 287 180 Balance 280 287 180 Intake: IV 100 Oral 180 180 Blood Product 0 287 Rc Pheresis As-3 Unit 0 287 [id number] Other: Voiding Method Urinal Urinal Toilet Urinal # Voids 1 - Exam General appearance: The patient is alert, oriented, appears in no acute distress. HET: Head is normocephalic and atraumatic. Pupils are equal and reactive. Neck: Supple. Heart: Regular. Lungs: Equal expansion, normal respiratory effort. Abdomen: Soft, nondistended. Extremities: Normal skin color and turgor. Neurological: No focal deficits. Strength and sensation are grossly intact. - Labs CBC & Chem 7: 07/08/23 07:17 07/08/23 07:17 Labs: Abnormal Lab Results - Last 24 Hours (Table) 07/05/23 07/07/23 07/08/23 Range/Units 13:19 09:22 07:17 RBC 3.37 L (4.30-5.90) m/uL Hgb 7.4 L (13.0-17.5) gm/dL Hct 25.7 L (39.0-53.0) % MCV 76.2 L (80.0-100.0) fL MCH 22.0 L (25.0-35.0) pg MCHC 28.9 L (31.0-37.0) g/dL RDW 16.2 H (11.5-15.5) % Plt Count 620 H (150-450) k/uL Chloride (98-107) mmol/L Carbon Dioxide (22-30) mmol/L Glucose (74-99) mg/dL Calcium (8.4-10.2) mg/dL Stool Calprotectin 1,883.4 H (<50) mcg/g Crossmatch See Detail 07/08/23 Range/Units 07:17 RBC (4.30-5.90) m/uL Hgb (13.0-17.5) gm/dL Hct (39.0-53.0) % MCV (80.0-100.0) fL MCH (25.0-35.0) pg MCHC (31.0-37.0) g/dL RDW (11.5-15.5) % Plt Count (150-450) k/uL Chloride 108 H (98-107) mmol/L Carbon Dioxide 21 L (22-30) mmol/L Glucose 111 H (74-99) mg/dL Calcium 7.8 L (8.4-10.2) mg/dL Stool Calprotectin (<50) mcg/g Crossmatch Microbiology - Last 24 Hours (Table) 07/05/23 13:19 Stool Culture - Preliminary Stool Ngozi albicans 07/05/23 00:11 Blood Culture - Preliminary Blood 07/05/23 00:01 Blood Culture - Preliminary Blood Assessment and Plan Assessment: 1. Hemodynamically significant left internal carotid artery stenosis 2. Right internal carotid artery stenosis 50-69% 3. Multifocal acute left-sided parenchymal infarcts with multifocal area involvement of left parietal and frontal lobes as well as punch with areas in the superior posterior left temporal lobe 4. Proctitis with rectal bleeding and a history of ulcerative colitis 5. Anemia 6. History of coronary artery disease 7. Daily smoker Plan: 1. CT angiogram head and neck ordered and reviewed 2. MRI reviewed 3. Continue atorvastatin 80 mg by mouth at bedtime, recommend aspirin 81 mg daily if hemoglobin stable 4. Discussed with patient importance of smoking cessation 5. Consult to cardiology for cardiac clearance for left carotid endarterectomy 6. Patient was initially tentatively scheduled for carotid endarterectomy on Tuesday, however discussed patient with neurology and they recommend pushing back to later in the week. Await recommendations from cardiology. Thank you for this consultation, we will continue to follow. The impression and plan of care has been dictated as directed. I performed a history and examination of this patient, discussed the same with the dictator. I agree with the dictator's note ,documented as a scribe. Any additional findings or plans will be noted.
--- NOTE | 2023-07-08 11:41 | P.PN ---
Subjective Progress Note Date: 07/08/23 Update 52-year-old patient. Mild coronary disease status post stenting to the LAD in February who presented with bloody diarrhea for about a month His severe anemia and his hemoglobin is consistently less than 8 He has severe colitis on endoscopy Hence we held off on starting antiplatelet therapy because of the risk of GI bleeding and further worsening of hemoglobin and anemia He denies any chest discomfort angina like symptoms or shortness of breath On examination height sounds are normal He is resting comfortably in bed without orthopnea Blood pressure is normal He is on IV antibiotics for colitis From a cardiovascular standpoint this is a high risk procedure to proceed with any kind of intervention especially since antiplatelet agents should be withheld for a few weeks until his colitis improves otherwise is clear risk of further GI bleeding I will not recommend a stress test at this time I'm increasing the dose of atorvastatin 80 mg by mouth daily and metoprolol succinate 75 mg by mouth daily and hopefully in the next few weeks as his colitis improves antiplatelet therapy will be reinitiated and he will follow with Dr. Wild who is seen most for further cardiac workup If surgery is necessary at this time then it should be undertaken with the understanding that this is a high-risk procedure in the absence of antiplatelet therapy and anemia. At this time I would recommend high-dose statins and beta blockers History of present illness: This is a 52-year-old male previously seen in the office by Dr. Wild in 2018 with past medical history of anterior ST elevated NC in 2018 status post stent of the mid LAD, right bundle branch block, ventricular tachycardia in the setting of NC. We have been asked to evaluate the patient for elevated troponins. Patient states he presented to the hospital because of feeling very ill with bloody stools. He denies having any chest pain. No lightheadedness or dizziness. No palpitations. Patient has had diarrhea for the past 7 days with blood. Patient was recently released from long-term. Patient is seen today in the emergency center waiting for a bed on the cardiac stepdown unit. EKG sinus tachycardia at 111 bpm, right bundle branch block Chest x-ray: No acute process CAT scan angiogram of the abdomen and pelvis revealed no GI hemorrhage. Evidence of colitis/proctitis involving the rectum and to a lesser degree the sigmoid colon and splenic flexure. Echocardiogram reveals LV size normal. EF 45-50%. Hypokinesia of the apical septum and adjoining anterior apical wall. Mild mitral and tricuspid regurgitation. No pericardial effusion. WBC 13.8, hemoglobin 7.4, platelet count 590. Sed rate 65. INR 0.9. Sodium 137, potassium 4.0, CO2 20, BUN 12 and creatinine 0.62. Troponin 0.478, 0.452, 0.379. TSH less than 0.015 with free T4 of 1. ProBNP 650. C-reactive protein 3.2. Urine drug screen positive for amphetamines and methamphetamines. Influenza A, influenza B, RSV, Covid 19 not detected. Home cardiac medications: None Cardiac catheterization 10/2017 status post stent of the mid LAD Echocardiogram 10/2017 revealed EF of 30%. 07/06 Patient is seen today on the cardiac step down unit. He has been seen by general surgery with plan for colonoscopy on . Patient also seen by neurology for numbness in the hand. Echocardiogram reveals EF of 45-50%. Mild mitral and tricuspid regurgitation. Results reviewed with the patient and encouraged patient to take medications as directed and follow-up in the office. Physical examination: Gen: This is a 52-year-old male resting in bed and appears to be comfortable and in no acute distress. VS: reviewed HEENT: Head is atraumatic, normocephalic. Pupils equal, round. Sclerae is anicteric. NECK: Supple. No JVD. LUNGS: Clear to auscultation. No wheezes or rhonchi. No intercostal retractions. HEART: Regular rate and rhythm. No murmur. ABDOMEN: Soft No tenderness. EXTREMITIES: No pedal edema. No calf tenderness. NEUROLOGICAL: Patient is awake, alert and oriented x3. Assessment: Acute colitis Anemia Elevated troponins of unclear etiology, possible supply demand mismatch Carotid artery disease History of coronary artery disease with previous stenting of the mid LAD Right bundle branch block History of nonsustained ventricular tachycardia Nurse practitioner note has been reviewed, I agree with documented findings and plan of care. Patient was seen and examined. Objective - Vital Signs Vital signs: Vital Signs Temp 98.4 F 07/08/23 08:00 Pulse 90 07/08/23 08:00 Resp 18 07/08/23 08:00 BP 162/80 07/08/23 08:00 Pulse Ox 98 07/08/23 08:00 FiO2 Intake & Output 07/07/23 07/08/23 07/08/23 18:59 06:59 18:59 Intake Total 280 287 180 Balance 280 287 180 Intake: IV 100 Oral 180 180 Blood Product 0 287 Rc Pheresis As-3 Unit 0 287 [id number] Other: Voiding Method Urinal Urinal Toilet Urinal # Voids 1 - Labs CBC & Chem 7: 07/08/23 07:17 07/08/23 07:17 Labs: Abnormal Lab Results - Last 24 Hours (Table) 07/05/23 07/07/23 07/08/23 Range/Units 13:19 09:22 07:17 RBC 3.37 L (4.30-5.90) m/uL Hgb 7.4 L (13.0-17.5) gm/dL Hct 25.7 L (39.0-53.0) % MCV 76.2 L (80.0-100.0) fL MCH 22.0 L (25.0-35.0) pg MCHC 28.9 L (31.0-37.0) g/dL RDW 16.2 H (11.5-15.5) % Plt Count 620 H (150-450) k/uL Chloride (98-107) mmol/L Carbon Dioxide (22-30) mmol/L Glucose (74-99) mg/dL Calcium (8.4-10.2) mg/dL Stool Calprotectin 1,883.4 H (<50) mcg/g Crossmatch See Detail 07/08/23 Range/Units 07:17 RBC (4.30-5.90) m/uL Hgb (13.0-17.5) gm/dL Hct (39.0-53.0) % MCV (80.0-100.0) fL MCH (25.0-35.0) pg MCHC (31.0-37.0) g/dL RDW (11.5-15.5) % Plt Count (150-450) k/uL Chloride 108 H (98-107) mmol/L Carbon Dioxide 21 L (22-30) mmol/L Glucose 111 H (74-99) mg/dL Calcium 7.8 L (8.4-10.2) mg/dL Stool Calprotectin (<50) mcg/g Crossmatch Microbiology - Last 24 Hours (Table) 07/05/23 13:19 Stool Culture - Preliminary Stool Ngozi albicans 07/05/23 00:11 Blood Culture - Preliminary Blood 07/05/23 00:01 Blood Culture - Preliminary Blood
--- NOTE | 2023-07-08 12:48 | P.PN ---
Subjective Progress Note Date: 07/08/23 I am following-up with the patient and he feels he is doing well. Denies of any new weakness numbness. Objective - Vital Signs Vital signs: Vital Signs Temp 98.4 F 07/08/23 08:00 Pulse 81 07/08/23 11:32 Resp 16 07/08/23 11:32 BP 142/84 07/08/23 11:32 Pulse Ox 98 07/08/23 11:32 FiO2 Intake & Output 07/07/23 07/08/23 07/08/23 18:59 06:59 18:59 Intake Total 280 287 180 Balance 280 287 180 Intake: IV 100 Oral 180 180 Blood Product 0 287 Rc Pheresis As-3 Unit 0 287 [id number] Other: Voiding Method Urinal Urinal Toilet Urinal # Voids 1 - Exam General: Lying in bed and is not in acute distress. Neuro: Limited because of his cooperation. Patient is oriented to self place and time. He is following few simple commands but wants to be left alone so he can go back to sleep. No aphasia from limited examination. No neglect. Pupils are round equal and reactive to light. Pupils are round and 3 mm christian aterally. Visual castaneda are full to confrontation. No facial weakness. No dysarthria. Motor: Limited because of cooperation but had left hand finger extension is 4+. Otherwise lifting all extremities above gravity. Sensation: Normal to touch. Reflexes: 2+ throughout. Plantars: Mute bilaterally. Some of the workup during his hospital visit consisted of: Recent hemoglobin is 7.4 and hematocrit is 24.6 which is trending down the compared to yesterday. ESR 65. Hemoglobin A1c is 6.1. TSH is less than 0.015 3 T4 is 1.0 Calcium 8.3, magnesium is 1.9 Vitamin B12 is 818. Serum Folate is 15 Lipid panel is triglyceride 102, cholesterol is 104, LDLs 82 and HDL is 41. Occult blood was positive Reduction is positive for amphetamine and methamphetamine. Serum alcohol was less than 10. CT of the head is reported as no acute intracranial processes. Chronic right parietal lobe injury and new from 2019 left parietal lobe injury which appears chronic. Personally reviewed the CT and I agree the patient has encephalomalacia right more than left left parietal. On the left is seems left parietal frontal but mostly parietal. No acute subacute ischemia. EKG is reported as sinus tachycardia. Possible left atrial enlargement. Right bundle branch block. Left anterior fascicular block. Possible inferior myocardial infarction. Carotid duplex: Significant stenosis within the left internal carotid artery with marked elevated velocity and ratio. Narrowing while a greater than 70% present. Stenosis of the right internal carotid artery with elevated velocity placing stenosis between 50-69 percent. 2-D echo was reported as left ventricle size is normal. There is hypokinesis of the apical septum and adjoining the anteroapical wall. Mild mitral and tricuspid regurgitation no pericardial effusion. CT angiography of the head and neck was reported as suboptimal study however significant stenosis proximal left ICA and discomfort. Degree of stenosis or diameter narrowing is roughly at least 70%. No complete occlusion definitely seen. No large vessel occlusion or Anzemet the level [place] of Alfonso. MR the brain is reported as multifocal acute left-sided parenchymal infarct with multiple focal area of involvement the left parietal and frontal and pontine area of superior posterior left temporal noted. Background mild diffuse cerebral atrophy and mild minimal chronic small vessel ischemic change with old bilateral posterior watershed infarct is noted. - Labs CBC & Chem 7: 07/08/23 07:17 07/08/23 07:17 Labs: Abnormal Lab Results - Last 24 Hours (Table) 07/05/23 07/07/23 07/08/23 Range/Units 13:19 09:22 07:17 RBC 3.37 L (4.30-5.90) m/uL Hgb 7.4 L (13.0-17.5) gm/dL Hct 25.7 L (39.0-53.0) % MCV 76.2 L (80.0-100.0) fL MCH 22.0 L (25.0-35.0) pg MCHC 28.9 L (31.0-37.0) g/dL RDW 16.2 H (11.5-15.5) % Plt Count 620 H (150-450) k/uL Chloride (98-107) mmol/L Carbon Dioxide (22-30) mmol/L Glucose (74-99) mg/dL Calcium (8.4-10.2) mg/dL Stool Calprotectin 1,883.4 H (<50) mcg/g Crossmatch See Detail 07/08/23 Range/Units 07:17 RBC (4.30-5.90) m/uL Hgb (13.0-17.5) gm/dL Hct (39.0-53.0) % MCV (80.0-100.0) fL MCH (25.0-35.0) pg MCHC (31.0-37.0) g/dL RDW (11.5-15.5) % Plt Count (150-450) k/uL Chloride 108 H (98-107) mmol/L Carbon Dioxide 21 L (22-30) mmol/L Glucose 111 H (74-99) mg/dL Calcium 7.8 L (8.4-10.2) mg/dL Stool Calprotectin (<50) mcg/g Crossmatch Microbiology - Last 24 Hours (Table) 07/05/23 13:19 Stool Culture - Preliminary Stool Ngozi albicans 07/05/23 00:11 Blood Culture - Preliminary Blood 07/05/23 00:01 Blood Culture - Preliminary Blood Assessment and Plan Assessment: This is a 52-year-old gentleman who presents to the emergency department because of the lower GI bleed for the last 1 month that he notified me. He notified primary team that he has numbness in the right hand and when I asked the patient if he has any numbness or weakness E denies any denies any history of stroke. Upon notifying him that the the primary team notified about his complained that he stated yes she has numbness and difficulty extending his and fingers for last 1-2 days. He denies any history of stroke or TIA. Cesilia the CT of the head shows encephalomalacia over the bilateral parietal region Acute to subacute ischemic stroke in left fronto/temporal region. Presented with right hand numbness with weakness predominantly in the extension of the hands. Etiology of stroke seems likely due to symptomatic left ICA Significant left ICA stenosis on carotid duplex >70%. This appears symptomatic. On CT angiography is also reported as at least 70% stenosis Right ICA stenosis of 50-69% stenosis on carotid duplex. No mention of any stenosis over the right ICA. I feel this is asymptomatic Lower GI bleed with history of ulcerative colitis History of encephalomalacia over bilateral parotid her right more than left te ams due to his old strokes Positive amphetamine and methamphetamine use Prediabetic Plan: Recommend aspirin 325mg daily for secondary stroke prophylaxis once the bleeding is controlled and it cleared by primary and the surgery team. He was started on Lipitor 80 mg qhs by cardiology team. Every 4 hours neuro checks Cardiac monitoring Consulted PT OT Vascular surgery team consulted for carotid stenosis. They stated that that he'll need surgical intervention for the significant left ICA and considering left endarterectomy. We need clearance for surgery and agree with vascular that it should be performed during this admission. If stable and given clearance consider next week (Maybe Tuesday or Tuesday) but will defer the final decision of surgical intervention to vascular team. Cardiology is consulted for elevated troponin We'll defer the rest of the medical measure the primary team and other specialists General surgery team is consulted for the GI bleed. Patient stated that the patient on coloscopy show severe colitis of distal colon extending from rectum the proximal transverse colon. There is suspicion for ulcerative colitis. He was started on IV steroids by general surgery team. For DVT prophylaxis recommend subcu heparin or Lovenox once cleared especially with acute GI bleed. In the meantime use SCDs The plan is discussed with patient and vascular surgery team. Time with Patient: Less than 30
--- NOTE | 2023-07-08 13:54 | P.PN ---
Subjective Progress Note Date: 07/08/23 Patient evaluated today resting in bed. He is pending colonoscopy, reports 2 episodes of bloody diarrhea today. Hemoglobin 6.9. He will be transfused. He does continue with right sided numbness and parasthesia and neurology is following for complete stroke work up. Patient to undergo MRI today. Vascular zavala rgery also following with findings of carotid stenosis. Patient had CT angio head and neck done today revealing significant stenosis in the proximal left ICA. Degree of stenosis or diameter narrowing is roughly at least 70%. No complete occlusion seen definitively. No large vessel occlusion or aneurysm seen at the [facility] [place]. There is old infarct in the right posterior watershed right parietal lobe. 07/08/2023 Patient is evaluated today sitting up at the bedside. States the bloody diarrhea has stopped. Colonoscopy reveals severe colitis of distal colon extending from the rectum to proximal transverse colon biopsies were taken. Findings suspicious for ulcerative colitis. Patient continues on IV solumedrol 40 mg BID. He is on IV zosyn. He will need to continue slow oral taper outpatient and close follow up with GI services. Patient underwent brain MRI revealing multifocal acute le ft-sided parenchymal infarcts with multifocal areas of involvement in the left parietal and frontal lobes and punctate areas in the superior posterior left temporal lobe noted. Background mild diffuse cerebral atrophy and mild to minimal chronic small vessel ischemic change with old bilateral posterior watershed infarcts is noted. white blood cell count today is 9.4, hgb 7.4, sodium 137, potassium 4.1, BUN 14, creatinine 0.83, glucose 111, calcium 7.8. Review of Systems Constitutional: Denied any fatigue denied any fever. Cardio vascular: denied any chest pain, palpitations Gastrointestinal: denied any nausea, vomiting, diarrhea Pulmonary: Denied any shortness of breath cough Neurologic: Continues to report right sided numbness. All inpatient medications were reviewed and appropriate changes in these medications as dictated in the interval history and assessment and plan PHYSICAL EXAMINATION: GENERAL: The patient is alert and oriented x3, not in any acute distress. Well developed, well nourished. HEENT: Pupils are round and equally reacting to light. EOMI. No scleral icterus. No conjunctival pallor. Normocephalic, atraumatic. No pharyngeal erythema. No thyromegaly. CARDIOVASCULAR: S1 and S2 present. No murmurs, rubs, or gallops. PULMONARY: Chest is clear to auscultation, no wheezing or crackles. ABDOMEN: Soft, nontender, nondistended, normoactive bowel sounds. No palpable organomegaly. MUSCULOSKELETAL: No joint swelling or deformity. EXTREMITIES: No cyanosis, clubbing, or pedal edema. NEUROLOGICAL: Gross neurological examination did not reveal any focal deficits. SKIN: No rashes. Assessment Acute proctocolitis with bloody stool. With possible secondary to ulcerative colitis flareup with elevated a ESR and C-reactive protein. Biopsy during colonoscopy will help to confirm diagnosis Right side numbness and weakness. brain MRI reveals acute/subacute ischemic stroke left frontotemporal region. CT brain showing chronic BILATERAL parietal lesions. Left ICA stenosis, symptomatic Elevated troponin with history of coronary artery disease and stent mild cardiomyopathy with ejection fraction 45-50%, ischemic type Noncompliance Acute on chronic anemia, possible blood loss anemia Metabolic/toxic encephalopathy Substance abuse with amphetamine/methamphetamine Nicotine dependence Chronic systolic congestive heart failure with ejection fraction 25-30%, EF improved on echocardiogram this admission Chronic bilateral parietal lesions History of ulcerative colitis GI prophylaxis protonix DVT prophylaxis deferred due to the work up for GI bleed and continued bloody diarrhea with hemoglobin <7 Full Code Plan Recommend to continue on IV zosyn, Continue on IV solumedrol 40 mg Q12h for the suspected ulcerative colitis flare up Monitor hemoglobin and transfuse for hgb less than 7 patient to receive 1 unit of PRBC today. Continue on protonix BID Patient being evaluated by neurology for stroke work up recommending aspirin 325 mg daily when cleared by surgery. Vascular surgery following and patient to undergo left carotid endartectomy on 07/[address] Mercedes Repeat labs in the AM The impression and plan of care has been dictated by Catalina Medeiros, Nurse Practitioner as directed. Dr. Cheryle MD I have performed a history and physical examination and medical decision making of this patient, discussed the same with the dictator, and agree with the dictators assessment and plan as written, documented as a scribe. Based on total visit time, I have performed more than 50% of this visit. Objective - Vital Signs Vital signs: Vital Signs Temp 98.4 F 07/08/23 08:00 Pulse 90 07/08/23 08:00 Resp 18 07/08/23 08:00 BP 162/80 07/08/23 08:00 Pulse Ox 98 07/08/23 08:00 FiO2 Intake & Output 07/07/23 07/08/23 07/08/23 18:59 06:59 18:59 Intake Total 280 287 180 Balance 280 287 180 Intake: IV 100 Oral 180 180 Blood Product 0 287 Rc Pheresis As-3 Unit 0 287 [id number] Other: Voiding Method Urinal Urinal Toilet Urinal # Voids 1 - Labs CBC & Chem 7: 07/08/23 07:17 07/08/23 07:17 Labs: Abnormal Lab Results - Last 24 Hours (Table) 07/07/23 07/08/23 07/08/23 Range/Units 09:22 07:17 07:17 RBC 3.37 L (4.30-5.90) m/uL Hgb 7.4 L (13.0-17.5) gm/dL Hct 25.7 L (39.0-53.0) % MCV 76.2 L (80.0-100.0) fL MCH 22.0 L (25.0-35.0) pg MCHC 28.9 L (31.0-37.0) g/dL RDW 16.2 H (11.5-15.5) % Plt Count 620 H (150-450) k/uL Chloride 108 H (98-107) mmol/L Carbon Dioxide 21 L (22-30) mmol/L Glucose 111 H (74-99) mg/dL Calcium 7.8 L (8.4-10.2) mg/dL Crossmatch See Detail Microbiology - Last 24 Hours (Table) 07/05/23 13:19 Stool Culture - Preliminary Stool Ngozi albicans 07/05/23 00:11 Blood Culture - Preliminary Blood 07/05/23 00:01 Blood Culture - Preliminary Blood Assessment and Plan Time with Patient: Less than 30
[2023-07-08] MEDS ORDERED: ATORVASTATIN 40 MG TAB PO SCH (21:00)
[2023-07-09] MEDS: DEXTROSE 5%-0.9% NACL 1,000 ML IV SCH ×2 (06:32→12:10)
[2023-07-09] MEDS: FERROUS SULFATE 325 MG TAB PO SCH ×2 (06:32→16:23)
[2023-07-09] MEDS ORDERED: DEXTROSE 50% SYRINGE 50 ML IVP PRN ×2 (07:42)
[2023-07-09] MEDS: PANTOPRAZOLE 40 MG/10 ML VIAL IV SCH (08:49)
[2023-07-09] MEDS: methylPREDNISolone SOD SUCCI 40 MG/ML 1 ML VIAL IV SCH (08:49)
[2023-07-09 08:50] VITALS: RESP 18; TEMP 98.1
[2023-07-09] MEDS: PIPERACILLIN-TAZOBACTAM 3.375 GM in SODIUM CHLORIDE 0.9% 100 ML IVPB SCH ×2 (08:50→16:23)
[2023-07-09] MEDS ORDERED: METOPROLOL TARTRATE 25 MG TAB PO SCH (09:00)
--- NOTE | 2023-07-09 10:31 | P.PN ---
Subjective Progress Note Date: 07/09/23 (Surgery) ASSESSMENT: Severe colitis of the distal colon extending from rectum to proximal transverse colon noted on colonoscopy. Suspicion for ulcerative colitis. PLAN: -Continue IV steroids -Recommend follow up with GI service outpatient -Continue regular diet -Continue to monitor for any signs or symptoms of bleeding -Continue to monitor hemoglobin -Follow up on pathology results Objective - Vital Signs Vital signs: Vital Signs Temp 98.1 F 07/09/23 08:41 Pulse 84 07/09/23 10:02 Resp 18 07/09/23 10:02 BP 145/79 07/09/23 08:41 Pulse Ox 99 07/09/23 08:41 FiO2 Intake & Output 07/08/23 07/09/23 07/09/23 18:59 06:59 18:59 Intake Total 1320 236 Balance 1320 236 Intake: Oral 1320 236 Other: Voiding Method Toilet Toilet Toilet # Voids 2 # Bowel Movements 2 - Labs CBC & Chem 7: 07/08/23 07:17 07/08/23 07:17 Labs: Microbiology - Last 24 Hours (Table) 07/05/23 13:19 Stool Culture - Final Stool Ngozi albicans 07/05/23 00:11 Blood Culture - Preliminary Blood 07/05/23 00:01 Blood Culture - Preliminary Blood
[2023-07-09 11:26] LABS: Anisocytosis Slight; Basophils % (A) 0 %; Eosinophils # (A) 0.1 k/uL (0-0.7); Eosinophils % (A) 1 %; HGB 7.8 gm/dL (13.0-17.5); Hypochromasia Marked; Lymphocytes # (A) 0.9 k/uL (1.0-4.8); Lymphocytes % (A) 6 %; MCH 22.6 pg (25.0-35.0); MCHC 30.1 g/dL (31.0-37.0); Mean Platelet Volume 6.9; Microcytosis Slight; Monocytes # (A) 0.7 k/uL (0-1.0); Monocytes % (A) 5 %; Neutrophils # (A) 13.7 k/uL (1.3-7.7); Neutrophils % (A) 87 %; Platelet Count 650 k/uL (150-450); Poikilocytosis Moderate; RBC 3.47 m/uL (4.30-5.90); RDW 16.4 % (11.5-15.5); WBC 15.7 k/uL (3.8-10.6)
[2023-07-09] MEDS: INSULIN ASPART (NovoLOG) 100 UNIT/ML VIAL SQ SCH ×2 (12:11→16:11)
[2023-07-09 12:14] LABS: Glucose,Whole Blood 151 mg/dL (70-110)
[2023-07-09 13:11] LABS: African American GFR (CKD) >90 (>60 ml/min/1.73 sqM); Anion Gap 10 mmol/L; Blood Urea Nitrogen 12 mg/dL (9-20); Carbon Dioxide 21 mmol/L (22-30); Chloride 106 mmol/L (98-107); Glucose 145 mg/dL (74-99); Non-African American GFR(CKD) >90 (>60 ml/min/1.73 sqM); Potassium 4.5 mmol/L (3.5-5.1); Sodium 137 mmol/L (137-145)
--- NOTE | 2023-07-09 15:09 | P.PN ---
Subjective Progress Note Date: 07/09/23 Patient evaluated today resting in bed. He is pending colonoscopy, reports 2 episodes of bloody diarrhea today. Hemoglobin 6.9. He will be transfused. He does continue with right sided numbness and parasthesia and neurology is following for complete stroke work up. Patient to undergo MRI today. Vascular zavala rgery also following with findings of carotid stenosis. Patient had CT angio head and neck done today revealing significant stenosis in the proximal left ICA. Degree of stenosis or diameter narrowing is roughly at least 70%. No complete occlusion seen definitively. No large vessel occlusion or aneurysm seen at the [place] [facility] [place]. There is old infarct in the right posterior watershed right parietal lobe. 07/08/2023 Patient is evaluated today sitting up at the bedside. States the bloody diarrhea has stopped. Colonoscopy reveals severe colitis of distal colon extending from the rectum to proximal transverse colon biopsies were taken. Findings suspicious for ulcerative colitis. Patient continues on IV solumedrol 40 mg BID. He is on IV zosyn. He will need to continue slow oral taper outpatient and close follow up with GI services. Patient underwent brain MRI revealing multifocal acute le ft-sided parenchymal infarcts with multifocal areas of involvement in the left parietal and frontal lobes and punctate areas in the superior posterior left temporal lobe noted. Background mild diffuse cerebral atrophy and mild to minimal chronic small vessel ischemic change with old bilateral posterior watershed infarcts is noted. white blood cell count today is 9.4, hgb 7.4, sodium 137, potassium 4.1, BUN 14, creatinine 0.83, glucose 111, calcium 7.8. 07/09/2023 Patient is evaluated today resting in bed. Patient reports no more episodes of bloody diarrhea. Biopsy pending. Continues on IV solumedrol Q12h. Patient also remains on IV zosyn. He continues to report right sided symptoms numbness. No changes. He is scheduled to undergo Left carotid endartectomy tomorrow. Hemoglobin 7.8 today. Renal function stable. Review of Systems Constitutional: Denied any fatigue denied any fever. Cardio vascular: denied any chest pain, palpitations Gastrointestinal: denied any nausea, vomiting, diarrhea Pulmonary: Denied any shortness of breath cough Neurologic: Continues to report right sided numbness. All inpatient medications were reviewed and appropriate changes in these medications as dictated in the interval history and assessment and plan PHYSICAL EXAMINATION: GENERAL: The patient is alert and oriented x3, not in any acute distress. Well developed, well nourished. HEENT: Pupils are round and equally reacting to light. EOMI. No scleral icterus. No conjunctival pallor. Normocephalic, atraumatic. No pharyngeal erythema. No thyromegaly. CARDIOVASCULAR: S1 and S2 present. No murmurs, rubs, or gallops. PULMONARY: Chest is clear to auscultation, no wheezing or crackles. ABDOMEN: Soft, nontender, nondistended, normoactive bowel sounds. No palpable organomegaly. MUSCULOSKELETAL: No joint swelling or deformity. EXTREMITIES: No cyanosis, clubbing, or pedal edema. NEUROLOGICAL: Gross neurological examination did not reveal any focal deficits. SKIN: No rashes. Assessment Acute proctocolitis with bloody stool. With possible secondary to ulcerative colitis flareup with elevated a ESR and C-reactive protein. Biopsy during colonoscopy will help to confirm diagnosis Right side numbness and weakness. brain MRI reveals acute/subacute ischemic stroke left frontotemporal region. CT brain showing chronic BILATERAL parietal lesions. Left ICA stenosis, symptomatic Elevated troponin with history of coronary artery disease and stent mild cardiomyopathy with ejection fraction 45-50%, ischemic type Noncompliance Acute on chronic anemia, possible blood loss anemia Metabolic/toxic encephalopathy Substance abuse with amphetamine/methamphetamine Nicotine dependence Chronic systolic congestive heart failure with ejection fraction 25-30%, EF improved on echocardiogram this admission Chronic bilateral parietal lesions History of ulcerative colitis GI prophylaxis protonix DVT prophylaxis deferred due to the work up for GI bleed and continued bloody diarrhea with hemoglobin <7 Full Code Plan Recommend to continue on IV zosyn, Continue on IV solumedrol 40 mg Q12h for the suspected ulcerative colitis flare up Monitor hemoglobin and transfuse for hgb less than 7 patient is status post 1 unit PRBC. Hemoglobin stable. Continue on protonix BID Patient being evaluated by neurology for stroke work up recommending aspirin 325 mg daily when cleared by surgery. Vascular surgery following and patient to undergo left carotid endartectomy on 07/[address] Mrecedes Repeat labs in the AM The impression and plan of care has been dictated by Catalina Medeiros, Nurse Practitioner as directed. Dr. Cheryle MD I have performed a history and physical examination and medical decision making of this patient, discussed the same with the dictator, and agree with the dictators assessment and plan as written, documented as a scribe. Based on total visit time, I have performed more than 50% of this visit. Objective - Vital Signs Vital signs: Vital Signs Temp 98.1 F 07/09/23 08:41 Pulse 84 07/09/23 08:41 Resp 18 07/09/23 08:41 BP 145/79 07/09/23 08:41 Pulse Ox 99 07/09/23 08:41 FiO2 Intake & Output 07/08/23 07/09/23 07/09/23 18:59 06:59 18:59 Intake Total 1320 Balance 1320 Intake: Oral 1320 Other: Voiding Method Toilet Toilet # Voids 2 # Bowel Movements 2 - Labs CBC & Chem 7: 07/09/23 10:53 07/09/23 10:53 Labs: Abnormal Lab Results - Last 24 Hours (Table) 07/05/23 Range/Units 13:19 Stool Calprotectin 1,883.4 H (<50) mcg/g Microbiology - Last 24 Hours (Table) 07/05/23 13:19 Stool Culture - Final Stool Ngozi albicans 07/05/23 00:11 Blood Culture - Preliminary Blood 07/05/23 00:01 Blood Culture - Preliminary Blood Assessment and Plan Time with Patient: Less than 30
[2023-07-09 16:09] LABS: Glucose,Whole Blood 200 mg/dL (70-110)
--- NOTE | 2023-07-09 16:24 | P.PN ---
Subjective Progress Note Date: 07/09/23 Principal diagnosis: carotid stenosis, CVA Patient doing well. No complaints overnight. Denies any fevers, chills, chest pain or shortness of breath. Objective - Vital Signs Vital signs: Vital Signs Temp 98.1 F 07/09/23 08:41 Pulse 79 07/09/23 14:04 Resp 18 07/09/23 14:04 BP 127/82 07/09/23 12:06 Pulse Ox 98 07/09/23 12:06 FiO2 Intake & Output 07/08/23 07/09/23 07/09/23 18:59 06:59 18:59 Intake Total 1320 680 Balance 1320 680 Intake: Oral 1320 680 Other: Voiding Method Toilet Toilet Toilet # Voids 2 # Bowel Movements 2 - Constitutional General appearance: Present: average body habitus, cooperative - EENT Eyes: Present: PERRLA - Respiratory Respiratory: bilateral: CTA - Cardiovascular Rhythm: regular - Neurologic Neurologic: Absent: focal deficits - Psychiatric Psychiatric: Present: A&O x's 3, appropriate affect, intact judgment & insight - Labs CBC & Chem 7: 07/09/23 10:53 07/09/23 10:53 Labs: Abnormal Lab Results - Last 24 Hours (Table) 07/09/23 07/09/23 07/09/23 Range/Units 10:53 10:53 12:13 WBC 15.7 H (3.8-10.6) k/uL RBC 3.47 L (4.30-5.90) m/uL Hgb 7.8 L (13.0-17.5) gm/dL Hct 26.0 L (39.0-53.0) % MCV 75.0 L (80.0-100.0) fL MCH 22.6 L (25.0-35.0) pg MCHC 30.1 L (31.0-37.0) g/dL RDW 16.4 H (11.5-15.5) % Plt Count 650 H (150-450) k/uL Neutrophils # 13.7 H (1.3-7.7) k/uL Lymphocytes # 0.9 L (1.0-4.8) k/uL Carbon Dioxide 21 L (22-30) mmol/L Creatinine 0.60 L (0.66-1.25) mg/dL Glucose 145 H (74-99) mg/dL POC Glucose (mg/dL) 151 H (70-110) mg/dL Calcium 8.0 L (8.4-10.2) mg/dL 07/09/23 Range/Units 16:08 WBC (3.8-10.6) k/uL RBC (4.30-5.90) m/uL Hgb (13.0-17.5) gm/dL Hct (39.0-53.0) % MCV (80.0-100.0) fL MCH (25.0-35.0) pg MCHC (31.0-37.0) g/dL RDW (11.5-15.5) % Plt Count (150-450) k/uL Neutrophils # (1.3-7.7) k/uL Lymphocytes # (1.0-4.8) k/uL Carbon Dioxide (22-30) mmol/L Creatinine (0.66-1.25) mg/dL Glucose (74-99) mg/dL POC Glucose (mg/dL) 200 H (70-110) mg/dL Calcium (8.4-10.2) mg/dL Microbiology - Last 24 Hours (Table) 07/05/23 13:19 Stool Culture - Final Stool Ngozi albicans 07/05/23 00:11 Blood Culture - Preliminary Blood 07/05/23 00:01 Blood Culture - Preliminary Blood Assessment and Plan Assessment: 1. Hemodynamically significant left internal carotid artery stenosis 2. Right internal carotid artery stenosis 50-69% 3. Multifocal acute left-sided parenchymal infarcts with multifocal area involvement of left parietal and frontal lobes as well as punch with areas in the superior posterior left temporal lobe 4. Proctitis with rectal bleeding and a history of ulcerative colitis 5. Anemia 6. History of coronary artery disease 7. Daily smoker Plan: Continue atorvastatin 80 mg by mouth at bedtime, recommend aspirin 81 mg daily if hemoglobin stable Discussed with patient importance of smoking cessation Consult to cardiology for cardiac clearance for left carotid endarterectomy Discussed patient with neurology and they recommend pushing back surgery to later in the week. Await recommendations from cardiology.
[2023-07-09 16:31] VITALS: BP 115/72; PULSE 72
--- NOTE | 2023-07-10 16:16 | P.DS ---
Providers Date of admission: 07/04/23 22:29 Attending physician: Rancho Beatty Consults: 07/04/23 22:26 Consult Physician Routine Consulting Provider: [facility] Consult Reason/Comments: elevated troponin Do you want consulting provider notified?: Yes Consult Physician Routine Consulting Provider: Trey Machado Consult Reason/Comments: proctitis Do you want consulting provider notified?: Yes 07/05/23 07:43 Consult Physician Urgent Consulting Provider: Kunal Mac Consult Reason/Comments: r/o stroke Do you want consulting provider notified?: Yes 07/06/23 14:07 Consult Physician Routine Consulting Provider: Olamide Bruce Consult Reason/Comments: carotid stenosis Do you want consulting provider notified?: Yes 07/08/23 09:33 Consult Physician Routine Consulting Provider: Eyad Craven Consult Reason/Comments: Cardiac clearance for left internal carotid endarterectomy Do you want consulting provider notified?: Yes Primary care physician: Luly Marie Lds Hospital Course: Patient was frustrated that his carotid surgery was recommended to be postponed from Tuesday and did not want to wait. Vascular had requested cardiac clearance for the carotid endartectomy. When notified of patient wanting to leave AMA did ask if patient would wait to be evaluated the next day and discuss with care team for possible discharge and be scheduled to undergo carotid endartectomy as an outpatient. However, patient wanted to leave AMA. He left AMA on 07/09/2023 at 1801. Plan - Discharge Summary Discharge Rx Participant: Yes Follow up Appointment(s)/Referral(s): Cynthia Mauricio MD [Primary Care Provider] - 1-2 days Dianne Sorto MD [STAFF PHYSICIAN] - 1 Week Discharge Disposition: LEFT AGAINST MEDICAL ADVICE
== END 2023-07-09 18:03 | disposition left against medical advice (07) | DRG 245 ==
LOC: EC 19:22 → 3SCARD 22:29
PROVIDERS: ADMIT Hospitalist; ATTEND Hospitalist
PROC: 0DBL8ZX Excision of Transverse Colon, Via Natural or Artificial Opening Endoscopic, Diagnostic (ICD-10-PCS; 2023-07-07)
PROC: 0DBN8ZX Excision of Sigmoid Colon, Via Natural or Artificial Opening Endoscopic, Diagnostic (ICD-10-PCS; 2023-07-07)
PROC: 0DBP8ZX Excision of Rectum, Via Natural or Artificial Opening Endoscopic, Diagnostic (ICD-10-PCS; 2023-07-07)
PROC: 0DBM8ZX Excision of Descending Colon, Via Natural or Artificial Opening Endoscopic, Diagnostic (ICD-10-PCS; principal; 2023-07-07 13:10)
DX: K51.211 Ulcerative (chronic) proctitis with rectal bleeding (principal); I50.22 Chronic systolic (congestive) heart failure; Z20.822 Contact with and (suspected) exposure to COVID-19; Z53.29 Procedure and treatment not carried out because of patient's decision for other reasons; I11.0 Hypertensive heart disease with heart failure; J44.9 Chronic obstructive pulmonary disease, unspecified; D64.9 Anemia, unspecified; I25.2 Old myocardial infarction; D63.8 Anemia in other chronic diseases classified elsewhere; E86.0 Dehydration; R00.0 Tachycardia, unspecified; I63.9 Cerebral infarction, unspecified; G92.8 Other toxic encephalopathy; F15.10 Other stimulant abuse, uncomplicated; I25.10 Atherosclerotic heart disease of native coronary artery without angina pectoris; I65.23 Occlusion and stenosis of bilateral carotid arteries; I08.1 Rheumatic disorders of both mitral and tricuspid valves; F17.210 Nicotine dependence, cigarettes, uncomplicated; Z71.6 Tobacco abuse counseling; K58.9 Irritable bowel syndrome, unspecified; G93.89 Other specified disorders of brain; I25.5 Ischemic cardiomyopathy; I45.2 Bifascicular block; Z91.199 Patient's noncompliance with other medical treatment and regimen due to unspecified reason; Z86.73 Personal history of transient ischemic attack (TIA), and cerebral infarction without residual deficits; Z95.5 Presence of coronary angioplasty implant and graft
CPT/HCPCS: 36415; 45380; 70450; 70496; 70498; 70551; 71046; 74174; 80048; 80053; 80061; 80076; 80306; 80320; 81003; 82272; 82607; 82728; 82746; 83036; 83540; 83550; 83605; 83735; 83880; 83993; 84145; 84439; 84443; 84484; 85025; 85610; 85652; 85730; 86140; 86850; 86870; 86880; 86900; 86901; 86902; 86920; 87040; 87045; 87046; 87324; 87636; 88305; 93005; 93306; 93880; 94760; 96361; 96374; 99285

== ENCOUNTER 2023-08-03 19:44 | Inpatient (IN) | payer OTHER ==
--- NOTE | 2023-08-03 20:14 | ED ---
General Adult HPI - General Source: patient, family Mode of arrival: wheelchair Limitations: no limitations <Joseph Mejias - Last Filed: 08/03/23 20:15> <Bety Burnett - Last Filed: 08/04/23 03:18> - General Stated complaint: heart issues Time Seen by Provider: 08/03/23 20:14 - History of Present Illness Initial comments: 53-year-old male presenting with generalized weakness and right arm pain. Patient recently left AMA from his most recent admission, he was diagnosed with carotid stenosis and was set to have surgery. (Joseph Mejias) Patient is a 53-year-old male with extensive past medical history. Patient had a recent admission at the beginning of this month for infectious colitis, acute anemia, during that hospitalization he had a stroke workup that included a CTA of the head which revealed occlusion of the right carotid and he was to undergo carotid endarterectomy however patient left AGAINST MEDICAL ADVICE. Family reports that since leaving the hospital they had not seen the patient until he showed up at their house yesterday stating that he needed to go back to the hospital today. Then during the day today patient declined coming to the hospital until this evening. Patient states that his right arm hurts and that he has been short of breath lately. He denies other complaints. Patient is minimally interactive with staff stating that his sister can provide his history. He does answer questions occasionally he states that he left because he got scared. He states that he is not can leave this time. He is (Bety Burnett) - Related Data Allergies Allergy/AdvReac Type Severity Reaction Status Date / Time No Known Allergies Allergy Verified 08/03/23 20:14 Review of Systems ROS Other: All systems not noted in ROS Statement are negative. <Joseph Mejias - Last Filed: 08/03/23 20:15> ROS Other: All systems not noted in ROS Statement are negative. <Bety Burnett - Last Filed: 08/04/23 03:18> ROS Statement: Those systems with pertinent positive or pertinent negative responses have been documented in the HPI. Past Medical History Past Medical History: Asthma, Myocardial Infarction ([place]) Additional Past Medical History / Comment(s): IBS Last Myocardial Infarction Date:: october 2016 History of Any Multi-Drug Resistant Organisms: None Reported Past Surgical History: Heart Catheterization, Heart Catheterization With Stent Past Anesthesia/Blood Transfusion Reactions: No Reported Reaction Date of Last Stent Placement:: October 2016 Past Psychological History: No Psychological Hx Reported Smoking Status: Current every day smoker, Unknown if ever smoked Past Alcohol Use History: None Reported Past Drug Use History: Methamphetamine - Past Family History Father History Unknown: Yes Mother History Unknown: Yes <Joseph Mejias - Last Filed: 08/03/23 20:15> General Exam <Joseph Mejias - Last Filed: 08/03/23 20:15> General appearance: alert Head exam: Present: atraumatic Eye exam: Present: PERRL, other (Conjunctival pallor) ENT exam: Present: mucous membranes dry Respiratory exam: Absent: respiratory distress Cardiovascular Exam: Present: normal rhythm, tachycardia GI/Abdominal exam: Present: soft. Absent: distended Rectal exam: Present: deferred Extremities exam: Absent: pedal edema Neurological exam: Present: alert Psychiatric exam: Present: agitated, anxious Skin exam: Present: pallor <Bety Burnett - Last Filed: 08/04/23 03:18> - General Exam Comments Initial Comments: Visual Physical Exam Vital signs reviewed General: Well-appearing, nontoxic, no acute distress. Head: Normocephalic, atraumatic Eyes: PERRLA, EOMI ENT: Airway patent Chest: Nonlabored breathing Skin: No visual rash, normal skin tone Neuro: Alert and oriented 3 Musculoskeletal: No gross abnormalities (MejiasJoseph) Course Vital Signs 08/03/23 08/04/23 20:11 00:30 Temperature 98.9 F Pulse Rate 140 H 118 H Respiratory 16 20 Rate Blood Pressure 112/72 121/67 O2 Sat by Pulse 100 100 Oximetry EKG Findings - EKG Comments: EKG Findings:: EKG is interpreted by me. EKG obtained due to shortness of breath, EKG obtained at 2016, rate is 133 rhythm is a narrow complex regular tachycardia. There does appear to be a P wave before each QRS. Appears to be a sinus tachycardia with no obvious ST elevations or depressions, there are Q waves in the anterior lateral leads. This is concerning for recent infarction. Repeat EKG was obtained as the rhythm was improving, repeat EKG obtained at 2:36 AM, rate is 117, rhythm is a sinus tachycardia again with a right bundle branch block, again Q waves are present but no acute ST elevations or depressions. EKG is abnormal but not concerning for acute infarction. <Bety Burnett P - Last Filed: 08/04/23 03:18> Medical Decision Making - Lab Data Result diagrams: 08/03/23 20:16 08/03/23 20:16 <Bety Burnett P - Last Filed: 08/04/23 03:18> - Medical Decision Making Was pt. sent in by a medical professional or institution (, PA, PHYSICAL ANTHROPOLOGIST, urgent care, hospital, or shelter...) When possible be specific @ -[No] Did you speak to anyone other than the patient for history (EMS, parent, family, police, friend...)? What history was obtained from this source @ -Family Did you review nursing and triage notes (agree or disagree)? Why? @ -[I reviewed and agree with nursing and triage notes] Were old charts reviewed (outside hosp., previous admission, EMS record, old EKG, old radiological studies, urgent care reports/EKG's, shelter records)? Report findings @ -Previous admission notes and labs were reviewed Differential Diagnosis (chest pain, altered mental status, abdominal pain women, abdominal pain men, vaginal bleeding, weakness, fever, dyspnea, syncope, headache, dizziness, GI bleed, back pain, seizure, CVA, palpatations, mental health)? @ -Differential Dyspnea: Coronary syndrome, arrhythmia, tamponade, asthma, COPD, pulmonary embolism, pneumonia, pneumothorax, pulmonary effusion, anaphylaxis, diabetic ketoacidosis, flailed chest, pulmonary contusion, diaphragmatic rupture, anemia, n euromuscular, this is not meant to be an all-inclusive list. EKG interpreted by me (3pts min.). @ -[As above] X-rays interpreted by me (1pt min.). @ -No focal consolidations no pneumothorax no widened mediastinum CT interpreted by me (1pt min.). @ -[None done] U/S interpreted by me (1pt. min.). @ -[None done] What testing was considered but not performed or refused? (CT, X-rays, U/S, labs)? Why? @ -[None] What meds were considered but not given or refused? Why? @ -[None] Did you discuss the management of the patient with other professionals (professionals i.e. , PA, PHYSICAL ANTHROPOLOGIST, lab, RT, psych nurse, social services specialist, salesperson toy trains and accessories, teacher, tourist information officer, porter sample case)? Give summary @ -Discussed with admitting team Was smoking cessation discussed for >3mins.? @ -[No] Was critical care preformed (if so, how long)? @ -Yes, 45 minutes Were there social determinants of health that impacted care today? How? (Homelessness, low income, unemployed, alcoholism, drug addiction, transportation, low edu. Level, literacy, decrease access to med. care, fci, rehab)? @ -Drug addiction, low access to medical care, low education level Was there de-escalation of care discussed even if they declined (Discuss DNR or withdrawal of care, Hospice)? DNR status @ -[No] What co-morbidities impacted this encounter? (DM, HTN, Smoking, COPD, CAD, Cancer, CVA, ARF, Chemo, Hep., AIDS, mental health diagnosis, sleep apnea, morbid obesity)? @ -Mental health diagnosis, substance abuse, peripheral vascular disease, smoking, Was patient admitted / discharged? Hospital course, mention meds given and route, prescriptions, significant lab abnormalities, going to OR and other pertinent info. @ -Admit Patient's workup was initiated in triage where broad labs were obtained patient was noted to have profound leukocytosis, acute on chronic anemia, thrombocytosis, normal kidney function and liver function. Normal coagulopathy. Mildly elevated troponin not significant compared to previous hospitalization. Patient was brought to exam room 3, additional labs were obtained including psych labs and overdose labs due to patient's history of substance abuse, lactic acid, type and screen and a blood transfusion were ordered. Empiric Zosyn was ordered as this was the antibiotic given during previous admission and patient has leukocytosis of unknown cause Multiple blood samples were sent to the lab for evaluation however continued to have clotting which resulted in delay in results and delay in transfusion Patient care was discussed with Michelle nurse practitioner from [facility] who accepts the admission. Consults were placed to vascular surgery, heme-onc, cardiology. Undiagnosed new problem with uncertain prognosis? @ -Yes Drug Therapy requiring intensive monitoring for toxicity (Heparin, Nitro, Insulin, Cardizem)? @ -[No] Were any procedures done? @ -[No] Diagnosis/symptom? @ -Sepsis of unknown cause Acute, or Chronic, or Acute on Chronic? @ -Acute Uncomplicated (without systemic symptoms) or Complicated (systemic symptoms)? @ -Complicated Side effects of treatment? @ -[No] Exacerbation, Progression, or Severe Exacerbation? @ -[No] Poses a threat to life or bodily function? How? (Chest pain, [place], [place], pneumonia, PE, COPD, DKA, ARF, appy, cholecystitis, CVA, Diverticulitis, Homicidal, Suicidal, threat to staff... and all critical care pts) @ -Yes Diagnosis/symptom? @ -Anemia Acute, or Chronic, or Acute on Chronic? @ -Acute on chronic Uncomplicated (without systemic symptoms) or Complicated (systemic symptoms)? @ -Complicated Side effects of treatment? @ -[none] Exacerbation, Progression, or Severe Exacerbation] @ -[no] Poses a threat to life or bodily function? @ -Yes Diagnosis/symptom? @ -Substance abuse Acute, or Chronic, or Acute on Chronic? @ -Chronic Uncomplicated (without systemic symptoms) or Complicated (systemic symptoms)? @ -Complicated Side effects of treatment? @ -[none] Exacerbation, Progression, or Severe Exacerbation] @ -[no] Poses a threat to life or bodily function? @ -Yes (Bety Burnett) - Lab Data Lab Results 08/03/23 08/03/23 08/03/23 Range/Units 20:16 20:16 20:16 WBC 23.7 H (3.8-10.6) k/uL RBC 3.31 L (4.30-5.90) m/uL Hgb 6.4 L* (13.0-17.5) gm/dL Hct 23.1 L (39.0-53.0) % MCV 70.0 L D (80.0-100.0) fL MCH 19.5 L (25.0-35.0) pg MCHC 27.8 L (31.0-37.0) g/dL RDW 16.6 H (11.5-15.5) % Plt Count 1048 H* (150-450) k/uL MPV 7.3 Neutrophils % 83 % Lymphocytes % 7 % Monocytes % 7 % Eosinophils % 1 % Basophils % 0 % Neutrophils # 19.6 H (1.3-7.7) k/uL Lymphocytes # 1.7 (1.0-4.8) k/uL Monocytes # 1.6 H (0-1.0) k/uL Eosinophils # 0.2 (0-0.7) k/uL Basophils # 0.1 (0-0.2) k/uL Manual Slide Review Performed Polychromasia Present Hypochromasia Marked Hypochromasia (manual) Present Poikilocytosis Moderate Anisocytosis Slight Anisocytosis (manual) Present Microcytosis Marked Target Cells Present PT 11.1 (10.0-12.5) sec INR 1.0 (<1.2) APTT 28.6 (22.0-30.0) sec D-Dimer 2.56 H (<0.60) mg/L FEU Sodium 133 L (137-145) mmol/L Potassium 4.6 (3.5-5.1) mmol/L Chloride 105 (98-107) mmol/L Carbon Dioxide 20 L (22-30) mmol/L Anion Gap 8 mmol/L BUN 16 (9-20) mg/dL Creatinine 0.77 (0.66-1.25) mg/dL Est GFR (CKD-EPI)AfAm >90 (>60 ml/min/1.73 sqM) Est GFR (CKD-EPI)NonAf >90 (>60 ml/min/1.73 sqM) Glucose 135 H (74-99) mg/dL Plasma Lactic Acid Ronnell (0.7-2.0) mmol/L Calcium 8.4 (8.4-10.2) mg/dL Total Bilirubin 0.2 (0.2-1.3) mg/dL AST 21 (17-59) U/L ALT 21 (4-49) U/L Alkaline Phosphatase 119 (38-126) U/L Troponin I (0.000-0.034) ng/mL Total Protein 6.4 (6.3-8.2) g/dL Albumin 2.8 L (3.5-5.0) g/dL Influenza Type A (PCR) (Not Detectd) Influenza Type B (PCR) (Not Detectd) RSV (PCR) (Not Detectd) SARS-CoV-2 (PCR) (Not Detectd) 08/03/23 08/03/23 08/04/23 Range/Units 20:16 20:16 00:31 WBC (3.8-10.6) k/uL RBC (4.30-5.90) m/uL Hgb (13.0-17.5) gm/dL Hct (39.0-53.0) % MCV (80.0-100.0) fL MCH (25.0-35.0) pg MCHC (31.0-37.0) g/dL RDW (11.5-15.5) % Plt Count (150-450) k/uL MPV Neutrophils % % Lymphocytes % % Monocytes % % Eosinophils % % Basophils % % Neutrophils # (1.3-7.7) k/uL Lymphocytes # (1.0-4.8) k/uL Monocytes # (0-1.0) k/uL Eosinophils # (0-0.7) k/uL Basophils # (0-0.2) k/uL Manual Slide Review Polychromasia Hypochromasia Hypochromasia (manual) Poikilocytosis Anisocytosis Anisocytosis (manual) Microcytosis Target Cells PT (10.0-12.5) sec INR (<1.2) APTT (22.0-30.0) sec D-Dimer (<0.60) mg/L FEU Sodium (137-145) mmol/L Potassium (3.5-5.1) mmol/L Chloride (98-107) mmol/L Carbon Dioxide (22-30) mmol/L Anion Gap mmol/L BUN (9-20) mg/dL Creatinine (0.66-1.25) mg/dL Est GFR (CKD-EPI)AfAm (>60 ml/min/1.73 sqM) Est GFR (CKD-EPI)NonAf (>60 ml/min/1.73 sqM) Glucose (74-99) mg/dL Plasma Lactic Acid Ronnell 1.6 (0.7-2.0) mmol/L Calcium (8.4-10.2) mg/dL Total Bilirubin (0.2-1.3) mg/dL AST (17-59) U/L ALT (4-49) U/L Alkaline Phosphatase (38-126) U/L Troponin I 0.044 H* (0.000-0.034) ng/mL Total Protein (6.3-8.2) g/dL Albumin (3.5-5.0) g/dL Influenza Type A (PCR) Not Detected (Not Detectd) Influenza Type B (PCR) Not Detected (Not Detectd) RSV (PCR) Not Detected (Not Detectd) SARS-CoV-2 (PCR) Not Detected (Not Detectd) Disposition <Joseph Mejias - Last Filed: 08/03/23 20:15> Is patient prescribed a controlled substance at d/c from ED?: No <Bety Burnett - Last Filed: 08/04/23 03:18> Clinical Impression: Anemia, Arm paresthesia, right, Elevated troponin, Symptomatic anemia, Polysubstance abuse, Tachycardia Disposition: ADMITTED IP TO THIS [facility] Condition: Critical Referrals: Cynthia Mauricio MD [Primary Care Provider] - 1-2 days
[2023-08-03 20:52] LABS: Albumin 2.8 g/dL (3.5-5.0); Glucose 135 mg/dL (74-99); Potassium 4.6 mmol/L (3.5-5.1); Sodium 133 mmol/L (137-145); Total Protein 6.4 g/dL (6.3-8.2)
[2023-08-03 20:53] LABS: ALT 21 U/L (4-49); AST 21 U/L (17-59); African American GFR (CKD) >90 (>60 ml/min/1.73 sqM); Alkaline Phosphatase 119 U/L (38-126); Blood Urea Nitrogen 16 mg/dL (9-20); Calcium 8.4 mg/dL (8.4-10.2); Carbon Dioxide 20 mmol/L (22-30); Non-African American GFR(CKD) >90 (>60 ml/min/1.73 sqM); Total Bilirubin 0.2 mg/dL (0.2-1.3)
[2023-08-03 20:55] LABS: Anisocytosis Slight; Basophils # (A) 0.1 k/uL (0-0.2); Basophils % (A) 0 %; Eosinophils # (A) 0.2 k/uL (0-0.7); Eosinophils % (A) 1 %; HCT 23.1 % (39.0-53.0); Hypochromasia Marked; Lymphocytes # (A) 1.7 k/uL (1.0-4.8); Lymphocytes % (A) 7 %; MCH 19.5 pg (25.0-35.0); MCHC 27.8 g/dL (31.0-37.0); Mean Platelet Volume 7.3; Microcytosis Marked; Monocytes # (A) 1.6 k/uL (0-1.0); Monocytes % (A) 7 %; Neutrophils # (A) 19.6 k/uL (1.3-7.7); Neutrophils % (A) 83 %; Poikilocytosis Moderate; RBC 3.31 m/uL (4.30-5.90); RDW 16.6 % (11.5-15.5); WBC 23.7 k/uL (3.8-10.6)
[2023-08-03 20:59] LABS: HGB 6.4 gm/dL (13.0-17.5)
[2023-08-03 21:00] LABS: Platelet Count 1048 k/uL (150-450)
[2023-08-03 21:02] LABS: Partial Thromboplastin Time 28.6 sec (22.0-30.0); Prothrombin Time 11.1 sec (10.0-12.5)
--- NOTE | 2023-08-03 21:21 | XR ---
EXAMINATION TYPE: XR chest 2V DATE OF EXAM: 08/03/2023 9:11 PM CLINICAL INDICATION:Male, 53 years old with history of Weakness; COMPARISON: Chest radiographs from 07/04/2023 TECHNIQUE: XR chest 2V Frontal and lateral views of the chest. FINDINGS: Lungs/Pleura: There is no evidence of pleural effusion, focal consolidation, or pneumothorax. Pulmonary vascularity: Unremarkable. Heart/mediastinum: Cardiomediastinal silhouette is unremarkable. Musculoskeletal: No acute osseous pathology. IMPRESSION: No acute cardiopulmonary disease/process.
[2023-08-03 21:22] LABS: Anisocytosis (M) Present; Hypochromasia (M) Present; Polychromasia Present; Target Cells Present
[2023-08-03 21:25] LABS: Anion Gap 8 mmol/L; Chloride 105 mmol/L (98-107)
[2023-08-04] MEDS ORDERED: NALOXONE 0.4 MG/ML 1 ML VIAL IV PRN (00:11)
[2023-08-04] MEDS ORDERED: ONDANSETRON 4 MG/2 ML VIAL IVP PRN (00:11)
[2023-08-04] MEDS: PIPERACILLIN-TAZOBACTAM 3.375 GM in SODIUM CHLORIDE 0.9% 100 ML IVPB SCH (00:26)
[2023-08-04] MEDS: SODIUM CHLORIDE 0.9% 1,000 ML IV SCH (01:20)
[2023-08-04 03:38] LABS: Acetaminophen <10.0 ug/mL; Alcohol <10 mg/dL; Salicylate <1.0 mg/dL
--- NOTE | 2023-08-04 04:29 | CT ---
EXAMINATION TYPE: CT angio chest DATE OF EXAM: 08/04/2023 COMPARISON: NONE HISTORY: ELEVATED D DIMER- 2.56 RESULTED AT 2016 ON 08/03/23. tachycardia, chest pain CT DLP: 365.3 mGycm. Automated Exposure Control for Dose Reduction was Utilized. CONTRAST: CTA scan of the thorax is performed with IV Contrast, patient injected with 80 mL of Isovue 300, pulm onary embolism protocol. MIP Images are created on CT scanner and reviewed. FINDINGS: LUNGS: The lungs are grossly clear, there is no concerning parenchymal mass or nodule identified. T here is no pleural effusion or pneumothorax seen. The tracheobronchial tree is patent. Mild bibasila r linear scarring and/or atelectasis. No suspicious focal consolidation. MEDIASTINUM: Less than ideal bolus but there is no CT evidence for likely significant central acute p ulmonary embolism. Some enhancement of the thoracic aorta without aneurysm or dissection. There are n o greater than 1 cm hilar or mediastinal lymph nodes. No cardiomegaly or pericardial effusion is se en. OTHER: Scoliotic curvature of the spine is seen. IMPRESSION: 1. Suboptimal study without CT evidence for clinically significant central acute pulmonary embolism. 2. No suspicious acute pulmonary process.
[2023-08-04 05:47] LABS: Appearance,Urine Clear (Clear); Bilirubin,Urine Negative (Negative); Blood,Urine Negative (Negative); Color,Urine Colorless; Glucose,Urine (UA) Negative (Negative); Ketones,Urine Negative (Negative); Leukocyte Esterase,Urine Negative (Negative); Nitrite,Urine Negative (Negative); PH, Urine 5.5 (5.0-8.0); Protein,Urine Trace (Negative); Urobilinogen,Urine <2.0 mg/dL (<2.0)
[2023-08-04 05:50] LABS: Specific Gravity,Urine >1.050 (1.001-1.035)
[2023-08-04] MEDS: LORazepam 0.5 MG TAB PO PRN (07:22)
[2023-08-04] MEDS: PANTOPRAZOLE 40 MG/10 ML VIAL IV SCH (08:22)
[2023-08-04] MEDS ORDERED: ACETAMINOPHEN TAB 325 MG TAB PO PRN (09:28)
[2023-08-04] MEDS: ASPIRIN 81 MG PO SCH (11:06)
[2023-08-04 11:10] LABS: Urine Alcohol Negative (Negative); Urine Barbiturate Negative (Negative); Urine Cocaine Negative (Negative); Urine Methadone Negative (Negative); Urine Opiates Negative (Negative); Urine Phencyclidine Negative (Negative)
--- NOTE | 2023-08-04 11:58 | P.CRDCN ---
History of Present Illness History of present illness: HISTORY OF PRESENT ILLNESS: This is a 53-year-old male with a past medical history significant for coronary artery disease with previous stenting, ventricular tachycardia, ischemic cardio myopathy, hypertension, hyperlipidemia, and history of alcohol abuse. Patient used to follow in the office with Dr. Wild but has not been seen since December 2017. We have been asked to see the patient in consultation for arrhythmia. Patient examined at the bedside in the emergency room. Patient's family is present. Patient is anxious and agitated at the time of examination and is not fully cooperative with providers at the bedside. His family gives history that he came to the emergency room secondary to shortness of breath and right arm weakness. Patient currently denies any chest pain or pressure. The patient was hospitalized in the beginning of July 2023 secondary to CVA. He was found to have carotid stenosis and was being evaluated to undergo surgical intervention by vascular surgery. However, he left AMA. Patient's blood pressure is stable with a recent reading of 137/87. Bedside telemetry reveals sinus tachycardia with a heart rate around 110. No arrhythmias have been noted. DIAGNOSTICS: - EKG reveals sinus tachycardia with right bundle branch block - Chest xray negative for acute process - Chest CTA: Suboptimal study without CT evidence for clinically significant central acute pulmonary embolism. No suspicious acute pulmonary process. - Laboratory data: WBC 23.7. Hemoglobin 6.4. Platelet count 1048. D-dimer 2.56. Sodium 133. Potassium 4.6. BUN 16. Creatinine 0.77. Troponin 0.044. - Current home cardiac medications include none - Most recent echocardiogram obtained in July 2023 revealed ejection fraction 45 to 50%, apical septal hypokinesis, apical anterior hypokinesis, mild mitral regurgitation, and mild tricuspid regurgitation - Cardiac catheterization history: October 2017 with stenting to the mid LAD - Carotid Doppler performed on 07/05/2023 revealed significant stenosis within the left internal carotid artery with marked elevated velocity and ratio. Narrowing well greater than 70% present. Stenosis of the right internal carotid artery with elevated velocity placing the stenosis between 50 and 69%. - CT angio performed on 07/07/2023 suboptimal study however significant stenosis in proximal left internal carotid artery is confirmed. Degree of stenosis or diameter narrowing is roughly at 70%. No complete occlusion definitely seen. No large vessel occlusion or aneurysm at the level of rincon of Alfonso. - MRI of the brain performed on 07/07/2023 revealed multifocal acute left-sided parenchymal infarcts with multifocal areas of involvement in the left parietal and frontal lobes and punctate areas in the superior posterior left temporal lobe noted. Background mild diffuse cerebral atrophy and mild to minimal chronic small vessel ischemic changes with old bilateral posterior watershed infarcts noted. REVIEW OF SYSTEMS: At the time of my exam: Unable to perform detailed review of systems secondary to patient's anxiety /agitation and lack of cooperation PHYSICAL EXAM: VITAL SIGNS: Reviewed. GENERAL: Well-developed in no acute distress. HEENT: Head is normocephalic. Pupils are equal, round. Sclerae anicteric. Mucous membranes of the mouth are moist. Neck supple. No JVD or thyromegaly LUNGS: Respirations even and unlabored. Lungs essentially clear to auscultation bilaterally. HEART: Tachycardic. Regular rate and rhythm. S1 and S2 heard. ABDOMEN: Soft. Nondistended. Nontender. EXTREMITIES: Normal range of motion. No clubbing or cyanosis. Peripheral pulses intact. No lower extremity edema NEUROLOGIC: Awake and alert. Oriented x 3. Anxious during examination ASSESSMENT: Right arm weakness Recent hospitalization secondary to CVA Acute on chronic anemia, hemoglobin 6.4 on admission Leukocytosis Bilateral carotid stenosis, left greater than 70%, right 50 to 69% Coronary artery disease with previous stenting of the mid LAD, 2018 Sinus tachycardia, physiological, likely secondary to anxiety Ischemic cardiomyopathy History of nonsustained ventricular tachycardia Glomerular nephritis Hypertension Hyperlipidemia History of alcohol abuse Anxiety PLAN: No need to repeat echocardiogram as this was performed in July 2023 Begin aspirin 81 mg daily and atorvastatin 40 mg at night Recommend further evaluation of anemia. Will defer to internal medicine. Patients blood pressures slightly on the lower side today. Re-eval tomorrow to see if patient can tolerate beta vannessa or JOSIAH/ARB Patient will require stress testing prior to receiving cardiac clearance for carotid intervention. However patient is not appropriate for stress testing at this time secondary to his anxiety/agitation. Further recommendations pending patient course Nurse practitioner note has been reviewed by physician. Signing provider agrees with the documented findings, assessment, and plan of care documented by RESIDENTIAL FINISH CARPENTER as a scribe. Past Medical History Past Medical History: Asthma, Myocardial Infarction ([place]) Additional Past Medical History / Comment(s): IBS Last Myocardial Infarction Date:: october 2016 History of Any Multi-Drug Resistant Organisms: None Reported Past Surgical History: Heart Catheterization, Heart Catheterization With Stent Past Anesthesia/Blood Transfusion Reactions: No Reported Reaction Date of Last Stent Placement:: October 2016 Past Psychological History: No Psychological Hx Reported Smoking Status: Current every day smoker, Unknown if ever smoked Past Alcohol Use History: None Reported Past Drug Use History: Methamphetamine - Past Family History Father History Unknown: Yes Mother History Unknown: Yes Medications and Allergies Home Medications Medication Instructions Recorded Confirmed Type No Known Home Medications 08/04/23 08/04/23 History Allergies Allergy/AdvReac Type Severity Reaction Status Date / Time No Known Allergies Allergy Verified 08/04/23 07:09 Physical Exam Vitals: Vital Signs Temp Pulse Resp BP Pulse Ox 08/04/23 11:00 89 18 96 08/04/23 08:29 112 H 22 137/85 96 08/04/23 06:00 100 18 124/72 95 08/04/23 03:00 99.4 F 98 20 111/65 99 08/04/23 00:30 118 H 20 121/67 100 08/03/23 20:11 98.9 F 140 H 16 112/72 100 Intake and Output 08/03/23 08/04/23 08/04/23 22:59 06:59 14:59 Other: Weight 63.503 kg Results 08/03/23 20:16 08/03/23 20:16 Cardiac Enzymes 08/03/23 08/03/23 Range/Units 20:16 20:16 AST 21 (17-59) U/L Troponin I 0.044 H* (0.000-0.034) ng/mL Coagulation 08/03/23 Range/Units 20:16 PT 11.1 (10.0-12.5) sec APTT 28.6 (22.0-30.0) sec CBC 08/03/23 Range/Units 20:16 WBC 23.7 H (3.8-10.6) k/uL RBC 3.31 L (4.30-5.90) m/uL Hgb 6.4 L* (13.0-17.5) gm/dL Hct 23.1 L (39.0-53.0) % Plt Count 1048 H* (150-450) k/uL Comprehensive Metabolic Panel 08/03/23 Range/Units 20:16 Sodium 133 L (137-145) mmol/L Potassium 4.6 (3.5-5.1) mmol/L Chloride 105 (98-107) mmol/L Carbon Dioxide 20 L (22-30) mmol/L BUN 16 (9-20) mg/dL Creatinine 0.77 (0.66-1.25) mg/dL Glucose 135 H (74-99) mg/dL Calcium 8.4 (8.4-10.2) mg/dL AST 21 (17-59) U/L ALT 21 (4-49) U/L Alkaline Phosphatase 119 (38-126) U/L Total Protein 6.4 (6.3-8.2) g/dL Albumin 2.8 L (3.5-5.0) g/dL Current Medications Generic Name Dose Route Start Last Admin Trade Name Freq PRN Reason Stop Dose Admin Acetaminophen 650 mg 08/04/23 09:28 Acetaminophen Tab 325 Mg Tab PO Q6HR PRN Mild Pain or Fever > 100.5 Aspirin 81 mg 08/04/23 09:30 08/04/23 11:06 Aspirin 81 Mg PO Not Given DAILY JENNIFER Atorvastatin Calcium 40 mg 08/04/23 21:00 Atorvastatin 40 Mg Tab PO HS JENNIFER Ferrous Sulfate 325 mg 08/04/23 17:30 Ferrous Sulfate 325 Mg Tab PO BID-W/MEALS JENNIFER Piperacillin Sod/Tazobactam 100 mls @ 25 mls/hr 08/04/23 00:15 08/04/23 08:00 Sod 3.375 gm/ Sodium Chloride IVPB 25 mls/hr Q8HR JENNIFER Administration Protocol Sodium Chloride 1,000 mls @ 75 mls/hr 08/04/23 00:15 08/04/23 01:20 Saline 0.9% IV 75 mls/hr .[id number] JENNIFER Administration Lorazepam 0.5 mg 08/04/23 00:11 08/04/23 07:22 Lorazepam 0.5 Mg Tab PO 0.5 mg Q6HR PRN Administration Anxiety Naloxone HCl 0.2 mg 08/04/23 00:11 Naloxone 0.4 Mg/Ml 1 Ml Vial IV Q2M PRN Opioid Reversal Ondansetron HCl 4 mg 08/04/23 00:11 Ondansetron 4 Mg/2 Ml Vial IVP Q8HR PRN Nausea And Vomiting Pantoprazole Sodium 40 mg 08/04/23 09:00 08/04/23 08:22 Pantoprazole 40 Mg/10 Ml Vial IV 40 mg DAILY JENNIFER Administration Intake and Output 08/03/23 08/04/23 08/04/23 22:59 06:59 14:59 Other: Weight 63.503 kg 08/03/23 20:16 08/03/23 20:16
--- NOTE | 2023-08-04 12:38 | P.GSCN ---
History of Present Illness Consult date: 08/04/23 Reason for Consult: Carotid stenosis Requesting physician: Bety Burnett History of present illness: This is a 52-year-old male who presented to the emergency department with complaints of generalized weakness and right arm pain. Patient was recently hospitalized in the beginning of July for GI bleed diagnosed with infectious colitis, acute on chronic anemia and and stroke workup. He has a history of polysubstance abuse, recently released from correction and was positive for methamphetamine and amphetamines during his last admission. Still has a past medical history of coronary artery disease status post renal infarction and cardiac stenting, chronic anemia, CVA/TIA, carotid stenosis and current every day smoker. During his last admission did have a CT of the brain Reported no acute intracranial process, chronic right parietal lobe injury and new from 2019 left parietal lobe injury which also appears chronic. He also had an MRI that showed multifocal acute left-sided parenchymal infarct with multifocal areas of involvement in the left parietal and frontal lobes and punctuate areas in the superior posterior left temporal lobe noted. CT angiogram head and neck found at least 70% hemodynamically significant stenosis of the left ICA. Vascular surgery was consulted at that time and had seen patient and recommended left carotid endarterectomy during that hospitalization. However patient left AGAINST MEDICAL ADVICE did not follow-up with anyone or report to family until a couple days ago. He states he was scared so he left. In that hospitalization he was also seen for GI bleed had a colonoscopy that was concerning for cobblestone appearing colon. Biopsies came back as diffuse chronic active colitis that can be compatible with irritable bowel disease. Patient was noted to have a hemoglobin of 6.4 on admission. He also had an elevated D-dimer. He had a chest CT angiogram that reported suboptimal study without CT evidence for clinically significant central acute pulmonary embolism. Patient is currently uncooperative with HPI and exam. Laying on his side with a blanket over his head. Current labs WBC 23.7 hemoglobin 6.4 hematocrit 23 platelet count 1048 INR 1.0 sodium 133 potassium 4.6 BUN 16 creatinine 0.7 total bilirubin 0.2 AST 21 ALT 21 alkaline phosphatase 119 troponin 0.044 albumin 2.8. Urine drug screen negative this admission. Review of Systems Deferred as patient is not cooperative with exam. Past Medical History Past Medical History: Asthma, Myocardial Infarction ([place]) Additional Past Medical History / Comment(s): IBS Last Myocardial Infarction Date:: october 2016 History of Any Multi-Drug Resistant Organisms: None Reported Past Surgical History: Heart Catheterization, Heart Catheterization With Stent Past Anesthesia/Blood Transfusion Reactions: No Reported Reaction Date of Last Stent Placement:: October 2016 Past Psychological History: No Psychological Hx Reported Smoking Status: Current every day smoker, Unknown if ever smoked Past Alcohol Use History: None Reported Past Drug Use History: Methamphetamine - Past Family History Father History Unknown: Yes Mother History Unknown: Yes Medications and Allergies Home Medications Medication Instructions Recorded Confirmed Type No Known Home Medications 08/04/23 08/04/23 History Allergies Allergy/AdvReac Type Severity Reaction Status Date / Time No Known Allergies Allergy Verified 08/04/23 07:09 Surgical - Exam Vital Signs Temp Pulse Resp BP Pulse Ox 98.9 F 140 H 16 112/72 100 08/03/23 20:11 08/03/23 20:11 08/03/23 20:11 08/03/23 20:11 08/03/23 20:11 General appearance: The patient is alert, oriented, appears in no acute distress. Patient is disheveled, hiding his head under a blanket. HET: Head is normocephalic and atraumatic. Neck: Supple. Heart: Regular. Lungs: Equal expansion, normal respiratory effort. Abdomen: Soft, nondistended. Extremities: Normal skin color and turgor. Neurological: Patient not cooperative with exam. Results - Labs 08/03/23 20:16 08/03/23 20:16 Abnormal Lab Results - Last 24 Hours (Table) 08/03/23 08/03/23 08/03/23 Range/Units 20:16 20:16 20:16 WBC 23.7 H (3.8-10.6) k/uL RBC 3.31 L (4.30-5.90) m/uL Hgb 6.4 L* (13.0-17.5) gm/dL Hct 23.1 L (39.0-53.0) % MCV 70.0 L D (80.0-100.0) fL MCH 19.5 L (25.0-35.0) pg MCHC 27.8 L (31.0-37.0) g/dL RDW 16.6 H (11.5-15.5) % Plt Count 1048 H* (150-450) k/uL Neutrophils # 19.6 H (1.3-7.7) k/uL Monocytes # 1.6 H (0-1.0) k/uL D-Dimer 2.56 H (<0.60) mg/L FEU Sodium 133 L (137-145) mmol/L Carbon Dioxide 20 L (22-30) mmol/L Glucose 135 H (74-99) mg/dL Troponin I (0.000-0.034) ng/mL Albumin 2.8 L (3.5-5.0) g/dL Ur Specific [place] (1.001-1.035) Urine Protein (Negative) Crossmatch 08/03/23 08/03/23 08/04/23 Range/Units 20:16 23:55 05:00 WBC (3.8-10.6) k/uL RBC (4.30-5.90) m/uL Hgb (13.0-17.5) gm/dL Hct (39.0-53.0) % MCV (80.0-100.0) fL MCH (25.0-35.0) pg MCHC (31.0-37.0) g/dL RDW (11.5-15.5) % Plt Count (150-450) k/uL Neutrophils # (1.3-7.7) k/uL Monocytes # (0-1.0) k/uL D-Dimer (<0.60) mg/L FEU Sodium (137-145) mmol/L Carbon Dioxide (22-30) mmol/L Glucose (74-99) mg/dL Troponin I 0.044 H* (0.000-0.034) ng/mL Albumin (3.5-5.0) g/dL Ur Specific [place] (1.001-1.035) Urine Protein (Negative) Crossmatch See Detail See Detail 08/04/23 Range/Units 05:19 WBC (3.8-10.6) k/uL RBC (4.30-5.90) m/uL Hgb (13.0-17.5) gm/dL Hct (39.0-53.0) % MCV (80.0-100.0) fL MCH (25.0-35.0) pg MCHC (31.0-37.0) g/dL RDW (11.5-15.5) % Plt Count (150-450) k/uL Neutrophils # (1.3-7.7) k/uL Monocytes # (0-1.0) k/uL D-Dimer (<0.60) mg/L FEU Sodium (137-145) mmol/L Carbon Dioxide (22-30) mmol/L Glucose (74-99) mg/dL Troponin I (0.000-0.034) ng/mL Albumin (3.5-5.0) g/dL Ur Specific [place] >1.050 H (1.001-1.035) Urine Protein Trace H (Negative) Crossmatch Diabetes panel 08/03/23 Range/Units 20:16 Sodium 133 L (137-145) mmol/L Potassium 4.6 (3.5-5.1) mmol/L Chloride 105 (98-107) mmol/L Carbon Dioxide 20 L (22-30) mmol/L BUN 16 (9-20) mg/dL Creatinine 0.77 (0.66-1.25) mg/dL Glucose 135 H (74-99) mg/dL Calcium 8.4 (8.4-10.2) mg/dL AST 21 (17-59) U/L ALT 21 (4-49) U/L Alkaline Phosphatase 119 (38-126) U/L Total Protein 6.4 (6.3-8.2) g/dL Albumin 2.8 L (3.5-5.0) g/dL Calcium panel 08/03/23 Range/Units 20:16 Calcium 8.4 (8.4-10.2) mg/dL Albumin 2.8 L (3.5-5.0) g/dL Pituitary panel 08/03/23 Range/Units 20:16 Sodium 133 L (137-145) mmol/L Potassium 4.6 (3.5-5.1) mmol/L Chloride 105 (98-107) mmol/L Carbon Dioxide 20 L (22-30) mmol/L BUN 16 (9-20) mg/dL Creatinine 0.77 (0.66-1.25) mg/dL Glucose 135 H (74-99) mg/dL Calcium 8.4 (8.4-10.2) mg/dL Adrenal panel 08/03/23 Range/Units 20:16 Sodium 133 L (137-145) mmol/L Potassium 4.6 (3.5-5.1) mmol/L Chloride 105 (98-107) mmol/L Carbon Dioxide 20 L (22-30) mmol/L BUN 16 (9-20) mg/dL Creatinine 0.77 (0.66-1.25) mg/dL Glucose 135 H (74-99) mg/dL Calcium 8.4 (8.4-10.2) mg/dL Total Bilirubin 0.2 (0.2-1.3) mg/dL AST 21 (17-59) U/L ALT 21 (4-49) U/L Alkaline Phosphatase 119 (38-126) U/L Total Protein 6.4 (6.3-8.2) g/dL Albumin 2.8 L (3.5-5.0) g/dL Assessment and Plan Assessment: 1. Hemodynamically significant left internal carotid artery stenosis 2. Right internal carotid artery stenosis 50 to 69% 3. History of recent multifocal left-sided parenchymal infarcts with multifocal area involvement of left parietal and frontal lobes as well as hortencia with areas in the superior posterior left temporal lobe 4. Recent colitis wound 5. Acute on chronic anemia 6. History of coronary artery disease 7. Polysubstance abuse 8. Daily smoker Plan: 1. Continue statin, recommend at least low-dose aspirin 2. Will need cardiology clearance once patient stabilizes 3. Will plan for left carotid endarterectomy once patient is stabilized and cleared by cardiology 4. Agree with blood transfusion 5. Rest of medical management per primary medical team and other consultants Thank you for this consultation, we will continue to follow. The impression and plan of care has been dictated as directed. I performed a history and examination of this patient, discussed the same with the dictator. I agree with the dictator's note ,documented as a scribe. Any additional findings or plans will be noted.
[2023-08-04] MEDS: SODIUM FERRIC GLUCONAT-SUCROSE 125 MG in SODIUM CHLORIDE 0.9% 100 ML IVPB SCH (12:48)
--- NOTE | 2023-08-04 13:17 | P.HPIM ---
History of Present Illness H&P Date: 08/04/23 Chief Complaint: Generalized fatigue, malaise * 53-year-old gentleman with past medical history significant for coronary artery disease with PCI in mid LAD, history of ventricular tachycardia secondary to [place], history of IBS, asthma, left internal carotid artery stenosis hemodynamically significant, right internal carotid artery stenosis 50 to 69%, history of multifocal infarct involving parietal and frontal lobes July 2023, history of ulcerative colitis, iron deficiency anemia presents to the emergency department with complaints of generalized weakness, right arm dis comfort. Patient was recently hospitalized and left AGAINST MEDICAL ADVICE on July 10. Workup at that time included MRI brain which showed multifocal infarct sustained with CVA. * At the time of presentation patient was noted to be tachycardic heart rate in 140s, patient remained on room air blood pressure 112 x 72. Blood work obtained showed WBC 20.7 hemoglobin 6.4 platelet count of 1043. Serum chemistry showed sodium 133 potassium 4.6, dioxide 20 BUN 16 creatinine 0.77 lactate of 1.6 initial troponin of 0.044. * Patient was admitted to medical floor with consultations obtained from card iology, hematology oncology as well as infectious disease * During the encounter patient was uncooperative, and continued to use abusive language. Patient was counseled regarding not to use AGAINST MEDICAL ADVICE REVIEW OF SYSTEMS: Fatigue, right arm pain, malaise CONSTITUTIONAL: No fever, no malaise, no fatigue. HEENT: No recent visual problems or hearing problems. Denied any sore throat. CARDIOVASCULAR: No chest pain, orthopnea, PND, no palpitations, no syncope. PULMONARY: No shortness of breath, no cough, no hemoptysis. GASTROINTESTINAL: No diarrhea, no nausea, no vomiting, no abdominal pain. NEUROLOGICAL: No headaches, no weakness, no numbness. HEMATOLOGICAL: Denies any bleeding or petechiae. GENITOURINARY: Denies any burning micturition, frequency, or urgency. MUSCULOSKELETAL/RHEUMATOLOGICAL: Denies any joint pain, swelling, or any muscle pain. ENDOCRINE: Denies any polyuria or polydipsia. PHYSICAL EXAMINATION: GENERAL: The patient is alert and oriented x3, not in any acute distress. Well developed, well nourished. HEENT: Pupils are round and equally reacting to light. EOMI. CARDIOVASCULAR: S1 and S2 present. No murmurs, rubs, or gallops. Tachycardia PULMONARY: Chest is clear to auscultation, no wheezing or crackles. ABDOMEN: Soft, nontender, nondistended, normoactive bowel sounds. No palpable organomegaly. MUSCULOSKELETAL: No joint swelling or deformity. EXTREMITIES: No cyanosis, clubbing, or pedal edema. NEUROLOGICAL: Alert and oriented x 3, motor senses 4 x 5 right upper extremity, motor sensors 5 x 5 right lower extremity, motor strength is 5 x 5 left upper and lower extremity SKIN: No rashes. Past Medical History Past Medical History: Asthma, Myocardial Infarction ([place]) Additional Past Medical History / Comment(s): IBS Last Myocardial Infarction Date:: october 2016 History of Any Multi-Drug Resistant Organisms: None Reported Past Surgical History: Heart Catheterization, Heart Catheterization With Stent Past Anesthesia/Blood Transfusion Reactions: No Reported Reaction Date of Last Stent Placement:: October 2016 Past Psychological History: No Psychological Hx Reported Smoking Status: Current every day smoker, Unknown if ever smoked Past Alcohol Use History: None Reported Past Drug Use History: Methamphetamine - Past Family History Father History Unknown: Yes Mother History Unknown: Yes Medications and Allergies Home Medications Medication Instructions Recorded Confirmed Type No Known Home Medications 08/04/23 08/04/23 History Allergies Allergy/AdvReac Type Severity Reaction Status Date / Time No Known Allergies Allergy Verified 08/04/23 07:09 Physical Exam Vitals: Vital Signs Temp Pulse Resp BP Pulse Ox 08/04/23 08:29 112 H 22 137/85 96 08/04/23 06:00 100 18 124/72 95 08/04/23 03:00 99.4 F 98 20 111/65 99 08/04/23 00:30 118 H 20 121/67 100 08/03/23 20:11 98.9 F 140 H 16 112/72 100 Intake and Output 08/03/23 08/04/23 08/04/23 22:59 06:59 14:59 Other: Weight 63.503 kg Results CBC & Chem 7: 08/03/23 20:16 08/03/23 20:16 Labs: Abnormal Lab Results - Last 24 Hours (Table) 08/03/23 08/03/23 08/03/23 Range/Units 20:16 20:16 20:16 WBC 23.7 H (3.8-10.6) k/uL RBC 3.31 L (4.30-5.90) m/uL Hgb 6.4 L* (13.0-17.5) gm/dL Hct 23.1 L (39.0-53.0) % MCV 70.0 L D (80.0-100.0) fL MCH 19.5 L (25.0-35.0) pg MCHC 27.8 L (31.0-37.0) g/dL RDW 16.6 H (11.5-15.5) % Plt Count 1048 H* (150-450) k/uL Neutrophils # 19.6 H (1.3-7.7) k/uL Monocytes # 1.6 H (0-1.0) k/uL D-Dimer 2.56 H (<0.60) mg/L FEU Sodium 133 L (137-145) mmol/L Carbon Dioxide 20 L (22-30) mmol/L Glucose 135 H (74-99) mg/dL Troponin I (0.000-0.034) ng/mL Albumin 2.8 L (3.5-5.0) g/dL Ur Specific [place] (1.001-1.035) Urine Protein (Negative) Crossmatch 08/03/23 08/03/23 08/04/23 Range/Units 20:16 23:55 05:00 WBC (3.8-10.6) k/uL RBC (4.30-5.90) m/uL Hgb (13.0-17.5) gm/dL Hct (39.0-53.0) % MCV (80.0-100.0) fL MCH (25.0-35.0) pg MCHC (31.0-37.0) g/dL RDW (11.5-15.5) % Plt Count (150-450) k/uL Neutrophils # (1.3-7.7) k/uL Monocytes # (0-1.0) k/uL D-Dimer (<0.60) mg/L FEU Sodium (137-145) mmol/L Carbon Dioxide (22-30) mmol/L Glucose (74-99) mg/dL Troponin I 0.044 H* (0.000-0.034) ng/mL Albumin (3.5-5.0) g/dL Ur Specific [place] (1.001-1.035) Urine Protein (Negative) Crossmatch See Detail See Detail 08/04/23 Range/Units 05:19 WBC (3.8-10.6) k/uL RBC (4.30-5.90) m/uL Hgb (13.0-17.5) gm/dL Hct (39.0-53.0) % MCV (80.0-100.0) fL MCH (25.0-35.0) pg MCHC (31.0-37.0) g/dL RDW (11.5-15.5) % Plt Count (150-450) k/uL Neutrophils # (1.3-7.7) k/uL Monocytes # (0-1.0) k/uL D-Dimer (<0.60) mg/L FEU Sodium (137-145) mmol/L Carbon Dioxide (22-30) mmol/L Glucose (74-99) mg/dL Troponin I (0.000-0.034) ng/mL Albumin (3.5-5.0) g/dL Ur Specific [place] >1.050 H (1.001-1.035) Urine Protein Trace H (Negative) Crossmatch Thrombosis Risk Factor Assmnt - DVT/VTE Prophylaxis DVT/VTE Prophylaxis: Mechanical Prophylaxis ordered Assessment and Plan Assessment: Assessment and plan * Sepsis source unknown * Coronary artery disease with history of [place], elevated troponin likely type II [place] * Iron deficiency anemia, * History of ulcerative colitis * Thrombocytosis * History of CVA July 2023 * Bilateral carotid artery stenosis * In regards to sepsis, lactate within normal limits WBC 20.7 continue fluid resuscitation continue patient on IV Zosyn, blood cultures collected infectious disease consulted urine analysis and chest x-ray negative for infectious process. Patient tested negative for influenza COVID and RSV * In regards to iron deficiency anemia, patient started on iron supplementation, hematology oncology consulted patient given 1 unit of packed RBC * Regards to history of CVA patient had left AGAINST MEDICAL ADVICE July 10, 2023. Continue aspirin and Lipitor * In regards to bilateral carotid artery stenosis vascular surgery consulted, continue aspirin and Lipitor * Patient need physical therapy Occupational Therapy evaluation CODE STATUS is full code
--- NOTE | 2023-08-04 13:43 | P.CONS ---
History of Present Illness - Reason for Consult Consult date: 08/04/23 Blood in stool, KATRINA, possible ulcerative colitis Requesting physician: Pilo Leiva - Chief Complaint Right arm weakness and pain - History of Present Illness This is a 52-year-old male who presented to the emergency department with complaints of generalized weakness and right arm pain. Patient was recently hospitalized in the beginning of July for GI bleed diagnosed with colitis, acute on chronic anemia and and stroke workup. He has a history of polysubstance abuse, recently released from shelter and was positive for methamphetamine and amphetamines during his last admission. Still has a past medical history of coronary artery disease status post renal infarction and cardiac stenting, chronic anemia, CVA/TIA, carotid stenosis and current every day smoker. He had a EGD and colonoscopy done by Dr. Kumar that reported severe colitis of distal colon extending from the rectum to the proximal transverse colon. Stated there was extensive cobblestoning inflamed or changes of the transverse colon. His biopsy came back as diffuse chronic active colitis, negative for dysplasia of the transverse colon left colon chronic active colitis and rectum diffuse chronic active colitis and features compatible with idiopathic inflammatory bowel disease in the appropriate clinical context. The patient is very uncooperative and unwilling to cooperate with questioning and exam. He states he was diagnosed with ulcerative colitis however he could not tell us when. When asked how often he is going to the bathroom and having bowel movements he again would not answer. His daughter is at the bedside and said that he goes about every 30 to 40 minutes. He states that he is never had treatment for his ulcerative colitis and does not follow with anyone. States his stools have been dark. Denies any abdominal pain, nausea or vomiting. He has never been on any medications for ulcerative colitis. He had a chest CT angiogram that reported suboptimal study without CT evidence for clinically significant central acute pulmonary embolism. Patient is currently uncooperative with HPI and exam. Laying on his side with a blanket over his head. Current labs WBC 23.7 hemoglobin 6.4 hematocrit 23 platelet count 1048 INR 1.0 sodium 133 potassium 4.6 BUN 16 creatinine 0.7 total bilirubin 0.2 AST 21 ALT 21 alkaline phosphatase 119 troponin 0.044 albumin 2.8. Urine drug screen negative this admission. Review of Systems REVIEW OF SYSTEMS: CARDIOPULMONARY: No chest pain or shortness of breath. Gastrointestinal: Burning sensation in epigastric region, no associated abdominal pain. No nausea or vomiting. No hematemesis, coffee-ground emesis. No rectal bleeding, or melena. GENITOURINARY: No dysuria or hematuria. MUSCULOSKELETAL: Reports normal range of motion., Joint pain. SKIN: No rashes. No jaundice. ENDOCRINE: No chills, fevers. No excessive weight gain or loss. No polydipsia or polyuria. PSYCHIATRIC: Unremarkable. NEUROLOGY: No change in mental status. Denies dizziness, headache. ENT: Vision unremarkable. CONSTITUTIONAL: No recent weight loss. No fever, chills, night sweats. Past Medical History Past Medical History: Asthma, Myocardial Infarction ([place]) Additional Past Medical History / Comment(s): IBS Last Myocardial Infarction Date:: october 2016 History of Any Multi-Drug Resistant Organisms: None Reported Past Surgical History: Heart Catheterization, Heart Catheterization With Stent Past Anesthesia/Blood Transfusion Reactions: No Reported Reaction Date of Last Stent Placement:: October 2016 Past Psychological History: No Psychological Hx Reported Smoking Status: Current every day smoker, Unknown if ever smoked Past Alcohol Use History: None Reported Past Drug Use History: Methamphetamine - Past Family History Father History Unknown: Yes Mother History Unknown: Yes Medications and Allergies Home Medications Medication Instructions Recorded Confirmed Type No Known Home Medications 08/04/23 08/04/23 History Allergies Allergy/AdvReac Type Severity Reaction Status Date / Time No Known Allergies Allergy Verified 08/04/23 07:09 Physical Exam Vitals: Vital Signs Temp Pulse Resp BP Pulse Ox 08/04/23 12:50 115 H 18 106/68 96 08/04/23 11:00 89 18 96 08/04/23 08:29 112 H 22 137/85 96 08/04/23 06:00 100 18 124/72 95 08/04/23 03:00 99.4 F 98 20 111/65 99 08/04/23 00:30 118 H 20 121/67 100 08/03/23 20:11 98.9 F 140 H 16 112/72 100 Intake and Output 08/03/23 08/04/23 08/04/23 22:59 06:59 14:59 Other: Weight 63.503 kg General appearance: The patient is alert, oriented, appears in no acute distress. Disheveled appearing. HET: Head is normocephalic and atraumatic. Conjunctiva pink. Sclera anicteric. Neck: Supple without lymphadenopathy. Trachea midline. Heart: Regular. Lungs: Equal expansion, normal respiratory effort. Abdomen: Soft, nondistended. No guarding or rigidity. Skin: No rashes. No jaundice. Extremities: Normal skin color and turgor. No pedal edema. Neurological: Alert and oriented x3. Patient is very uncooperative with this exam. Results CBC & Chem 7: 08/03/23 20:16 08/03/23 20:16 Labs: Abnormal Lab Results - Last 24 Hours (Table) 08/03/23 08/03/23 08/03/23 Range/Units 20:16 20:16 20:16 WBC 23.7 H (3.8-10.6) k/uL RBC 3.31 L (4.30-5.90) m/uL Hgb 6.4 L* (13.0-17.5) gm/dL Hct 23.1 L (39.0-53.0) % MCV 70.0 L D (80.0-100.0) fL MCH 19.5 L (25.0-35.0) pg MCHC 27.8 L (31.0-37.0) g/dL RDW 16.6 H (11.5-15.5) % Plt Count 1048 H* (150-450) k/uL Neutrophils # 19.6 H (1.3-7.7) k/uL Monocytes # 1.6 H (0-1.0) k/uL D-Dimer 2.56 H (<0.60) mg/L FEU Sodium 133 L (137-145) mmol/L Carbon Dioxide 20 L (22-30) mmol/L Glucose 135 H (74-99) mg/dL Troponin I (0.000-0.034) ng/mL Albumin 2.8 L (3.5-5.0) g/dL Ur Specific [place] (1.001-1.035) Urine Protein (Negative) Crossmatch 08/03/23 08/03/23 08/04/23 Range/Units 20:16 23:55 05:00 WBC (3.8-10.6) k/uL RBC (4.30-5.90) m/uL Hgb (13.0-17.5) gm/dL Hct (39.0-53.0) % MCV (80.0-100.0) fL MCH (25.0-35.0) pg MCHC (31.0-37.0) g/dL RDW (11.5-15.5) % Plt Count (150-450) k/uL Neutrophils # (1.3-7.7) k/uL Monocytes # (0-1.0) k/uL D-Dimer (<0.60) mg/L FEU Sodium (137-145) mmol/L Carbon Dioxide (22-30) mmol/L Glucose (74-99) mg/dL Troponin I 0.044 H* (0.000-0.034) ng/mL Albumin (3.5-5.0) g/dL Ur Specific [place] (1.001-1.035) Urine Protein (Negative) Crossmatch See Detail See Detail 08/04/23 Range/Units 05:19 WBC (3.8-10.6) k/uL RBC (4.30-5.90) m/uL Hgb (13.0-17.5) gm/dL Hct (39.0-53.0) % MCV (80.0-100.0) fL MCH (25.0-35.0) pg MCHC (31.0-37.0) g/dL RDW (11.5-15.5) % Plt Count (150-450) k/uL Neutrophils # (1.3-7.7) k/uL Monocytes # (0-1.0) k/uL D-Dimer (<0.60) mg/L FEU Sodium (137-145) mmol/L Carbon Dioxide (22-30) mmol/L Glucose (74-99) mg/dL Troponin I (0.000-0.034) ng/mL Albumin (3.5-5.0) g/dL Ur Specific [place] >1.050 H (1.001-1.035) Urine Protein Trace H (Negative) Crossmatch Comments: CT angiogram that reported suboptimal study without CT evidence for clinically significant central acute pulmonary embolism. Patient is currently uncooperative with HPI and exam. Laying on his side with a blanket over his head. Assessment and Plan (1) Ulcerative colitis Narrative/Plan: 53-year-old male with a reported history of ulcerative colitis diagnosed perhaps within the last couple years or more. Patient is very nonforthcoming with his medical history. He is states he is unsure when he was diagnosed he could not tell us he was not cooperative with how often he is having bowel movements he does state that they are dark. He was recently hospitalized in early July for GI bleed which he underwent colonoscopy at that time noted to have cobblestoning and active colitis. Biopsies were consistent with a chronic active colitis with features inflammatory bowel disease. Patient has not been any medications does not follow with anyone. Discussed with patient importance of care and management for her inflammatory bowel disease. Will start patient on Solu-Medrol 20 mg IV every 8 hours as well as balsalazide. No plans for colo noscopy. Current Visit: No Status: Acute Code(s): K51.90 - ULCERATIVE COLITIS, UNSPECIFIED, WITHOUT COMPLICATIONS SNOMED Code(s): 00304359 (2) Anemia Current Visit: Yes Status: Acute Code(s): D64.9 - ANEMIA, UNSPECIFIED SNOMED Code(s): 261110574 (3) Coronary artery disease Current Visit: Yes Status: Acute Code(s): I25.10 - ATHSCL HEART DISEASE OF [place] CORONARY ARTERY W/O ANG PCTRS SNOMED Code(s): 40686242 (4) CVA (cerebral vascular accident) Current Visit: Yes Status: Acute Code(s): I63.9 - CEREBRAL INFARCTION, UNSPECIFIED SNOMED Code(s): 226698923 (5) Polysubstance abuse Current Visit: Yes Status: Acute Code(s): F19.10 - OTHER PSYCHOACTIVE SUBSTANCE ABUSE, UNCOMPLICATED SNOMED Code(s): 824159085 Plan: 1. Continue symptomatic and supportive care 2. Agree with blood transfusion 3. Daily CBC, transfuse for hemoglobin less than 7 4. Solu-Medrol 20 mg IV every 8 hours 5. Start balsalazide 6. Discussed with patient importance of medical compliance, follow-up for inflammatory bowel disease and medication regimen 7. No plans on endoscopic evaluation, patient recently had colonoscopy 07/07/2023 Thank you for this consultation, we will continue to follow. Dr. Vivien Sorto I agree with the dictator's note, documented as a scribe by Kaley RAUSCH.
[2023-08-04 14:36] LABS: Anisocytosis Slight; Hypochromasia Marked; MCH 19.8 pg (25.0-35.0); MCHC 28.6 g/dL (31.0-37.0); MCV 69.5 fL (80.0-100.0); Mean Platelet Volume 7.8; Microcytosis Marked; Platelet Count 825 k/uL (150-450); Poikilocytosis Slight; RBC 2.82 m/uL (4.30-5.90); RDW 16.8 % (11.5-15.5); WBC 15.4 k/uL (3.8-10.6)
[2023-08-04 14:55] LABS: HCT 19.6 % (39.0-53.0); HGB 5.6 gm/dL (13.0-17.5)
[2023-08-04 15:41] LABS: % Iron Saturation 3.35 (15.00-50.00); Ferritin 22.7 ng/mL (22.0-322.0)
[2023-08-04] MEDS: methylPREDNISolone SOD SUCCI 40 MG/ML 1 ML VIAL IV SCH (16:41)
[2023-08-04] MEDS: BALSALAZIDE DISODIUM 750 MG CAPSULE PO SCH (16:42)
[2023-08-04] MEDS: FERROUS SULFATE 325 MG TAB PO SCH (18:28)
[2023-08-04] MEDS: ATORVASTATIN 40 MG TAB PO SCH (21:17)
--- NOTE | 2023-08-04 22:15 | P.CONS ---
History of Present Illness - Reason for Consult Consult date: 08/04/23 Sepsis Requesting physician: Vinnie Rivera - Chief Complaint Right arm pain x few days - History of Present Illness Patient is a 53-year-old male with a past medical history significant for asthma [place] IBS, patient was recently hospitalized for GI bleed and the pat ient has been evaluated and did have a colonoscopy patient also have a CT angiogram of the head and the neck with evidence of 70% hemodynamic significant stenosis of the left ICA vascular surgery evaluated the patient recommended left carotid endarterectomy however the patient left AGAINST MEDICAL ADVICE patient now presenting back to the hospital for evaluation of generalized weakness and right arm pain patient symptom apparently has been getting worse for the last few days has been complaining of mostly generalized pain specially right upper extremity but no significant weakness or numbness patient denies having any headache or URI symptoms no chest pain shortness of breath or cough no nausea vomiting no abdominal pain has been complaining of diarrhea denies any blood or mucus in the stool patient was noticed to be anemic with hemoglobin of 6.4 and did have white count of 23.7 BUN and creatinine has been normal liver enzymes are normal troponins are elevated urine has been negative urine drug screen was negative influenza RSV COVID testing was negative patient did have a chest x-ray no acute cardiopulmonary disease process patient did have a CT angiogram of the chest suboptimal study no suspicious acute pulmonary process patient was empirically started on Zosyn infectious disease was consulted for further management because of his elevated white count and need for antibiotic therapy Review of Systems Positive point and negatives has been mentioned in the HPI, complete review of systems was performed and all other systems are negative Past Medical History Past Medical History: Asthma, Myocardial Infarction ([place]) Additional Past Medical History / Comment(s): IBS Last Myocardial Infarction Date:: october 2016 History of Any Multi-Drug Resistant Organisms: None Reported Past Surgical History: Heart Catheterization, Heart Catheterization With Stent Past Anesthesia/Blood Transfusion Reactions: No Reported Reaction Date of Last Stent Placement:: October 2016 Past Psychological History: No Psychological Hx Reported Smoking Status: Current every day smoker, Unknown if ever smoked Past Alcohol Use History: None Reported Past Drug Use History: Methamphetamine - Past Family History Father History Unknown: Yes Mother History Unknown: Yes Medications and Allergies Home Medications Medication Instructions Recorded Confirmed Type Aspirin 81 mg PO DAILY tab 08/10/23 Rx Atorvastatin [Lipitor] 80 mg PO HS #30 tab 08/10/23 Rx Clopidogrel [Plavix] 75 mg PO DAILY #30 tab 08/10/23 Rx predniSONE 0 mg PO DIRECTED #126 tab 08/10/23 Rx Acetaminophen Tab [Tylenol] 650 mg PO Q6HR PRN tab 08/11/23 Rx Balsalazide Disodium [Colazal] 2,250 mg PO TID 30 Days #180 cap 08/11/23 Rx Ferrous Sulfate [Iron (65 MG 325 mg PO BID-W/MEALS 30 Days #60 08/11/23 Rx Elemental)] tab cefUROXime axetiL [Ceftin] 500 mg PO BID 7 Days #14 tab 08/11/23 Rx metroNIDAZOLE [Flagyl] 500 mg PO TID 7 Days #21 tab 08/11/23 Rx Allergies Allergy/AdvReac Type Severity Reaction Status Date / Time No Known Allergies Allergy Verified 08/04/23 07:09 Physical Exam Vitals: Vital Signs Temp Pulse Resp BP Pulse Ox 08/04/23 11:00 89 18 96 08/04/23 08:29 112 H 22 137/85 96 08/04/23 06:00 100 18 124/72 95 08/04/23 03:00 99.4 F 98 20 111/65 99 08/04/23 00:30 118 H 20 121/67 100 08/03/23 20:11 98.9 F 140 H 16 112/72 100 Intake and Output 08/03/23 08/04/23 08/04/23 22:59 06:59 14:59 Other: Weight 63.503 kg GENERAL DESCRIPTION: Middle-aged male lying in bed, no distress. No tachypnea or accessory muscle of respiration use. HEENT: Shows Pallor , no scleral icterus. Oral mucous membrane is dry. No pharyngeal erythema or thrush NECK: Trachea central, no thyromegaly. LUNGS: Unlabored breathing. Clear to auscultation anteriorly. No wheeze or crack le. HEART: S1, S2, regular rate and rhythm. No loud murmur ABDOMEN: Soft, no tenderness , EXTREMITIES: No edema of feet. SKIN: No rash, no masses palpable. NEUROLOGICAL: The patient is awake, alert, oriented x3, mood and affect normal. Results CBC & Chem 7: 08/10/23 09:09 08/10/23 09:09 Labs: Abnormal Lab Results - Last 24 Hours (Table) 08/03/23 08/03/23 08/03/23 Range/Units 20:16 20:16 20:16 WBC 23.7 H (3.8-10.6) k/uL RBC 3.31 L (4.30-5.90) m/uL Hgb 6.4 L* (13.0-17.5) gm/dL Hct 23.1 L (39.0-53.0) % MCV 70.0 L D (80.0-100.0) fL MCH 19.5 L (25.0-35.0) pg MCHC 27.8 L (31.0-37.0) g/dL RDW 16.6 H (11.5-15.5) % Plt Count 1048 H* (150-450) k/uL Neutrophils # 19.6 H (1.3-7.7) k/uL Monocytes # 1.6 H (0-1.0) k/uL D-Dimer 2.56 H (<0.60) mg/L FEU Sodium 133 L (137-145) mmol/L Carbon Dioxide 20 L (22-30) mmol/L Glucose 135 H (74-99) mg/dL Troponin I (0.000-0.034) ng/mL Albumin 2.8 L (3.5-5.0) g/dL Ur Specific [place] (1.001-1.035) Urine Protein (Negative) Crossmatch 08/03/23 08/03/23 08/04/23 Range/Units 20:16 23:55 05:00 WBC (3.8-10.6) k/uL RBC (4.30-5.90) m/uL Hgb (13.0-17.5) gm/dL Hct (39.0-53.0) % MCV (80.0-100.0) fL MCH (25.0-35.0) pg MCHC (31.0-37.0) g/dL RDW (11.5-15.5) % Plt Count (150-450) k/uL Neutrophils # (1.3-7.7) k/uL Monocytes # (0-1.0) k/uL D-Dimer (<0.60) mg/L FEU Sodium (137-145) mmol/L Carbon Dioxide (22-30) mmol/L Glucose (74-99) mg/dL Troponin I 0.044 H* (0.000-0.034) ng/mL Albumin (3.5-5.0) g/dL Ur Specific [place] (1.001-1.035) Urine Protein (Negative) Crossmatch See Detail See Detail 08/04/23 Range/Units 05:19 WBC (3.8-10.6) k/uL RBC (4.30-5.90) m/uL Hgb (13.0-17.5) gm/dL Hct (39.0-53.0) % MCV (80.0-100.0) fL MCH (25.0-35.0) pg MCHC (31.0-37.0) g/dL RDW (11.5-15.5) % Plt Count (150-450) k/uL Neutrophils # (1.3-7.7) k/uL Monocytes # (0-1.0) k/uL D-Dimer (<0.60) mg/L FEU Sodium (137-145) mmol/L Carbon Dioxide (22-30) mmol/L Glucose (74-99) mg/dL Troponin I (0.000-0.034) ng/mL Albumin (3.5-5.0) g/dL Ur Specific [place] >1.050 H (1.001-1.035) Urine Protein Trace H (Negative) Crossmatch Assessment and Plan (1) Colitis Status: Acute Priority: High Code(s): K52.9 - NONINFECTIVE GASTROENTERITIS AND COLITIS, UNSPECIFIED SNOMED Code(s): 96733105 (2) Diarrhea Status: Acute Code(s): R19.7 - DIARRHEA, UNSPECIFIED SNOMED Code(s): 98546992 (3) Leukocytosis Status: Acute Code(s): D72.829 - ELEVATED WHITE BLOOD CELL COUNT, UNSPECIFIED SNOMED Code(s): 153486468 Plan: 1patient with significant leukocytosis in this patient presenting to the hospital right upper extremity pain patient recently did have a colonoscopy done by general surgery on 07/07/2023 with evidence of extensive colitis from rectum to the mid transverse colon area in this patient who did have a significant vasculopathy questionably ischemic colitis versus infectious colitis 2-we will obtain stool culture and check a stool for C. difficile 3-check inflammatory markers 4-continue with the Zosyn while waiting for the workup to be completed We will follow on clinical condition and cultures to further adjust medication if needed Thank you for this consultation we will follow the patient along with you Dictation was produced using [email or web address] dictation software. please excuse any grammatical, word or spelling errors. Time with Patient: Greater than 30
[2023-08-05 06:51] LABS: Anisocytosis Slight; Basophils % (A) 0 %; Eosinophils % (A) 0 %; HCT 24.6 % (39.0-53.0); Hypochromasia Marked; Lymphocytes # (A) 0.8 k/uL (1.0-4.8); Lymphocytes % (A) 6 %; MCH 20.9 pg (25.0-35.0); MCHC 29.1 g/dL (31.0-37.0); Microcytosis Moderate; Monocytes # (A) 0.4 k/uL (0-1.0); Monocytes % (A) 3 %; Neutrophils # (A) 11.7 k/uL (1.3-7.7); Neutrophils % (A) 90 %; Platelet Count 992 k/uL (150-450); Poikilocytosis Slight; RBC 3.42 m/uL (4.30-5.90); RDW 17.9 % (11.5-15.5); WBC 13.1 k/uL (3.8-10.6)
[2023-08-05 07:04] LABS: African American GFR (CKD) >90 (>60 ml/min/1.73 sqM); Anion Gap 3 mmol/L; Blood Urea Nitrogen 13 mg/dL (9-20); Calcium 8.2 mg/dL (8.4-10.2); Carbon Dioxide 23 mmol/L (22-30); Chloride 107 mmol/L (98-107); Glucose 167 mg/dL (74-99); Magnesium 2.3 mg/dL (1.6-2.3); Non-African American GFR(CKD) >90 (>60 ml/min/1.73 sqM); Potassium 5.2 mmol/L (3.5-5.1); Sodium 133 mmol/L (137-145)
[2023-08-05 07:31] LABS: HGB 7.2 gm/dL (13.0-17.5)
--- NOTE | 2023-08-05 09:38 | P.PN ---
Subjective Progress Note Date: 08/05/23 Principal diagnosis: Ulcerative colitis This is a 52-year-old male who presented to the emergency department with complaints of generalized weakness and right arm pain. Patient was recently hospitalized in the beginning of July for GI bleed diagnosed with colitis, acute on chronic anemia and and stroke workup. He has a history of polysubstance abuse, recently released from assisted and was positive for methamphetamine and amphetamines during his last admission. Still has a past medical history of coronary artery disease status post renal infarction and cardiac stenting, chronic anemia, CVA/TIA, carotid stenosis and current every day smoker. He had a EGD and colonoscopy done by Dr. Kumra that reported severe colitis of distal colon extending from the rectum to the proximal transverse colon. Stated there was extensive cobblestoning inflamed or changes of the transverse colon. His biopsy came back as diffuse chronic active colitis, negative for dysplasia of the transverse colon left colon chronic active colitis and rectum diffuse chronic active colitis and features compatible with idiopathic inflammatory bowel disease in the appropriate clinical context. The patient is very uncooperative and unwilling to cooperate with questioning and exam. He states he was diagnosed with ulcerative colitis however he could not tell us when. When asked how often he is going to the bathroom and having bowel movements he again would not answer. His daughter is at the bedside and said that he goes about every 30 to 40 minutes. He states that he is never had treatment for his ulcerative colitis and does not follow with anyone. States his stools have been dark. Denies any abdominal pain, nausea or vomiting. He has never been on any medications for ulcerative colitis. He had a chest CT angiogram that reported suboptimal study without CT evidence for clinically significant central acute pulmonary embolism. Patient is currently uncooperative with HPI and exam. Laying on his side with a blanket over his head. Current labs WBC 23.7 hemoglobin 6.4 hematocrit 23 platelet count 1048 INR 1.0 sodium 133 potassium 4.6 BUN 16 creatinine 0.7 total bilirubin 0.2 AST 21 ALT 21 alkaline phosphatase 119 troponin 0.044 albumin 2.8. Urine drug screen negative this admission. 08/05/2023 Patient seen and examined today as a follow-up. He was started on IV steroids yesterday and balsalazide. He states diarrhea has improved. He states no blood. Did not denies any abdominal pain, nausea or vomiting. Today's hemoglobin 7.2 platelets 992,000. C. difficile negative. Objective - Vital Signs Vital signs: Vital Signs Temp 98.1 F 08/05/23 02:36 Pulse 99 08/05/23 05:42 Resp 18 08/05/23 05:42 BP 117/69 08/05/23 05:42 Pulse Ox 97 08/05/23 05:42 FiO2 Intake & Output 08/04/23 08/05/23 08/05/23 18:59 06:59 18:59 Intake Total 310 Balance 310 Intake: Blood Product 310 Rc As-1 Unit 310 [id number] - Exam General appearance: The patient is alert, oriented, appears in no acute distress. HET: Head is normocephalic and atraumatic. Conjunctiva pink. Sclera anicteric. Neck: Supple without lymphadenopathy. Abdomen: Soft, nontender, nondistended with bowel sounds. No guarding or ri gidity. Extremities: Normal skin color and turgor. No pedal edema Skin: No rashes, no jaundice Neurological: No focal deficits. Alert and oriented. - Labs CBC & Chem 7: 08/05/23 05:36 08/05/23 05:36 Labs: Abnormal Lab Results - Last 24 Hours (Table) 08/03/23 08/04/23 08/04/23 Range/Units 23:55 05:00 09:24 WBC (3.8-10.6) k/uL RBC (4.30-5.90) m/uL Hgb (13.0-17.5) gm/dL Hct (39.0-53.0) % MCV (80.0-100.0) fL MCH (25.0-35.0) pg MCHC (31.0-37.0) g/dL RDW (11.5-15.5) % Plt Count (150-450) k/uL Neutrophils # (1.3-7.7) k/uL Lymphocytes # (1.0-4.8) k/uL Sodium (137-145) mmol/L Potassium (3.5-5.1) mmol/L Glucose (74-99) mg/dL Calcium (8.4-10.2) mg/dL Iron 8 L (65-175) UG/DL % Saturation 3.35 L (15.00-50.00) Transferrin 171.0 L (204.0-354.0) mg/dL Troponin I (0.000-0.034) ng/mL Crossmatch See Detail See Detail 08/04/23 08/04/23 08/04/23 Range/Units 12:56 14:22 14:22 WBC 15.4 H (3.8-10.6) k/uL RBC 2.82 L (4.30-5.90) m/uL Hgb 5.6 L* (13.0-17.5) gm/dL Hct 19.6 L* (39.0-53.0) % MCV 69.5 L (80.0-100.0) fL MCH 19.8 L (25.0-35.0) pg MCHC 28.6 L (31.0-37.0) g/dL RDW 16.8 H (11.5-15.5) % Plt Count 825 H (150-450) k/uL Neutrophils # (1.3-7.7) k/uL Lymphocytes # (1.0-4.8) k/uL Sodium (137-145) mmol/L Potassium (3.5-5.1) mmol/L Glucose (74-99) mg/dL Calcium (8.4-10.2) mg/dL Iron (65-175) UG/DL % Saturation (15.00-50.00) Transferrin (204.0-354.0) mg/dL Troponin I 0.041 H* 0.036 H* (0.000-0.034) ng/mL Crossmatch 08/05/23 08/05/23 Range/Units 05:36 05:36 WBC 13.1 H (3.8-10.6) k/uL RBC 3.42 L (4.30-5.90) m/uL Hgb 7.2 L D (13.0-17.5) gm/dL Hct 24.6 L (39.0-53.0) % MCV 72.0 L (80.0-100.0) fL MCH 20.9 L (25.0-35.0) pg MCHC 29.1 L (31.0-37.0) g/dL RDW 17.9 H (11.5-15.5) % Plt Count 992 H (150-450) k/uL Neutrophils # 11.7 H (1.3-7.7) k/uL Lymphocytes # 0.8 L (1.0-4.8) k/uL Sodium 133 L (137-145) mmol/L Potassium 5.2 H (3.5-5.1) mmol/L Glucose 167 H (74-99) mg/dL Calcium 8.2 L (8.4-10.2) mg/dL Iron (65-175) UG/DL % Saturation (15.00-50.00) Transferrin (204.0-354.0) mg/dL Troponin I (0.000-0.034) ng/mL Crossmatch Microbiology - Last 24 Hours (Table) 08/03/23 23:55 Blood Culture - Preliminary Blood Assessment and Plan (1) Ulcerative colitis Narrative/Plan: 53-year-old male with a reported history of ulcerative colitis diagnosed perhaps within the last couple years or more. Patient is very nonforthcoming with his medical history. He is states he is unsure when he was diagnosed he could not tell us he was not cooperative with how often he is having bowel movements he does state that they are dark. He was recently hospitalized in early July for GI bleed which he underwent colonoscopy at that time noted to have cobblestoning and active colitis. Biopsies were consistent with a chronic a ctive colitis with features inflammatory bowel disease. Patient has not been any medications does not follow with anyone. Discussed with patient importance of care and management for her inflammatory bowel disease. Will start patient on Solu-Medrol 20 mg IV every 8 hours as well as balsalazide. No plans for colonoscopy. Current Visit: No Status: Acute Code(s): K51.90 - ULCERATIVE COLITIS, UNSPECIFIED, WITHOUT COMPLICATIONS SNOMED Code(s): 14763752 (2) Anemia Current Visit: Yes Status: Acute Code(s): D64.9 - ANEMIA, UNSPECIFIED SNOMED Code(s): 624525548 (3) Coronary artery disease Current Visit: Yes Status: Acute Priority: High Code(s): I25.10 - ATHSCL HEART DISEASE OF [place] CORONARY ARTERY W/O ANG PCTRS SNOMED Code(s): 97492343 (4) CVA (cerebral vascular accident) Current Visit: Yes Status: Acute Code(s): I63.9 - CEREBRAL INFARCTION, UNSPECIFIED SNOMED Code(s): 766902505 (5) Polysubstance abuse Current Visit: Yes Status: Acute Code(s): F19.10 - OTHER PSYCHOACTIVE SUBSTANCE ABUSE, UNCOMPLICATED SNOMED Code(s): 751355850 Plan: 1. Continue symptomatic and supportive care 2. Diet as tolerated 3. Daily CBC, transfuse for hemoglobin less than 7 4. Solu-Medrol 20 mg IV every 8 hours, transition to oral prednisone 40 mg daily in 1 to 2 days. Patient should be discharged on 40 mg daily x 7 days, decrease by 5 mg daily 5. Balsalazide, continue on discharge 6. Discussed with patient importance of medical compliance, follow-up for inflammatory bowel disease and medication regimen 7. No plans on endoscopic evaluation, patient recently had colonoscopy 07/07/2023 Thank you for this consultation, there will be no further gastroenterology coverage. Patient to follow-up as an outpatient with Dr. Sorto in 1 to [address] Vivien Sorto I agree with the dictator's note, documented as a scribe by Kaley Travis.
--- NOTE | 2023-08-05 09:43 | P.PN ---
Subjective Progress Note Date: 08/05/23 Principal diagnosis: Carotid stenosis Patient is seen and examined today as a follow-up for carotid stenosis. He has multiple complex comorbidities With multiple consultants. He is currently being treated for ulcerative colitis was started on IV steroids and balsalazide. Cardiology is following as well as hematology. Once patient is more stable need to consider possible inpatient carotid endarterectomy. He currently denies any bloody bowel movements, diarrhea improving. Denies any focal deficits, has some right upper extremity pain. No shortness of breath or chest pain. Objective - Vital Signs Vital signs: Vital Signs Temp 98.1 F 08/05/23 02:36 Pulse 99 08/05/23 05:42 Resp 18 08/05/23 05:42 BP 117/69 08/05/23 05:42 Pulse Ox 97 08/05/23 05:42 FiO2 Intake & Output 08/04/23 08/05/23 08/05/23 18:59 06:59 18:59 Intake Total 310 Balance 310 Intake: Blood Product 310 Rc As-1 Unit 310 [id number] - Exam General appearance: The patient is alert, oriented, appears in no acute distress. HET: Head is normocephalic and atraumatic. Conjunctiva pink. Sclera anicteric. Neck: Supple without lymphadenopathy. Abdomen: Soft, nontender, nondistended with bowel sounds. No guarding or rigi dity. Extremities: Normal skin color and turgor. No pedal edema Skin: No rashes, no jaundice Neurological: No focal deficits. Alert and oriented. - Labs CBC & Chem 7: 08/05/23 05:36 08/05/23 05:36 Labs: Abnormal Lab Results - Last 24 Hours (Table) 08/03/23 08/04/23 08/04/23 Range/Units 23:55 05:00 09:24 WBC (3.8-10.6) k/uL RBC (4.30-5.90) m/uL Hgb (13.0-17.5) gm/dL Hct (39.0-53.0) % MCV (80.0-100.0) fL MCH (25.0-35.0) pg MCHC (31.0-37.0) g/dL RDW (11.5-15.5) % Plt Count (150-450) k/uL Neutrophils # (1.3-7.7) k/uL Lymphocytes # (1.0-4.8) k/uL Sodium (137-145) mmol/L Potassium (3.5-5.1) mmol/L Glucose (74-99) mg/dL Calcium (8.4-10.2) mg/dL Iron 8 L (65-175) UG/DL % Saturation 3.35 L (15.00-50.00) Transferrin 171.0 L (204.0-354.0) mg/dL Troponin I (0.000-0.034) ng/mL Crossmatch See Detail See Detail 08/04/23 08/04/23 08/04/23 Range/Units 12:56 14:22 14:22 WBC 15.4 H (3.8-10.6) k/uL RBC 2.82 L (4.30-5.90) m/uL Hgb 5.6 L* (13.0-17.5) gm/dL Hct 19.6 L* (39.0-53.0) % MCV 69.5 L (80.0-100.0) fL MCH 19.8 L (25.0-35.0) pg MCHC 28.6 L (31.0-37.0) g/dL RDW 16.8 H (11.5-15.5) % Plt Count 825 H (150-450) k/uL Neutrophils # (1.3-7.7) k/uL Lymphocytes # (1.0-4.8) k/uL Sodium (137-145) mmol/L Potassium (3.5-5.1) mmol/L Glucose (74-99) mg/dL Calcium (8.4-10.2) mg/dL Iron (65-175) UG/DL % Saturation (15.00-50.00) Transferrin (204.0-354.0) mg/dL Troponin I 0.041 H* 0.036 H* (0.000-0.034) ng/mL Crossmatch 08/05/23 08/05/23 Range/Units 05:36 05:36 WBC 13.1 H (3.8-10.6) k/uL RBC 3.42 L (4.30-5.90) m/uL Hgb 7.2 L D (13.0-17.5) gm/dL Hct 24.6 L (39.0-53.0) % MCV 72.0 L (80.0-100.0) fL MCH 20.9 L (25.0-35.0) pg MCHC 29.1 L (31.0-37.0) g/dL RDW 17.9 H (11.5-15.5) % Plt Count 992 H (150-450) k/uL Neutrophils # 11.7 H (1.3-7.7) k/uL Lymphocytes # 0.8 L (1.0-4.8) k/uL Sodium 133 L (137-145) mmol/L Potassium 5.2 H (3.5-5.1) mmol/L Glucose 167 H (74-99) mg/dL Calcium 8.2 L (8.4-10.2) mg/dL Iron (65-175) UG/DL % Saturation (15.00-50.00) Transferrin (204.0-354.0) mg/dL Troponin I (0.000-0.034) ng/mL Crossmatch Microbiology - Last 24 Hours (Table) 08/03/23 23:55 Blood Culture - Preliminary Blood Assessment and Plan Assessment: 1. Hemodynamically significant left internal carotid artery stenosis 2. Right internal carotid artery stenosis 50 to 69% 3. History of recent multifocal left-sided parenchymal infarcts with multifocal area involvement of left parietal and frontal lobes as well as hortencia with areas in the superior posterior left temporal lobe 4. Recent diagnosis of ulcerative colitis 5. Acute on chronic anemia 6. History of coronary artery disease 7. Polysubstance abuse 8. Daily smoker (1) Ulcerative colitis Current Visit: No Status: Acute Code(s): K51.90 - ULCERATIVE COLITIS, UNSPECIFIED, WITHOUT COMPLICATIONS SNOMED Code(s): 70998499 (2) Anemia Current Visit: Yes Status: Acute Code(s): D64.9 - ANEMIA, UNSPECIFIED SNOMED Code(s): 268677672 (3) Coronary artery disease Current Visit: Yes Status: Acute Priority: High Code(s): I25.10 - ATHSCL HEART DISEASE OF [place] CORONARY ARTERY W/O ANG PCTRS SNOMED Code(s): 75508505 (4) CVA (cerebral vascular accident) Current Visit: Yes Status: Acute Code(s): I63.9 - CEREBRAL INFARCTION, UNSPECIFIED SNOMED Code(s): 484637453 (5) Polysubstance abuse Current Visit: Yes Status: Acute Code(s): F19.10 - OTHER PSYCHOACTIVE SUBSTANCE ABUSE, UNCOMPLICATED SNOMED Code(s): 747894271 Plan: 1. Continue statin, recommend at least low-dose aspirin 2. Will need cardiology clearance once patient stabilizes to proceed with left carotid endarterectomy 3. Monitor daily CBC, transfuse for hemoglobin less than 7 4. Recommend smoking cessation 5. Recommend abstinence from drug use 6. Will plan for left carotid endarterectomy once patient is stabilized and cleared by cardiology 7. Rest of medical management per primary medical team and other consultants Thank you for this consultation, we will continue to follow. The impression and plan of care has been dictated as directed. I performed a history and examination of this patient, discussed the same with the dictator. I agree with the dictator's note ,documented as a scribe. Any additional findings or plans will be noted.
--- NOTE | 2023-08-05 09:57 | P.CONS ---
History of Present Illness - Reason for Consult Consult date: 08/04/23 anemia Requesting physician: Bety Burnett - Chief Complaint weakness - History of Present Illness Patient is a 53-year-old male with a past medical history significant for coronary artery disease with previous stenting, ventricular tachycardia, ischemic cardiomyopathy, hypertension, hyperlipidemia, and history of alcohol abuse. We were consulted for evaluation of anemia. We did see the patient on consult for anemia in 2019, at which time he required blood transfusions. The patient was hospitalized in the beginning of July 2023 secondary to CVA. He was found to have carotid stenosis and was being evaluated to undergo surgical intervention by vascular surgery. However, he left AMA and sister states after discharge he "disappeared" and then showed up at her house at which time she brought him back to the ER for further evaluation. History is provided by sister at bedside but he was complaining of SOB and RUE weakness. D dimer was to be elevated at 2.56. CTA chest negative for PE. He is reporting persisting bloody diarrhea. Denies abdominal pain and n/v. He did have an EGD and colonoscopy during last admission with Dr. Kumar that reported severe colitis of distal colon extending from the rectum to the proximal transverse colon. Stated there was extensive cobblestoning inflamed or changes of the transverse colon. His biopsy came back as diffuse chronic active colitis, negative for dysplasia of the transverse colon left colon chronic active colitis and rectum diffuse chronic active colitis and features compatible with idiopathic inflammatory bowel disease. Upon trending labs, EMR shows anemia since 2018. Upon admission CBC showed microcytic hypochromic anemia with Hgb 6.4, MCV 69.5. Platelets 825,000. WBC 15.4. 1 unit PRBCs ordered. Anemia workup on 07/05/23 showed iron saturation 3.1%, ferritin 6.6. Vitamin B12 and folate normal. It does not appear during last admission parenteral iron was given. Review of Systems 10 point ROS is negative except as stated in the HPI Past Medical History Past Medical History: Asthma, Myocardial Infarction (CT) Additional Past Medical History / Comment(s): IBS Last Myocardial Infarction Date:: october 2016 History of Any Multi-Drug Resistant Organisms: None Reported Past Surgical History: Heart Catheterization, Heart Catheterization With Stent Past Anesthesia/Blood Transfusion Reactions: No Reported Reaction Date of Last Stent Placement:: October 2016 Past Psychological History: No Psychological Hx Reported Smoking Status: Current every day smoker, Unknown if ever smoked Past Alcohol Use History: None Reported Past Drug Use History: Methamphetamine - Past Family History Father History Unknown: Yes Mother History Unknown: Yes Medications and Allergies Home Medications Medication Instructions Recorded Confirmed Type No Known Home Medications 08/04/23 08/04/23 History Allergies Allergy/AdvReac Type Severity Reaction Status Date / Time No Known Allergies Allergy Verified 08/04/23 07:09 Physical Exam Vitals: Vital Signs Temp Pulse Resp BP Pulse Ox 08/04/23 11:00 89 18 96 08/04/23 08:29 112 H 22 137/85 96 08/04/23 06:00 100 18 124/72 95 08/04/23 03:00 99.4 F 98 20 111/65 99 08/04/23 00:30 118 H 20 121/67 100 08/03/23 20:11 98.9 F 140 H 16 112/72 100 Intake and Output 08/03/23 08/04/23 08/04/23 22:59 06:59 14:59 Other: Weight 63.503 kg - Constitutional General appearance: disheveled, no acute distress, thin - EENT Eyes: anicteric sclerae, EOMI ENT: hearing grossly normal - Respiratory Respiratory: bilateral: CTA - Cardiovascular tachycardic Rhythm: regular Heart sounds: normal: S1, S2 - Gastrointestinal General gastrointestinal: soft, no tenderness - Integumentary Integumentary: no cyanotic, pale - Psychiatric agitated Psychiatric: A&O x's 3 Results CBC & Chem 7: 08/05/23 05:36 08/05/23 05:36 Labs: Abnormal Lab Results - Last 24 Hours (Table) 08/03/23 08/03/23 08/03/23 Range/Units 20:16 20:16 20:16 WBC 23.7 H (3.8-10.6) k/uL RBC 3.31 L (4.30-5.90) m/uL Hgb 6.4 L* (13.0-17.5) gm/dL Hct 23.1 L (39.0-53.0) % MCV 70.0 L D (80.0-100.0) fL MCH 19.5 L (25.0-35.0) pg MCHC 27.8 L (31.0-37.0) g/dL RDW 16.6 H (11.5-15.5) % Plt Count 1048 H* (150-450) k/uL Neutrophils # 19.6 H (1.3-7.7) k/uL Monocytes # 1.6 H (0-1.0) k/uL D-Dimer 2.56 H (<0.60) mg/L FEU Sodium 133 L (137-145) mmol/L Carbon Dioxide 20 L (22-30) mmol/L Glucose 135 H (74-99) mg/dL Troponin I (0.000-0.034) ng/mL Albumin 2.8 L (3.5-5.0) g/dL Ur Specific [place] (1.001-1.035) Urine Protein (Negative) Crossmatch 08/03/23 08/03/23 08/04/23 Range/Units 20:16 23:55 05:00 WBC (3.8-10.6) k/uL RBC (4.30-5.90) m/uL Hgb (13.0-17.5) gm/dL Hct (39.0-53.0) % MCV (80.0-100.0) fL MCH (25.0-35.0) pg MCHC (31.0-37.0) g/dL RDW (11.5-15.5) % Plt Count (150-450) k/uL Neutrophils # (1.3-7.7) k/uL Monocytes # (0-1.0) k/uL D-Dimer (<0.60) mg/L FEU Sodium (137-145) mmol/L Carbon Dioxide (22-30) mmol/L Glucose (74-99) mg/dL Troponin I 0.044 H* (0.000-0.034) ng/mL Albumin (3.5-5.0) g/dL Ur Specific [place] (1.001-1.035) Urine Protein (Negative) Crossmatch See Detail See Detail 08/04/23 Range/Units 05:19 WBC (3.8-10.6) k/uL RBC (4.30-5.90) m/uL Hgb (13.0-17.5) gm/dL Hct (39.0-53.0) % MCV (80.0-100.0) fL MCH (25.0-35.0) pg MCHC (31.0-37.0) g/dL RDW (11.5-15.5) % Plt Count (150-450) k/uL Neutrophils # (1.3-7.7) k/uL Monocytes # (0-1.0) k/uL D-Dimer (<0.60) mg/L FEU Sodium (137-145) mmol/L Carbon Dioxide (22-30) mmol/L Glucose (74-99) mg/dL Troponin I (0.000-0.034) ng/mL Albumin (3.5-5.0) g/dL Ur Specific [place] >1.050 H (1.001-1.035) Urine Protein Trace H (Negative) Crossmatch Chest x-ray: report reviewed CT scan - chest: report reviewed Assessment and Plan (1) Anemia Current Visit: Yes Status: Acute Priority: High Code(s): D64.9 - ANEMIA, UNSPECIFIED SNOMED Code(s): 292306743 (2) Coronary artery disease Current Visit: Yes Status: Acute Priority: High Code(s): I25.10 - ATHSCL HEART DISEASE OF [place] CORONARY ARTERY W/O ANG PCTRS SNOMED Code(s): 71578503 (3) Colitis Current Visit: Yes Status: Acute Priority: High Code(s): K52.9 - NONINFECT [place] GASTROENTERITIS AND COLITIS, UNSPECIFIED SNOMED Code(s): 05394872 (4) Rectal bleeding Current Visit: Yes Status: Acute Priority: High Code(s): K62.5 - HEMORRHAGE OF ANUS AND RECTUM SNOMED Code(s): 75017455 Plan: Microcytic anemia: -History of the same. Noted in EMR since 2018, having received blood transfusions in the past. Reporting persisting bloody diarrhea -He did have an EGD and colonoscopy during last admission with Dr. Kumar that reported severe colitis of distal colon extending from the rectum to the proximal transverse colon. Stated there was extensive cobblestoning inflamed or changes of the transverse colon. His biopsy came back as diffuse chronic active colitis, negative for dysplasia of the transverse colon left colon chronic active colitis and rectum diffuse chronic active colitis and features compatible with idiopathic inflammatory bowel disease. -Upon admission CBC showed microcytic hypochromic anemia with Hgb 6.4, MCV 69.5. Platelets 825,000. WBC 15.4. 1 unit PRBCs ordered. Anemia workup on 07/05/23 showed iron saturation 3.1%, ferritin 6.6. Vitamin B12 and folate normal. It does not appear during last admission parenteral iron was given -Will repeat anemia workup. Paenteral iron ordered -Will consult GI for further evaluation of IBD noted on colonoscopy -CBC daily. Please transfuse for hgb <7 or if symptomatic Attests: I have seen and examined pt, performed H&P, developed impression and plan of care. Discussed with dictator. Agree with documentation, dictated as a scribe
[2023-08-05] MEDS ORDERED: AMINOPHYLLINE 500 MG/20 ML VIAL IV PRN (10:21)
[2023-08-05] MEDS ORDERED: CAFFEINE CITRATE 60 MG/3 ML VIAL IV PRN (10:21)
[2023-08-05] MEDS ORDERED: REGADENOSON 0.4 MG/5 ML SYRINGE IV PRN (10:21)
[2023-08-05] MEDS: ASPIRIN 81 MG PO SCH (10:48)
[2023-08-05] MEDS: SODIUM ZIRCONIUM CYCLOSILICATE 10 GM PACKET PO ONE (10:48)
--- NOTE | 2023-08-05 12:01 | P.PN ---
Subjective Progress Note Date: 08/05/23 * 53-year-old gentleman with past medical history significant for coronary artery disease with PCI in mid LAD, history of ventricular tachycardia secondary to VT, history of IBS, asthma, left internal carotid artery stenosis hemodynamically significant, right internal carotid artery stenosis 50 to 69%, history of multifocal infarct involving parietal and frontal lobes July 2023, history of ulcerative colitis, iron deficiency anemia presents to the emergency department with complaints of generalized weakness, right arm discomfort. Patient was recently hospitalized and left AGAINST MEDICAL ADVICE on July 10. Workup at that time included MRI brain which showed multifocal infarct sustained with CVA. * At the time of presentation patient was noted to be tachycardic heart rate in 140s, patient remained on room air blood pressure 112 x 72. Blood work obtained showed WBC 20.7 hemoglobin 6.4 platelet count of 1043. Serum chemistry showed sodium 133 potassium 4.6, dioxide 20 BUN 16 creatinine 0.77 lactate of 1.6 initial troponin of 0.044. * Patient was admitted to medical floor with consultations obtained from cardiology, hematology oncology as well as infectious disease * During the encounter patient was uncooperative, and continued to use abusive language. Patient was counseled regarding not to use AGAINST MEDICAL ADVICE * 08/05/2023 : Patient seen and evaluated bedside, patient says he feels better today denies blood in stool. Hemoglobin noted 1. unit PRBC given, hemoglobin given 7.2, potassium 5.2 Lokelma given, stool C. difficile negative. Seen by gastroenterology, infectious disease, cardiology and vascular surgery REVIEW OF SYSTEMS: Fatigue, right arm pain resolved, malaise CONSTITUTIONAL: No fever, no malaise, no fatigue. HEENT: No recent visual problems or hearing problems. Denied any sore throat. CARDIOVASCULAR: No chest pain, orthopnea, PND, no palpitations, no syncope. PULMONARY: No shortness of breath, no cough, no hemoptysis. GASTROINTESTINAL: No diarrhea, no nausea, no vomiting, no abdominal pain. NEUROLOGICAL: No headaches, no weakness, no numbness. HEMATOLOGICAL: Denies any bleeding or petechiae. GENITOURINARY: Denies any burning micturition, frequency, or urgency. MUSCULOSKELETAL/RHEUMATOLOGICAL: Denies any joint pain, swelling, or any muscle pain. ENDOCRINE: Denies any polyuria or polydipsia. PHYSICAL EXAMINATION: GENERAL: The patient is alert and oriented x3, not in any acute distress. Well developed, well nourished. HEENT: Pupils are round and equally reacting to light. EOMI. CARDIOVASCULAR: S1 and S2 present. No murmurs, rubs, or gallops. Tachycardia resolved PULMONARY: Chest is clear to auscultation, no wheezing or crackles. ABDOMEN: Soft, nontender, nondistended, normoactive bowel sounds. No palpable organomegaly. MUSCULOSKELETAL: No joint swelling or deformity. EXTREMITIES: No cyanosis, clubbing, or pedal edema. NEUROLOGICAL: Alert and oriented x 3, motor senses 4 x 5 right upper extremity, motor sensors 5 x 5 right lower extremity, motor strength is 5 x 5 left upper and lower extremity SKIN: No rashes. Objective - Vital Signs Vital signs: Vital Signs Temp 97.9 F 08/05/23 10:54 Pulse 96 08/05/23 10:54 Resp 18 08/05/23 10:54 BP 108/65 08/05/23 10:54 Pulse Ox 98 08/05/23 10:54 FiO2 Intake & Output 08/04/23 08/05/23 08/05/23 18:59 06:59 18:59 Intake Total 310 Balance 310 Intake: Blood Product 310 Rc As-1 Unit 310 [id number] - Labs CBC & Chem 7: 08/05/23 05:36 08/05/23 05:36 Labs: Abnormal Lab Results - Last 24 Hours (Table) 08/04/23 08/04/23 08/04/23 Range/Units 05:00 09:24 12:56 WBC (3.8-10.6) k/uL RBC (4.30-5.90) m/uL Hgb (13.0-17.5) gm/dL Hct (39.0-53.0) % MCV (80.0-100.0) fL MCH (25.0-35.0) pg MCHC (31.0-37.0) g/dL RDW (11.5-15.5) % Plt Count (150-450) k/uL Neutrophils # (1.3-7.7) k/uL Lymphocytes # (1.0-4.8) k/uL Sodium (137-145) mmol/L Potassium (3.5-5.1) mmol/L Glucose (74-99) mg/dL Calcium (8.4-10.2) mg/dL Iron 8 L (65-175) UG/DL % Saturation 3.35 L (15.00-50.00) Transferrin 171.0 L (204.0-354.0) mg/dL Troponin I 0.041 H* (0.000-0.034) ng/mL Crossmatch See Detail Blood Bank Comment Sent to [facility] A Reference Lab Result See BBK REF Reports A 08/04/23 08/04/23 08/05/23 Range/Units 14:22 14:22 05:36 WBC 15.4 H 13.1 H (3.8-10.6) k/uL RBC 2.82 L 3.42 L (4.30-5.90) m/uL Hgb 5.6 L* 7.2 L D (13.0-17.5) gm/dL Hct 19.6 L* 24.6 L (39.0-53.0) % MCV 69.5 L 72.0 L (80.0-100.0) fL MCH 19.8 L 20.9 L (25.0-35.0) pg MCHC 28.6 L 29.1 L (31.0-37.0) g/dL RDW 16.8 H 17.9 H (11.5-15.5) % Plt Count 825 H 992 H (150-450) k/uL Neutrophils # 11.7 H (1.3-7.7) k/uL Lymphocytes # 0.8 L (1.0-4.8) k/uL Sodium (137-145) mmol/L Potassium (3.5-5.1) mmol/L Glucose (74-99) mg/dL Calcium (8.4-10.2) mg/dL Iron (65-175) UG/DL % Saturation (15.00-50.00) Transferrin (204.0-354.0) mg/dL Troponin I 0.036 H* (0.000-0.034) ng/mL Crossmatch Blood Bank Comment Reference Lab Result 08/05/23 Range/Units 05:36 WBC (3.8-10.6) k/uL RBC (4.30-5.90) m/uL Hgb (13.0-17.5) gm/dL Hct (39.0-53.0) % MCV (80.0-100.0) fL MCH (25.0-35.0) pg MCHC (31.0-37.0) g/dL RDW (11.5-15.5) % Plt Count (150-450) k/uL Neutrophils # (1.3-7.7) k/uL Lymphocytes # (1.0-4.8) k/uL Sodium 133 L (137-145) mmol/L Potassium 5.2 H (3.5-5.1) mmol/L Glucose 167 H (74-99) mg/dL Calcium 8.2 L (8.4-10.2) mg/dL Iron (65-175) UG/DL % Saturation (15.00-50.00) Transferrin (204.0-354.0) mg/dL Troponin I (0.000-0.034) ng/mL Crossmatch Blood Bank Comment Reference Lab Result Microbiology - Last 24 Hours (Table) 08/03/23 23:55 Blood Culture - Preliminary Blood Assessment and Plan Assessment: Assessment and plan * Sepsis likely secondary to colitis * Coronary artery disease with history of VT, elevated troponin likely type II VT * Iron deficiency anemia * History of ulcerative colitis * Thrombocytosis * History of CVA July 2023 * Bilateral carotid artery stenosis * In regards to sepsis, lactate within normal limits WBC 20.7 continue fluid resuscitation continue patient on IV Zosyn, blood cultures collected infectious disease consulted urine analysis and chest x-ray negative for infectious process. Patient tested negative for influenza COVID and RSV * In regards to iron deficiency anemia, patient started on iron supplementation, hematology oncology consulted patient given 1 unit of packed RBC, follow-up hemoglobin improved * Regards to history of CVA patient had left AGAINST MEDICAL ADVICE July 10, 2023. Continue aspirin and Lipitor * In regards to bilateral carotid artery stenosis vascular surgery consulted, continue aspirin and Lipitor * Regards to history of ulcerative colitis continue steroids, balsalazide., Continue iron supplementation * Patient need physical therapy Occupational Therapy evaluation * CODE STATUS is full code Time with Patient: Greater than 30
--- NOTE | 2023-08-05 12:56 | P.PN ---
Subjective Progress Note Date: 08/05/23 HISTORY OF PRESENT ILLNESS: This is a 53-year-old male with a past medical history significant for coronary artery disease with previous stenting, ventricular tachycardia, ischemic cardiomyopathy, hypertension, hyperlipidemia, and history of alcohol abuse. Patient used to follow in the office with Dr. Wild but has not been seen since December 2017. We have been asked to see the patient in consultation for arrhythmia. Patient examined at the bedside in the emergency room. Patient's family is present. Patient is anxious and agitated at the time of examination and is not fully cooperative with providers at the bedside. His family gives history that he came to the emergency room secondary to shortness of breath and right arm weakness. Patient currently denies any chest pain or pressure. The patient was hospitalized in the beginning of July 2023 secondary to CVA. He was found to have carotid stenosis and was being evaluated to undergo surgical intervention by vascular surgery. However, he left AMA. Patient's blood pressure is stable with a recent reading of 137/87. Bedside telemetry reveals sinus tachycardia with a heart rate around 110. No arrhythmias have been noted. DIAGNOSTICS: - EKG reveals sinus tachycardia with right bundle branch block - Chest xray negative for acute process - Chest CTA: Suboptimal study without CT evidence for clinically significant central acute pulmonary embolism. No suspicious acute pulmonary process. - Laboratory data: WBC 23.7. Hemoglobin 6.4. Platelet count 1048. D-dimer 2.56. Sodium 133. Potassium 4.6. BUN 16. Creatinine 0.77. Troponin 0.044. - Current home cardiac medications include none - Most recent echocardiogram obtained in July 2023 revealed ejection fraction 45 to 50%, apical septal hypokinesis, apical anterior hypokinesis, mild mitral regurgitation, and mild tricuspid regurgitation - Cardiac catheterization history: October 2017 with stenting to the mid LAD - Carotid Doppler performed on 07/05/2023 revealed significant stenosis within the left internal carotid artery with marked elevated velocity and ratio. N arrowing well greater than 70% present. Stenosis of the right internal carotid artery with elevated velocity placing the stenosis between 50 and 69%. - CT angio performed on 07/07/2023 suboptimal study however significant stenosis in proximal left internal carotid artery is confirmed. Degree of stenosis or diameter narrowing is roughly at 70%. No complete occlusion definitely seen. No large vessel occlusion or aneurysm at the level of little traverse of [place]. - MRI of the brain performed on 07/07/2023 revealed multifocal acute left-sided parenchymal infarcts with multifocal areas of involvement in the left parietal and frontal lobes and punctate areas in the superior posterior left temporal lob e noted. Background mild diffuse cerebral atrophy and mild to minimal chronic small vessel ischemic changes with old bilateral posterior watershed infarcts noted. 2/ Yesterday's hemoglobin is 5.6 and patient underwent transfusion 1 unit of packed RBCs with now hemoglobin of 7.2. Patient states that he is feeling better from yesterday. He denies feeling weakness. He states he is tired. No chest pain or chest pressure. Other lab work today reveals WBC 13, platelet count 992. Sodium 133, potassium 5.2, BUN 13 creatinine 0.76. C. difficile toxin was negative. Blood pressure 108/65, heart rate in the 80s and 90s, afebrile, pulse ox 90% on room air. Vascular surgery is planning for left internal carotid artery endarterectomy PHYSICAL EXAM: VITAL SIGNS: Reviewed. GENERAL: Well-developed in no acute distress. HEENT: Head is normocephalic. Pupils are equal, round. Sclerae anicteric. Mucous membranes of the mouth are moist. Neck supple. No JVD or thyromegaly LUNGS: Respirations even and unlabored. Lungs essentially clear to auscultation bilaterally. HEART: Tachycardic. Regular rate and rhythm. S1 and S2 heard. ABDOMEN: Soft. Nondistended. Nontender. EXTREMITIES: Normal range of motion. No clubbing or cyanosis. Peripheral pulses intact. No lower extremity edema NEUROLOGIC: Awake and alert. Oriented x 3. Anxious during examination ASSESSMENT: Right arm weakness Recent hospitalization secondary to CVA Acute on chronic anemia, hemoglobin 6.4 on admission Leukocytosis Bilateral carotid stenosis, left greater than 70%, right 50 to 69%, vascular surgery planning for left carotid endarterectomy Coronary artery disease with previous stenting of the mid LAD, 2017 Sinus tachycardia, physiological, likely secondary to anxiety Ischemic cardiomyopathy History of nonsustained ventricular tachycardia Glomerular nephritis Hypertension Hyperlipidemia History of alcohol abuse Anxiety PLAN: No need to repeat echocardiogram as this was performed in July 2023 Continue aspirin 81 mg daily and atorvastatin 40 mg at night Recommend further evaluation of anemia. Will defer to internal medicine. Patients blood pressures slightly on the lower side today. Re-eval tomorrow to see if patient can tolerate beta vannessa or JOSIAH/ARB Patient will be scheduled for Lexiscan stress test today. Smoking cessation Further recommendations pending patient course Nurse practitioner note has been reviewed by physician. Signing provider agrees with the documented findings, assessment, and plan of care documented by [employer] BED INSTALLER as a scribe. Objective - Vital Signs Vital signs: Vital Signs Temp 99.8 F H 08/05/23 08:55 Pulse 83 08/05/23 08:55 Resp 18 08/05/23 08:55 BP 118/75 08/05/23 08:55 Pulse Ox 98 08/05/23 08:55 FiO2 Intake & Output 08/04/23 08/05/23 08/05/23 18:59 06:59 18:59 Intake Total 310 Balance 310 Intake: Blood Product 310 Rc As-1 Unit 310 [id number] - Labs CBC & Chem 7: 08/05/23 05:36 08/05/23 05:36 Labs: Abnormal Lab Results - Last 24 Hours (Table) 08/04/23 08/04/23 08/04/23 Range/Units 05:00 09:24 12:56 WBC (3.8-10.6) k/uL RBC (4.30-5.90) m/uL Hgb (13.0-17.5) gm/dL Hct (39.0-53.0) % MCV (80.0-100.0) fL MCH (25.0-35.0) pg MCHC (31.0-37.0) g/dL RDW (11.5-15.5) % Plt Count (150-450) k/uL Neutrophils # (1.3-7.7) k/uL Lymphocytes # (1.0-4.8) k/uL Sodium (137-145) mmol/L Potassium (3.5-5.1) mmol/L Glucose (74-99) mg/dL Calcium (8.4-10.2) mg/dL Iron 8 L (65-175) UG/DL % Saturation 3.35 L (15.00-50.00) Transferrin 171.0 L (204.0-354.0) mg/dL Troponin I 0.041 H* (0.000-0.034) ng/mL Crossmatch See Detail Blood Bank [facility] Result See [facility]K REF Reports A 08/04/23 08/04/23 08/05/23 Range/Units 14:22 14:22 05:36 WBC 15.4 H 13.1 H (3.8-10.6) k/uL RBC 2.82 L 3.42 L (4.30-5.90) m/uL Hgb 5.6 L* 7.2 L D (13.0-17.5) gm/dL Hct 19.6 L* 24.6 L (39.0-53.0) % MCV 69.5 L 72.0 L (80.0-100.0) fL MCH 19.8 L 20.9 L (25.0-35.0) pg MCHC 28.6 L 29.1 L (31.0-37.0) g/dL RDW 16.8 H 17.9 H (11.5-15.5) % Plt Count 825 H 992 H (150-450) k/uL Neutrophils # 11.7 H (1.3-7.7) k/uL Lymphocytes # 0.8 L (1.0-4.8) k/uL Sodium (137-145) mmol/L Potassium (3.5-5.1) mmol/L Glucose (74-99) mg/dL Calcium (8.4-10.2) mg/dL Iron (65-175) UG/DL % Saturation (15.00-50.00) Transferrin (204.0-354.0) mg/dL Troponin I 0.036 H* (0.000-0.034) ng/mL [facility] Blood Bank Comment Reference Lab Result 08/05/23 Range/Units 05:36 WBC (3.8-10.6) k/uL RBC (4.30-5.90) m/uL Hgb (13.0-17.5) gm/dL Hct (39.0-53.0) % MCV (80.0-100.0) fL MCH (25.0-35.0) pg MCHC (31.0-37.0) g/dL RDW (11.5-15.5) % Plt Count (150-450) k/uL Neutrophils # (1.3-7.7) k/uL Lymphocytes # (1.0-4.8) k/uL Sodium 133 L (137-145) mmol/L Potassium 5.2 H (3.5-5.1) mmol/L Glucose 167 H (74-99) mg/dL Calcium 8.2 L (8.4-10.2) mg/dL Iron (65-175) UG/DL % Saturation (15.00-50.00) Transferrin (204.0-354.0) mg/dL Troponin I (0.000-0.034) ng/mL Crossmatch Blood Bank Comment Reference Lab Result Microbiology - Last 24 Hours (Table) 08/03/23 23:55 Blood Culture - Preliminary Blood
--- NOTE | 2023-08-05 13:00 | CA ---
Lexiscan Nuclear Stress Test Report Name: Manjeet Velazquez Exam Date: 08/05/2023 11:58 Exam Location: [place] Stress Ht (in): 69 Wt (lb): 140 BSA: 1.78 Ordering Phys: Angela Sandhu Referring Phys: RUFUS, Technologist: King Zambrano Age: 53 Gender: M : 1970 Procedure CPT: Indications: Reflex order-Stress test ICD-10 Codes: Patient History: Medications: SEE CHART Meds past 24 hrs: Pretest Chest Pain: STRESS TEST Lexiscan Protocol Exercise Duration (min:sec): 01:[address] Depressions (mm): Angina Score: [place] Score: Resting HR (bpm): 83 Peak HR (bpm): 111 Resting BP (mmHg): 118 / 77 Peak BP (mmHg): 140 / 75 MPHR: 167 Target HR: 142 % MPHR: 66 METS: 1.0 Total Dose: Peak Dose: Atropine: Double Product: 08375 BP Response: Stress Termination: INFUSION COMPLETE Stress Symptoms: DIFFICULTY IN BREATHING Stress Summary: ECG ANALYSIS Resting ECG: Sinus rhythm, right bundle branch block, left posterior fascicular block heart rate 96 beats a minute Stress ECG: No significant ST-T wave changes diagnostic for ischemia. There were no arrhythmias or ectopic beats during the stress test CONCLUSIONS Nonischemic ECG response to Lexiscan infusion Normal hemodynamic response to Lexiscan infusion Patient did experience difficulty breathing with Lexiscan infusion which resolved spontaneously Please refer to the nuclear portion of the stress test for complete interpretation of this study Dr Bishop Graham (Electronically Signed) Final Date: 05 August 2023 13:00
--- NOTE | 2023-08-05 13:05 | NM ---
EXAMINATION TYPE: NM stress lexiscan cardiolite DATE OF EXAM: 08/05/2023 COMPARISON: NONE CLINICAL INDICATION: Male, 53 years old with history of preop clearance; TECHNIQUE: After the intravenous administration of 10.3 mCi Tc 99m Sestamibi - Cardiolite resting SP ECT images acquired 45 minutes post injection. The patient received 0.4mg Lexiscan, 25.3 mCi Tc 99m Sestamibi - Stress images obtained [address] injection FINDINGS: Review of stress and rest SPECT images demonstrates large area of fixed perfusion abnormality involvi ng the anterior wall, cardiac apex and apical inferior wall. Probable septal involvement as well. Sma ll areas of stress-induced ischemia difficult to exclude apical septal wall and anterior wall. Correl ate clinically. Global hypokinesia with estimated ejection fraction 40%. IMPRESSION: Large area of fixed perfusion abnormality with smaller areas of stress-induced ischemia suggested.
[2023-08-06 10:21] LABS: Anisocytosis Slight; HCT 24.2 % (39.0-53.0); Hypochromasia Marked; MCH 20.8 pg (25.0-35.0); MCHC 27.9 g/dL (31.0-37.0); MCV 74.6 fL (80.0-100.0); Mean Platelet Volume 6.9; Microcytosis Moderate; Poikilocytosis Slight; RBC 3.24 m/uL (4.30-5.90); RDW 18.1 % (11.5-15.5); WBC 24.7 k/uL (3.8-10.6)
[2023-08-06 10:44] LABS: HGB 6.7 gm/dL (13.0-17.5); Platelet Count 1091 k/uL (150-450)
[2023-08-06 10:54] LABS: African American GFR (CKD) >90 (>60 ml/min/1.73 sqM); Anion Gap 9 mmol/L; Blood Urea Nitrogen 15 mg/dL (9-20); Calcium 8.5 mg/dL (8.4-10.2); Carbon Dioxide 19 mmol/L (22-30); Chloride 107 mmol/L (98-107); Glucose 215 mg/dL (74-99); Non-African American GFR(CKD) >90 (>60 ml/min/1.73 sqM); Potassium 4.6 mmol/L (3.5-5.1); Sodium 135 mmol/L (137-145)
--- NOTE | 2023-08-06 11:39 | P.PN ---
Subjective Progress Note Date: 08/06/23 HISTORY OF PRESENT ILLNESS: This is a 53-year-old male with a past medical history significant for coronary artery disease with previous stenting, ventricular tachycardia, ischemic cardiomyopathy, hypertension, hyperlipidemia, and history of alcohol abuse. Patient used to follow in the office with Dr. Wild but has not been seen since December 2017. We have been asked to see the patient in consultation for arrhythmia. Patient examined at the bedside in the emergency room. Patient's family is present. Patient is anxious and agitated at the time of examination and is not fully cooperative with providers at the bedside. His family gives history that he came to the emergency room secondary to shortness of breath and right arm weakness. Patient currently denies any chest pain or pressure. The patient was hospitalized in the beginning of July 2023 secondary to CVA. He was found to have carotid stenosis and was being evaluated to undergo surgical intervention by vascular surgery. However, he left AMA. Patient's blood pressure is stable with a recent reading of 137/87. Bedside telemetry reveals sinus tachycardia with a heart rate around 110. No arrhythmias have been noted. DIAGNOSTICS: - EKG reveals sinus tachycardia with right bundle branch block - Chest xray negative for acute process - Chest CTA: Suboptimal study without CT evidence for clinically significant central acute pulmonary embolism. No suspicious acute pulmonary process. - Laboratory data: WBC 23.7. Hemoglobin 6.4. Platelet count 1048. D-dimer 2.56. Sodium 133. Potassium 4.6. BUN 16. Creatinine 0.77. Troponin 0.044. - Current home cardiac medications include none - Most recent echocardiogram obtained in July 2023 revealed ejection fraction 45 to 50%, apical septal hypokinesis, apical anterior hypokinesis, mild mitral regurgitation, and mild tricuspid regurgitation - Cardiac catheterization history: October 2017 with stenting to the mid LAD - Carotid Doppler performed on 07/05/2023 revealed significant stenosis within the left internal carotid artery with marked elevated velocity and ratio. N arrowing well greater than 70% present. Stenosis of the right internal carotid artery with elevated velocity placing the stenosis between 50 and 69%. - CT angio performed on 07/07/2023 suboptimal study however significant stenosis in proximal left internal carotid artery is confirmed. Degree of stenosis or diameter narrowing is roughly at 70%. No complete occlusion definitely seen. No large vessel occlusion or aneurysm at the level of [place] of [place]. - MRI of the brain performed on 07/07/2023 revealed multifocal acute left-sided parenchymal infarcts with multifocal areas of involvement in the left parietal and frontal lobes and punctate areas in the superior posterior left temporal lob e noted. Background mild diffuse cerebral atrophy and mild to minimal chronic small vessel ischemic changes with old bilateral posterior watershed infarcts noted. 08/05 Yesterday's hemoglobin is 5.6 and patient underwent transfusion 1 unit of packed RBCs with now hemoglobin of 7.2. Patient states that he is feeling better from yesterday. He denies feeling weakness. He states he is tired. No chest pain or chest pressure. Other lab work today reveals WBC 13, platelet count 992. Sodium 133, potassium 5.2, BUN 13 creatinine 0.76. C. difficile toxin was negative. Blood pressure 108/65, heart rate in the 80s and 90s, afebrile, pulse ox 90% on room air. Vascular surgery is planning for left internal carotid artery endarterectomy 08/06 Yesterday, patient underwent a Lexiscan stress test which came back abnormal. Films were reviewed by Dr. Gandara and the predominantly a fixed area with very minimal reversibility not concerning at this point. Patient was able to meet 4 METS with significant anemia and does not experience anginal symptoms. He states he is normally very active without any angina symptoms. Patient is cleared for surgical intervention relating to risk versus benefit of procedure. Blood pressure 127/66, heart rate 95, pulse ox 99% on room air. Hemoglobin 6.7. Patient states he does have black stools. BUN 15 creatinine 0.68. PHYSICAL EXAM: VITAL SIGNS: Reviewed. GENERAL: Well-developed in no acute distress. HEENT: Head is normocephalic. Pupils are equal, round. Sclerae anicteric. Mucous membranes of the mouth are moist. Neck supple. No JVD or thyromegaly LUNGS: Respirations even and unlabored. Lungs essentially clear to auscultation bilaterally. HEART: Tachycardic. Regular rate and rhythm. S1 and S2 heard. ABDOMEN: Soft. Nondistended. Nontender. EXTREMITIES: Normal range of motion. No clubbing or cyanosis. Peripheral pulses intact. No lower extremity edema NEUROLOGIC: Awake and alert. Oriented x 3. Anxious during examination ASSESSMENT: Right arm weakness Recent hospitalization secondary to CVA Acute on chronic anemia, hemoglobin 6.4 on admission Leukocytosis Bilateral carotid stenosis, left greater than 70%, right 50 to 69%, vascular surgery planning for left carotid endarterectomy Coronary artery disease with previous stenting of the mid LAD, 2018 Sinus tachycardia, physiological, likely secondary to anxiety Ischemic cardiomyopathy History of nonsustained ventricular tachycardia Glomerular nephritis Hypertension Hyperlipidemia History of alcohol abuse Anxiety PLAN: No need to repeat echocardiogram as this was performed in July 2023 Continue aspirin 81 mg daily and atorvastatin 40 mg at night Recommend further evaluation of anemia. Will defer to internal medicine. Smoking cessation Further recommendations pending patient course Nurse practitioner note has been reviewed by physician. Signing provider agrees with the documented findings, assessment, and plan of care documented by BUSINESS DEVELOPMENT EXECUTIVE as a scribe. Objective - Vital Signs Vital signs: Vital Signs Temp 97.8 F 08/06/23 08:00 Pulse 95 08/06/23 08:00 Resp 18 08/06/23 08:00 BP 127/66 08/06/23 08:00 Pulse Ox 99 08/06/23 08:00 FiO2 Intake & Output 08/05/23 08/06/23 08/06/23 18:59 06:59 18:59 Intake Total 850 236 240 Balance 850 236 240 Intake: Intake, IV Titration 700 Amount Piperacillin-Tazobactam 3 100 .375 gm In Sodium Chloride 0.9% 100 ml @ 25 mls/hr IVPB Q8HR [facility] Rx# :[id number] Sodium Chloride 0.9% 1, 500 000 ml @ 75 mls/hr IV . [id number] [facility] Rx#:[id number] Sodium Ferric Gluconat- 100 Sucrose 125 mg In Sodium Chloride 0.9% 100 ml @ 100 mls/hr IVPB DAILY [facility] Rx#:[id number] Oral 150 236 240 Other: Voiding Method Toilet # Voids 1 1 3 - Labs CBC & Chem 7: 08/06/23 09:12 08/06/23 09:12 Labs: Abnormal Lab Results - Last 24 Hours (Table) 08/06/23 08/06/23 Range/Units 09:12 09:12 WBC 24.7 H (3.8-10.6) k/uL RBC 3.24 L (4.30-5.90) m/uL Hgb 6.7 L* (13.0-17.5) gm/dL Hct 24.2 L (39.0-53.0) % MCV 74.6 L (80.0-100.0) fL MCH 20.8 L (25.0-35.0) pg MCHC 27.9 L (31.0-37.0) g/dL RDW 18.1 H (11.5-15.5) % Plt Count 1091 H* (150-450) k/uL Sodium 135 L (137-145) mmol/L Carbon Dioxide 19 L (22-30) mmol/L Glucose 215 H (74-99) mg/dL Microbiology - Last 24 Hours (Table) 08/03/23 23:55 Blood Culture - Preliminary Blood
--- NOTE | 2023-08-06 13:30 | P.PN ---
Subjective Progress Note Date: 08/06/23 * 53-year-old gentleman with past medical history significant for coronary artery disease with PCI in mid LAD, history of ventricular tachycardia secondary to AR, history of IBS, asthma, left internal carotid artery stenosis hemodynamically significant, right internal carotid artery stenosis 50 to 69%, history of multifocal infarct involving parietal and frontal lobes July 2023, history of ulcerative colitis, iron deficiency anemia presents to the emergency department with complaints of generalized weakness, right arm discomfort. Patient was recently hospitalized and left AGAINST MEDICAL ADVICE on July 10. Workup at that time included MRI brain which showed multifocal infarct sustained with CVA. * At the time of presentation patient was noted to be tachycardic heart rate in 140s, patient remained on room air blood pressure 112 x 72. Blood work obtained showed WBC 20.7 hemoglobin 6.4 platelet count of 1043. Serum chemistry showed sodium 133 potassium 4.6, dioxide 20 BUN 16 creatinine 0.77 lactate of 1.6 initial troponin of 0.044. * Patient was admitted to medical floor with consultations obtained from cardiology, hematology oncology as well as infectious disease * During the encounter patient was uncooperative, and continued to use abusive language. Patient was counseled regarding not to use AGAINST MEDICAL ADVICE * 08/05/2023 : Patient seen and evaluated bedside, patient says he feels better today denies blood in stool. Hemoglobin noted 1. unit PRBC given, hemoglobin given 7.2, potassium 5.2 Lokelma given, stool C. difficile negative. Seen by gastroenterology, infectious disease, cardiology and vascular surgery * 08/06/2023: Patient seen and evaluated bedside, patient denies of any acute issues, stress test reviewed, hemoglobin noted to be 6.7 will give 1 unit of packed RBC. Patient denies of any acute issues . REVIEW OF SYSTEMS: Fatigue, right arm pain resolved, malaise CONSTITUTIONAL: No fever, no malaise, no fatigue. HEENT: No recent visual problems or hearing problems. Denied any sore throat. CARDIOVASCULAR: No chest pain, orthopnea, PND, no palpitations, no syncope. PULMONARY: No shortness of breath, no cough, no hemoptysis. GASTROINTESTINAL: No diarrhea, no nausea, no vomiting, no abdominal pain. NEUROLOGICAL: No headaches, no weakness, no numbness. HEMATOLOGICAL: Denies any bleeding or petechiae. GENITOURINARY: Denies any burning micturition, frequency, or urgency. MUSCULOSKELETAL/RHEUMATOLOGICAL: Denies any joint pain, swelling, or any muscle pain. ENDOCRINE: Denies any polyuria or polydipsia. PHYSICAL EXAMINATION: GENERAL: The patient is alert and oriented x3, not in any acute distress. Well developed, well nourished. HEENT: Pupils are round and equally reacting to light. EOMI. CARDIOVASCULAR: S1 and S2 present. No murmurs, rubs, or gallops. Tachycardia resolved PULMONARY: Chest is clear to auscultation, no wheezing or crackles. ABDOMEN: Soft, nontender, nondistended, normoactive bowel sounds. No palpable organomegaly. MUSCULOSKELETAL: No joint swelling or deformity. EXTREMITIES: No cyanosis, clubbing, or pedal edema. NEUROLOGICAL: Alert and oriented x 3, motor senses 4 x 5 right upper extremity, motor sensors 5 x 5 right lower extremity, motor strength is 5 x 5 left upper and lower extremity SKIN: No rashes. Objective - Vital Signs Vital signs: Vital Signs Temp 97.8 F 08/06/23 08:00 Pulse 90 08/06/23 12:00 Resp 18 08/06/23 12:00 BP 126/70 08/06/23 12:00 Pulse Ox 99 08/06/23 12:00 FiO2 Intake & Output 08/05/23 08/06/23 08/06/23 18:59 06:59 18:59 Intake Total 850 236 420 Balance 850 236 420 Intake: Intake, IV Titration 700 Amount Piperacillin-Tazobactam 3 100 .375 gm In Sodium Chloride 0.9% 100 ml @ 25 mls/hr IVPB Q8HR [facility] Rx# :[id number] Sodium Chloride 0.9% 1, 500 000 ml @ 75 mls/hr IV . [id number] [facility] Rx#:[id number] Sodium Ferric Gluconat- 100 Sucrose 125 mg In Sodium Chloride 0.9% 100 ml @ 100 mls/hr IVPB DAILY [facility] Rx#:[id number] Oral 150 236 420 Other: Voiding Method Toilet # Voids 1 1 3 - Labs CBC & Chem 7: 08/06/23 09:12 08/06/23 09:12 Labs: Abnormal Lab Results - Last 24 Hours (Table) 08/06/23 08/06/23 Range/Units 09:12 09:12 WBC 24.7 H (3.8-10.6) k/uL RBC 3.24 L (4.30-5.90) m/uL Hgb 6.7 L* (13.0-17.5) gm/dL Hct 24.2 L (39.0-53.0) % MCV 74.6 L (80.0-100.0) fL MCH 20.8 L (25.0-35.0) pg MCHC 27.9 L (31.0-37.0) g/dL RDW 18.1 H (11.5-15.5) % Plt Count 1091 H* (150-450) k/uL Sodium 135 L (137-145) mmol/L Carbon Dioxide 19 L (22-30) mmol/L Glucose 215 H (74-99) mg/dL Microbiology - Last 24 Hours (Table) 08/03/23 23:55 Blood Culture - Preliminary Blood Assessment and Plan Assessment: Assessment and plan * Sepsis likely secondary to colitis * Coronary artery disease with history of AR, elevated troponin likely type II AR * Iron deficiency anemia * History of ulcerative colitis * Thrombocytosis * History of CVA July 2023 * Bilateral carotid artery stenosis * In regards to sepsis, lactate within normal limits WBC 20.7 continue fluid resuscitation continue patient on IV Zosyn day 3, blood cultures collected, infectious disease consulted, urine analysis and chest x-ray negative for infectious process. Patient tested negative for influenza COVID and RSV * In regards to iron deficiency anemia, patient started on iron supplementation, hematology oncology consulted patient already given 1 unit of packed RBC, additional unit order to/3, follow-up hemoglobin * Regards to history of CVA patient had left AGAINST MEDICAL ADVICE July 10, 2023. Continue aspirin and Lipitor * In regards to bilateral carotid artery stenosis vascular surgery consulted, continue aspirin and Lipitor * Regards to history of ulcerative colitis continue steroids, balsalazide., Continue iron supplementation * Patient need physical therapy Occupational Therapy evaluation * CODE STATUS is full code
--- NOTE | 2023-08-06 23:11 | P.PN ---
Subjective Progress Note Date: 08/05/23 Principal diagnosis: Reason for follow-up is leukocytosis and diarrhea Patient is a 53-year-old male with a past medical history significant for asthma [place] IBS, patient was recently hospitalized for GI bleed and the patient has been evaluated and did have a colonoscopy patient also have a CT angiogram of the head and the neck with evidence of 70% hemodynamic significant stenosis of the left ICA vascular surgery evaluated the patient recommended left carotid endarterectomy however the patient left AGAINST MEDICAL ADVICE patient now presenting back to the hospital for evaluation of generalized weakness and right arm pain, patient also noticed to have elevated white count prompting this infectious disease consultation. On today's evaluation that is 08/05/2023 the patient did have a low-grade fever of 99.8 F this morning patient is currently breathing comfortably on room air right arm pain has improved no chest pain shortness of breath or cough no abdominal pain and diarrhea has slowed down. Patient white count of 13.1 creatinine 0.76 stool for C. difficile was negative stool cultures pending blood cultures so far pending Objective - Vital Signs Vital signs: Vital Signs Temp 97.9 F 08/05/23 10:54 Pulse 96 08/05/23 10:54 Resp 18 08/05/23 10:54 BP 108/65 08/05/23 10:54 Pulse Ox 98 08/05/23 10:54 FiO2 Intake & Output 08/04/23 08/05/23 08/05/23 18:59 06:59 18:59 Intake Total 310 Balance 310 Intake: Blood Product 310 Rc As-1 Unit 310 [id number] - Exam GENERAL DESCRIPTION: Middle-age male lying in bed in no distress RESPIRATORY SYSTEM: Unlabored breathing , decreased breath sounds at bases HEART: S1 S2 regular rate and rhythm , ABDOMEN: Soft , no tenderness EXTREMITIES: No edema feet - Labs CBC & Chem 7: 08/06/23 09:12 08/06/23 09:12 Labs: Abnormal Lab Results - Last 24 Hours (Table) 08/04/23 08/04/23 08/04/23 Range/Units 05:00 09:24 12:56 WBC (3.8-10.6) k/uL RBC (4.30-5.90) m/uL Hgb (13.0-17.5) gm/dL Hct (39.0-53.0) % MCV (80.0-100.0) fL MCH (25.0-35.0) pg MCHC (31.0-37.0) g/dL RDW (11.5-15.5) % Plt Count (150-450) k/uL Neutrophils # (1.3-7.7) k/uL Lymphocytes # (1.0-4.8) k/uL Sodium (137-145) mmol/L Potassium (3.5-5.1) mmol/L Glucose (74-99) mg/dL Calcium (8.4-10.2) mg/dL Iron 8 L (65-175) UG/DL % Saturation 3.35 L (15.00-50.00) Transferrin 171.0 L (204.0-354.0) mg/dL Troponin I 0.041 H* (0.000-0.034) ng/mL Crossmatch See Detail Blood Bank Comment Sent to [facility] A Reference Lab Result See [facility] REF Reports A 08/04/23 08/04/23 08/05/23 Range/Units 14:22 14:22 05:36 WBC 15.4 H 13.1 H (3.8-10.6) k/uL RBC 2.82 L 3.42 L (4.30-5.90) m/uL Hgb 5.6 L* 7.2 L D (13.0-17.5) gm/dL Hct 19.6 L* 24.6 L (39.0-53.0) % MCV 69.5 L 72.0 L (80.0-100.0) fL MCH 19.8 L 20.9 L (25.0-35.0) pg MCHC 28.6 L 29.1 L (31.0-37.0) g/dL RDW 16.8 H 17.9 H (11.5-15.5) % Plt Count 825 H 992 H (150-450) k/uL Neutrophils # 11.7 H (1.3-7.7) k/uL Lymphocytes # 0.8 L (1.0-4.8) k/uL Sodium (137-145) mmol/L Potassium (3.5-5.1) mmol/L Glucose (74-99) mg/dL Calcium (8.4-10.2) mg/dL Iron (65-175) UG/DL % Saturation (15.00-50.00) Transferrin (204.0-354.0) mg/dL Troponin I 0.036 H* (0.000-0.034) ng/mL Crossmatch Blood Bank Comment Reference Lab Result 08/05/23 Range/Units 05:36 WBC (3.8-10.6) k/uL RBC (4.30-5.90) m/uL Hgb (13.0-17.5) gm/dL Hct (39.0-53.0) % MCV (80.0-100.0) fL MCH (25.0-35.0) pg MCHC (31.0-37.0) g/dL RDW (11.5-15.5) % Plt Count (150-450) k/uL Neutrophils # (1.3-7.7) k/uL Lymphocytes # (1.0-4.8) k/uL Sodium 133 L (137-145) mmol/L Potassium 5.2 H (3.5-5.1) mmol/L Glucose 167 H (74-99) mg/dL Calcium 8.2 L (8.4-10.2) mg/dL Iron (65-175) UG/DL % Saturation (15.00-50.00) Transferrin (204.0-354.0) mg/dL Troponin I (0.000-0.034) ng/mL Crossmatch Blood Bank Comment Reference Lab Result Microbiology - Last 24 Hours (Table) 08/03/23 23:55 Blood Culture - Preliminary Blood Assessment and Plan (1) Leukocytosis Current Visit: Yes Status: Acute Code(s): D72.829 - ELEVATED WHITE BLOOD CELL COUNT, UNSPECIFIED SNOMED Code(s): 906515026 (2) Diarrhea Current Visit: Yes Status: Acute Code(s): R19.7 - DIARRHEA, UNSPECIFIED SNOMED Code(s): 61582300 Plan: 1patient with significant leukocytosis in this patient presenting to the hospital right upper extremity pain patient recently did have a colonoscopy done by general surgery on 07/07/2023 with evidence of extensive colitis from rectum to the mid transverse colon area in this patient who did have a significant vasculopathy questionably ischemic colitis versus infectious colitis 2- stool for C. difficile is negative stool cultures currently pending 3-patient white count is trending down and will-continue with the Zosyn while waiting for the workup to be completed Dictation was produced using [employer] dictation software. please excuse any grammatical, word or spelling errors. Time with Patient: Less than 30
--- NOTE | 2023-08-06 23:13 | P.PN ---
Subjective Progress Note Date: 08/06/23 Principal diagnosis: Reason for follow-up is leukocytosis and diarrhea Patient is a 53-year-old male with a past medical history significant for asthma [place] IBS, patient was recently hospitalized for GI bleed and the patient has been evaluated and did have a colonoscopy patient also have a CT angiogram of the head and the neck with evidence of 70% hemodynamic significant stenosis of the left ICA vascular surgery evaluated the patient recommended left carotid endarterectomy however the patient left AGAINST MEDICAL ADVICE patient now presenting back to the hospital for evaluation of generalized weakness and right arm pain, patient also noticed to have elevated white count prompting this infectious disease consultation. On today's evaluation that is 08/06/2023, the patient denies having any fever or any chills, patient is breathing comfortably on room air, the patient denies having any chest pain shortness of breath , Pt did have occasional cough patient denies having any nausea vomiting or abdominal pain and diarrhea has slowed down. .Patient white count slightly up to 24.7 today, creatinine 0.68 stool and blood cultures currently pending Objective - Vital Signs Vital signs: Vital Signs Temp 97.8 F 08/06/23 08:00 Pulse 95 08/06/23 08:00 Resp 18 08/06/23 08:00 BP 127/66 08/06/23 08:00 Pulse Ox 99 08/06/23 08:00 FiO2 Intake & Output 08/05/23 08/06/23 08/06/23 18:59 06:59 18:59 Intake Total 850 236 240 Balance 850 236 240 Intake: Intake, IV Titration 700 Amount Piperacillin-Tazobactam 3 100 .375 gm In Sodium Chloride 0.9% 100 ml @ 25 mls/hr IVPB Q8HR [facility] Rx# :[id number] Sodium Chloride 0.9% 1, 500 000 ml @ 75 mls/hr IV . [id number] [facility] Rx#:[id number] Sodium Ferric Gluconat- 100 Sucrose 125 mg In Sodium Chloride 0.9% 100 ml @ 100 mls/hr IVPB DAILY [facility] Rx#:[id number] Oral 150 236 240 Other: Voiding Method Toilet # Voids 1 1 3 - Exam GENERAL DESCRIPTION: Middle-age male lying in bed in no distress RESPIRATORY SYSTEM: Unlabored breathing , decreased breath sounds at bases HEART: S1 S2 regular rate and rhythm , ABDOMEN: Soft , no tenderness EXTREMITIES: No edema feet - Labs CBC & Chem 7: 08/06/23 09:12 08/06/23 09:12 Labs: Abnormal Lab Results - Last 24 Hours (Table) 08/06/23 08/06/23 Range/Units 09:12 09:12 WBC 24.7 H (3.8-10.6) k/uL RBC 3.24 L (4.30-5.90) m/uL Hgb 6.7 L* (13.0-17.5) gm/dL Hct 24.2 L (39.0-53.0) % MCV 74.6 L (80.0-100.0) fL MCH 20.8 L (25.0-35.0) pg MCHC 27.9 L (31.0-37.0) g/dL RDW 18.1 H (11.5-15.5) % Plt Count 1091 H* (150-450) k/uL Sodium 135 L (137-145) mmol/L Carbon Dioxide 19 L (22-30) mmol/L Glucose 215 H (74-99) mg/dL Microbiology - Last 24 Hours (Table) 08/03/23 23:55 Blood Culture - Preliminary Blood Assessment and Plan (1) Diarrhea Current Visit: Yes Status: Acute Code(s): R19.7 - DIARRHEA, UNSPECIFIED SNOMED Code(s): 89535998 (2) Leukocytosis Current Visit: Yes Status: Acute Code(s): D72.829 - ELEVATED WHITE BLOOD CELL COUNT, UNSPECIFIED SNOMED Code(s): 222813380 Plan: 1patient with significant leukocytosis in this patient presenting to the hospital right upper extremity pain patient recently did have a colonoscopy done by general surgery on 07/07/2023 with evidence of extensive colitis from rectum to the mid transverse colon area in this patient who did have a significant vasculopathy questionably ischemic colitis versus infectious colitis 2- stool for C. difficile is negative stool cultures currently pending 3-patient did have clinical improvement however worsening of the white count to be more likely due to steroids we will continue with Zosyn while waiting for the culture to finalize Dictation was produced using [employer] dictation software. please excuse any grammatical, word or spelling errors. Time with Patient: Less than 30
[2023-08-07 09:06] LABS: Methylmalonic Acid 0.17 umol/L (<0.40)
[2023-08-07 10:53] LABS: Anisocytosis Slight; HCT 27.7 % (39.0-53.0); HGB 7.8 gm/dL (13.0-17.5); Hypochromasia Marked; MCH 21.8 pg (25.0-35.0); MCHC 28.1 g/dL (31.0-37.0); MCV 77.3 fL (80.0-100.0); Mean Platelet Volume 7.2; Microcytosis Slight; Poikilocytosis Marked; RBC 3.59 m/uL (4.30-5.90); RDW 18.9 % (11.5-15.5); WBC 33.9 k/uL (3.8-10.6)
[2023-08-07 10:59] LABS: Platelet Count 1099 k/uL (150-450)
[2023-08-07 11:18] LABS: African American GFR (CKD) >90 (>60 ml/min/1.73 sqM); Anion Gap 4 mmol/L; Blood Urea Nitrogen 19 mg/dL (9-20); Calcium 8.4 mg/dL (8.4-10.2); Carbon Dioxide 22 mmol/L (22-30); Chloride 109 mmol/L (98-107); Glucose 111 mg/dL (74-99); Non-African American GFR(CKD) >90 (>60 ml/min/1.73 sqM); Potassium 5.1 mmol/L (3.5-5.1); Sodium 135 mmol/L (137-145)
--- NOTE | 2023-08-07 13:11 | P.PN ---
Subjective Progress Note Date: 08/07/23 HISTORY OF PRESENT ILLNESS: This is a 53-year-old male with a past medical history significant for coronary artery disease with previous stenting, ventricular tachycardia, ischemic cardiomyopathy, hypertension, hyperlipidemia, and history of alcohol abuse. Patient used to follow in the office with Dr. Wild but has not been seen since December 2017. We have been asked to see the patient in consultation for arrhythmia. Patient examined at the bedside in the emergency room. Patient's family is present. Patient is anxious and agitated at the time of examination and is not fully cooperative with providers at the bedside. His family gives history that he came to the emergency room secondary to shortness of breath and right arm weakness. Patient currently denies any chest pain or pressure. The patient was hospitalized in the beginning of July 2023 secondary to CVA. He was found to have carotid stenosis and was being evaluated to undergo surgical intervention by vascular surgery. However, he left AMA. Patient's blood pressure is stable with a recent reading of 137/87. Bedside telemetry reveals sinus tachycardia with a heart rate around 110. No arrhythmias have been noted. DIAGNOSTICS: - EKG reveals sinus tachycardia with right bundle branch block - Chest xray negative for acute process - Chest CTA: Suboptimal study without CT evidence for clinically significant central acute pulmonary embolism. No suspicious acute pulmonary process. - Laboratory data: WBC 23.7. Hemoglobin 6.4. Platelet count 1048. D-dimer 2.56. Sodium 133. Potassium 4.6. BUN 16. Creatinine 0.77. Troponin 0.044. - Current home cardiac medications include none - Most recent echocardiogram obtained in July 2023 revealed ejection fraction 45 to 50%, apical septal hypokinesis, apical anterior hypokinesis, mild mitral regurgitation, and mild tricuspid regurgitation - Cardiac catheterization history: October 2017 with stenting to the mid LAD - Carotid Doppler performed on 07/05/2023 revealed significant stenosis within the left internal carotid artery with marked elevated velocity and ratio. N arrowing well greater than 70% present. Stenosis of the right internal carotid artery with elevated velocity placing the stenosis between 50 and 69%. - CT angio performed on 07/07/2023 suboptimal study however significant stenosis in proximal left internal carotid artery is confirmed. Degree of stenosis or diameter narrowing is roughly at 70%. No complete occlusion definitely seen. No large vessel occlusion or aneurysm at the level of [place]. - MRI of the brain performed on 07/07/2023 revealed multifocal acute left-sided parenchymal infarcts with multifocal areas of involvement in the left parietal and frontal lobes and punctate areas in the superior posterior left temporal lob e noted. Background mild diffuse cerebral atrophy and mild to minimal chronic small vessel ischemic changes with old bilateral posterior watershed infarcts noted. 08/05 Yesterday's hemoglobin is 5.6 and patient underwent transfusion 1 unit of packed RBCs with now hemoglobin of 7.2. Patient states that he is feeling better from yesterday. He denies feeling weakness. He states he is tired. No chest pain or chest pressure. Other lab work today reveals WBC 13, platelet count 992. Sodium 133, potassium 5.2, BUN 13 creatinine 0.76. C. difficile toxin was negative. Blood pressure 108/65, heart rate in the 80s and 90s, afebrile, pulse ox 90% on room air. Vascular surgery is planning for left internal carotid artery endarterectomy 08/06 Yesterday, patient underwent a Lexiscan stress test which came back abnormal. Films were reviewed by Dr. Gandara and the predominantly a fixed area with very minimal reversibility not concerning at this point. Patient was able to meet 4 METS with significant anemia and does not experience anginal symptoms. He states he is normally very active without any angina symptoms. Patient is cleared for surgical intervention relating to risk versus benefit of procedure. Blood pressure 127/66, heart rate 95, pulse ox 99% on room air. Hemoglobin 6.7. Patient states he does have black stools. BUN 15 creatinine 0.68. / Blood pressure running between 120s to 155 systolic, pulse ox 98% on room air, heart rate is in the 70s and 80s. Hemoglobin is 7.8. BUN 19 creatinine 0.73. PHYSICAL EXAM: VITAL SIGNS: Reviewed. GENERAL: Well-developed in no acute distress. HEENT: Head is normocephalic. Pupils are equal, round. Sclerae anicteric. Mucous membranes of the mouth are moist. Neck supple. No JVD or thyromegaly LUNGS: Respirations even and unlabored. Lungs essentially clear to auscultation bilaterally. HEART: Tachycardic. Regular rate and rhythm. S1 and S2 heard. ABDOMEN: Soft. Nondistended. Nontender. EXTREMITIES: Normal range of motion. No clubbing or cyanosis. Peripheral pulses intact. No lower extremity edema NEUROLOGIC: Awake and alert. Oriented x 3. Anxious during examination ASSESSMENT: Right arm weakness Recent hospitalization secondary to CVA Acute on chronic anemia, hemoglobin 6.4 on admission Sepsis, possible colitis managed by attending Bilateral carotid stenosis, left greater than 70%, right 50 to 69%, vascular zavala rgery planning for left carotid endarterectomy Coronary artery disease with previous stenting of the mid LAD, 2018 Sinus tachycardia, physiological, likely secondary to anxiety Ischemic cardiomyopathy History of nonsustained ventricular tachycardia Glomerular nephritis Hypertension Hyperlipidemia History of alcohol abuse Anxiety PLAN: No need to repeat echocardiogram as this was performed in July 2023 Continue aspirin 81 mg daily and atorvastatin 40 mg at night Recommend further evaluation of anemia. Will defer to internal medicine and oncology. Smoking cessation Lexiscan stress test which came back abnormal. Films were reviewed by Dr. Gandara and the predominantly a fixed area with very minimal reversibility not concerning at this point. Patient was able to meet 4 METS with significant anemia and does not experience anginal symptoms. He states he is normally very active without any angina symptoms. Patient is cleared for surgical intervention as reviewed risk versus benefit of procedure with the patient. At the time of discharge, patient will follow up with Dr. Wild in 1-2 weeks. Cardiology will sign off this case and follow on an as-needed basis. Please reconsult for any new concerns. Nurse practitioner note has been reviewed by physician. Signing provider agrees with the documented findings, assessment, and plan of care documented by GUEST SERVICES ASSISTANT as a scribe. Objective - Vital Signs Vital signs: Vital Signs Temp 97.6 F 08/07/23 04:00 Pulse 77 08/07/23 04:00 Resp 18 08/07/23 08:00 BP 155/73 08/07/23 04:00 Pulse Ox 98 08/07/23 04:00 FiO2 Intake & Output 08/06/23 08/07/23 08/07/23 18:59 06:59 18:59 Intake Total 910 180 Balance 910 180 Intake: Oral 600 180 Blood Product 310 Rc As-1 Unit 310 [id number] Other: Voiding Method Toilet # Voids 2 2 - Labs CBC & Chem 7: 08/07/23 09:57 08/07/23 09:57 Labs: Abnormal Lab Results - Last 24 Hours (Table) 08/04/23 08/07/23 08/07/23 Range/Units 05:00 09:57 09:57 WBC 33.9 H (3.8-10.6) k/uL RBC 3.59 L (4.30-5.90) m/uL Hgb 7.8 L (13.0-17.5) gm/dL Hct 27.7 L (39.0-53.0) % MCV 77.3 L (80.0-100.0) fL MCH 21.8 L (25.0-35.0) pg MCHC 28.1 L (31.0-37.0) g/dL RDW 18.9 H (11.5-15.5) % Plt Count 1099 H* (150-450) k/uL Sodium 135 L (137-145) mmol/L Chloride 109 H (98-107) mmol/L Glucose 111 H (74-99) mg/dL Crossmatch See Detail Blood Bank Comment Sent to [facility] A Reference Lab Result See [facility] REF Reports A Microbiology - Last 24 Hours (Table) 08/04/23 23:07 Stool Culture - Preliminary Stool 08/03/23 23:55 Blood Culture - Preliminary Blood
--- NOTE | 2023-08-07 13:34 | P.PN ---
Subjective Progress Note Date: 08/07/23 * 53-year-old gentleman with past medical history significant for coronary artery disease with PCI in mid LAD, history of ventricular tachycardia secondary to ND, history of IBS, asthma, left internal carotid artery stenosis hemodynamically significant, right internal carotid artery stenosis 50 to 69%, history of multifocal infarct involving parietal and frontal lobes July 2023, history of ulcerative colitis, iron deficiency anemia presents to the emergency department with complaints of generalized weakness, right arm discomfort. Patient was recently hospitalized and left AGAINST MEDICAL ADVICE on July 10. Workup at that time included MRI brain which showed multifocal infarct sustained with CVA. * At the time of presentation patient was noted to be tachycardic heart rate in 140s, patient remained on room air blood pressure 112 x 72. Blood work obtained showed WBC 20.7 hemoglobin 6.4 platelet count of 1043. Serum chemistry showed sodium 133 potassium 4.6, dioxide 20 BUN 16 creatinine 0.77 lactate of 1.6 initial troponin of 0.044. * Patient was admitted to medical floor with consultations obtained from cardiology, hematology oncology as well as infectious disease * During the encounter patient was uncooperative, and continued to use abusive language. Patient was counseled regarding not to use AGAINST MEDICAL ADVICE * 08/05/2023 : Patient seen and evaluated bedside, patient says he feels better today denies blood in stool. Hemoglobin noted 1. unit PRBC given, hemoglobin given 7.2, potassium 5.2 Lokelma given, stool C. difficile negative. Seen by gastroenterology, infectious disease, cardiology and vascular surgery * 08/06/2023: Patient seen and evaluated bedside, patient denies of any acute issues, stress test reviewed, hemoglobin noted to be 6.7 will give 1 unit of packed RBC. Patient denies of any acute issues . * 08/07/2023: patient seen and evaluated at bedside, stress test reviewed, no intervention per Cardiology. Okay to proceed with vascular intervention per Cardiology recommendations follow-up H&H ordered. Patient received 1 unit of packed RBC follow-up hemoglobin has improved WBC count trending up noted to be 33.9 from 24.7. Platelet count 1099. Sodium 135 renal function within normal limits REVIEW OF SYSTEMS: Fatigue, right arm pain resolved, malaise CONSTITUTIONAL: No fever, no malaise, no fatigue. HEENT: No recent visual problems or hearing problems. Denied any sore throat. CARDIOVASCULAR: No chest pain, orthopnea, PND, no palpitations, no syncope. PULMONARY: No shortness of breath, no cough, no hemoptysis. GASTROINTESTINAL: No diarrhea, no nausea, no vomiting, no abdominal pain. NEUROLOGICAL: No headaches, no weakness, no numbness. HEMATOLOGICAL: Denies any bleeding or petechiae. GENITOURINARY: Denies any burning micturition, frequency, or urgency. MUSCULOSKELETAL/RHEUMATOLOGICAL: Denies any joint pain, swelling, or any muscle pain. ENDOCRINE: Denies any polyuria or polydipsia. PHYSICAL EXAMINATION: GENERAL: The patient is alert and oriented x3, not in any acute distress. Well developed, well nourished. HEENT: Pupils are round and equally reacting to light. EOMI. CARDIOVASCULAR: S1 and S2 present. No murmurs, rubs, or gallops. Tachycardia resolved PULMONARY: Chest is clear to auscultation, no wheezing or crackles. ABDOMEN: Soft, nontender, nondistended, normoactive bowel sounds. No palpable organomegaly. MUSCULOSKELETAL: No joint swelling or deformity. EXTREMITIES: No cyanosis, clubbing, or pedal edema. NEUROLOGICAL: Alert and oriented x 3, motor senses 4 x 5 right upper extremity, motor sensors 5 x 5 right lower extremity, motor strength is 5 x 5 left upper and lower extremity SKIN: No rashes. Objective - Vital Signs Vital signs: Vital Signs Temp 98.0 F 08/06/23 16:14 Pulse 75 08/06/23 18:47 Resp 18 08/06/23 18:47 BP 142/77 08/06/23 18:47 Pulse Ox 98 08/06/23 16:14 FiO2 Intake & Output 08/06/23 08/06/23 08/07/23 06:59 18:59 06:59 Intake Total 236 910 Balance 236 910 Intake: Oral 236 600 Blood Product 310 Rc As-1 Unit 310 [id number] Other: Voiding Method Toilet # Voids 1 2 - Labs CBC & Chem 7: 08/07/23 09:57 08/07/23 09:57 Labs: Abnormal Lab Results - Last 24 Hours (Table) 08/04/23 08/06/23 08/06/23 Range/Units 05:00 09:12 09:12 WBC 24.7 H (3.8-10.6) k/uL RBC 3.24 L (4.30-5.90) m/uL Hgb 6.7 L* (13.0-17.5) gm/dL Hct 24.2 L (39.0-53.0) % MCV 74.6 L (80.0-100.0) fL MCH 20.8 L (25.0-35.0) pg MCHC 27.9 L (31.0-37.0) g/dL RDW 18.1 H (11.5-15.5) % Plt Count 1091 H* (150-450) k/uL Sodium 135 L (137-145) mmol/L Carbon Dioxide 19 L (22-30) mmol/L Glucose 215 H (74-99) mg/dL Crossmatch See Detail Blood Bank Comment Sent to [facility] A Reference Lab Result See [facility] REF Reports A Microbiology - Last 24 Hours (Table) 08/03/23 23:55 Blood Culture - Preliminary Blood Assessment and Plan Assessment: Assessment and plan * Sepsis likely secondary to colitis * Coronary artery disease with history of ND, elevated troponin likely type II ND * Iron deficiency anemia * History of ulcerative colitis * Thrombocytosis * History of CVA July 2023 * Bilateral carotid artery stenosis * In regards to sepsis, lactate within normal limits WBC 20.7 continue fluid resuscitation continue patient on IV Zosyn day 5 * blood cultures collected, infectious disease consulted, urine analysis and chest x-ray negative for infectious process. Patient tested negative for influenza COVID and RSV * In regards to iron deficiency anemia, patient started on iron supplementation, hematology oncology consulted patient already given 1 unit of packed RBC, additional unit given 2/3, follow-up hemoglobin 7.8 * Regards to history of CVA patient had left AGAINST MEDICAL ADVICE July 10, 2023. Continue aspirin and Lipitor * In regards to bilateral carotid artery stenosis vascular surgery consulted, continue aspirin and Lipitor * Regards to history of ulcerative colitis continue steroids, balsalazide., Continue iron supplementation * Patient need physical therapy Occupational Therapy evaluation * CODE STATUS is full code Time with Patient: Greater than 30
--- NOTE | 2023-08-07 15:50 | P.PN ---
Subjective Progress Note Date: 08/07/23 Principal diagnosis: Reason for follow-up is leukocytosis and diarrhea Patient is a 53-year-old male with a past medical history significant for asthma [place] IBS, patient was recently hospitalized for GI bleed and the patient has been evaluated and did have a colonoscopy patient also have a CT angiogram of the head and the neck with evidence of 70% hemodynamic significant stenosis of the left ICA vascular surgery evaluated the patient recommended left carotid endarterectomy however the patient left AGAINST MEDICAL ADVICE patient now presenting back to the hospital for evaluation of generalized weakness and right arm pain, patient also noticed to have elevated white count prompting this infectious disease consultation. On today's evaluation that is 08/07/2023, the patient remains to be afebrile, patient is breathing comfortably on room air and no need for supplemental oxygen, the patient denies chest pain shortness of breath or cough, patient denies abdominal pain and no nausea vomiting and the patient diarrhea has slowed down and stools are forming up. Patient white count is 33.9, creatinine 0.73 stool culture currently pending blood culture so far pending Objective - Vital Signs Vital signs: Vital Signs Temp 97.6 F 08/07/23 04:00 Pulse 77 08/07/23 04:00 Resp 18 08/07/23 08:00 BP 155/73 08/07/23 04:00 Pulse Ox 98 08/07/23 04:00 FiO2 Intake & Output 08/06/23 08/07/23 08/07/23 18:59 06:59 18:59 Intake Total 910 417 Balance 910 417 Intake: Oral 600 417 Blood Product 310 Rc As-1 Unit 310 [id number] Other: Voiding Method Toilet # Voids 2 1 - Exam GENERAL DESCRIPTION: Middle-age male lying in bed in no distress RESPIRATORY SYSTEM: Unlabored breathing , decreased breath sounds at bases HEART: S1 S2 regular rate and rhythm , ABDOMEN: Soft , no tenderness EXTREMITIES: No edema feet - Labs CBC & Chem 7: 08/07/23 09:57 08/07/23 09:57 Labs: Abnormal Lab Results - Last 24 Hours (Table) 08/04/23 08/07/23 08/07/23 Range/Units 05:00 09:57 09:57 WBC 33.9 H (3.8-10.6) k/uL RBC 3.59 L (4.30-5.90) m/uL Hgb 7.8 L (13.0-17.5) gm/dL Hct 27.7 L (39.0-53.0) % MCV 77.3 L (80.0-100.0) fL MCH 21.8 L (25.0-35.0) pg MCHC 28.1 L (31.0-37.0) g/dL RDW 18.9 H (11.5-15.5) % Plt Count 1099 H* (150-450) k/uL Sodium 135 L (137-145) mmol/L Chloride 109 H (98-107) mmol/L Glucose 111 H (74-99) mg/dL Crossmatch See Detail Blood Bank Comment Sent to [facility] A Reference Lab Result See [facility] REF Reports A Microbiology - Last 24 Hours (Table) 08/04/23 23:07 Stool Culture - Preliminary Stool 08/03/23 23:55 Blood Culture - Preliminary Blood Assessment and Plan (1) Diarrhea Current Visit: Yes Status: Acute Code(s): R19.7 - DIARRHEA, UNSPECIFIED SNOMED Code(s): 90119747 (2) Leukocytosis Current Visit: Yes Status: Acute Code(s): D72.829 - ELEVATED WHITE BLOOD CELL COUNT, UNSPECIFIED SNOMED Code(s): 729638839 Plan: 1patient with significant leukocytosis in this patient presenting to the hospital right upper extremity pain patient recently did have a colonoscopy done by general surgery on 07/07/2023 with evidence of extensive colitis from rectum to the mid transverse colon area in this patient who did have a significant vasculopathy questionably ischemic colitis versus infectious colitis 2- stool for C. difficile is negative stool cultures currently pending 3-patient did have clinical improvement however worsening of the white count to be more likely due to steroids and will be monitored closely continue Kimberly question concern answered Dictation was produced using [employer] dictation software. please excuse any grammatical, word or spelling errors. Time with Patient: Less than 30
[2023-08-08 08:49] LABS: Anisocytosis Moderate; HCT 29.6 % (39.0-53.0); HGB 8.9 gm/dL (13.0-17.5); Hypochromasia Marked; MCH 23.4 pg (25.0-35.0); MCHC 30.1 g/dL (31.0-37.0); MCV 77.7 fL (80.0-100.0); Mean Platelet Volume 6.8; Microcytosis Slight; Poikilocytosis Moderate; RBC 3.81 m/uL (4.30-5.90); WBC 33.6 k/uL (3.8-10.6)
--- NOTE | 2023-08-08 08:52 | P.PN ---
Subjective Progress Note Date: 08/08/23 Principal diagnosis: Carotid stenosis Patient is seen and examined today as a follow-up. He underwent stress test last week Tuesday which was reported as abnormal however cardiology states that it was predominantly a fixed area with very minimal reversibility not concerning at this point. They also reported patient is cleared for surgical intervention related to risk versus benefit of procedure. However patient continues to still be anemic and required another blood transfusion on Tuesday for hemoglobin of 6.7. His repeat hemoglobin yesterday was 7.8. Today's labs currently pending. He denies any focal deficits. States he has small amount of bleeding from rectum when he wipes otherwise improvement and GI bleed and diarrhea. Objective - Vital Signs Vital signs: Vital Signs Temp 97.8 F 08/07/23 20:00 Pulse 80 08/08/23 04:15 Resp 16 08/08/23 04:15 BP 155/85 08/08/23 04:15 Pulse Ox 100 08/08/23 04:15 FiO2 Intake & Output 08/07/23 08/08/23 08/08/23 18:59 06:59 18:59 Intake Total 654 180 Balance 654 180 Intake: Oral 654 180 Other: Voiding Method Toilet # Voids 1 3 - Exam General appearance: The patient is alert, oriented, appears in no acute distress. HET: Head is normocephalic and atraumatic. Conjunctiva pink. Sclera anicteric. Pupils equal round and reactive. Neck: Supple without lymphadenopathy. Abdomen: Soft, nontender, nondistended with bowel sounds. No guarding or rigid ity. Extremities: Normal skin color and turgor. No pedal edema Skin: No rashes, no jaundice Neurological: No focal deficits. Alert and oriented. - Labs CBC & Chem 7: 08/07/23 09:57 08/07/23 09:57 Labs: Abnormal Lab Results - Last 24 Hours (Table) 08/07/23 08/07/23 Range/Units 09:57 09:57 WBC 33.9 H (3.8-10.6) k/uL RBC 3.59 L (4.30-5.90) m/uL Hgb 7.8 L (13.0-17.5) gm/dL Hct 27.7 L (39.0-53.0) % MCV 77.3 L (80.0-100.0) fL MCH 21.8 L (25.0-35.0) pg MCHC 28.1 L (31.0-37.0) g/dL RDW 18.9 H (11.5-15.5) % Plt Count 1099 H* (150-450) k/uL Sodium 135 L (137-145) mmol/L Chloride 109 H (98-107) mmol/L Glucose 111 H (74-99) mg/dL Microbiology - Last 24 Hours (Table) 08/04/23 23:07 Stool Culture - Preliminary Stool 08/03/23 23:55 Blood Culture - Preliminary Blood Assessment and Plan Assessment: 1. Hemodynamically significant left internal carotid artery stenosis 2. Right internal carotid artery stenosis 50 to 69% 3. History of recent multifocal left-sided parenchymal infarcts with multifocal area involvement of left parietal and frontal lobes as well as hortencia with areas in the superior posterior left temporal lobe 4. Recent diagnosis of ulcerative colitis 5. Acute on chronic anemia 6. History of coronary artery disease 7. Polysubstance abuse 8. Daily smoker (1) Ulcerative colitis Current Visit: No Status: Acute Code(s): K51.90 - ULCERATIVE COLITIS, UNSP ECIFIED, WITHOUT COMPLICATIONS SNOMED Code(s): 10650510 (2) Anemia Current Visit: Yes Status: Acute Code(s): D64.9 - ANEMIA, UNSPECIFIED SNOMED Code(s): 431607212 (3) Coronary artery disease Current Visit: Yes Status: Acute Priority: High Code(s): I25.10 - ATHSCL HEART DISEASE OF [place] CORONARY ARTERY W/O ANG PCTRS SNOMED Code(s): 29321854 (4) CVA (cerebral vascular accident) Current Visit: Yes Status: Acute Code(s): I63.9 - CEREBRAL INFARCTION, UNSPECIFIED SNOMED Code(s): 148927340 (5) Polysubstance abuse Current Visit: Yes Status: Acute Code(s): F19.10 - OTHER PSYCHOACTIVE SUBSTANCE ABUSE, UNCOMPLICATED SNOMED Code(s): 830732383 Plan: 1. Continue statin, recommend at least low-dose aspirin 2. Cardiology has seen and worked patient up. They have cleared patient for surgical intervention. 3. Monitor daily CBC, transfuse for hemoglobin less than 7 4. Recommend smoking cessation 5. Recommend abstinence from drug use 6. Will plan for left carotid endarterectomy once patient hemoglobin is stable's 7. Rest of medical management per primary medical team and other consultants Thank you for this consultation, we will continue to follow. The impression and plan of care has been dictated as directed. I performed a history and examination of this patient, discussed the same with the dictator. I agree with the dictator's note ,documented as a scribe. Any additional findings or plans will be noted.
[2023-08-08 09:06] LABS: Platelet Count 1178 k/uL (150-450)
[2023-08-08 10:08] LABS: African American GFR (CKD) >90 (>60 ml/min/1.73 sqM); Anion Gap 6 mmol/L; Blood Urea Nitrogen 22 mg/dL (9-20); C Reactive Protein 1.5 mg/dL (<1.0); Calcium 8.6 mg/dL (8.4-10.2); Carbon Dioxide 23 mmol/L (22-30); Chloride 105 mmol/L (98-107); Glucose 119 mg/dL (74-99); Non-African American GFR(CKD) >90 (>60 ml/min/1.73 sqM); Potassium 5.2 mmol/L (3.5-5.1); Sodium 134 mmol/L (137-145)
--- NOTE | 2023-08-08 12:20 | P.PN ---
Subjective Progress Note Date: 08/08/23 * 53-year-old gentleman with past medical history significant for coronary artery disease with PCI in mid LAD, history of ventricular tachycardia secondary to [place], history of IBS, asthma, left internal carotid artery stenosis hemodynamically significant, right internal carotid artery stenosis 50 to 69%, history of multifocal infarct involving parietal and frontal lobes July 2023, history of ulcerative colitis, iron deficiency anemia presents to the emergency department with complaints of generalized weakness, right arm discomfort. Patient was recently hospitalized and left AGAINST MEDICAL ADVICE on July 10. Workup at that time included MRI brain which showed multifocal infarct sustained with CVA. * At the time of presentation patient was noted to be tachycardic heart rate in 140s, patient remained on room air blood pressure 112 x 72. Blood work obtained showed WBC 20.7 hemoglobin 6.4 platelet count of 1043. Serum chemistry showed sodium 133 potassium 4.6, dioxide 20 BUN 16 creatinine 0.77 lactate of 1.6 initial troponin of 0.044. * Patient was admitted to medical floor with consultations obtained from cardiology, hematology oncology as well as infectious disease * During the encounter patient was uncooperative, and continued to use abusive language. Patient was counseled regarding not to use AGAINST MEDICAL ADVICE * 08/05/2023 : Patient seen and evaluated bedside, patient says he feels better today denies blood in stool. Hemoglobin noted 1. unit PRBC given, hemoglobin given 7.2, potassium 5.2 Lokelma given, stool C. difficile negative. Seen by gastroenterology, infectious disease, cardiology and vascular surgery * 08/06/2023: Patient seen and evaluated bedside, patient denies of any acute issues, stress test reviewed, hemoglobin noted to be 6.7 will give 1 unit of packed RBC. Patient denies of any acute issues . * 08/07/2023: patient seen and evaluated at bedside, stress test reviewed, no intervention per Cardiology. Okay to proceed with vascular intervention per Cardiology recommendations follow-up H&H ordered. Patient received 1 unit of packed RBC follow-up hemoglobin has improved WBC count trending up noted to be 33.9 from 24.7. Platelet count 1099. Sodium 135 renal function within normal limits * 08/08/2023: Patient seen and evaluated bedside, on evaluation patient is awake and alert, patient denies of any acute issues did have bowel movement however did not notice blood. WBC count elevated likely secondary to steroids. Seen by infectious disease plan to continue patient on IV Zosyn. Patient was seen by vascular surgery and planning carotid endarterectomy during this hospitalization. Hemoglobin remained stable as well REVIEW OF SYSTEMS: Fatigue, right arm pain resolved, malaise RESOLVED CONSTITUTIONAL: No fever, no malaise, no fatigue. HEENT: No recent visual problems or hearing problems. Denied any sore throat. CARDIOVASCULAR: No chest pain, orthopnea, PND, no palpitations, no syncope. PULMONARY: No shortness of breath, no cough, no hemoptysis. GASTROINTESTINAL: No diarrhea, no nausea, no vomiting, no abdominal pain. NEUROLOGICAL: No headaches, no weakness, no numbness. HEMATOLOGICAL: Denies any bleeding or petechiae. GENITOURINARY: Denies any burning micturition, frequency, or urgency. MUSCULOSKELETAL/RHEUMATOLOGICAL: Denies any joint pain, swelling, or any muscle pain. ENDOCRINE: Denies any polyuria or polydipsia. PHYSICAL EXAMINATION: GENERAL: The patient is alert and oriented x3, not in any acute distress. Well developed, well nourished. HEENT: Pupils are round and equally reacting to light. EOMI. CARDIOVASCULAR: S1 and S2 present. No murmurs, rubs, or gallops. Tachycardia resolved PULMONARY: Chest is clear to auscultation, no wheezing or crackles. ABDOMEN: Soft, nontender, nondistended, normoactive bowel sounds. No palpable organomegaly. MUSCULOSKELETAL: No joint swelling or deformity. EXTREMITIES: No cyanosis, clubbing, or pedal edema. NEUROLOGICAL: Alert and oriented x 3, motor senses 4 x 5 right upper extremity, motor sensors 5 x 5 right lower extremity, motor strength is 5 x 5 left upper and lower extremity SKIN: No rashes. Objective - Vital Signs Vital signs: Vital Signs Temp 97.6 F 08/08/23 09:05 Pulse 77 08/08/23 09:05 Resp 17 08/08/23 09:05 BP 149/63 08/08/23 09:05 Pulse Ox 99 08/08/23 09:05 FiO2 Intake & Output 08/07/23 08/08/23 08/08/23 18:59 06:59 18:59 Intake Total 654 180 Balance 654 180 Intake: Oral 654 180 Other: Voiding Method Toilet Toilet # Voids 1 3 - Labs CBC & Chem 7: 08/08/23 07:32 08/08/23 07:32 Labs: Abnormal Lab Results - Last 24 Hours (Table) 08/08/23 08/08/23 Range/Units 07:32 07:32 WBC 33.6 H (3.8-10.6) k/uL RBC 3.81 L (4.30-5.90) m/uL Hgb 8.9 L (13.0-17.5) gm/dL Hct 29.6 L (39.0-53.0) % MCV 77.7 L (80.0-100.0) fL MCH 23.4 L (25.0-35.0) pg MCHC 30.1 L (31.0-37.0) g/dL RDW 21.0 H (11.5-15.5) % Plt Count 1178 H* (150-450) k/uL Sodium 134 L (137-145) mmol/L Potassium 5.2 H (3.5-5.1) mmol/L BUN 22 H (9-20) mg/dL Glucose 119 H (74-99) mg/dL C-Reactive Protein 1.5 H (<1.0) mg/dL Microbiology - Last 24 Hours (Table) 08/04/23 23:07 Stool Culture - Final Stool Assessment and Plan Assessment: Assessment and plan * Sepsis likely secondary to colitis * Coronary artery disease with history of [place], elevated troponin likely type II [place] * Iron deficiency anemia * History of ulcerative colitis * Thrombocytosis * History of CVA July 2023 * Bilateral carotid artery stenosis * In regards to sepsis, lactate within normal limits upon admission , WBC trending up likely from IV Solu-Medrol, continue fluid resuscitation continue patient on IV Zosyn day 6 * blood cultures no growth till date infectious disease consulted, urine analysis and chest x-ray negative for infectious process. Patient tested negative for influenza COVID and RSV * In regards to iron deficiency anemia, patient started on iron supplementation, hematology oncology consulted patient already given 1 unit of packed RBC, additional unit given 2/3, follow-up hemoglobin 7.8 * Regards to history of CVA patient had left AGAINST MEDICAL ADVICE July 10, 2023. Continue aspirin and Lipitor, patient counseled * In regards to bilateral carotid artery stenosis vascular surgery consulted, continue aspirin and Lipitor, vascular surgery planning left carotid endarterectomy during this hospitalization once hemoglobin stable * Regards to history of ulcerative colitis continue steroids, balsalazide., Continue iron supplementation * Patient need physical therapy Occupational Therapy evaluation * CODE STATUS is full code
[2023-08-08] MEDS: SODIUM ZIRCONIUM CYCLOSILICATE 10 GM PACKET PO ONE (13:34)
[2023-08-09 08:36] VITALS: BMI 20.7
[2023-08-09] MEDS: methylPREDNISolone 4 MG TAB TAPER PO SCH (08:48)
--- NOTE | 2023-08-09 09:44 | P.PN ---
Subjective Progress Note Date: 08/09/23 Principal diagnosis: Carotid stenosis Patient seen and examined as a follow-up for carotid stenosis. He states today he is feeling tired. He denies any focal deficits. Hemoglobin from yesterday stable at 8.9, however platelets continue to increase. Hematology to see patient again today. States bloody bowel movements have improved. Objective - Vital Signs Vital signs: Vital Signs Temp 98.1 F 08/08/23 20:57 Pulse 80 08/09/23 03:49 Resp 17 08/09/23 03:49 BP 148/87 08/09/23 03:49 Pulse Ox 99 08/09/23 03:49 FiO2 Intake & Output 08/08/23 08/09/23 08/09/23 18:59 06:59 18:59 Intake Total 540 110 Balance 540 110 Weight 63.503 kg Intake: Oral 540 110 Other: Voiding Method Toilet Toilet # Voids 2 2 - Exam General appearance: The patient is alert, oriented, appears in no acute distress. HET: Head is normocephalic and atraumatic. Conjunctiva pink. Pupils equal round and reactive. Neck: Supple without lymphadenopathy. Abdomen: Soft, distended. Extremities: Normal skin color and turgor. No pedal edema Skin: No rashes, no jaundice Neurological: No focal deficits. Alert and oriented. - Labs CBC & Chem 7: 08/09/23 09:14 08/09/23 09:14 Labs: Abnormal Lab Results - Last 24 Hours (Table) 08/08/23 08/08/23 Range/Units 07:32 07:32 WBC 33.6 H (3.8-10.6) k/uL RBC 3.81 L (4.30-5.90) m/uL Hgb 8.9 L (13.0-17.5) gm/dL Hct 29.6 L (39.0-53.0) % MCV 77.7 L (80.0-100.0) fL MCH 23.4 L (25.0-35.0) pg MCHC 30.1 L (31.0-37.0) g/dL RDW 21.0 H (11.5-15.5) % Plt Count 1178 H* (150-450) k/uL Sodium 134 L (137-145) mmol/L Potassium 5.2 H (3.5-5.1) mmol/L BUN 22 H (9-20) mg/dL Glucose 119 H (74-99) mg/dL C-Reactive Protein 1.5 H (<1.0) mg/dL Microbiology - Last 24 Hours (Table) 08/03/23 23:55 Blood Culture - Final Blood 08/04/23 23:07 Stool Culture - Final Stool Assessment and Plan Assessment: 1. Hemodynamically significant left internal carotid artery stenosis 2. Right internal carotid artery stenosis 50 to 69% 3. History of recent multifocal left-sided parenchymal infarcts with multifocal area involvement of left parietal and frontal lobes as well as hortencia with areas in the superior posterior left temporal lobe 4. Recent diagnosis of ulcerative colitis 5. Acute on chronic anemia 6. History of coronary artery disease 7. Polysubstance abuse 8. Daily smoker 9. Elevated platelet count (1) Ulcerative colitis Current Visit: No Status: Acute Code(s): K51.90 - ULCERATIVE COLITIS, UNSPECIFIED, WITHOUT COMPLICATIONS SNOMED Code(s): 24035873 (2) Anemia Current Visit: Yes Status: Acute Code(s): D64.9 - ANEMIA, UNSPECIFIED SNOMED Code(s): 895373485 (3) Coronary artery disease Current Visit: Yes Status: Acute Priority: High Code(s): I25.10 - ATHSCL HEART DISEASE OF [place] CORONARY ARTERY W/O ANG PCTRS SNOMED Code(s): 18752247 (4) CVA (cerebral vascular accident) Current Visit: Yes Status: Acute Code(s): I63.9 - CEREBRAL INFARCTION, UNSPECIFIED SNOMED Code(s): 004144796 (5) Polysubstance abuse Current Visit: Yes Status: Acute Code(s): F19.10 - OTHER PSYCHOACTIVE SUBSTANCE ABUSE, UNCOMPLICATED SNOMED Code(s): 157806211 Plan: 1. Continue statin, recommend at least low-dose aspirin, recommend plavix when medically cleared 2. Cardiology has seen and worked patient up. They have cleared patient for surgical intervention. 3. Monitor daily CBC, transfuse for hemoglobin less than 7 4. Recommend smoking cessation 5. Recommend abstinence from drug use 6. Will plan for left carotid endarterectomy once patient hemoglobin is stable. Timing to be determined. 7. Hematology on consult, appreciate their recommendations for elevated platelet count 8. Rest of medical management per primary medical team and other consultants Thank you for this consultation, we will continue to follow. The impression and plan of care has been dictated as directed. Dr. Shelton I performed a history and examination of this patient, discussed the same with the dictator. I agree with the dictator's note ,documented as a scribe. Any additional findings or plans will be noted.
[2023-08-09 09:59] LABS: African American GFR (CKD) >90 (>60 ml/min/1.73 sqM); Anion Gap 7 mmol/L; Blood Urea Nitrogen 27 mg/dL (9-20); Calcium 8.3 mg/dL (8.4-10.2); Carbon Dioxide 21 mmol/L (22-30); Chloride 107 mmol/L (98-107); Glucose 97 mg/dL (74-99); Non-African American GFR(CKD) >90 (>60 ml/min/1.73 sqM); Potassium 4.8 mmol/L (3.5-5.1); Sodium 135 mmol/L (137-145)
[2023-08-09 10:00] LABS: Anisocytosis Moderate; HCT 31.1 % (39.0-53.0); Hypochromasia Marked; MCH 22.8 pg (25.0-35.0); MCV 78.6 fL (80.0-100.0); Mean Platelet Volume 6.8; Microcytosis Moderate; Poikilocytosis Moderate; RBC 3.95 m/uL (4.30-5.90); RDW 23.1 % (11.5-15.5); WBC 22.9 k/uL (3.8-10.6)
[2023-08-09 10:12] LABS: Platelet Count 1071 k/uL (150-450)
[2023-08-09] MEDS: IOPAMIDOL CONTRAST (ORAL USE) VIAL PO PRN (14:20)
--- NOTE | 2023-08-09 14:29 | P.PN ---
Subjective Progress Note Date: 08/08/23 Principal diagnosis: Reason for follow-up is leukocytosis and diarrhea Patient is a 53-year-old male with a past medical history significant for asthma PR IBS, patient was recently hospitalized for GI bleed and the patient has been evaluated and did have a colonoscopy patient also have a CT angiogram of the head and the neck with evidence of 70% hemodynamic significant stenosis of the left ICA vascular surgery evaluated the patient recommended left carotid endarterectomy however the patient left AGAINST MEDICAL ADVICE patient now presenting back to the hospital for evaluation of generalized weakness and right arm pain, patient also noticed to have elevated white count prompting this infectious disease consultation. On today's evaluation that is 08/08/2023, the patient continues to be afebrile, patient is breathing comfortably on room air, the patient denies chest pain shortness of breath and no significant cough, patient denies nausea no vomiting, no abdominal pain diarrhea has improved still having some blood in the stool. . Patient white count is 33.6, creatinine 0.72 stool cultures pending Objective - Vital Signs Vital signs: Vital Signs Temp 97.6 F 08/08/23 09:05 Pulse 77 08/08/23 09:05 Resp 17 08/08/23 09:05 BP 149/63 08/08/23 09:05 Pulse Ox 99 08/08/23 09:05 FiO2 Intake & Output 08/07/23 08/08/23 08/08/23 18:59 06:59 18:59 Intake Total 654 180 Balance 654 180 Intake: Oral 654 180 Other: Voiding Method Toilet Toilet # Voids 1 3 - Exam GENERAL DESCRIPTION: Middle-age male lying in bed in no distress RESPIRATORY SYSTEM: Unlabored breathing , decreased breath sounds at bases HEART: S1 S2 regular rate and rhythm , ABDOMEN: Soft , no tenderness EXTREMITIES: No edema feet - Labs CBC & Chem 7: 08/09/23 09:14 08/09/23 09:14 Labs: Abnormal Lab Results - Last 24 Hours (Table) 08/08/23 08/08/23 Range/Units 07:32 07:32 WBC 33.6 H (3.8-10.6) k/uL RBC 3.81 L (4.30-5.90) m/uL Hgb 8.9 L (13.0-17.5) gm/dL Hct 29.6 L (39.0-53.0) % MCV 77.7 L (80.0-100.0) fL MCH 23.4 L (25.0-35.0) pg MCHC 30.1 L (31.0-37.0) g/dL RDW 21.0 H (11.5-15.5) % Plt Count 1178 H* (150-450) k/uL Sodium 134 L (137-145) mmol/L Potassium 5.2 H (3.5-5.1) mmol/L BUN 22 H (9-20) mg/dL Glucose 119 H (74-99) mg/dL C-Reactive Protein 1.5 H (<1.0) mg/dL Microbiology - Last 24 Hours (Table) 08/04/23 23:07 Stool Culture - Final Stool Assessment and Plan (1) Diarrhea Current Visit: Yes Status: Acute Code(s): R19.7 - DIARRHEA, UNSPECIFIED SNOMED Code(s): 12541576 (2) Leukocytosis Current Visit: Yes Status: Acute Code(s): D72.829 - ELEVATED WHITE BLOOD CELL COUNT, UNSPECIFIED SNOMED Code(s): 117911654 Plan: 1patient with significant leukocytosis in this patient presenting to the hospital right upper extremity pain patient recently did have a colonoscopy done by general surgery on 07/07/2023 with evidence of extensive colitis from rectum to the mid transverse colon area in this patient who did have a significant vasculopathy questionably ischemic colitis versus infectious colitis 2- stool for C. difficile is negative stool cultures currently pending 3-patient did have clinical improvement leukocytosis is, patient more likely due to steroids and will be monitored closely continue Zosyn while waiting for the culture to finalize Dictation was produced using [employer] dictation software. please excuse any grammatical, word or spelling errors. Time with Patient: Less than 30
--- NOTE | 2023-08-09 14:30 | P.PN ---
Subjective Progress Note Date: 08/09/23 Principal diagnosis: Reason for follow-up is leukocytosis and diarrhea Patient is a 53-year-old male with a past medical history significant for asthma [place] IBS, patient was recently hospitalized for GI bleed and the patient has been evaluated and did have a colonoscopy patient also have a CT angiogram of the head and the neck with evidence of 70% hemodynamic significant stenosis of the left ICA vascular surgery evaluated the patient recommended left carotid endarterectomy however the patient left AGAINST MEDICAL ADVICE patient now presenting back to the hospital for evaluation of generalized weakness and right arm pain, patient also noticed to have elevated white count prompting this infectious disease consultation. On today's evaluation that is 08/09/2023, the patient remains to be afebrile, patient is currently breathing comfortably on room air, the patient denies chest pain or cough, when asked specifically about any abdominal pain or diarrhea the patient mentioned he does not know same answer to the any blood in the stool. Patient white count is down to 22.9, creatinine 0.75 stool culture negative Objective - Vital Signs Vital signs: Vital Signs Temp 98 F 08/09/23 08:45 Pulse 73 08/09/23 11:35 Resp 17 08/09/23 11:35 BP 125/75 08/09/23 11:35 Pulse Ox 100 08/09/23 11:35 FiO2 Intake & Output 08/08/23 08/09/23 08/09/23 18:59 06:59 18:59 Intake Total 540 220 Balance 540 220 Weight 63.503 kg Intake: Oral 540 220 Other: Voiding Method Toilet Toilet Toilet # Voids 2 2 - Exam GENERAL DESCRIPTION: Middle-age male lying in bed in no distress RESPIRATORY SYSTEM: Unlabored breathing , decreased breath sounds at bases HEART: S1 S2 regular rate and rhythm , ABDOMEN: Soft , no tenderness EXTREMITIES: No edema feet - Labs CBC & Chem 7: 08/09/23 09:14 08/09/23 09:14 Labs: Abnormal Lab Results - Last 24 Hours (Table) 08/09/23 08/09/23 Range/Units 09:14 09:14 WBC 22.9 H (3.8-10.6) k/uL RBC 3.95 L (4.30-5.90) m/uL Hgb 9.0 L (13.0-17.5) gm/dL Hct 31.1 L (39.0-53.0) % MCV 78.6 L (80.0-100.0) fL MCH 22.8 L (25.0-35.0) pg MCHC 29.0 L (31.0-37.0) g/dL RDW 23.1 H (11.5-15.5) % Plt Count 1071 H* (150-450) k/uL Sodium 135 L (137-145) mmol/L Carbon Dioxide 21 L (22-30) mmol/L BUN 27 H (9-20) mg/dL Calcium 8.3 L (8.4-10.2) mg/dL Microbiology - Last 24 Hours (Table) 08/03/23 23:55 Blood Culture - Final Blood Assessment and Plan (1) Diarrhea Current Visit: Yes Status: Acute Code(s): R19.7 - DIARRHEA, UNSPECIFIED SNOMED Code(s): 77206010 (2) Leukocytosis Current Visit: Yes Status: Acute Code(s): D72.829 - ELEVATED WHITE BLOOD CELL COUNT, UNSPECIFIED SNOMED Code(s): 725522272 Plan: 1patient with significant leukocytosis in this patient presenting to the hospital right upper extremity pain patient recently did have a colonoscopy done by general surgery on 07/07/2023 with evidence of extensive colitis from rectum to the mid transverse colon area in this patient who did have a significant vasculopathy questionably ischemic colitis versus infectious colitis 2- stool for C. difficile is negative stool cultures so far negative 3-patient did have clinical improvement leukocytosis is, patient more likely due to steroids and is trending down 4patient covered with Zosyn will transition to oral antibiotics on discharge Dictation was produced using [employer] dictation software. please excuse any grammatical, word or spelling errors. Time with Patient: Less than 30
[2023-08-09] MEDS: HEPARIN SODIUM,PORCINE 5,000 UNIT/ML 1 ML VIAL SQ SCH (15:26)
--- NOTE | 2023-08-09 15:41 | P.PN ---
Subjective Progress Note Date: 08/09/23 At today's visit patient is resting comfortably in bed. Denies abdominal pain and nausea vomiting. Reports blood in stool is persisting but has significantly improved. C. difficile and stool culture negative. Parenteral iron completed. Hemoglobin stable at 9.0. Objective - Vital Signs Vital signs: Vital Signs Temp 98 F 08/09/23 08:45 Pulse 73 08/09/23 11:35 Resp 17 08/09/23 11:35 BP 125/75 08/09/23 11:35 Pulse Ox 100 08/09/23 11:35 FiO2 Intake & Output 08/08/23 08/09/23 08/09/23 18:59 06:59 18:59 Intake Total 540 220 Balance 540 220 Weight 63.503 kg Intake: Oral 540 220 Other: Voiding Method Toilet Toilet Toilet # Voids 2 2 - Constitutional General appearance: Present: no acute distress, thin - EENT Eyes: Present: anicteric sclerae, EOMI ENT: Present: hearing grossly normal - Respiratory Details: breathing even and unlabored - Cardiovascular Details: skin warm and dry - Gastrointestinal General gastrointestinal: Present: soft. Absent: tenderness - Integumentary Integumentary: Absent: cyanotic - Musculoskeletal Musculoskeletal: Present: strength equal bilaterally - Psychiatric Psychiatric: Present: A&O x's 3 - Labs CBC & Chem 7: 08/09/23 09:14 08/09/23 09:14 Labs: Abnormal Lab Results - Last 24 Hours (Table) 08/09/23 08/09/23 Range/Units 09:14 09:14 WBC 22.9 H (3.8-10.6) k/uL RBC 3.95 L (4.30-5.90) m/uL Hgb 9.0 L (13.0-17.5) gm/dL Hct 31.1 L (39.0-53.0) % MCV 78.6 L (80.0-100.0) fL MCH 22.8 L (25.0-35.0) pg MCHC 29.0 L (31.0-37.0) g/dL RDW 23.1 H (11.5-15.5) % Plt Count 1071 H* (150-450) k/uL Sodium 135 L (137-145) mmol/L Carbon Dioxide 21 L (22-30) mmol/L BUN 27 H (9-20) mg/dL Calcium 8.3 L (8.4-10.2) mg/dL Microbiology - Last 24 Hours (Table) 08/03/23 23:55 Blood Culture - Final Blood Assessment and Plan (1) Anemia Current Visit: Yes Status: Acute Priority: High Code(s): D64.9 - ANEMIA, UNSPECIFIED SNOMED Code(s): 927070379 (2) Coronary artery disease Current Visit: Yes Status: Acute Priority: High Code(s): I25.10 - ATHSCL HEART DISEASE OF [place] CORONARY ARTERY W/O ANG PCTRS SNOMED Code(s): 15106912 (3) Colitis Current Visit: Yes Status: Acute Priority: High Code(s): K52.9 - NONINFECTIVE GASTROENTERITIS AND COLITIS, UNSPECIFIED SNOMED Code(s): 39456347 (4) Rectal bleeding Current Visit: Yes Status: Acute Priority: High Code(s): K62.5 - HEMORRHAGE OF ANUS AND RECTUM SNOMED Code(s): 23338868 (5) Thrombocytosis Current Visit: Yes Status: Acute Priority: Medium Code(s): D75.839 - THROMBOCYTOSIS, UNSPECIFIED SNOMED Code(s): 7929588 Plan: Microcytic anemia: -History of the same. Noted in EMR since 2018, having received blood transfusions in the past. Reporting persisting bloody diarrhea -He did have an EGD and colonoscopy during last admission with Dr. Kumar that reported severe colitis of distal colon extending from the rectum to the proximal transverse colon. Stated there was extensive cobblestoning inflamed or changes of the transverse colon. His biopsy came back as diffuse chronic active colitis, negative for dysplasia of the transverse colon left colon chronic active colitis and rectum diffuse chronic active colitis and features compatible with idiopathic inflammatory bowel disease. -Upon admission CBC showed microcytic hypochromic anemia with Hgb 6.4, MCV 69.5. Platelets 825,000. WBC 15.4. S/p 2 units PRBCs. Anemia workup on 07/05/23 showed iron saturation 3.1%, ferritin 6.6. Vitamin B12 and folate normal. It does not appear during last admission parenteral iron was given -Will repeat anemia workup. KATRINA noted, Parenteral iron ordered x 3 doses -Hgb stable, 9.0. Blood in stool improving -GI consulted for further evaluation of IBD noted on colonoscopy. Started on balsalazide and steroids -CBC daily. Please transfuse for hgb <7 or if symptomatic Leukocytosis/thrombocytosis: -Upon trending labs, thrombocytosis and leukocytosis has been noted during admissions since 2018. Plts seem to trend in the 550-700K range based on labs available, but labs are from admissions during acute illnesses, so baseline paptients baseline plts is hard to determine from what is available. However, plts during this admission are higher than previous admits, Today plts 1071. This is likely reactive r/t IBD, blood loss and KATRINA. Would have to allow time to respond to blood and iron transfusions as well as to treatment for his IBD. We would recheck anemia labs and CBC in the oupt setting in approx 4 weeks to get a better baseline for his plts and to provide further recommendations. Will also discuss with pt about obtaining MPN workup to r/o an essential thrombocytosis. However, treatment with anti-platelets is usually not indicated as the risk of thrombosis is very low in secondary thrombocytosis which is likely the etiology of noted thrombocytosis. If cleared by GI and GI bleeding/hgb stable, can continue on 81mg ASA. Have discussed recommendations with vascular team -Leukocytosis also thought to be reactive and r/t steroid use -Will continue to monitor -Pt was agreeable with clinic f/u for further workup and evaluation. Will schedule 4 week f/u
--- NOTE | 2023-08-09 16:31 | CT ---
EXAMINATION TYPE: CT abdomen pelvis wo con CT DLP: 556.4 mGycm, Automated exposure control for dose reduction was used. DATE OF EXAM: 08/09/2023 4:25 PM COMPARISON: 07/04/2023 CLINICAL INDICATION:Male, 53 years old with history of colitis; Colitis. TECHNIQUE: Axial CT abdomen pelvis wo con;Sagittal and coronal reformats were created on a separate workstation. Contrast used: mL of , (none if empty) Oral contrast used: with Oral Contrast (none if empty) FINDINGS: LOWER CHEST: Unremarkable ABDOMEN LIVER: Unremarkable GALLBLADDER AND BILE DUCTS: Unremarkable. PANCREAS: Unremarkable. SPLEEN: Unremarkable. ADRENAL GLANDS: Unremarkable. KIDNEYS AND URETERS: No evidence of hydronephrosis or renal calculus. The ureters are unremarkable. PELVIS BLADDER: Unremarkable REPRODUCTIVE: Unremarkable. ABDOMEN & PELVIS STOMACH AND BOWEL: No evidence of bowel obstruction. Moderate amount of stool within the right colon. The appendix is normal. PERITONEUM/RETROPERITONEUM: No evidence of pneumoperitoneum or free fluid. VASCULATURE: No evidence of aortic aneurysm. MUSCULOSKELETAL: No acute osseous abnormalities, transitional vertebrae at L5 no evidence for signifi cant degeneration changes. LYMPH NODES: No gross evidence for lymphadenopathy. SOFT TISSUE/ABDOMINAL WALL: Unremarkable IMPRESSION: No definitive evidence for colitis. No acute abdominal process.
--- NOTE | 2023-08-10 02:07 | PN ---
PROGRESS NOTE DATE OF SERVICE: 08/09/2023 SUBJECTIVE: This is a 53-year-old gentleman who was admitted with sepsis secondary to colitis, also had multiple other medical issues including coronary disease, patient is being closely monitored. No chest pain, no palpitation. White count is still elevated at 22.9. Platelets are also elevated. Sodium is 135. PAST MEDICAL HISTORY: Reviewed. REVIEW OF SYSTEMS: A 14-point review is negative except as mentioned. CURRENT MEDICATIONS: Reviewed include IV Zosyn, dose and rest of medications noted. PHYSICAL EXAMINATION: VITAL SIGNS: Pulse is 105, blood pressure 141/82, respirations 18. CHEST: Clear to auscultation. CARDIOVASCULAR: S1, S2. ABDOMEN: Soft, nontender. LEGS: No edema. LABORATORY DATA: Reviewed personally. ASSESSMENT: 1. Sepsis secondary to colitis. 2. CAD myocardial infarction, troponin likely type 2 [place]. 3. Iron deficiency anemia next history of ulcerative colitis. 4. Thrombocytosis. 5. CVA. 6. Increased WBC, persistent. 7. Anemia. 8. Elevated platelets. RECOMMENDATIONS: Recommended to continue current management, continue symptomatic treatment, otherwise I would recommend CT abdomen and pelvis. Closely monitor. Continue the antibiotics. Guarded prognosis. Further recommendations to follow. MMODL / IJN: [id number] /
[2023-08-10] MEDS: predniSONE 20 MG TAB PO SCH (08:13)
--- NOTE | 2023-08-10 09:36 | P.PN ---
Subjective Progress Note Date: 08/10/23 Principal diagnosis: Carotid stenosis Patient is seen and examined today as a follow-up for carotid stenosis. He is sitting up in his bed. He is without complaints. His sister is at the bedside. He was admitted with weakness, shortness of breath, anemia with a recent diagnosis of ulcerative colitis. He is being manage currently oral steroids for his ulcerative colitis. Anemia has been improving. His hemoglobin yesterday was 9.0, today's currently pending. Hematology saw patient for elevated platelets/thrombocytosis. Believe secondary to underlying acute illness, a nemia. 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 They are recommending outpatient workup in 4 weeks. No contraindication to undergo surgery. He denies any focal deficits, no shortness of breath or chest pain. Diarrhea and rectal bleeding improved. Objective - Vital Signs Vital signs: Vital Signs Temp 97.7 F 08/10/23 08:00 Pulse 98 08/10/23 08:00 Resp 20 08/10/23 08:00 BP 132/80 08/10/23 08:00 Pulse Ox 99 08/10/23 08:00 FiO2 Intake & Output 08/09/23 08/10/23 08/10/23 18:59 06:59 18:59 Intake Total 330 1080 110 Balance 330 1080 110 Weight 63.503 kg Intake: Intake, IV Titration 600 Amount Sodium Chloride 0.9% 1, 600 000 ml @ 75 mls/hr IV . [id number] [facility] Rx#:[id number] Oral 330 480 110 Other: Voiding Method Toilet Toilet # Voids 2 3 - Exam General appearance: The patient is alert, oriented, appears in no acute distress. HET: Head is normocephalic and atraumatic. Conjunctiva pink. Pupils equal round and reactive. Neck: Supple without lymphadenopathy. Abdomen: Soft, distended. Extremities: Normal skin color and turgor. No pedal edema Skin: No rashes, no jaundice Neurological: No focal deficits. Alert and oriented. - Labs CBC & Chem 7: 08/10/23 09:09 08/10/23 09:09 Labs: Abnormal Lab Results - Last 24 Hours (Table) 08/09/23 08/09/23 08/09/23 Range/Units 09:14 09:14 14:55 WBC 22.9 H (3.8-10.6) k/uL RBC 3.95 L (4.30-5.90) m/uL Hgb 9.0 L (13.0-17.5) gm/dL Hct 31.1 L (39.0-53.0) % MCV 78.6 L (80.0-100.0) fL MCH 22.8 L (25.0-35.0) pg MCHC 29.0 L (31.0-37.0) g/dL RDW 23.1 H (11.5-15.5) % Plt Count 1071 H* (150-450) k/uL ESR 28 H (0-20) mm/Hr Sodium 135 L (137-145) mmol/L Carbon Dioxide 21 L (22-30) mmol/L BUN 27 H (9-20) mg/dL Calcium 8.3 L (8.4-10.2) mg/dL Microbiology - Last 24 Hours (Table) 08/03/23 23:55 Blood Culture - Final Blood Assessment and Plan Assessment: 1. Hemodynamically significant left internal carotid artery stenosis 2. Right internal carotid artery stenosis 50 to 69% 3. History of recent multifocal left-sided parenchymal infarcts with multifocal area involvement of left parietal and frontal lobes as well as hortencia with areas in the superior posterior left temporal lobe 4. Recent diagnosis of ulcerative colitis 5. Acute on chronic anemia 6. History of coronary artery disease 7. Polysubstance abuse 8. Daily smoker 9. Thrombocytosis (1) Ulcerative colitis Current Visit: No Status: Acute Code(s): K51.90 - ULCERATIVE COLITIS, UNSPECIFIED, WITHOUT COMPLICATIONS SNOMED Code(s): 29766344 (2) Anemia Current Visit: Yes Status: Acute Code(s): D64.9 - ANEMIA, UNSPECIFIED SNOMED Code(s): 712352665 (3) Coronary artery disease Current Visit: Yes Status: Acute Priority: High Code(s): I25.10 - ATHSCL HEART DISEASE OF [place] CORONARY ARTERY W/O ANG PCTRS SNOMED Code(s): 43181198 (4) CVA (cerebral vascular accident) Current Visit: Yes Status: Acute Code(s): I63.9 - CEREBRAL INFARCTION, UNSPECIFIED SNOMED Code(s): 866599460 (5) Polysubstance abuse Current Visit: Yes Status: Acute Code(s): F19.10 - OTHER PSYCHOACTIVE SUBSTANCE ABUSE, UNCOMPLICATED SNOMED Code(s): 743970601 Plan: 1. Continue statin, recommend at least low-dose aspirin, recommend plavix when medically cleared 2. Cardiology has seen and worked patient up. They have cleared patient for surgical intervention. 3. Hematology and consultation, appreciated the recommendations 4. Recommend smoking cessation 5. Recommend abstinence from drug use 6. Will plan for left carotid endarterectomy as an outpatient once steroids are weaned or completed. This is discussed with patient who is agreeable and okay with plan. 7. Recommend aspirin 81 mg daily and will start Plavix 75 mg daily 8. Rest of medical management per primary medical team and other consultants Thank you for this consultation, we will continue to follow. The impression and plan of care has been dictated as directed. Dr. Bruce I performed a history and examination of this patient, discussed the same with the dictator. I agree with the dictator's note ,documented as a scribe. Any additional findings or plans will be noted.
[2023-08-10 09:53] LABS: Anisocytosis Moderate; Basophils # (A) 0.1 k/uL (0-0.2); Basophils % (A) 1 %; Eosinophils # (A) 0.2 k/uL (0-0.7); Eosinophils % (A) 1 %; HGB 9.7 gm/dL (13.0-17.5); Hypochromasia Marked; Lymphocytes % (A) 12 %; MCHC 28.4 g/dL (31.0-37.0); MCV 80.9 fL (80.0-100.0); Mean Platelet Volume 6.9; Microcytosis Slight; Monocytes % (A) 4 %; Neutrophils # (A) 19.9 k/uL (1.3-7.7); Neutrophils % (A) 80 %; Poikilocytosis Moderate; RDW 22.7 % (11.5-15.5); WBC 24.8 k/uL (3.8-10.6)
[2023-08-10 09:56] LABS: Platelet Count 1009 k/uL (150-450)
[2023-08-10 10:07] LABS: African American GFR (CKD) >90 (>60 ml/min/1.73 sqM); Anion Gap 8 mmol/L; Blood Urea Nitrogen 25 mg/dL (9-20); Calcium 8.6 mg/dL (8.4-10.2); Carbon Dioxide 20 mmol/L (22-30); Chloride 107 mmol/L (98-107); Glucose 171 mg/dL (74-99); Non-African American GFR(CKD) >90 (>60 ml/min/1.73 sqM); Potassium 4.5 mmol/L (3.5-5.1); Sodium 135 mmol/L (137-145)
--- NOTE | 2023-08-10 11:48 | P.PN ---
Subjective Progress Note Date: 08/10/23 Principal diagnosis: Reason for follow-up is leukocytosis and diarrhea Patient is a 53-year-old male with a past medical history significant for asthma OR IBS, patient was recently hospitalized for GI bleed and the patient has been evaluated and did have a colonoscopy patient also have a CT angiogram of the head and the neck with evidence of 70% hemodynamic significant stenosis of the left ICA vascular surgery evaluated the patient recommended left carotid endarterectomy however the patient left AGAINST MEDICAL ADVICE patient now presenting back to the hospital for evaluation of generalized weakness and right arm pain, patient also noticed to have elevated white count prompting this infectious disease consultation. On today's evaluation that is 08/10/2023, the patient is afebrile, patient is on room air, the patient denies chest pain shortness of breath or cough, patient denies nausea no vomiting no abdominal pain and diarrhea has improved stools are forming up and no further blood in the stool. Patient did have white count of 24.8, creatinine 0.76 stool culture negative blood culture negative Objective - Vital Signs Vital signs: Vital Signs Temp 97.7 F 08/10/23 08:00 Pulse 98 08/10/23 08:00 Resp 20 08/10/23 08:00 BP 132/80 08/10/23 08:00 Pulse Ox 99 08/10/23 08:00 FiO2 Intake & Output 08/09/23 08/10/23 08/10/23 18:59 06:59 18:59 Intake Total 330 1080 110 Balance 330 1080 110 Weight 63.503 kg Intake: Intake, IV Titration 600 Amount Sodium Chloride 0.9% 1, 600 000 ml @ 75 mls/hr IV . [id number] [facility] Rx#:[id number] Oral 330 480 110 Other: Voiding Method Toilet Toilet # Voids 2 3 - Exam GENERAL DESCRIPTION: Middle-age male lying in bed in no distress RESPIRATORY SYSTEM: Unlabored breathing , decreased breath sounds at bases HEART: S1 S2 regular rate and rhythm , ABDOMEN: Soft , no tenderness EXTREMITIES: No edema feet - Labs CBC & Chem 7: 08/10/23 09:09 08/10/23 09:09 Labs: Abnormal Lab Results - Last 24 Hours (Table) 08/09/23 08/09/23 08/10/23 Range/Units 09:14 14:55 09:09 WBC 24.8 H (3.8-10.6) k/uL RBC 4.20 L (4.30-5.90) m/uL Hgb 9.7 L (13.0-17.5) gm/dL Hct 34.0 L (39.0-53.0) % MCH 23.0 L (25.0-35.0) pg MCHC 28.4 L (31.0-37.0) g/dL RDW 22.7 H (11.5-15.5) % Plt Count 1009 H* (150-450) k/uL Neutrophils # 19.9 H (1.3-7.7) k/uL ESR 28 H (0-20) mm/Hr Sodium (137-145) mmol/L Carbon Dioxide (22-30) mmol/L BUN (9-20) mg/dL Glucose (74-99) mg/dL RBC Folate 915 H (280 - 791) ng/mL 08/10/23 Range/Units 09:09 WBC (3.8-10.6) k/uL RBC (4.30-5.90) m/uL Hgb (13.0-17.5) gm/dL Hct (39.0-53.0) % MCH (25.0-35.0) pg MCHC (31.0-37.0) g/dL RDW (11.5-15.5) % Plt Count (150-450) k/uL Neutrophils # (1.3-7.7) k/uL ESR (0-20) mm/Hr Sodium 135 L (137-145) mmol/L Carbon Dioxide 20 L (22-30) mmol/L BUN 25 H (9-20) mg/dL Glucose 171 H (74-99) mg/dL RBC Folate (280 - 791) ng/mL Assessment and Plan (1) Diarrhea Current Visit: Yes Status: Acute Code(s): R19.7 - DIARRHEA, UNSPECIFIED SNOMED Code(s): 82546604 (2) Leukocytosis Current Visit: Yes Status: Acute Code(s): D72.829 - ELEVATED WHITE BLOOD CELL COUNT, UNSPECIFIED SNOMED Code(s): 380806013 Plan: 1patient with significant leukocytosis in this patient presenting to the hospital right upper extremity pain patient recently did have a colonoscopy done by general surgery on 07/07/2023 with evidence of extensive colitis from rectum to the mid transverse colon area in this patient who did have a significant vasculopathy questionably ischemic colitis versus infectious colitis 2- stool for C. difficile is negative stool cultures so far negative 3-patient did have clinical improvement leukocytosis is more likely related to s teroids as no evidence of any worsening of his clinical condition 4patient to continue with Zosyn while inpatient and consider short course of oral Ceftin and Flagyl on discharge Dictation was produced using [employer] dictation software. please excuse any grammatical, word or spelling errors. Time with Patient: Less than 30
--- NOTE | 2023-08-11 07:04 | PN ---
PROGRESS NOTE DATE OF SERVICE: 08/10/2023 SUBJECTIVE: This is a 53-year-old gentleman who was admitted with sepsis secondary to colitis, also had history of CAD and a repeat abdominal pelvis CAT scan showed no definite evidence of colitis at this time. No chest pain, no palpitations, no fever. Infectious Disease is following the patient closely. No chest pain, no palpitation. OBJECTIVE: VITAL SIGNS: Pulse is 112, blood pressure 132/80, respirations 20. CHEST: Clear to auscultation. CARDIOVASCULAR: S1, S2. ABDOMEN: Soft. NERVOUS SYSTEM: No focal deficits. LABS: WBC 24.8, and platelets are noted. ASSESSMENT: 1. Sepsis secondary to colitis. 2. CAD, myocardial infarction, likely type 2 [place]. 3. Iron deficiency anemia. 4. History of ulcerative colitis. 5. Thrombocytosis. 6. CVA. 7. Increased WBC, persistent. 8. Anemia. 9. Elevated platelets. RECOMMENDATIONS: Recommended to continue current management, continue symptomatic treatment, otherwise at this time closely follow with Infectious Disease. Guarded prognosis because of multiple complex medical issues. Further recommendations to follow. The patient had elevated white count, the exact etiology uncertain at this time. Further recommendations to follow. MMODL / IJN: [id number] /
[2023-08-11] MEDS: CLOPIDOGREL 75 MG TAB PO SCH (08:33)
--- NOTE | 2023-08-11 08:52 | P.PN ---
Subjective Progress Note Date: 08/11/23 Principal diagnosis: Carotid stenosis Patient is seen and examined today as a follow-up. States overall he is feeling really good. Denies any focal deficits. Still has some right lower extremity numbness on the inner part of his calf however no weakness. He denies any shortness of breath, chest pain, abdominal pain, nausea or vomiting. Bleeding has improved significantly with bowel movements. Objective - Vital Signs Vital signs: Vital Signs Temp 98.5 F 08/11/23 00:00 Pulse 72 08/11/23 04:00 Resp 16 08/11/23 04:00 BP 140/88 08/11/23 04:00 Pulse Ox 97 08/11/23 04:00 FiO2 Intake & Output 08/10/23 08/11/23 08/11/23 18:59 06:59 18:59 Intake Total 530 240 120 Balance 530 240 120 Intake: Intake, IV Titration 200 Amount Piperacillin-Tazobactam 3 200 .375 gm In Sodium Chloride 0.9% 100 ml @ 25 mls/hr IVPB Q8HR [facility] Rx# :[id number] Oral 330 240 120 Other: Voiding Method Toilet # Voids 2 - Exam General appearance: The patient is alert, oriented, appears in no acute distress. HET: Head is normocephalic and atraumatic. Conjunctiva pink. Pupils equal round and reactive. Neck: Supple without lymphadenopathy. Abdomen: Soft, distended. Extremities: Normal skin color and turgor. No pedal edema Skin: No rashes, no jaundice Neurological: No focal deficits. Alert and oriented. - Labs CBC & Chem 7: 08/10/23 09:09 08/10/23 09:09 Labs: Abnormal Lab Results - Last 24 Hours (Table) 08/09/23 08/10/23 08/10/23 Range/Units 09:14 09:09 09:09 WBC 24.8 H (3.8-10.6) k/uL RBC 4.20 L (4.30-5.90) m/uL Hgb 9.7 L (13.0-17.5) gm/dL Hct 34.0 L (39.0-53.0) % MCH 23.0 L (25.0-35.0) pg MCHC 28.4 L (31.0-37.0) g/dL RDW 22.7 H (11.5-15.5) % Plt Count 1009 H* (150-450) k/uL Neutrophils # 19.9 H (1.3-7.7) k/uL Sodium 135 L (137-145) mmol/L Carbon Dioxide 20 L (22-30) mmol/L BUN 25 H (9-20) mg/dL Glucose 171 H (74-99) mg/dL RBC Folate 915 H (280 - 791) ng/mL Assessment and Plan Assessment: 1. Hemodynamically significant left internal carotid artery stenosis 2. Right internal carotid artery stenosis 50 to 69% 3. History of recent multifocal left-sided parenchymal infarcts with multifocal area involvement of left parietal and frontal lobes as well as hortencia with areas in the superior posterior left temporal lobe 4. Recent diagnosis of ulcerative colitis 5. Acute on chronic anemia 6. History of coronary artery disease 7. Polysubstance abuse 8. Daily smoker 9. Thrombocytosis (1) Ulcerative colitis Narrative/Plan: 53-year-old male with a reported history of ulcerative colitis diagnosed perhaps within the last couple years or more. Patient is very nonforthcoming with his medical history. He is states he is unsure when he was diagnosed he could not tell us he was not cooperative with how often he is having bowel movements he does state that they are dark. He was recently hospitalized in early July for GI bleed which he underwent colonoscopy at that time noted to have cobblest oning and active colitis. Biopsies were consistent with a chronic active colitis with features inflammatory bowel disease. Patient has not been any medications does not follow with anyone. Discussed with patient importance of care and management for her inflammatory bowel disease. Will start patient on Solu-Medrol 20 mg IV every 8 hours as well as balsalazide. No plans for colonoscopy. Current Visit: No Status: Acute Code(s): K51.90 - ULCERATIVE COLITIS, UNSPECIFIED, WITHOUT COMPLICATIONS SNOMED Code(s): 17289176 (2) Anemia Current Visit: Yes Status: Acute Code(s): D64.9 - ANEMIA, UNSPECIFIED SNOMED Code(s): 328306441 (3) Coronary artery disease Current Visit: Yes Status: Acute Priority: High Code(s): I25.10 - ATHSCL HEART DISEASE OF [place] CORONARY ARTERY W/O ANG PCTRS SNOMED Code(s): 44029423 (4) CVA (cerebral vascular accident) Current Visit: Yes Status: Acute Code(s): I63.9 - CEREBRAL INFARCTION, UNS PECIFIED SNOMED Code(s): 484385016 (5) Polysubstance abuse Current Visit: Yes Status: Acute Code(s): F19.10 - OTHER PSYCHOACTIVE SUBSTANCE ABUSE, UNCOMPLICATED SNOMED Code(s): 864069285 Plan: 1. Atorvastatin increased to 80 mg at at bedtime, continue aspirin 81 mg daily and Plavix 75 mg daily added 2. Cardiology has seen and worked patient up. They have cleared patient for surgical intervention. 3. Hematology consulted, appreciated their recommendations 4. Recommend smoking cessation 5. Recommend abstinence from drug use 6. Will plan for left carotid endarterectomy as an outpatient once steroids are completed. This is discussed with patient who is agreeable and okay with plan. 7. Rest of medical management per primary medical team and other consultants Thank you for this consultation, patient is cleared from vascular surgery for discharge. We will sign off at this time. The impression and plan of care has been dictated as directed. Dr. Davis I performed a history and examination of this patient, discussed the same with the dictator. I agree with the dictator's note ,documented as a scribe. Any additional findings or plans will be noted.
[2023-08-11 09:28] VITALS: RESP 20
[2023-08-11 11:32] VITALS: BP 132/69; PULSE 79; TEMP 97.9
--- NOTE | 2023-08-11 16:37 | P.PN ---
Subjective Progress Note Date: 08/11/23 Principal diagnosis: Reason for follow-up is leukocytosis and diarrhea Patient is a 53-year-old male with a past medical history significant for asthma [place] IBS, patient was recently hospitalized for GI bleed and the patient has been evaluated and did have a colonoscopy patient also have a CT angiogram of the head and the neck with evidence of 70% hemodynamic significant stenosis of the left ICA vascular surgery evaluated the patient recommended left carotid endarterectomy however the patient left AGAINST MEDICAL ADVICE patient now presenting back to the hospital for evaluation of generalized weakness and right arm pain, patient also noticed to have elevated white count prompting this infectious disease consultation. On today's evaluation that is 08/11/2023, the patient remains to be afebrile, patient is currently breathing comfortably on room air, the patient denies chest pain and no significant cough, patient denies abdominal pain, no nausea no vomiting or any diarrhea has been reported. No new labs has been obtained today Objective - Vital Signs Vital signs: Vital Signs Temp 97.9 F 08/11/23 11:10 Pulse 79 08/11/23 11:10 Resp 20 08/11/23 11:10 BP 132/69 08/11/23 11:10 Pulse Ox 99 08/11/23 11:10 FiO2 Intake & Output 08/10/23 08/11/23 08/11/23 18:59 06:59 18:59 Intake Total 530 240 120 Balance 530 240 120 Intake: Intake, IV Titration 200 Amount Piperacillin-Tazobactam 3 200 .375 gm In Sodium Chloride 0.9% 100 ml @ 25 mls/hr IVPB Q8HR [facility] Rx# :[id number] Oral 330 240 120 Other: Voiding Method Toilet # Voids 2 2 - Exam GENERAL DESCRIPTION: Middle-age male lying in bed in no distress RESPIRATORY SYSTEM: Unlabored breathing , decreased breath sounds at bases HEART: S1 S2 regular rate and rhythm , ABDOMEN: Soft , no tenderness EXTREMITIES: No edema feet - Labs CBC & Chem 7: 08/10/23 09:09 08/10/23 09:09 Assessment and Plan (1) Diarrhea Status: Acute Code(s): R19.7 - DIARRHEA, UNSPECIFIED SNOMED Code(s): 92398680 (2) Leukocytosis Status: Acute Code(s): D72.829 - ELEVATED WHITE BLOOD CELL COUNT, UNSPECIFIED SNOMED Code(s): 873040207 Plan: 1patient with significant leukocytosis in this patient presenting to the hospital right upper extremity pain patient recently did have a colonoscopy done by general surgery on 07/07/2023 with evidence of extensive colitis from rectum to the mid transverse colon area in this patient who did have a significant vasculopathy questionably ischemic colitis versus infectious colitis 2- stool for C. difficile is negative stool cultures so far negative 3-patient did have clinical improvement leukocytosis is more likely related to steroids as no evidence of any worsening of his clinical condition 4patient to finish therapy with short course of oral Ceftin and Flagyl on discharge and will need to follow-up with oncology if persistent elevated white count Dictation was produced using [employer] dictation software. please excuse any grammatical, word or spelling errors. Time with Patient: Less than 30
--- NOTE | 2023-08-12 09:42 | P.DS ---
Providers Date of admission: 08/04/23 00:11 Expected date of discharge: 08/11/23 Attending physician: Rancho Beatty Consults: 08/04/23 00:11 Consult Physician Routine Consulting Provider: [facility] Consult Reason/Comments: arrhythmia Do you want consulting provider notified?: Yes Consult Physician Routine Consulting Provider: Olamide Bruce Consult Reason/Comments: carotid occlusion Do you want consulting provider notified?: Yes, Notify in am 08/04/23 00:14 Consult Physician Routine Consulting Provider: Mart Hansen Consult Reason/Comments: chronic anemia requiring transfusion Do you want consulting provider notified?: Yes, Notify in am 08/04/23 09:23 Consult Physician Routine Consulting Provider: Hyacinth Mustafa Consult Reason/Comments: Sepsis Do you want consulting provider notified?: Yes 08/04/23 11:54 Consult Physician Routine Consulting Provider: Dianne Sorto Consult Reason/Comments: blood in stool, KATRINA, concern for ulcerative colitis Do you want consulting provider notified?: Yes Primary care physician: Luly Marie Hospital Course: Final diagnosis Sepsis secondary to colitis, present on admission Coronary artery disease with myocardial infarction, likely type II CT Left carotid stenosis Iron deficiency anemia History of ulcerative colitis Thrombocytosis CVA Increased WBC, persistent Anemia, chronic Noncompliance to follow-up and medications Continued ongoing nicotine dependence GI prophylaxis DVT prophylaxis Full code Discharge disposition Patient is being discharged in a stable condition with guarded prognosis to home. Patient will follow-up with Dr. Mauricio in the outpatient setting upon discharge. Patient is to continue with medications as prescribed below and close outpatient follow-up with vascular surgery, GI, and hematology as scheduled. Total time taken is greater than 35 minutes. Hospital course This is a 53-year-old male who was recently admitted with features of sepsis, secondary to colitis as noted on CT along with significant history of coronary artery disease. Patient underwent extensive workup during hospitalization including vascular surgery evaluation for left carotid stenosis. Patient was evaluated briefly by GI for the colitis and started on steroids and will continue a taper and outpatient follow-up. Vascular surgery also evaluating the patient as patient is in need of surgical intervention and aggressive lifestyle and risk factor modifications along with compliance to medications and follow- up. Vascular surgery recommending outpatient follow-up once completed with steroids to discuss the need for surgical intervention. Patient reports to feeling well and would like to go home. Patient reports he will be compliant with follow-ups. Patient instructed to follow-up with primary care provider on discharge as well. Medication sent to the pharmacy here at [facility]. Strongly encourage complete cessation of tobacco use as well. Currently no reports of chest pain, shortness of breath, or palpitations. Patient is afebrile. No reports of nausea or vomiting and patient is tolerating diet. Patient will be discharged home today. Guarded prognosis and high risk for readmissions given patient's noncompliance and significant comorbidities. Physical exam: Gen: This is a 53-year-old male who is awake, alert and oriented x 3, thin built, elderly appearing, well-developed HEENT: Head is atraumatic, normocephalic. Pupils equal, round. Sclerae is anicteric. NECK: Supple. No JVD. No lymphadenopathy. No thyromegaly. LUNGS: Diminished breath sounds bilaterally otherwise clear to auscultation. No wheezes or rhonchi. No intercostal retractions. HEART: S1, S2 are muffled ABDOMEN: Soft. Thin. Bowel sounds are present. No masses. No tenderness. EXTREMITIES: No pedal edema. No calf tenderness. NEUROLOGICAL: Patient is awake, alert and oriented x3. Cranial nerves 2 through 12 are grossly intact. Please refer to medication reconciliation sheet for a list of medications. The impression and plan of care has been dictated by Bety Mackey, Nurse Practitioner as directed. Dr. Rogerio MD I have performed a history and examination and MDM of this patient, discussed the same with the dictator, and agree with the dictator's assessment and plan as written ,documented as a scribe. Based on total visit time, I have performed more than 50% of the visit. Patient Condition at Discharge: Fair Plan - Discharge Summary New Discharge Prescriptions: New Aspirin 81 mg PO DAILY tab cefUROXime axetiL [Ceftin] 500 mg PO BID 7 Days #14 tab metroNIDAZOLE [Flagyl] 500 mg PO TID 7 Days #21 tab Ferrous Sulfate [Iron (65 MG Elemental)] 325 mg PO BID-W/MEALS 30 Days #60 tab Acetaminophen Tab [Tylenol] 650 mg PO Q6HR PRN tab PRN Reason: Mild Pain Or Fever > 100.5 Atorvastatin [Lipitor] 80 mg PO HS #30 tab Clopidogrel [Plavix] 75 mg PO DAILY #30 tab predniSONE 0 mg PO DIRECTED #126 tab Balsalazide Disodium [Colazal] 2,250 mg PO TID 30 Days #180 cap Discharge Medication List Aspirin 81 mg PO DAILY tab 08/10/23 [Rx] Atorvastatin [Lipitor] 80 mg PO HS #30 tab 08/10/23 [Rx] Clopidogrel [Plavix] 75 mg PO DAILY #30 tab 08/10/23 [Rx] predniSONE 0 mg PO DIRECTED #126 tab 08/10/23 [Rx] Acetaminophen Tab [Tylenol] 650 mg PO Q6HR PRN tab 08/11/23 [Rx] Balsalazide Disodium [Colazal] 2,250 mg PO TID 30 Days #180 cap 08/11/23 [Rx] Ferrous Sulfate [Iron (65 MG Elemental)] 325 mg PO BID-W/MEALS 30 Days #60 tab 08/11/23 [Rx] cefUROXime axetiL [Ceftin] 500 mg PO BID 7 Days #14 tab 08/11/23 [Rx] metroNIDAZOLE [Flagyl] 500 mg PO TID 7 Days #21 tab 08/11/23 [Rx] Follow up Appointment(s)/Referral(s): Mart Hansen [STAFF PHYSICIAN] - 09/13/23 3:00 pm Cynthia Mauricio MD [Primary Care Provider] - 1-2 days (office will call with appointment) Bernardino Mercedes DO [Doctor of Osteopathic Medicine] - 09/01/23 9:30 am Dianne Sorto MD [STAFF PHYSICIAN] - 08/29/23 2:30 pm Patient Instructions/Handouts: Clopidogrel (By mouth), How to Stop Smoking (DC), Cigarette Smoking and Your Health (GEN), Ulcerative Colitis (DC) Activity/Diet/Wound Care/Special Instructions: You will be starting on Plavix 75 mg daily which is an antiplatelet. If you see an increase in rectal bleeding please discontinue medication and call Dr. Mercedes's office from vascular surgery Continue taking medications as prescribed Follow-up with GI outpatient Follow-up with cardiology outpatient Follow-up hematology outpatient Follow-up with vascular surgery outpatient Follow-up and re-establish with a primary care provide Continue antibiotics until finished Continue prednisone until finished Discharge/Stand Alone Forms: [facility], [facility], Who Do I Call?, Community Resources, Personal Director Of Casework Discharge Disposition: HOME SELF-CARE
== END 2023-08-11 15:10 | disposition home or self-care (01) | DRG 720 ==
LOC: EC 19:44 → 2CATHESU 08-04 00:11 → 3NCARDOBS 08-04 05:36 → 1SOBS 08-04 08:15 → 3SCARD 08-04 12:39
PROVIDERS: ADMIT Hospitalist; ATTEND Hospitalist
DX: A41.9 Sepsis, unspecified organism (principal); I25.10 Atherosclerotic heart disease of native coronary artery without angina pectoris; I21.A1 Myocardial infarction type 2; D50.9 Iron deficiency anemia, unspecified; F10.11 Alcohol abuse, in remission; D75.839 Thrombocytosis, unspecified; E78.5 Hyperlipidemia, unspecified; K51.90 Ulcerative colitis, unspecified, without complications; F19.10 Other psychoactive substance abuse, uncomplicated; I65.23 Occlusion and stenosis of bilateral carotid arteries; I10 Essential (primary) hypertension; I25.2 Old myocardial infarction; F41.9 Anxiety disorder, unspecified; I25.5 Ischemic cardiomyopathy; T38.0X5A Adverse effect of glucocorticoids and synthetic analogues, initial encounter; N05.9 Unspecified nephritic syndrome with unspecified morphologic changes; I45.10 Unspecified right bundle-branch block; J45.909 Unspecified asthma, uncomplicated; F17.200 Nicotine dependence, unspecified, uncomplicated; Z71.6 Tobacco abuse counseling; Z91.199 Patient's noncompliance with other medical treatment and regimen due to unspecified reason; Z59.02 Unsheltered homelessness; Z59.6 Low income; Z95.5 Presence of coronary angioplasty implant and graft; Z86.73 Personal history of transient ischemic attack (TIA), and cerebral infarction without residual deficits
CPT/HCPCS: 36415; 36430; 71046; 71275; 74176; 78452; 80048; 80053; 80143; 80179; 80306; 80320; 81003; 82525; 82607; 82728; 82747; 83540; 83550; 83605; 83735; 83880; 83921; 84145; 84484; 85025; 85027; 85379; 85610; 85652; 85730; 86140; 86850; 86870; 86880; 86900; 86901; 86920; 87040; 87045; 87046; 87324; 87636; 93005; 93017; 96361; 96365; 96366; 96375; 96376; 99291

== ENCOUNTER 2023-12-09 21:27 | Emergency (ER) | payer OTHER ==
--- NOTE | 2023-12-09 22:23 | ED ---
GI Bleed HPI - General Chief complaint: GI Bleed Stated complaint: Blood in stool Time Seen by Provider: 12/09/23 21:35 Source: patient Mode of arrival: wheelchair Limitations: no limitations - History of Present Illness Initial comments: 53-year-old male with past medical history of polysubstance abuse, ulcerative colitis who presents to the emergency department reporting blood per rectum. Patient states that he has had some rectal bleeding for the past 3 weeks. Bowel movement are medium red in coloration and he reports to going 3 times per day. He has developed fatigue and some exertional dyspnea. He is on Plavix for previous history of coronary disease. Patient was incarcerated for some time and was not medically compliant with his medications. Patient is supposed to be on several medications for his ulcerative colitis however is not taking them. He denies any fevers. Patient denies any abdominal pain. He has required blood transfusions in the past. Last colonoscopy was in July 2020. It demonstrated significant colitis from the proximal transverse colon to the sigmoid colon. Biopsies were positive for ulcerative colitis. - Related Data Previous Rx's Medication Instructions Recorded Aspirin 81 mg PO DAILY tab 08/10/23 Atorvastatin [Lipitor] 80 mg PO HS #30 tab 08/10/23 Clopidogrel [Plavix] 75 mg PO DAILY #30 tab 08/10/23 predniSONE 0 mg PO DIRECTED #126 tab 08/10/23 Acetaminophen Tab [Tylenol] 650 mg PO Q6HR PRN tab 08/11/23 Balsalazide Disodium [Colazal] 2,250 mg PO TID 30 Days #180 cap 08/11/23 Ferrous Sulfate [Iron (65 MG 325 mg PO BID-W/MEALS 30 Days #60 08/11/23 Elemental)] tab cefUROXime axetiL [Ceftin] 500 mg PO BID 7 Days #14 tab 08/11/23 metroNIDAZOLE [Flagyl] 500 mg PO TID 7 Days #21 tab 08/11/23 Allergies Allergy/AdvReac Type Severity Reaction Status Date / Time No Known Allergies Allergy Verified 12/09/23 21:30 Review of Systems ROS Statement: Those systems with pertinent positive or pertinent negative responses have been documented in the HPI. ROS Other: All systems not noted in ROS Statement are negative. Past Medical History Past Medical History: Asthma, Myocardial Infarction ([place]) Additional Past Medical History / Comment(s): IBS Last Myocardial Infarction Date:: october 2016 History of Any Multi-Drug Resistant Organisms: None Reported Past Surgical History: Heart Catheterization, Heart Catheterization With Stent Past Anesthesia/Blood Transfusion Reactions: No Reported Reaction Date of Last Stent Placement:: October 2016 Past Psychological History: No Psychological Hx Reported Smoking Status: Current every day smoker Past Alcohol Use History: None Reported Past Drug Use History: None Reported, Methamphetamine - Past Family History Father History Unknown: Yes Mother History Unknown: Yes General Exam Limitations: no limitations General appearance: alert, lethargic Head exam: Present: atraumatic, normocephalic, normal inspection Eye exam: Present: PERRL, EOMI, other (pale conjunctival). Absent: scleral icterus, conjunctival injection, periorbital swelling ENT exam: Present: mucous membranes dry Neck exam: Present: normal inspection. Absent: tenderness, meningismus, lymphadenopathy Respiratory exam: Present: normal lung sounds bilaterally. Absent: respiratory distress, wheezes, rales, rhonchi, stridor Cardiovascular Exam: Present: tachycardia GI/Abdominal exam: Present: soft, normal bowel sounds. Absent: distended, tenderness, guarding, rebound, rigid Neurological exam: Present: alert Psychiatric exam: Present: flat affect Course Vital Signs 12/09/23 12/09/23 21:31 23:04 Temperature 97.5 F L 98.8 F Pulse Rate 110 H 98 Respiratory 20 16 Rate Blood Pressure 107/72 103/67 O2 Sat by Pulse 100 99 Oximetry Medical Decision Making - Medical Decision Making Was pt. sent in by a medical professional or institution (, PA, FIELD INTERVIEWER, urgent care, hospital, or [place] health care facility...) When possible be specific @ -No Did you speak to anyone other than the patient for history (EMS, parent, family, police, friend...)? What history was obtained from this source @ -No Did you review nursing and triage notes (agree or disagree)? Why? @ -I reviewed and agree with nursing and triage notes Were old charts reviewed (outside hosp., previous admission, EMS record, old EKG, old radiological studies, urgent care reports/EKG's, [place] health care facility records)? Report findings @ -Reviewed patient's colonoscopy report done by Dr. Kumar in August 2023. It demonstrated biopsies which were positive for ulcerative colitis Differential Diagnosis (chest pain, altered mental status, abdominal pain women, abdominal pain men, vaginal bleeding, weakness, fever, dyspnea, syncope, headache, dizziness, GI bleed, back pain, seizure, CVA, palpatations, mental health, musculoskeletal)? @ -Differential GI Bleed: Esophageal varices, aortoenteric fistula, Cat-Fuentes, gastritis, peptic ulcer disease, diverticulosis, inflammatory bowel disease, hemorrhoids, fissure, colitis, malignancy, Meckels diverticulum, this is not meant to be an all- inclusive list. EKG interpreted by me (3pts min.). @ -Not done X-rays interpreted by me (1pt min.). @ -None done CT interpreted by me (1pt min.). @ -None done U/S interpreted by me (1pt. min.). @ -None done What testing was considered but not performed or refused? (CT, X-rays, U/S, labs)? Why? @ -None What meds were considered but not given or refused? Why? @ -None Did you discuss the management of the patient with other professionals (professionals i.e. , PA, FIELD INTERVIEWER, lab, RT, psych nurse, psychosocial rehabilitation counselor, lithographic press operator, teacher, business liaison officer, case monitor)? Give summary @ -Spoke with Dr. Bullock at [facility] who has accepted transfer the patient Was smoking cessation discussed for >3mins.? @ -No Was critical care preformed (if so, how long)? @ -No Were there social determinants of health that impacted care today? How? (Homelessness, low income, unemployed, alcoholism, drug addiction, transportation, low edu. Level, literacy, decrease access to med. care, correction, rehab)? @ -Patient was incarcerated therefore he was off of his medications Was there de-escalation of care discussed even if they declined (Discuss DNR or withdrawal of care, Hospice)? DNR status @ -No What co-morbidities impacted this encounter? (DM, HTN, Smoking, COPD, CAD, Cancer, CVA, ARF, Chemo, Hep., AIDS, mental health diagnosis, sleep apnea, morbid obesity)? @ -ulcerative colitis, coronary artery disease Was patient admitted / discharged? Hospital course, mention meds given and route, prescriptions, significant lab abnormalities, going to OR and other pertinent info. @ -Upon arrival, patient was seen and evaluated in room 1. Thorough history and physical exam was performed. Patient appears fatigued with pale conjunctiva. He is placed on continuous pulse ox and cardiac monitoring. 2 IVs are established. Laboratory studies are conducted. Patient does remain h emodynamically stable throughout his stay. Hemoglobin does return and is critically low at 5.3. Patient is typed and screened however he does have 2 antibodies which are present. Blood must be transported in from [place]. I did call and speak with Dr. Kumar as he did scope the patient in July. He does not feel comfortable managing the patient without GI capabilities. I informed the patient that he would require transfer. He was requesting [facility]. I did call and speak with Dr. Bullock who was agreeable to accept the patient as a transfer. He is made aware that the patient will not be transfused blood prior to transfer. Patient did sign COBRA forms. He will be transferred in stable condition with a guarded prognosis Undiagnosed new problem with uncertain prognosis? @ -No Drug Therapy requiring intensive monitoring for toxicity (Heparin, Nitro, Insulin, Cardizem)? @ -No Were any procedures done? @ -No Diagnosis/symptom? @ -Acute lower GI bleed, acute blood loss anemia, history of ulcerative colitis Acute, or Chronic, or Acute on Chronic? @ -Acute on chronic Uncomplicated (without systemic symptoms) or Complicated (systemic symptoms)? @ -Complicated Side effects of treatment? @ -No Exacerbation, Progression, or Severe Exacerbation? @ -No Poses a threat to life or bodily function? How? (Chest pain, [place], [place], pneumonia, PE, COPD, DKA, ARF, appy, cholecystitis, CVA, Diverticulitis, Homicidal, Suicidal, threat to staff... and all critical care pts) @ -Because patient's hemoglobin is profoundly low - Lab Data Result diagrams: 12/09/23 22:24 12/09/23 22:24 Lab Results 12/09/23 12/09/23 12/09/23 Range/Units 22:22 22:24 22:24 WBC 12.3 H (3.8-10.6) k/uL RBC 2.93 L (4.30-5.90) m/uL Hgb 5.3 L* (13.0-17.5) gm/dL Hct 18.9 L* (39.0-53.0) % MCV 64.6 L (80.0-100.0) fL MCH 18.0 L (25.0-35.0) pg MCHC 27.9 L (31.0-37.0) g/dL RDW 19.9 H (11.5-15.5) % Plt Count 1110 H* (150-450) k/uL MPV 6.9 Neutrophils % 78 % Lymphocytes % 10 % Monocytes % 8 % Eosinophils % 1 % Basophils % 0 % Neutrophils # 9.6 H (1.3-7.7) k/uL Lymphocytes # 1.2 (1.0-4.8) k/uL Monocytes # 1.0 (0-1.0) k/uL Eosinophils # 0.2 (0-0.7) k/uL Basophils # 0.0 (0-0.2) k/uL Hypochromasia Marked Poikilocytosis Moderate Anisocytosis Slight Microcytosis Marked PT 10.7 (10.0-12.5) sec INR 1.0 (<1.2) APTT 28.1 (22.0-30.0) sec Sodium (137-145) mmol/L Potassium (3.5-5.1) mmol/L Chloride (98-107) mmol/L Carbon Dioxide (22-30) mmol/L Anion Gap mmol/L BUN (9-20) mg/dL Creatinine (0.66-1.25) mg/dL Est GFR (CKD-EPI)AfAm (>60 ml/min/1.73 sqM) Est GFR (CKD-EPI)NonAf (>60 ml/min/1.73 sqM) Glucose (74-99) mg/dL Lactic Ac Sepsis Rflx Plasma Lactic Acid Ronnell (0.7-2.0) mmol/L Calcium (8.4-10.2) mg/dL Magnesium (1.6-2.3) mg/dL Total Bilirubin (0.2-1.3) mg/dL AST (17-59) U/L ALT (4-49) U/L Alkaline Phosphatase (38-126) U/L Total Protein (6.3-8.2) g/dL Albumin (3.5-5.0) g/dL Lipase (23-300) U/L Stool Occult Blood (Negative) Blood Type O Positive Blood Type Recheck O Pos Bld Type Recheck Status No Antibody Screen POSITIVE Antibody Identification Not Reportable Direct Antiglob Test Positive Crossmatch See Detail Spec Expiration Date 12/12/2023235812/09/23 12/09/23 12/09/23 Range/Units 22:24 22:24 22:24 WBC (3.8-10.6) k/uL RBC (4.30-5.90) m/uL Hgb (13.0-17.5) gm/dL Hct (39.0-53.0) % MCV (80.0-100.0) fL MCH (25.0-35.0) pg MCHC (31.0-37.0) g/dL RDW (11.5-15.5) % Plt Count (150-450) k/uL MPV Neutrophils % % Lymphocytes % % Monocytes % % Eosinophils % % Basophils % % Neutrophils # (1.3-7.7) k/uL Lymphocytes # (1.0-4.8) k/uL Monocytes # (0-1.0) k/uL Eosinophils # (0-0.7) k/uL Basophils # (0-0.2) k/uL Hypochromasia Poikilocytosis Anisocytosis Microcytosis PT (10.0-12.5) sec INR (<1.2) APTT (22.0-30.0) sec Sodium 131 L (137-145) mmol/L Potassium 4.9 (3.5-5.1) mmol/L Chloride 102 (98-107) mmol/L Carbon Dioxide 17 L (22-30) mmol/L Anion Gap 12 mmol/L BUN 22 H (9-20) mg/dL Creatinine 0.97 (0.66-1.25) mg/dL Est GFR (CKD-EPI)AfAm >90 (>60 ml/min/1.73 sqM) Est GFR (CKD-EPI)NonAf 90 (>60 ml/min/1.73 sqM) Glucose 122 H (74-99) mg/dL Lactic Ac Sepsis Rflx Plasma Lactic Acid Ronnell 2.4 H* (0.7-2.0) mmol/L Calcium 8.7 (8.4-10.2) mg/dL Magnesium 2.1 (1.6-2.3) mg/dL Total Bilirubin 0.4 (0.2-1.3) mg/dL AST 28 (17-59) U/L ALT 27 (4-49) U/L Alkaline Phosphatase 132 H (38-126) U/L Total Protein 6.8 (6.3-8.2) g/dL Albumin 3.4 L (3.5-5.0) g/dL Lipase 102 (23-300) U/L Stool Occult Blood Positive (Negative) Blood Type Blood Type Recheck Bld Type Recheck Status Antibody Screen Antibody Identification Direct Antiglob Test Crossmatch Spec Expiration Date 12/09/23 Range/Units 23:01 WBC (3.8-10.6) k/uL RBC (4.30-5.90) m/uL Hgb (13.0-17.5) gm/dL Hct (39.0-53.0) % MCV (80.0-100.0) fL MCH (25.0-35.0) pg MCHC (31.0-37.0) g/dL RDW (11.5-15.5) % Plt Count (150-450) k/uL MPV Neutrophils % % Lymphocytes % % Monocytes % % Eosinophils % % Basophils % % Neutrophils # (1.3-7.7) k/uL Lymphocytes # (1.0-4.8) k/uL Monocytes # (0-1.0) k/uL Eosinophils # (0-0.7) k/uL Basophils # (0-0.2) k/uL Hypochromasia Poikilocytosis Anisocytosis Microcytosis PT (10.0-12.5) sec INR (<1.2) APTT (22.0-30.0) sec Sodium (137-145) mmol/L Potassium (3.5-5.1) mmol/L Chloride (98-107) mmol/L Carbon Dioxide (22-30) mmol/L Anion Gap mmol/L BUN (9-20) mg/dL Creatinine (0.66-1.25) mg/dL Est GFR (CKD-EPI)AfAm (>60 ml/min/1.73 sqM) Est GFR (CKD-EPI)NonAf (>60 ml/min/1.73 sqM) Glucose (74-99) mg/dL Lactic Ac Sepsis Rflx Y Plasma Lactic Acid Ronnell (0.7-2.0) mmol/L Calcium (8.4-10.2) mg/dL Magnesium (1.6-2.3) mg/dL Total Bilirubin (0.2-1.3) mg/dL AST (17-59) U/L ALT (4-49) U/L Alkaline Phosphatase (38-126) U/L Total Protein (6.3-8.2) g/dL Albumin (3.5-5.0) g/dL Lipase (23-300) U/L Stool Occult Blood (Negative) Blood Type Blood Type Recheck Bld Type Recheck Status Antibody Screen Antibody Identification Direct Antiglob Test Crossmatch Spec Expiration Date Disposition Clinical Impression: Rectal bleeding, Ulcerative colitis, Thrombocytosis, Acute blood loss anemia, Symptomatic anemia Disposition: OTHER INSTITUTION NOT DEFINED Condition: Serious Is patient prescribed a controlled substance at d/c from ED?: No Referrals: None,Stated [Primary Care Provider] - 1-2 days Time of Disposition: 01:19 - Out of Hospital Transfer - Req. Specs Out of Hospital Transfer - Requested Specifics: Other Emergency Center ([facility]
[2023-12-09 22:40] LABS: Anisocytosis Slight; Basophils % (A) 0 %; Eosinophils # (A) 0.2 k/uL (0-0.7); Eosinophils % (A) 1 %; Hypochromasia Marked; Lymphocytes # (A) 1.2 k/uL (1.0-4.8); Lymphocytes % (A) 10 %; MCHC 27.9 g/dL (31.0-37.0); MCV 64.6 fL (80.0-100.0); Mean Platelet Volume 6.9; Microcytosis Marked; Monocytes % (A) 8 %; Neutrophils # (A) 9.6 k/uL (1.3-7.7); Neutrophils % (A) 78 %; Poikilocytosis Moderate; RBC 2.93 m/uL (4.30-5.90); RDW 19.9 % (11.5-15.5); WBC 12.3 k/uL (3.8-10.6)
[2023-12-09 22:44] LABS: HCT 18.9 % (39.0-53.0); HGB 5.3 gm/dL (13.0-17.5); Platelet Count 1110 k/uL (150-450)
[2023-12-09 22:45] LABS: Partial Thromboplastin Time 28.1 sec (22.0-30.0); Prothrombin Time 10.7 sec (10.0-12.5)
[2023-12-09 22:59] LABS: ALT 27 U/L (4-49); AST 28 U/L (17-59); African American GFR (CKD) >90 (>60 ml/min/1.73 sqM); Albumin 3.4 g/dL (3.5-5.0); Alkaline Phosphatase 132 U/L (38-126); Anion Gap 12 mmol/L; Blood Urea Nitrogen 22 mg/dL (9-20); Calcium 8.7 mg/dL (8.4-10.2); Carbon Dioxide 17 mmol/L (22-30); Chloride 102 mmol/L (98-107); Glucose 122 mg/dL (74-99); Lipase 102 U/L (23-300); Magnesium 2.1 mg/dL (1.6-2.3); Non-African American GFR(CKD) 90 (>60 ml/min/1.73 sqM); Potassium 4.9 mmol/L (3.5-5.1); Sodium 131 mmol/L (137-145); Total Bilirubin 0.4 mg/dL (0.2-1.3); Total Protein 6.8 g/dL (6.3-8.2)
[2023-12-09 23:07] VITALS: RESP 16
[2023-12-10 02:08] VITALS: BP 95/71; PULSE 87; TEMP 98.4
== END 2023-12-10 02:08 | disposition other institution (70) ==
LOC: EC 21:27
DX: K51.911 Ulcerative colitis, unspecified with rectal bleeding (principal); D62 Acute posthemorrhagic anemia; D75.839 Thrombocytosis, unspecified; R00.0 Tachycardia, unspecified; I25.10 Atherosclerotic heart disease of native coronary artery without angina pectoris; F17.200 Nicotine dependence, unspecified, uncomplicated
CPT/HCPCS: 36415; 80053; 82272; 83605; 83690; 83735; 85025; 85610; 85730; 86850; 86870; 86880; 86900; 86901; 86920; 99285

== ENCOUNTER 2023-12-17 01:27 | Emergency (ER) | payer OTHER ==
[2023-12-17 01:33] VITALS: BP 73/45; PULSE 89; RESP 36; TEMP 97.5
[2023-12-17] MEDS ORDERED: EPINEPHrine 10 ML SYRINGE (0.1 MG/ML) ONE (02:00)
[2023-12-17] MEDS ORDERED: SODIUM CHLORIDE 0.9% 1,000 ML BAG ONE (02:00)
[2023-12-17] MEDS ORDERED: CALCIUM CHLORIDE 100 MG/ML 10 ML SYRINGE ONE (02:00)
[2023-12-17] MEDS ORDERED: SODIUM BICARB 8.4% 50 ML SYR (1 MEQ/ML) ONE (02:00)
[2023-12-17] MEDS ORDERED: ASPIRIN 81 MG PO STA (02:12)
--- NOTE | 2023-12-17 02:16 | ED ---
SOB HPI - General Chief Complaint: Shortness of Breath Stated Complaint: FERDINAND, fall Time Seen by Provider: 12/17/23 02:11 Source: patient, family Mode of arrival: wheelchair Limitations: no limitations - History of Present Illness Initial Comments: Patient is 53-year-old man who presents here with shortness of breath. He states has been getting progressively worse over the past 2 days. Patient had been at [facility] for GI bleeding and reportedly required transfusion. Been seen here and had hemoglobin less than 6 and then was transferred as there is no gastroenterology. The patient denies fever or chills. He is not having chest pain. The history is otherwise limited as he is dyspneic. MD Complaint: shortness of breath Onset/Timin -: days(s) Severity scale (1-10): 0 Consistency: constant Improves With: oxygen Worsens With: nothing Associated Symptoms: denies other symptoms Treatments Prior to Arrival: none - Related Data Home Oxygen Therapy: No Previous Rx's Medication Instructions Recorded Aspirin 81 mg PO DAILY tab 08/10/23 Atorvastatin [Lipitor] 80 mg PO HS #30 tab 08/10/23 Clopidogrel [Plavix] 75 mg PO DAILY #30 tab 08/10/23 predniSONE 0 mg PO DIRECTED #126 tab 08/10/23 Acetaminophen Tab [Tylenol] 650 mg PO Q6HR PRN tab 08/11/23 Balsalazide Disodium [Colazal] 2,250 mg PO TID 30 Days #180 cap 08/11/23 Ferrous Sulfate [Iron (65 MG 325 mg PO BID-W/MEALS 30 Days #60 08/11/23 Elemental)] tab cefUROXime axetiL [Ceftin] 500 mg PO BID 7 Days #14 tab 08/11/23 metroNIDAZOLE [Flagyl] 500 mg PO TID 7 Days #21 tab 08/11/23 Allergies Allergy/AdvReac Type Severity Reaction Status Date / Time No Known Allergies Allergy Verified 12/17/23 01:29 Review of Systems ROS Statement: Those systems with pertinent positive or pertinent negative responses have been documented in the HPI. ROS Other: All systems not noted in ROS Statement are negative. Constitutional: Reports: weakness. Denies: fever, chills Respiratory: Reports: as per HPI, dyspnea. Denies: cough, hemoptysis Cardiovascular: Reports: dyspnea on exertion. Denies: chest pain, palpitations, edema Gastrointestinal: Reports: as per HPI. Denies: abdominal pain, vomiting, diarrhea, melena, hematochezia Genitourinary: Denies: dysuria, hematuria Musculoskeletal: Denies: back pain Skin: Denies: rash Neurological: Denies: headache, weakness Past Medical History Past Medical History: Asthma, Myocardial Infarction ([place]) Additional Past Medical History / Comment(s): IBS Last Myocardial Infarction Date:: october 2016 History of Any Multi-Drug Resistant Organisms: None Reported Past Surgical History: Heart Catheterization, Heart Catheterization With Stent Past Anesthesia/Blood Transfusion Reactions: No Reported Reaction Date of Last Stent Placement:: October 2016 Past Psychological History: No Psychological Hx Reported Smoking Status: Current every day smoker Past Alcohol Use History: None Reported Past Drug Use History: None Reported, Methamphetamine - Past Family History Father History Unknown: Yes Mother History Unknown: Yes General Exam Limitations: no limitations General appearance: alert, in distress Head exam: Present: atraumatic, normocephalic Eye exam: Present: normal appearance. Absent: scleral icterus, conjunctival injection ENT exam: Present: mucous membranes dry Neck exam: Present: normal inspection, full ROM Respiratory exam: Present: respiratory distress, rales (Few scattered crackles bilaterally). Absent: wheezes, rhonchi, stridor, accessory muscle use, decreased breath sounds Cardiovascular Exam: Present: regular rate, normal rhythm, normal heart sounds. Absent: systolic murmur, diastolic murmur, rubs, gallop GI/Abdominal exam: Present: soft. Absent: distended, tenderness, guarding, rebound, rigid, mass Extremities exam: Present: normal inspection, normal capillary refill, other (The patient has what appears to be thrombophlebitis left forearm.). Absent: pedal edema, calf tenderness Back exam: Present: normal inspection. Absent: vertebral tenderness Neurological exam: Present: alert, oriented X3. Absent: motor sensory deficit Skin exam: Present: warm, dry, intact, pallor. Absent: rash Course Vital Signs 12/17/23 01:30 Temperature 97.5 F L Pulse Rate 89 Respiratory 36 H Rate Blood Pressure 73/45 O2 Sat by Pulse 96 Oximetry Medical Decision Making - Medical Decision Making Patient is a 53-year-old man arriving here to have evaluation for dyspnea. On arrival the patient does appear to have some respiratory distress being tachypneic. Patient does deny chest pain. He did have twelve-lead ECG which had rate 137 and was obtained after he had walked in. The patient has similar ECG the lower rate previously. Was shown the patient's ECG from the advanced triage area and as it was moderately tachycardic requested that the patient be brought back to a room. When I saw the patient he did appear to be in respiratory distress and I ordered labs and studies. The patient did not have good IV access and required a number of attempts by nursing and they were only able to obtain a small peripheral IV. Given the patient's respiratory distress I had requested a central line kit and was going to place central line when the patient lost vital signs and ACLS protocol was instituted. I intubated the patient during pulse check, see the intubation note. At the next pulse check I was able to start a right femoral central venous catheter, see the procedure note. We did continue resuscitation efforts for 1 hour, the patient had 2 L of IV f luid administered during that time and also multiple rounds of epinephrine, sodium bicarbonate, a dose of calcium chloride was attempted. The patient ultimately had PEA on the monitor, and this was verified by using ultrasound which did not visualize any contractions of the heart despite the electrical activity on the monitor. The patient was pronounced at 4:54 AM. I did discuss the case with patient's brother when he arrived. I did discuss the case with the medical sales specialist. The patient did have chest x-ray which I interpreted as showing suspected bilateral infiltrates. No pneumothorax Was pt. sent in by a medical professional or institution (, [facility], [facility] [employer], urgent care, hospital, or care home...) When possible be specific @ -[No] Did you speak to anyone other than the patient for history (EMS, parent, family, police, friend...)? What history was obtained from this source @ -[No] Did you review nursing and triage notes (agree or disagree)? Why? @ -[I reviewed and agree with nursing and triage notes] Were old charts reviewed (outside hosp., previous admission, EMS record, old EKG, old radiological studies, urgent care reports/EKG's, care home records)? Report findings @ -[No old charts were reviewed] Differential Diagnosis (chest pain, altered mental status, abdominal pain women, abdominal pain men, vaginal bleeding, weakness, fever, dyspnea, syncope, hea dache, dizziness, GI bleed, back pain, seizure, CVA, palpatations, mental health, musculoskeletal)? @ -[Differential Dyspnea: Coronary syndrome, arrhythmia, tamponade, asthma, COPD, pulmonary embolism, pneumonia, pneumothorax, pulmonary effusion, anaphylaxis, diabetic ketoacidosis, flailed chest, pulmonary contusion, diaphragmatic rupture, anemia, neuromuscular, this is not meant to be an all-inclusive list. EKG interpreted by me (3pts min.). @ -[Interpreted as above X-rays interpreted by me (1pt min.). @ -[I interpreted as above CT interpreted by me (1pt min.). @ -[None done] U/S interpreted by me (1pt. min.). @ -[None done] What testing was considered but not performed or refused? (CT, X-rays, U/S, labs)? Why? @ -[None] What meds were considered but not given or refused? Why? @ -[None] Did you discuss the management of the patient with other professionals (professionals i.e. , PA, ASSEMBLER [employer], lab, RT, psych nurse, social work nurse, manager channel, teacher, signals officer, briefcase sewer)? Give summary @ -[No] Was smoking cessation discussed for >3mins.? @ -[No] Was critical care preformed (if so, how long)? @ -[Yes, 45 minutes Were there social determinants of health that impacted care today? How? (Homelessness, low income, unemployed, alcoholism, drug addiction, transportation, low edu. Level, literacy, decrease access to med. care, correction, rehab)? @ -[No] Was there de-escalation of care discussed even if they declined (Discuss DNR or withdrawal of care, Hospice)? DNR status @ -[No] What co-morbidities impacted this encounter? (DM, HTN, Smoking, COPD, CAD, Cancer, CVA, ARF, Chemo, Hep., AIDS, mental health diagnosis, sleep apnea, morbid obesity)? @ -[Crohn's disease with recent GI bleed and anemia requiring transfusion Was patient admitted / discharged? Hospital course, mention meds given and route, prescriptions, significant lab abnormalities, going to OR and other pe rtinent info. @ -[See notes above Undiagnosed new problem with uncertain prognosis? @ -[No] Drug Therapy requiring intensive monitoring for toxicity (Heparin, Nitro, Insulin, Cardizem)? @ -[No] Were any procedures done? @ -[No] Diagnosis/symptom? @ -[Acute cardiopulmonary arrest Probable bilateral pneumonia Acute kidney injury Acute, or Chronic, or Acute on Chronic? @ -[Acute Uncomplicated (without systemic symptoms) or Complicated (systemic symptoms)? @ -[default] Side effects of treatment? @ -[No] Exacerbation, Progression, or Severe Exacerbation? @ -[No] Poses a threat to life or bodily function? How? (Chest pain, [place], [place], pneumonia, PE, COPD, DKA, ARF, appy, cholecystitis, CVA, Diverticulitis, Homicidal, Suicidal, threat to staff... and all critical care pts) @ -Yes - Lab Data Result diagrams: 12/17/23 03:30 12/17/23 03:30 Lab Results 12/17/23 12/17/23 12/17/23 Range/Units 03:30 03:30 03:30 WBC 32.0 H (3.8-10.6) k/uL RBC 4.92 (4.30-5.90) m/uL Hgb 10.7 L D (13.0-17.5) gm/dL Hct 38.7 L (39.0-53.0) % MCV 78.8 L D (80.0-100.0) fL MCH 21.7 L (25.0-35.0) pg MCHC 27.6 L (31.0-37.0) g/dL RDW 20.9 H (11.5-15.5) % Plt Count 874 H (150-450) k/uL MPV 8.0 Neutrophils % (Manual) 81 % Band Neuts % (Manual) 4 % Lymphocytes % (Manual) 11 % Monocytes % (Manual) 2 % Metamyelocytes % 2 % Myelocytes % 1 % Neutrophils # (Manual) 27.20 H (1.3-7.7) k/uL Lymphocytes # (Manual) 3.52 (1.0-4.8) k/uL Monocytes # (Manual) 0.64 (0-1.0) k/uL Metamyelocytes # (Man) 0.64 H (0) k/uL Myelocytes # (Manual) 0.32 H (0) k/uL Nucleated RBCs 1 H (0-0) /100 WBC Manual Slide Review Performed Hypochromasia Marked Poikilocytosis Moderate Anisocytosis Moderate Microcytosis Moderate Tear Drop Cells Present Crenated Cell Present Sodium 137 (137-145) mmol/L Potassium 5.8 H (3.5-5.1) mmol/L Chloride 105 (98-107) mmol/L Carbon Dioxide 10 L (22-30) mmol/L Anion Gap 22 mmol/L BUN 50 H (9-20) mg/dL Creatinine 2.41 H (0.66-1.25) mg/dL Est GFR (CKD-EPI)AfAm 34 (>60 ml/min/1.73 sqM) Est GFR (CKD-EPI)NonAf 30 (>60 ml/min/1.73 sqM) Glucose 63 L (74-99) mg/dL POC Glucose (mg/dL) (70-110) mg/dL POC Glu Chair Mender ID Calcium 9.5 (8.4-10.2) mg/dL Magnesium 2.7 H (1.6-2.3) mg/dL Total Bilirubin 1.1 (0.2-1.3) mg/dL AST 48 (17-59) U/L ALT 50 H (4-49) U/L Alkaline Phosphatase 159 H (38-126) U/L Troponin I 0.019 (0.000-0.034) ng/mL NT-Pro-B Natriuret Pep 5080 pg/mL Total Protein 6.0 L (6.3-8.2) g/dL Albumin 2.9 L (3.5-5.0) g/dL 12/17/23 Range/Units 04:29 WBC (3.8-10.6) k/uL RBC (4.30-5.90) m/uL Hgb (13.0-17.5) gm/dL Hct (39.0-53.0) % MCV (80.0-100.0) fL MCH (25.0-35.0) pg MCHC (31.0-37.0) g/dL RDW (11.5-15.5) % Plt Count (150-450) k/uL MPV Neutrophils % (Manual) % Band Neuts % (Manual) % Lymphocytes % (Manual) % Monocytes % (Manual) % Metamyelocytes % % Myelocytes % % Neutrophils # (Manual) (1.3-7.7) k/uL Lymphocytes # (Manual) (1.0-4.8) k/uL Monocytes # (Manual) (0-1.0) k/uL Metamyelocytes # (Man) (0) k/uL Myelocytes # (Manual) (0) k/uL Nucleated RBCs (0-0) /100 WBC Manual Slide Review Hypochromasia Poikilocytosis Anisocytosis Microcytosis Tear Drop Cells Crenated Cell Sodium (137-145) mmol/L Potassium (3.5-5.1) mmol/L Chloride (98-107) mmol/L Carbon Dioxide (22-30) mmol/L Anion Gap mmol/L BUN (9-20) mg/dL Creatinine (0.66-1.25) mg/dL Est GFR (CKD-EPI)AfAm (>60 ml/min/1.73 sqM) Est GFR (CKD-EPI)NonAf (>60 ml/min/1.73 sqM) Glucose (74-99) mg/dL POC Glucose (mg/dL) 112 H (70-110) mg/dL POC Glu Chair Mender ID Justino Stern Calcium (8.4-10.2) mg/dL Magnesium (1.6-2.3) mg/dL Total Bilirubin (0.2-1.3) mg/dL AST (17-59) U/L ALT (4-49) U/L Alkaline Phosphatase (38-126) U/L Troponin I (0.000-0.034) ng/mL NT-Pro-B Natriuret Pep pg/mL Total Protein (6.3-8.2) g/dL Albumin (3.5-5.0) g/dL - EKG Data -: EKG Interpreted by [facility] EKG shows normal: sinus rhythm, axis ([place] deviation), intervals (IA interval 111 ms, QTc 376 ms, both normal. QRS duration 138 ms, prolonged consistent with right bundle branch block.), QRS complexes (Possible old anterior NE, which is present on the comparison ECG.) Rate: tachycardia (Rate 137 bpm) Disposition Clinical Impression: Cardiopulmonary arrest, Pneumonia, Acute kidney injury Disposition: Condition: Undetermined Is patient prescribed a controlled substance at d/c from ED?: No Referrals: None,Stated [Primary Care Provider] - 1-2 days Preliminary Cause of : Cardiopulmonary arrest
[2023-12-17] MEDS: SODIUM CHLORIDE 0.9% 1,000 ML IV STA (03:35)
[2023-12-17 03:41] LABS: Anisocytosis Moderate; HCT 38.7 % (39.0-53.0); Hypochromasia Marked; MCH 21.7 pg (25.0-35.0); MCHC 27.6 g/dL (31.0-37.0); Microcytosis Moderate; Platelet Count 874 k/uL (150-450); Poikilocytosis Moderate; RBC 4.92 m/uL (4.30-5.90); RDW 20.9 % (11.5-15.5)
--- NOTE | 2023-12-17 04:01 | XR ---
EXAM: XR Chest, 1 View CLINICAL HISTORY: ITS.REASON XR Reason: chest pain TECHNIQUE: Frontal view of the chest. COMPARISON: No relevant prior studies available. IMPRESSION: Multifocal opacities bilaterally. Correlate with infection
[2023-12-17 04:09] LABS: ALT 50 U/L (4-49); AST 48 U/L (17-59); African American GFR (CKD) 34 (>60 ml/min/1.73 sqM); Albumin 2.9 g/dL (3.5-5.0); Alkaline Phosphatase 159 U/L (38-126); Anion Gap 22 mmol/L; Blood Urea Nitrogen 50 mg/dL (9-20); Calcium 9.5 mg/dL (8.4-10.2); Carbon Dioxide 10 mmol/L (22-30); Chloride 105 mmol/L (98-107); Glucose 63 mg/dL (74-99); Magnesium 2.7 mg/dL (1.6-2.3); Non-African American GFR(CKD) 30 (>60 ml/min/1.73 sqM); Potassium 5.8 mmol/L (3.5-5.1); Sodium 137 mmol/L (137-145); Total Bilirubin 1.1 mg/dL (0.2-1.3)
[2023-12-17 04:18] LABS: NT-Pro-B-Type Natriuretic Pept 5080 pg/mL
[2023-12-17 04:19] LABS: HGB 10.7 gm/dL (13.0-17.5); MCV 78.8 fL (80.0-100.0)
[2023-12-17 04:31] LABS: Band Neutrophils % 4 %; Lymphocytes # (M) 3.52 k/uL (1.0-4.8); Metamyelocytes # (M) 0.64 k/uL (0); Metamyelocytes % 2 %; Monocytes # (M) 0.64 k/uL (0-1.0); Myelocytes # (M) 0.32 k/uL (0); Myelocytes % 1 %; Neutrophils % (M) 81 %; Nucleated Red Blood Cells 1 /100 WBC (0-0); Total Cells Counted 200
[2023-12-17 04:31] LABS: Glucose,Whole Blood 112 mg/dL (70-110)
[2023-12-17 04:34] LABS: Crenated RBC Present; Tear Drop Cells Present
== END 2023-12-17 11:33 | disposition expired ==
LOC: EC 01:27
DX: I46.9 Cardiac arrest, cause unspecified (principal); J18.9 Pneumonia, unspecified organism; N17.9 Acute kidney failure, unspecified; F17.200 Nicotine dependence, unspecified, uncomplicated; F15.90 Other stimulant use, unspecified, uncomplicated
CPT/HCPCS: 99285; 96360; 96361 ×3; 36415; 92950; 93005; 83880; 80053; 83735; 84484; 85025; 71045; 31500; J0171